=== PATIENT | male | born 1945 | race Hispanic/Latino ===

== ENCOUNTER 2017-03-06 20:29 | Inpatient (IN) | payer MEDICARE ==
[2017-03-06 20:30] VITALS: BMI 36.6
--- NOTE | 2017-03-06 20:49 | C.PDOC ---
History Of Present Illness 71 year old male presents to ED with complaints of SOB and sputum production for 2 days. Patient denies chest pain, palpitations, fever, chills and nausea/ diarrhea/vomiting. .Speaking in 4-5 word sentences Time Seen by Provider: 03/06/17 20:49 Chief Complaint (Nursing): Shortness Of Breath History Per: Patient History/Exam Limitations: no limitations Onset/Duration Of Symptoms: Days Current Symptoms Are (Timing): Still Present Initiating Event: Other Quality: Other Exacerbating Factor(s): Exertion, Coughing Current Respiratory Medications: See Home Med List Severity: Moderate Pain Scale Rating Of: 4 Associated Symptoms: Productive Cough. denies: Fever, Chills Reports Recently: Seen In ED, Treated By A Physician, Hospitalized Recent travel outside of the [place]: No Additional History Per: Family Past Medical History Reviewed: Historical Data, Nursing Documentation, Vital Signs Vital Signs: Last Vital Signs Temp Pulse 97 H 03/06/17 22:54 Resp 18 03/06/17 22:54 BP 126/65 03/06/17 22:54 Pulse Ox 97 03/06/17 22:54 - Medical History PMH: Atrial Fibrillation, Cardia Arrhythmia, CHF, COPD, HTN, Peripheral Edema, Pneumonia Surgical History: [facility] Procedures ASSISTANCE WITH RESPIRATORY VENTILATION, 24-96 HRS, CPAP (11/20/16) CORONAR ARTERIOGR-2 CATH (06/09/07) INSERTION OF INFUSION DEV INTO SUP VENA CAVA, PERC APPROACH (12/18/16) INTRODUCTION OF VASOPRESSOR INTO PERIPH VEIN, PERC APPROACH (12/18/16) LEFT HEART CARDIAC CATH (06/09/07) LT HEART ANGIOCARDIOGRAM (06/09/07) Family History: States: No Known Family Hx - Social History Hx Tobacco Use: Yes (former smoker) Hx Alcohol Use: Yes Hx Substance Use: No - Immunization History Hx Tetanus Toxoid Vaccination: No Hx Influenza Vaccination: No Hx Pneumococcal Vaccination: No Review Of Systems Constitutional: Negative for: Fever, Chills Cardiovascular: Positive for: Edema. Negative for: Chest Pain, Palpitations Respiratory: Positive for: Shortness of Breath, Sputum. Negative for: Cough Gastrointestinal: Negative for: Nausea, Vomiting, Diarrhea Musculoskeletal: Positive for: Back Pain Skin: Positive for: Rash, Lesions Neurological: Negative for: Weakness Psych: Negative for: Anxiety Physical Exam - Physical Exam Appears: Non-toxic, In Acute Distress (Moderate distress) Skin: Warm, Dry (scaly dry skin ) Eye(s): bilateral: Normal Inspection Oral Mucosa: Moist Neck: Supple Chest: Symmetrical Cardiovascular: Rhythm Regular Respiratory: Rales (bases), Rhonchi (lungs diffuse ronchi, left>right), No Wheezing Gastrointestinal/Abdominal: Bowel Sounds (Tympanic Precaussion), Soft, No Tenderness, Distention, No Guarding, No Rebound, Other (subumbilical erythema) Back: No CVA Tenderness Extremity: Normal ROM, No Tenderness, Swelling (legs bilateral edema with poor bilateral vascular stasis skin changes), Other (right pre-tibial area - 2 x 3 cm non-healing ulcer) Extremity: Bilateral: Other (poor vascular stasis skin changes,) Neurological/Psych: Oriented x3, Normal Speech, Normal Cognition Gait: Steady ED Course And Treatment - Laboratory Results Result Diagrams: 03/06/17 21:06 03/06/17 21:06 ECG: Interpreted By Me, Viewed By Me ECG Rhythm: Atrial Fibrillation (9 0), R BBB (lahb), Nonspecific Changes (lahb, unchanged from 12/18/16) O2 Sat by Pulse Oximetry: 97 Pulse Ox Interpretation: Normal - Radiology CXR: Interpreted by Me, Viewed By Me CXR Interpretation: Yes: Infiltrates (b/l ), Cardiomegaly, Other (mild vasc congestion) Progress Note: cardiac work up, Critical Care Time - Critical Care Note Total Time (in mins): 30 Documented critical care: time excludes all time spent performing seperately billable procedures. Disposition Discussed With : Gretel Bazan Comment: accepted the patient on his service and took over the care at 11:16 PM Doctor Will See Patient In The: Hospital Counseled Patient/Family Regarding: Studies Performed, Diagnosis - Disposition Disposition: HOSPITALIZED Disposition Time: 20:49 Condition: FAIR - POA Present On Arrival: Poor Glycemic Control, Pressure Ulcer - Clinical Impression Clinical Impression: Chronic congestive heart failure, Dyspnea, Leg swelling, CO2 retention, Atrial fibrillation with RVR - PA / REFERENCE INVESTIGATOR / Resident Statement MD/DO has reviewed & agrees with the documentation as recorded. - Scribe Statement The provider has reviewed the documentation as recorded by the Zackaryibgriselda Loera All medical record entries made by the Scribgriselda were at my direction and personally dictated by me. I have reviewed the chart and agree that the record accurately reflects my personal performance of the history, physical exam, medical decision making, and the department course for this patient. I have also personally directed, reviewed, and agree with the discharge instructions and disposition. Decision To Admit - Pt Status Changed To: Hospital Disposition Of: Inpatient - Admit Certification Admit to Inpatient:: After my assessment, the patient will require hospitalization for at least two midnights. This is because of the severity of symptoms shown, intensity of services needed, and/or the medical risk in this patient being treated as an outpatient. - InPatient: Physician Admission Certification: I certify that this patient requires 2 or more midnights of care for the following reason:: After my assessment, the patient will require hospitalization for at least two midnights. This is because of the severity of symptoms shown, intensity of services needed, and/or the medical risk in this patient being treated as an outpatient. - . Bed Request Type: Telemetry Admitting Physician: Gretel Bazan Patient Diagnosis: Chronic congestive heart failure, Dyspnea, Leg swelling, Atrial fibrillation with RVR
[2017-03-06 21:20] LABS: CHLORIDE 86 mmol/L (98-107); SODIUM 137 mmol/L (132-148)
[2017-03-06 21:21] LABS: POTASSIUM 3.6 mmol/L (3.6-5.2)
[2017-03-06 21:22] LABS: ABG ALLEN TEST POS; DRAW SITE RRA
[2017-03-06 21:23] LABS: ALB/GLOB RATIO 1.2 (1.0-2.1); ALKALINE PHOSPHATASE 81 U/L (38-126); AST/SGOT 47 U/L (17-59); BASO % 0.7 % (0.0-2.0); BILIRUBIN,TOTAL 1.7 mg/dL (0.2-1.3); BLOOD UREA NITROGEN 18 mg/dL (9-20); EOS % 0.6 % (0.0-4.0); GFR AFRICAN-AMERICAN > 60; GLUCOSE,RANDOM 113 mg/dL (75-110); HEMATOCRIT 40.5 % (35.0-51.0); LYMPH # 1.2 K/uL (1.0-4.3); LYMPH % 20.6 % (20.0-40.0); MEAN CELL VOLUME 98.4 fL (80.0-94.0); MEAN CORPUSCULAR HEMOGLOBIN 32.3 pg (27.0-31.0); MEAN CORPUSCULAR HGB CONC 32.8 g/dL (33.0-37.0); MEAN PLATELET VOLUME 7.8 fL (7.2-11.7); MONO # 0.8 K/uL (0.0-0.8); MONO % 13.3 % (0.0-10.0); RED CELL DISTRIBUTION WIDTH 14.6 % (11.5-14.5); TOTAL PROTEIN 6.7 g/dL (6.3-8.3); WHITE BLOOD COUNT 5.7 K/uL (4.8-10.8)
[2017-03-06 21:24] LABS: ALT/SGPT 42 U/L (21-72); CALCIUM 8.6 mg/dl (8.6-10.4); MAGNESIUM 1.7 mg/dL (1.6-2.3)
[2017-03-06 21:47] LABS: INR 1.6
[2017-03-06 21:52] LABS: CARBON DIOXIDE 41 mmol/L (22-30)
[2017-03-06 22:39] LABS: RBC URINE 4 /hpf (0-3); URINE BACTERIA MOD (<OCC); URINE BILIRUBIN NEGATIVE (NEGATIVE); URINE BLOOD NEGATIVE (NEGATIVE); URINE GLUCOSE (UA) NORMAL (Normal); URINE KETONE NEGATIVE (NEGATIVE); URINE LEUKOCYTE ESTERASE 3+ Leu/uL (Negative); URINE PROTEIN 2+ mg/dL (NEGATIVE); WBC URINE 116 /hpf (0-5)
[2017-03-06 23:00] LABS: URINE COLOR YELLOW (YELLOW)
[2017-03-07 06:22] LABS: BASO % 0.4 % (0.0-2.0); EOS % 0.9 % (0.0-4.0); HEMATOCRIT 40.6 % (35.0-51.0); LYMPH # 1.1 K/uL (1.0-4.3); LYMPH % 21.8 % (20.0-40.0); MEAN CELL VOLUME 99.9 fL (80.0-94.0); MEAN CORPUSCULAR HEMOGLOBIN 31.4 pg (27.0-31.0); MEAN CORPUSCULAR HGB CONC 31.4 g/dL (33.0-37.0); MEAN PLATELET VOLUME 7.7 fL (7.2-11.7); MONO # 0.8 K/uL (0.0-0.8); MONO % 14.6 % (0.0-10.0); RED CELL DISTRIBUTION WIDTH 15.1 % (11.5-14.5); WHITE BLOOD COUNT 5.1 K/uL (4.8-10.8)
[2017-03-07] MEDS ORDERED: guaiFENesin DM 200 mg-20 mg/10 ml UD PO ONE (06:25)
[2017-03-07 07:33] LABS: CHLORIDE 85 mmol/L (98-107); SODIUM 139 mmol/L (132-148)
[2017-03-07 07:34] LABS: POTASSIUM 3.2 mmol/L (3.6-5.2)
[2017-03-07 07:36] LABS: ALB/GLOB RATIO 1.1 (1.0-2.1); ALKALINE PHOSPHATASE 80 U/L (38-126); ALT/SGPT 41 U/L (21-72); AST/SGOT 49 U/L (17-59); BILIRUBIN,TOTAL 1.2 mg/dL (0.2-1.3); BLOOD UREA NITROGEN 17 mg/dL (9-20); CALCIUM 8.4 mg/dl (8.6-10.4); GFR AFRICAN-AMERICAN > 60; GLUCOSE,RANDOM 97 mg/dL (75-110); TOTAL PROTEIN 6.5 g/dL (6.3-8.3)
[2017-03-07 08:42] LABS: CARBON DIOXIDE 43 mmol/L (22-30)
--- NOTE | 2017-03-07 09:04 | RAD ---
PROCEDURE: CHEST RADIOGRAPH, 1 VIEW HISTORY: SOB COMPARISON: None available. FINDINGS: LUNGS: Moderate to severe venous congestion. More prominent airspace opacities in the mid to lower lung zones. Bilateral pleural effusions. PLEURA: As above. CARDIOVASCULAR: Cardiomegaly. Calcification at the aortic knob. OSSEOUS STRUCTURES: Degenerative changes in the spine and shoulders. Calcific tendinopathy of the left proximal humerus. VISUALIZED UPPER ABDOMEN: Normal. OTHER FINDINGS: None. IMPRESSION: Moderate to severe venous congestion. More prominent airspace opacities in the mid to lower lung zones. Bilateral pleural effusions.
[2017-03-07] MEDS ORDERED: Potassium Chloride 20 mEq ER Tab PO ONE ×2 (09:19→10:52)
--- NOTE | 2017-03-07 12:53 | CP.PCM.HP ---
History of Present Illness - History of Present Illness History of Present Illness: COMPREHENSIVE HISTORY & PHYSICAL EXAM HPI LAST FEW DAYS HAS BEEN C/O SOB AND SWELLING OF LEGS . PT. 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 C , A. FIB (DECLINED ANTICOAGULATION ) HAD PLRONGED RECENT STAY IN REHAB. WENT HOME AND DID NOT F/U. ALSO HAS STOPPED TAKING SOME OF HIS MEDICATION. PT. HAS HIS OWN OPINION ON WHAT MEDICATION HE NEEDS TO TAKE AND DECLINED OTHER MEDS RXED BY MD. PAST HIST. PERSONAL HIST: Smoking. N Alcohol. Y Allergy N Travel_- . FAMILY HIST : ROS : Constitutional: Negative for weight change Eyes: Negative for redness, swelling, itching, discharge, vision changes, blurry vision, double vision, glaucoma, cataracts, Ears: Negative for hearing loss, ringing, , tinnitus, vertigo Nose: Negative for rhinorrhea, stuffiness, sniffing, itching, postnasal drip, discoloration, nasal congestion and epistaxis. Throat: Negative for throat clearing, sore throat, hoarseness, difficulty swallowing and difficulty speaking. Respiratory: COUGH, NO EXP, WHEEZING Cardiovascular POS for chest pain, palpitations, orthopnea, PND, Edema of legs , leg crampsclaudication, , irregular heartbeat, Neurology: Negative for irritability, muscle weakness, numbness and tingling, seizures, tremors, migraines, slurred speech, syncope, memory loss, mood changes , recurrent headaches Gastrointestinal: Negative for difficulty swallowing, diarrhea, constipation, black stools, rectal bleeding, nausea, flatulence, reflux, poor appetite, changes in bowel habits, abdominal pain Genitourinary: Negative for frequent urination, hematuria, discharge, incontinence, urinary retention, frequent UTI, Psychiatric: Negative for depression, anxiety/panic, suicidal tendencies, Musculoskeletal: Negative for swollen joints, back pain, , neck pain, morning stiffness of joints, . Skin: Negative for rash, ulcers, itching, dry skin and pigmented lesions. P/E: Constitutional: Appears stated age and SOB Head: Normocephalic. Ears: External ear canals patent without inflammation. Tympanic membranes intact with normal light reflex and landmark. Eyes: Pupils are central, bilaterally equal, symmetrical and reacts to light with normal movements and no icterus or pallor. Nose: External nares are patent. Mucosa is pink Mouth-Throat: Good general appearance and condition. No post-pharyngeal/oropharyngeal erythema and tonsillar hypertrophy. Good dental hygiene. Neck-Lymphatic: Neck is supple with normal ROM, no thyromegaly, lymph nodes or masses. JVD is normal with no carotid bruit. Lungs CANDACE POOR AIR ENTRY WITH RONCHI . Cardiovascular: S1 and S2 are normal with no murmurs, gallops and rub. GI Exam: No hepatomegaly. Abdomen is soft and non-tender. No Organomegaly , masses or hernias are evident and bowel sounds are normal and active. Neurology: Higher function and all cranial nerves intact, with no gross motor or sensory deficit. Superficial and deep reflexes are normal with downwards planters. No cerebellar deficit with normal gait. Musculoskeletal: No tender spots with normal curvature of the spine with no swelling or restricted ROM of the small and large joints. Extremities: Homans sign absent. Intact pulses with pitting edema, AND ERYTHEMA Skin: No rash, eruptions or abnormal skin pigmentation LAB/RADIOLOGY: ASSESMENT : HEART FAILURE WITH NORMAL EF COPD WITH [id number]. INFECTION UROSEPSIS ALCOHOLIC CIRRHOSIS A. FIB PLAN: IV LASIX/ALDACTONE PT REFUSES ANTICOAGULATION . [id number] SCORE IS 3 ID EVAL Present on Admission - Present on Admission Any Indicators Present on Admission: No Past Patient History - Past Medical History & Family History Past Medical History?: Yes - Past Social History Smoking Status: Former Smoker - CARDIAC Hx Atrial Fibrillation: Yes Hx Cardia Arrhythmia: Yes Hx Congestive Heart Failure: Yes Hx Hypertension: Yes Hx Peripheral Edema: Yes - PULMONARY Hx Chronic Obstructive Pulmonary Disease (COPD): Yes Hx Pneumonia: Yes - NEUROLOGICAL Hx Neurological Disorder: No - HEENT Hx HEENT Problems: No - RENAL Hx Chronic Kidney Disease: No - ENDOCRINE/METABOLIC Hx Endocrine Disorders: No - HEMATOLOGICAL/ONCOLOGICAL Hx Blood Disorders: Yes Hx Hepatitis C: Yes - INTEGUMENTARY Hx Dermatological Problems: Yes Hx Psoriasis: Yes - MUSCULOSKELETAL/RHEUMATOLOGICAL Hx Musculoskeletal Disorders: Yes Hx Falls: No Other/Comment: BLE WEAKNESS PT. ON WHEELCHAIR - GASTROINTESTINAL Hx Gastrointestinal Disorders: Yes Other/Comment: CIRRHOSIS OF LIVER - GENITOURINARY/GYNECOLOGICAL Hx Genitourinary Disorders: No - PSYCHIATRIC Hx Substance Use: No - SURGICAL HISTORY Hx Appendectomy: Yes - ANESTHESIA Hx Anesthesia: Yes Hx Anesthesia Reactions: No Meds Allergies/Adverse Reactions: Allergies Allergy/AdvReac Type Severity Reaction Status Date / Time No Known Allergies Allergy Verified 03/06/17 20:47 Results - Vital Signs Recent Vital Signs: Last Vital Signs Temp 97.4 F L 03/07/17 08:08 Pulse 103 H 03/07/17 10:58 Resp 20 03/07/17 08:08 BP 128/76 03/07/17 10:58 Pulse Ox 98 03/07/17 08:08 - Labs Result Diagrams: 03/07/17 06:13 03/07/17 06:13 Labs: Laboratory Results - last 24 hr 03/07/17 06:13 WBC 5.1 RBC 4.06 L Hgb 12.7 Hct 40.6 MCV 99.9 H MCH 31.4 H MCHC 31.4 L RDW 15.1 H Plt Count 134 MPV 7.7 Neut % (Auto) 62.3 Lymph % (Auto) 21.8 [place] % (Auto) 14.6 H Eos % (Auto) 0.9 Baso % (Auto) 0.4 Neut # 3.2 Lymph # 1.1 [place] # 0.8 Eos # 0.0 Baso # 0.0 Sodium 139 Potassium 3.2 L Chloride 85 L Carbon Dioxide 43 H* Anion Gap 17 BUN 17 Creatinine 0.8 Est GFR ( Amer) > 60 Est GFR (Non-Af Amer) > 60 Random Glucose 97 Calcium 8.4 L Total Bilirubin 1.2 AST 49 ALT 41 Alkaline Phosphatase 80 Total Protein 6.5 Albumin 3.4 L Globulin 3.1 Albumin/Globulin Ratio 1.1
[2017-03-07] MEDS: Albuterol-Ipratrop 3 mg / 0.5 (3 ml) UD INH SCH ×2 (14:12→19:36)
--- NOTE | 2017-03-07 15:41 | CP.PCM.CON ---
History of Present Illness - History of Present Illness History of Present Illness: Infectious Disease Consult; Dictated; Dictation #[id number]. see report. Past Patient History - Past Medical History & Family History Past Medical History?: Yes - Past Social History Smoking Status: Former Smoker - CARDIAC Hx Atrial Fibrillation: Yes Hx Cardia Arrhythmia: Yes Hx Congestive Heart Failure: Yes Hx Hypertension: Yes Hx Peripheral Edema: Yes - PULMONARY Hx Chronic Obstructive Pulmonary Disease (COPD): Yes Hx Pneumonia: Yes - NEUROLOGICAL Hx Neurological Disorder: No - HEENT Hx HEENT Problems: No - RENAL Hx Chronic Kidney Disease: No - ENDOCRINE/METABOLIC Hx Endocrine Disorders: No - HEMATOLOGICAL/ONCOLOGICAL Hx Blood Disorders: Yes Hx Hepatitis C: Yes - INTEGUMENTARY Hx Dermatological Problems: Yes Hx Psoriasis: Yes - MUSCULOSKELETAL/RHEUMATOLOGICAL Hx Musculoskeletal Disorders: Yes Hx Falls: No Other/Comment: BLE WEAKNESS PT. ON WHEELCHAIR - GASTROINTESTINAL Hx Gastrointestinal Disorders: Yes Other/Comment: CIRRHOSIS OF LIVER - GENITOURINARY/GYNECOLOGICAL Hx Genitourinary Disorders: No - PSYCHIATRIC Hx Substance Use: No - SURGICAL HISTORY Hx Appendectomy: Yes - ANESTHESIA Hx Anesthesia: Yes Hx Anesthesia Reactions: No Meds Allergies/Adverse Reactions: Allergies Allergy/AdvReac Type Severity Reaction Status Date / Time No Known Allergies Allergy Verified 03/06/17 20:47 - Medications Medications: Current Medications Albuterol/Ipratropium (Duoneb 3 Mg/0.5 Mg (3 Ml) Ud) 3 ml INH RQ6 [facility] Last Admin: 03/07/17 14:12 Dose: 3 ml Digoxin (Lanoxin) 0.125 mg PO DAILY@1800 [facility] Furosemide (Lasix) 40 mg IVP Q12 [facility] Last Admin: 03/07/17 10:56 Dose: Not Given Heparin Sodium (Porcine) (Heparin) 5,000 units SC Q12 [facility] Cefepime HCl 1 gm/ Dextrose 50 mls @ 100 mls/hr IVPB Q8 [facility] Last Admin: 03/07/17 15:39 Dose: 100 mls/hr Spironolactone (Aldactone) 25 mg PO BID [facility] Last Admin: 03/07/17 11:00 Dose: 25 mg Results - Vital Signs Recent Vital Signs: Last Vital Signs Temp 97.4 F L 03/07/17 08:08 Pulse 96 H 03/07/17 14:14 Resp 20 03/07/17 08:08 BP 128/76 03/07/17 10:58 Pulse Ox 98 03/07/17 08:08 - Labs Result Diagrams: 03/07/17 06:13 03/07/17 06:13 Labs: Laboratory Results - last 24 hr 03/07/17 06:13 WBC 5.1 RBC 4.06 L Hgb 12.7 Hct 40.6 MCV 99.9 H MCH 31.4 H MCHC 31.4 L RDW 15.1 H Plt Count 134 MPV 7.7 Neut % (Auto) 62.3 Lymph % (Auto) 21.8 [place] % (Auto) 14.6 H Eos % (Auto) 0.9 Baso % (Auto) 0.4 Neut # 3.2 Lymph # 1.1 [place] # 0.8 Eos # 0.0 Baso # 0.0 Sodium 139 Potassium 3.2 L Chloride 85 L Carbon Dioxide 43 H* Anion Gap 17 BUN 17 Creatinine 0.8 Est GFR ( Amer) > 60 Est GFR (Non-Af Amer) > 60 Random Glucose 97 Calcium 8.4 L Total Bilirubin 1.2 AST 49 ALT 41 Alkaline Phosphatase 80 Total Protein 6.5 Albumin 3.4 L Globulin 3.1 Albumin/Globulin Ratio 1.1
--- NOTE | 2017-03-07 17:59 | CON ---
DATE: 03/07/2017 REQUESTING PHYSICIAN: Dr. Baazn. REASON FOR CONSULTATION: Urosepsis and cellulitis of lower extremities. HISTORY OF PRESENT ILLNESS: The patient is a 71-year-old male well known to me with multiple medical problems including CHF, COPD with cor pulmonale, early cirrhosis of the liver, hepatitis C, atrial f ibrillation with declining of anticoagulation, only taking aspirin who was admitted to [facility] on 03/06/2017 with shortness of breath, hardly completing 2 sentences at a time. The patient state s he has been lately feeling short of breath with swelling of his lower extremities. Also, he is umer nging out thick, yellowish sputum. The patient also states his legs have been swelling and there is some oozing from the left lower extremity ulceration of serous fluid. The patient was recently hospi talized with similar complaints in [facility] from 12/18/2016 to 12/27/2016. He was then transf erred to rehab where he had a prolonged stay. Post-discharge, the patient failed to follow with his private M.D. He now comes in with similar complaints with swelling of his legs and hardly completing sentences, 2 or 3 words. The patient denies any fever or chills. The patient denies any sinus prob lems or headaches. Recently, also has been having some dribbling of the urine with some dysuria. He states he has frequency also lately. The patient has history of cancer of the prostate with some se eds placed in a few years ago by his urologist, . Presently also requesting consultation wi his urologist. As reported above, infectious disease consultation requested by Dr. Bazan for uro sepsis, possible pneumonia and bilateral cellulitis of lower extremities. The patient also has leuko penia and thrombocytopenia, chronic in nature secondary to his liver problems and hep C. On admissio n, he was found to have pO2 of 64 with pCO2 retention of 70 and pH of 7.43. Serum lactate was 1.4. ProBNP was 2500. PAST MEDICAL HISTORY: As above, history of a normal ejection fraction, heart failure, COPD with coug h and malaise, hepatitis C with early cirrhosis of the liver and atrial fibrillation. PERSONAL HISTORY: The patient denies smoking or alcohol. Admits to drinking wine, but states that reese villalobos has not been drinking wine since December after he was discharged from the rehab in December. ALLERGIES: None known. TRAVEL: Denies any recent travel, but states he has had sick contacts with his was sick and he g ot worse after her. FAMILY HISTORY: Unremarkable. REVIEW OF SYSTEMS: CONSTITUTIONAL: Denies any weight change. RESPIRATORY: Does complain of cough with productive sputum and shortness of breath. CARDIOVASCULAR SYSTEM: Denies any chest pains or palpitations, but does complain of paroxysmal noctu rnal dyspnea as well as dyspnea at rest. CENTRAL NERVOUS SYSTEM: Denies headache, tremors or seizure disorder. GASTROINTESTINAL: Unremarkable. No diarrhea, no constipation and no loss of weight. GENITOURINARY: As reported above, has frequency and dysuria. Denies any penile discharge or urethri tis. MUSCULOSKELETAL: Denies any joint pain, back pain or any stiffness of the joints. The rest of the systems is unremarkable. PHYSICAL EXAMINATION: GENERAL: The patient is awake, alert, presently mildly dyspneic at rest and talks in short sentences . VITAL SIGNS: Blood pressure 128/76, respirations 20, pulse of 103, temperature 97.4 and pulse ox on admission was 98%. HEENT: Pupils equal, reactive to light and accommodation. Extraocular movements full. Fundus negat claus. Sclerae nonicteric. Conjunctivae normal. NECK: JVP not elevated. Neck appears to be supple. LUNGS: Diminished breath sounds at the bases and bibasilar poor air entry with few scattered rhonchi . CARDIOVASCULAR SYSTEM: S1, S2 irregular. No murmur or gallop. ABDOMEN: Obese. Bowel sounds are present. No organomegaly appreciated. Ascites. CENTRAL NERVOUS S YSTEM: No gross deficits. Moves all extremities. Reflexes are equal and symmetrical. LOWER EXTREMITIES: Bilateral cellulitis and pitting edema. Also, erythema extending from the ankle up to the knee. There is some left lower extremity ulceration with oozing serous drainage from the s ite and 2+ edema. LABORATORY DATA: WBCs 5.1, H and H of 12.7 and 40.6 and platelets 134. Creatinine 0.8 and BUN 17. Liver function tests: Bilirubin 1.2. AST, ALT and alkaline phosphatase are normal. ProBNP is 2500. Serum lactate was 1.4. Chest x-ray of 03/06/2017 showed moderate to severe venous congestion. Prominent air space opacities , especially mid to lower lung zones and bilateral pleural effusion. Urinalysis is 3+ leukocytes, WBCs 116, RBCs 4, urine bacteria moderate and hyaline casts 3 to 5. IMPRESSION: 1. Urosepsis with history of cancer of the prostate with radiation seeds in the past. Rule out occu lt prostatitis. 2. Exacerbation of congestive heart failure and chronic obstructive pulmonary lung disease, rule out pneumonia versus bronchopulmonary infection. 3. Bilateral cellulitis of lower extremities with skin ulcer, left lower extremity. 4. History of hepatitis C. 5. Alcoholic cirrhosis. 6. Atrial fibrillation history. PLAN: Marcelino cultures, get sputum cultures and MRSA screen and wound culture and sensitivity. Start IV cefepime 1 gram q. 8 hourly. Add IV vancomycin 1 gram q. 12 hourly for staph and strep coverage. A lso, follow up vanc trough on the fourth dose and keep between 15 and 20 and notify me. Close follow up on renal functions. The patient also getting diuresis with Lasix as per PMD. Pulmonary toilet. Lower legs wound care, lower extremities. Will follow along with you. Thank you very much for allowing me to participate in the care of your patient. Farzaneh Andres MD cc: [id number] TT: 03/07/2017 17:59:34 Confirmation # [id number] Dictation # [id number]
[2017-03-07] MEDS: Digoxin 125 mcg (0.125 mg) Tab PO SCH (18:41)
[2017-03-07] MEDS: Vancomycin 1 gm/NS 200 ml 200 ML IVPB SCH (18:48)
[2017-03-08] MEDS: Albuterol-Ipratrop 3 mg / 0.5 (3 ml) UD INH SCH ×3 (01:32→13:30)
[2017-03-08] MEDS: Vancomycin 1 gm/NS 200 ml 200 ML IVPB SCH ×2 (06:21→18:42)
[2017-03-08 07:09] LABS: CHLORIDE 84 mmol/L (98-107)
[2017-03-08 07:10] LABS: POTASSIUM 3.6 mmol/L (3.6-5.2); SODIUM 135 mmol/L (132-148)
[2017-03-08 07:12] LABS: GFR AFRICAN-AMERICAN > 60
[2017-03-08 07:13] LABS: BLOOD UREA NITROGEN 18 mg/dL (9-20); CALCIUM 7.9 mg/dl (8.6-10.4); GLUCOSE,RANDOM 98 mg/dL (75-110)
[2017-03-08 07:22] LABS: BASO % 0.2 % (0.0-2.0); EOS % 0.4 % (0.0-4.0); HEMATOCRIT 39.6 % (35.0-51.0); LYMPH # 0.3 K/uL (1.0-4.3); LYMPH % 2.3 % (20.0-40.0); MEAN CORPUSCULAR HEMOGLOBIN 31.8 pg (27.0-31.0); MEAN CORPUSCULAR HGB CONC 32.1 g/dL (33.0-37.0); MEAN PLATELET VOLUME 7.9 fL (7.2-11.7); MONO # 0.6 K/uL (0.0-0.8); MONO % 5.1 % (0.0-10.0); PLATELET COUNT 135 K/uL (130-400); RED CELL DISTRIBUTION WIDTH 14.8 % (11.5-14.5)
[2017-03-08 07:23] LABS: WHITE BLOOD COUNT 11.5 K/uL (4.8-10.8)
[2017-03-08 08:15] LABS: CARBON DIOXIDE 45 mmol/L (22-30)
[2017-03-08 09:29] LABS: NEUTROPHIL 82 % (50-75); TOTAL CELLS COUNTED 100
--- NOTE | 2017-03-08 13:07 | CP.PCM.PN ---
Subjective - Date & Time of Evaluation Date of Evaluation: 03/08/17 Time of Evaluation: 13:05 - Subjective Subjective: CHIEF COMPLAINTS TODAY : PAIN AND SWELLING OF LEGS COUGH WITH NO EXPECTORATION ROS. HEENT : N. Resp : POS cough, wheezing ,pleuritic CP , NO hemoptysis Cardio : No anginal CP, PND, orthopnea, palpitation GI : No abd.pain, n/v ,diarrhea or GI bleeding . GAS TREATER : No headache, vertigo, focal deficit. Musculoskel : No joint swelling , Derm : No rash Psych : Normal affect. Ext : SWELLING OF LEGS PE. Pt. is alert awake in no distress. V.S As noted in the chart Head ,ear nose,throat and eyes : Normal. Neck : Supple with normal carotids. Lungs: POOR AIR ENTRY Heart : S1 & S2 normal with S4. No murmur. Abd : Soft non tender with normal bowel sounds. Neuro : Moves all ext. with no localized deficit. Ext : CANDACE EDEMA WITH CELLULITIS Derm : No rashes or decubitus ulcer. LABS/RADIOLOGY: ASSESSMENT/PLAN : IV AB /LASIX K OK Objective - Vital Signs/Intake and Output Vital Signs (last 24 hours): Temp Pulse Resp BP Pulse Ox 97.7 F 106 H 20 89/53 L 97 03/08/17 08:10 03/08/17 08:10 03/08/17 08:10 03/08/17 10:36 03/08/17 08:10 Intake and Output: 03/08/17 03/08/17 11:59 23:59 Intake Total 490 Output Total 800 Balance -310 - Medications Medications: Current Medications Albuterol/Ipratropium (Duoneb 3 Mg/0.5 Mg (3 Ml) Ud) 3 ml INH RQ6 [facility] Last Admin: 03/08/17 07:45 Dose: 3 ml Digoxin (Lanoxin) 0.125 mg PO DAILY@1800 [facility] Last Admin: 03/07/17 18:41 Dose: 0.125 mg Furosemide (Lasix) 40 mg IVP Q12 [facility] Last Admin: 03/08/17 10:36 Dose: Not Given Heparin Sodium (Porcine) (Heparin) 5,000 units SC Q12 [facility] Last Admin: 03/08/17 10:34 Dose: 5,000 units Cefepime HCl 1 gm/ Dextrose 50 mls @ 100 mls/hr IVPB Q8 [facility] Last Admin: 03/08/17 05:38 Dose: 100 mls/hr Vancomycin/Sodium Chloride (Vancocin) 200 mls @ 133 mls/hr IVPB Q12H [facility] Stop: 03/12/17 18:01 Last Admin: 03/08/17 06:21 Dose: 133 mls/hr Lactulose (Enulose) 20 gm PO BID [facility] Last Admin: 03/08/17 12:07 Dose: 20 gm Spironolactone (Aldactone) 25 mg PO BID [facility] Last Admin: 03/08/17 10:36 Dose: Not Given - Labs Labs: 03/08/17 06:28 03/08/17 06:28 PT 17.7 SECONDS (9.7-12.2) H 03/06/17 21:06 INR 1.6 03/06/17 21:06 APTT 36 SECONDS (21-34) H 03/06/17 21:06
--- NOTE | 2017-03-08 13:57 | CP.PCM.PN ---
Subjective - Date & Time of Evaluation Date of Evaluation: 03/08/17 Time of Evaluation: 13:57 - Subjective Subjective: CHIEF COMPLAINTS TODAY : c/o SOB AND COUGH PAIN AND SWELLING OF LEGS +VE DYSURIA. BP 89/50 Seen by his urologist DR LUZ TODAY ROS. HEENT : N. Resp : POS cough, wheezing ,pleuritic CP , NO hemoptysis Cardio : No anginal CP, PND, orthopnea, palpitation GI : No abd.pain, n/v ,diarrhea or GI bleeding . 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 Musculoskel : No joint swelling , Derm : No rash Psych : Normal affect. Ext : SWELLING OF LEGS PE. Pt. is alert awake in no distress. V.S As noted in the chart Head ,ear nose,throat and eyes : Normal. Neck : Supple with normal carotids. Lungs: POOR AIR ENTRY Heart : S1 & S2 normal with S4. No murmur. Abd : Soft non tender with normal bowel sounds. Neuro : Moves all ext. with no localized deficit. Ext : CANDACE EDEMA WITH CELLULITIS Derm : No rashes or decubitus ulcer. LABS/RADIOLOGY: URINE CULTURE +VE GNR ASSESSMENT > UROSEPSIS- GNR > CA OF THE PROSTATE S/P SEEDS IMPLANTATION (5YRS AGO ) > HISTORY OF NEPHROLITHIASIS > EXACERBATION OF CHF/ COPD R/O PNEUMONIA VS BPI >B/L CELLULITUS WITH ULCER LLE. >HEPTITIS C > ALCOHOLIC CIRRHOSIS. >ATRIAL FIBRILLATION. /PLAN : CONTINUE iv CEFEPIME 1 G EVERY 8 HOURLY 03/07/17 CONTINUE iv VANCOMYCIN 1 G EVERY 12 HOURLY 03/07/17. fOLLOW-UP vANCO TROUGH LEVEL PRIOR TO THE FOURTH DOSE AND MAINTAIN BETWEEN 10 AND 20. fOLLOW-UP URINE CULTURES TO ADJUST ANTIBIOTICS. PER . PULMONARY TOILET. LASIX HELD PER PMD. FOLLOW-UP RENAL FUNCTIONS CLOSELY. Objective - Vital Signs/Intake and Output Vital Signs (last 24 hours): Temp Pulse Resp BP Pulse Ox 97.7 F 106 H 20 89/53 L 97 03/08/17 08:10 03/08/17 08:10 03/08/17 08:10 03/08/17 10:36 03/08/17 08:10 Intake and Output: 03/08/17 03/08/17 06:59 18:59 Intake Total 990 Output Total 2150 Balance -1160 - Medications Medications: Current Medications Albuterol/Ipratropium (Duoneb 3 Mg/0.5 Mg (3 Ml) Ud) 3 ml INH RQ6 [facility] Last Admin: 03/08/17 13:30 Dose: 3 ml Digoxin (Lanoxin) 0.125 mg PO DAILY@1800 [facility] Last Admin: 03/07/17 18:41 Dose: 0.125 mg Furosemide (Lasix) 40 mg IVP Q12 [facility] Last Admin: 03/08/17 10:36 Dose: Not Given Heparin Sodium (Porcine) (Heparin) 5,000 units SC Q12 [facility] Last Admin: 03/08/17 10:34 Dose: 5,000 units Cefepime HCl 1 gm/ Dextrose 50 mls @ 100 mls/hr IVPB Q8 [facility] Last Admin: 03/08/17 05:38 Dose: 100 mls/hr Vancomycin/Sodium Chloride (Vancocin) 200 mls @ 133 mls/hr IVPB Q12H [facility] Stop: 03/12/17 18:01 Last Admin: 03/08/17 06:21 Dose: 133 mls/hr Lactulose (Enulose) 20 gm PO BID [facility] Last Admin: 03/08/17 12:07 Dose: 20 gm Spironolactone (Aldactone) 25 mg PO BID [facility] Last Admin: 03/08/17 10:36 Dose: Not Given - Labs Labs: 03/08/17 06:28 03/08/17 06:28 PT 17.7 SECONDS (9.7-12.2) H 03/06/17 21:06 INR 1.6 03/06/17 21:06 APTT 36 SECONDS (21-34) H 03/06/17 21:06
--- NOTE | 2017-03-08 15:11 | CARD ---
APPROVED REPORT EKG Measurement Heart [id number] <Conclusion> a,fib Right bundle branch block Left anterior fascicular block Bifascicular block Abnormal ECG
[2017-03-08] MEDS: Digoxin 125 mcg (0.125 mg) Tab PO SCH (18:42)
--- NOTE | 2017-03-08 19:59 | CON ---
DATE: 03/08/2017 TIME OF CONSULTATION: Roughly 6:47 p.m. BRIEF HISTORY: The patient is a 71-year-old obese white male well known to me with a history of prostate cancer and kidney stones, status post I-125 prostate seed implantation and IMRT done at [facility] on 06/02/2006 for low risk prostate cancer disease with a PSA of 4.43 and also received neoadjuvant and adjuvant ADT. He passed a right upper ureteral stone on his own during a past [facility] admission. His last abdominal pelvic CT stone protocol done at [facility] on 06/01/2015 showed multiple bilateral nonobstructing renal calculi, brachytherapy seeds in the prostate and no definite skeletal pathology. A KUB also done at [facility] on 06/01/2015 showed a possible punctate calcification in the left upper pole kidney. His last outpatient GFR on 2014 was 81. His glucose is 118. His lipid panel showed a total cholesterol level of 205 and an LDL level of 123, both slightly elevated. His CBC was normal and his PSA was less than 0.02. His total testosterone level was 340.4 and his free testosterone level was 69.28. He also has a history of ED. The patient also has a significant past medical history of severe COPD and congestive heart failure. He currently was admitted with an acute cellulitis of the lower extremities. He also was found to have a urinary tract infection on this admission. He is currently on IV Maxipime and vancomycin. PAST MEDICAL HISTORY: Consistent with what is described above plus CHF, COPD, psoriasis, coronary artery disease, hypertension, emphysema, diabetes mellitus, BPH, CAP and kidney stones. CURRENT MEDICATIONS: Include Lasix, aspirin 81 mg, Lasix 40 mg daily, enalapril 10 mg twice a day, and Digitek 125 mcg once a day. The patient, however, has a poor compliance with his medications. PHYSICAL EXAMINATION: GENERAL: Today, the patient is a well-developed, well-nourished obese white male. ABDOMEN: Markedly distended abdomen today. He, however, has no CVA tenderness and no suprapubic tenderness. GENITALIA: He is noncircumcised with a normal glandular meatus and almost a buried penis. He has difficulty voiding urine because of his obesity. He currently has some mild dysuria and has been taking Pyridium or the equivalent as an outpatient for his dysuria. RECTAL: Normal rectal tone without fluctuance or masses. Prostate is flat and smooth, symmetrical, nontender without nodules or indurations with a palpable median sulcus. LABORATORY DATA: Today, 03/08/2017, his CBC shows a WBC count of 11.5, hemoglobin of 12.7, hematocrit 39.6 and a platelet count of 135,000. His coag profile shows a PT of 17.7, which is elevated, INR of 1.6, which is also elevated, and a PTT of 36. His blood gas is quite abnormal also which shows a pCO2 of 70 and a pO2 of 64 with a bicarbonate level of 39.0. His chemistry profile shows a sodium of 135, potassium 3.6, chloride of 84 and CO2 of 45. BUN and creatinine were 18 and 0.8 respectively with a GFR of 60, showing relatively normal kidney function at this time. His random glucose was 98 and calcium was 7.9. His total bilirubin was 1.2. AST was 49, ALT was 41 and alk phos was 80. His urinalysis on 03/06/2017, color was yellow, clarity was hazy, pH was 7.0, specific gravity 1.020, protein was 2+, glucose was normal. Ketones , blood, nitrate and bilirubin were all negative. Urobilinogen was 4.0, leukocyte esterase was 3+. There were 116 WBCs, 4 RBCs and moderate bacteria per power field, indicating a probable urinary tract infection. His urine culture and sensitivity was positive for gram-negative rods, lactose insurance operations rep greater than 100,000 colonies. DIAGNOSTIC IMPRESSION: Urologically for this patient: 1. Prostate cancer which has been relatively stable since 2006 with his last PSA of less than 0.02. 2. Bilateral kidney stones. PLAN: For this patient will be to obtain an abdominal pelvic CT stone protocol and KUB. We will also obtain a followup total PSA. Arsen Ann MD cc: [id number] TT: 03/08/2017 19:59:29 Confirmation # [id number] Dictation # [id number] CRUZ
[2017-03-08 20:25] LABS: PROSTATE SPECIFIC ANTIGEN < 0.064 ng/mL (0.00-4.0)
[2017-03-09] MEDS: Albuterol-Ipratrop 3 mg / 0.5 (3 ml) UD INH SCH ×4 (01:18→21:30)
[2017-03-09 05:38] LABS: CHLORIDE 87 mmol/L (98-107); POTASSIUM 4.6 mmol/L (3.6-5.2); SODIUM 134 mmol/L (132-148)
[2017-03-09 05:40] LABS: GFR AFRICAN-AMERICAN > 60
[2017-03-09 05:41] LABS: ALB/GLOB RATIO 1.1 (1.0-2.1); ALKALINE PHOSPHATASE 67 U/L (38-126); ALT/SGPT 29 U/L (21-72); AST/SGOT 60 U/L (17-59); BILIRUBIN,TOTAL 1.6 mg/dL (0.2-1.3); BLOOD UREA NITROGEN 20 mg/dL (9-20); CALCIUM 8.1 mg/dl (8.6-10.4); GLUCOSE,RANDOM 89 mg/dL (75-110); TOTAL PROTEIN 6.2 g/dL (6.3-8.3)
[2017-03-09 05:43] LABS: CARBON DIOXIDE 40 mmol/L (22-30)
[2017-03-09] MEDS: Vancomycin 1 gm/NS 200 ml 200 ML IVPB SCH ×2 (06:10→18:23)
[2017-03-09 07:30] LABS: BASO % 0.3 % (0.0-2.0); EOS # 0.1 K/uL (0.0-0.7); EOS % 1.1 % (0.0-4.0); HEMATOCRIT 37.5 % (35.0-51.0); LYMPH # 0.6 K/uL (1.0-4.3); LYMPH % 8.1 % (20.0-40.0); MEAN CELL VOLUME 99.3 fL (80.0-94.0); MEAN CORPUSCULAR HEMOGLOBIN 31.9 pg (27.0-31.0); MEAN CORPUSCULAR HGB CONC 32.1 g/dL (33.0-37.0); MEAN PLATELET VOLUME 8.1 fL (7.2-11.7); MONO # 0.8 K/uL (0.0-0.8); MONO % 10.5 % (0.0-10.0); NRBC % 0.1 % (0.0-2.0); RED CELL DISTRIBUTION WIDTH 14.5 % (11.5-14.5); WHITE BLOOD COUNT 7.6 K/uL (4.8-10.8)
[2017-03-09 07:31] LABS: PLATELET COUNT 110 K/uL (130-400)
[2017-03-09 09:05] LABS: NEUTROPHIL 78 % (50-75); TOTAL CELLS COUNTED 100
[2017-03-09 09:07] LABS: LARGE PLATELETS PRESENT
--- NOTE | 2017-03-09 11:21 | RAD ---
Indication: Kidney stones Abdomen one view Comparison: CT abdomen and pelvis with contrast performed 01/18/16 Findings: Examination is severely degraded by habitus. Overall paucity of bowel gas with visualized bowel loops within normal limits of caliber without evidence of obstruction. Prostate radiation seeds. Impression: Limited study. No acute findings.
--- NOTE | 2017-03-09 14:38 | CP.PCM.PN ---
Subjective - Date & Time of Evaluation Date of Evaluation: 03/09/17 Time of Evaluation: 14:36 - Subjective Subjective: CHIEF COMPLAINTS TODAY : PAIN AND SWELLING OF LEGS COUGH WITH NO EXPECTORATION ROS. HEENT : N. Resp : POS cough, wheezing ,pleuritic CP , NO hemoptysis Cardio : No anginal CP, PND, orthopnea, palpitation GI : No abd.pain, n/v ,diarrhea or GI bleeding . PIPE CHANGER : No headache, vertigo, focal deficit. Musculoskel : No joint swelling , Derm : No rash Psych : Normal affect. Ext : SWELLING OF LEGS PE. Pt. is alert awake in no distress. V.S As noted in the chart Head ,ear nose,throat and eyes : Normal. Neck : Supple with normal carotids. Lungs: POOR AIR ENTRY Heart : S1 & S2 normal with S4. No murmur. Abd : Soft non tender with normal bowel sounds. Neuro : Moves all ext. with no localized deficit. Ext : CANDACE EDEMA WITH CELLULITIS Derm : No rashes or decubitus ulcer. LABS/RADIOLOGY: ASSESSMENT/PLAN : CONSULT NOTED HCO3 IS 40 PLT DOWN 110 URINE PROT. GINNY. SEN TO IMIPRIMIN , D/W ID Objective - Vital Signs/Intake and Output Vital Signs (last 24 hours): Temp Pulse Resp BP Pulse Ox 98.5 F 80 22 107/71 95 03/08/17 15:31 03/09/17 07:38 03/08/17 15:31 03/09/17 11:02 03/08/17 15:31 Intake and Output: 03/09/17 03/09/17 11:59 23:59 Intake Total 250 Output Total 300 Balance -50 - Medications Medications: Current Medications Albuterol/Ipratropium (Duoneb 3 Mg/0.5 Mg (3 Ml) Ud) 3 ml INH RQ6 [facility] Last Admin: 03/09/17 13:08 Dose: Not Given Digoxin (Lanoxin) 0.125 mg PO DAILY@1800 [facility] Last Admin: 03/08/17 18:42 Dose: 0.125 mg Furosemide (Lasix) 40 mg IVP Q12 [facility] Last Admin: 03/09/17 11:02 Dose: 40 mg Heparin Sodium (Porcine) (Heparin) 5,000 units SC Q12 [facility] Last Admin: 03/09/17 10:56 Dose: 5,000 units Cefepime HCl 1 gm/ Dextrose 50 mls @ 100 mls/hr IVPB Q8 [facility] Last Admin: 03/09/17 05:47 Dose: 100 mls/hr Vancomycin/Sodium Chloride (Vancocin) 200 mls @ 133 mls/hr IVPB Q12H [facility] Stop: 03/12/17 18:01 Last Admin: 03/09/17 06:10 Dose: Not Given Lactulose (Enulose) 20 gm PO BID [facility] Last Admin: 03/09/17 10:56 Dose: 20 gm Spironolactone (Aldactone) 25 mg PO BID [facility] Last Admin: 03/09/17 11:00 Dose: Not Given - Labs Labs: 03/09/17 06:55 03/09/17 05:19 PT 17.7 SECONDS (9.7-12.2) H 03/06/17 21:06 INR 1.6 03/06/17 21:06 APTT 36 SECONDS (21-34) H 03/06/17 21:06
--- NOTE | 2017-03-09 15:59 | CP.PCM.PN ---
Subjective - Date & Time of Evaluation Date of Evaluation: 03/09/17 Time of Evaluation: 15:59 - Subjective Subjective: Subjective: CHIEF COMPLAINTS TODAY : c/o SOB AND COUGH PAIN AND SWELLING OF LEGS +VE DYSURIA. ROS. HEENT : N. Resp : POS cough, wheezing ,pleuritic CP , NO hemoptysis Cardio : No anginal CP, PND, orthopnea, palpitation GI : No abd.pain, n/v ,diarrhea or GI bleeding . 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 Musculoskel : No joint swelling , Derm : No rash Psych : Normal affect. Ext : SWELLING OF LEGS PE. Pt. is alert awake in no distress. V.S As noted in the chart Head ,ear nose,throat and eyes : Normal. Neck : Supple with normal carotids. Lungs: POOR AIR ENTRY Heart : S1 & S2 normal with S4. No murmur. Abd : Soft non tender with normal bowel sounds. Neuro : Moves all ext. with no localized deficit. Ext : CANDACE EDEMA WITH CELLULITIS Derm : No rashes or decubitus ulcer. LABS/RADIOLOGY: URINE CULTURE +VE PROTEUS MIRABILIS >1000,000 S- PRIMAXIN-DOREEN 2/AMIKACIN WOUND CULTURE -GPC VANC TROUGH 13.5 OK CREAT 0.7/BUN 20 LFTS AST 60 T.BILI 1.6 WBC 7.6 PLT 110 ASSESSMENT > UROSEPSIS- > CA OF THE PROSTATE S/P SEEDS IMPLANTATION (5YRS AGO ) > HISTORY OF NEPHROLITHIASIS > EXACERBATION OF CHF/ COPD R/O PNEUMONIA VS BPI >B/L CELLULITUS WITH ULCER LLE. >HEPTITIS C > ALCOHOLIC CIRRHOSIS. >ATRIAL FIBRILLATION. /PLAN : START IV MERREM 1GM IVPB Q8HRLY 03/09/17 DC iv CEFEPIME 1 G EVERY 8 HOURLY 03/07/17 CONTINUE iv VANCOMYCIN 1 G EVERY 12 HOURLY 03/07/17. fOLLOW-UP vANCO TROUGH LEVEL PRIOR TO THE FOURTH DOSE AND MAINTAIN BETWEEN 10 AND 20. PT WILL NEED PICC LINE PER . PULMONARY TOILET. Objective - Vital Signs/Intake and Output Vital Signs (last 24 hours): Temp Pulse Resp BP Pulse Ox 98.5 F 80 22 107/71 95 03/08/17 15:31 03/09/17 07:38 03/08/17 15:31 03/09/17 11:02 03/08/17 15:31 Intake and Output: 03/09/17 03/09/17 06:59 18:59 Intake Total 920 Output Total 900 Balance 20 - Medications Medications: Current Medications Albuterol/Ipratropium (Duoneb 3 Mg/0.5 Mg (3 Ml) Ud) 3 ml INH RQ6 [facility] Last Admin: 03/09/17 13:08 Dose: Not Given Digoxin (Lanoxin) 0.125 mg PO DAILY@1800 [facility] Last Admin: 03/08/17 18:42 Dose: 0.125 mg Furosemide (Lasix) 40 mg IVP Q12 [facility] Last Admin: 03/09/17 11:02 Dose: 40 mg Heparin Sodium (Porcine) (Heparin) 5,000 units SC Q12 [facility] Last Admin: 03/09/17 10:56 Dose: 5,000 units Vancomycin/Sodium Chloride (Vancocin) 200 mls @ 133 mls/hr IVPB Q12H [facility] Stop: 03/12/17 18:01 Last Admin: 03/09/17 06:10 Dose: Not Given Meropenem 1 gm/ Sodium (Chloride) 100 mls @ 100 mls/hr IVPB Q8 [facility] Lactulose (Enulose) 20 gm PO BID [facility] Last Admin: 03/09/17 10:56 Dose: 20 gm Spironolactone (Aldactone) 25 mg PO BID [facility] Last Admin: 03/09/17 11:00 Dose: Not Given - Labs Labs: 03/09/17 06:55 03/09/17 05:19 PT 17.7 SECONDS (9.7-12.2) H 03/06/17 21:06 INR 1.6 03/06/17 21:06 APTT 36 SECONDS (21-34) H 03/06/17 21:06
[2017-03-09] MEDS: Digoxin 125 mcg (0.125 mg) Tab PO SCH (18:14)
[2017-03-09] MEDS: Meropenem 1 GM in Sodium Chloride 0.9% 100 ML IVPB SCH (21:54)
[2017-03-10] MEDS: Albuterol-Ipratrop 3 mg / 0.5 (3 ml) UD INH SCH ×4 (01:04→19:54)
[2017-03-10] MEDS: Meropenem 1 GM in Sodium Chloride 0.9% 100 ML IVPB SCH ×3 (05:25→21:55)
[2017-03-10 06:24] LABS: BASO % 0.3 % (0.0-2.0); EOS # 0.1 K/uL (0.0-0.7); EOS % 1.7 % (0.0-4.0); HEMATOCRIT 38.6 % (35.0-51.0); LYMPH # 0.9 K/uL (1.0-4.3); MEAN CELL VOLUME 99.6 fL (80.0-94.0); MEAN CORPUSCULAR HEMOGLOBIN 31.2 pg (27.0-31.0); MEAN CORPUSCULAR HGB CONC 31.3 g/dL (33.0-37.0); MEAN PLATELET VOLUME 8.6 fL (7.2-11.7); MONO # 0.8 K/uL (0.0-0.8); MONO % 13.1 % (0.0-10.0); RED CELL DISTRIBUTION WIDTH 14.9 % (11.5-14.5); WHITE BLOOD COUNT 6.4 K/uL (4.8-10.8)
[2017-03-10] MEDS: Vancomycin 1 gm/NS 200 ml 200 ML IVPB SCH ×2 (06:24→18:01)
[2017-03-10 06:38] LABS: CHLORIDE 83 mmol/L (98-107); POTASSIUM 3.5 mmol/L (3.6-5.2); SODIUM 134 mmol/L (132-148)
[2017-03-10 06:40] LABS: GFR AFRICAN-AMERICAN > 60
[2017-03-10 06:41] LABS: ALB/GLOB RATIO 1.1 (1.0-2.1); ALKALINE PHOSPHATASE 90 U/L (38-126); ALT/SGPT 35 U/L (21-72); AST/SGOT 37 U/L (17-59); BILIRUBIN,TOTAL 1.1 mg/dL (0.2-1.3); BLOOD UREA NITROGEN 24 mg/dL (9-20); GLUCOSE,RANDOM 85 mg/dL (75-110); TOTAL PROTEIN 6.2 g/dL (6.3-8.3)
[2017-03-10 06:42] LABS: CALCIUM 7.9 mg/dl (8.6-10.4)
[2017-03-10 07:06] LABS: CARBON DIOXIDE 44 mmol/L (22-30)
--- NOTE | 2017-03-10 13:45 | CP.PCM.PN ---
Subjective - Date & Time of Evaluation Date of Evaluation: 03/10/17 Time of Evaluation: 13:44 - Subjective Subjective: CHIEF COMPLAINTS TODAY : PAIN AND SWELLING OF LEGS COUGH WITH NO EXPECTORATION WOUND POS FOR MRSA ROS. HEENT : N. Resp : POS cough, wheezing ,pleuritic CP , NO hemoptysis Cardio : No anginal CP, PND, orthopnea, palpitation GI : No abd.pain, n/v ,diarrhea or GI bleeding . 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 Musculoskel : No joint swelling , Derm : No rash Psych : Normal affect. Ext : SWELLING OF LEGS PE. Pt. is alert awake in no distress. V.S As noted in the chart Head ,ear nose,throat and eyes : Normal. Neck : Supple with normal carotids. Lungs: POOR AIR ENTRY Heart : S1 & S2 normal with S4. No murmur. Abd : Soft non tender with normal bowel sounds. Neuro : Moves all ext. with no localized deficit. Ext : CANDACE EDEMA WITH CELLULITIS Derm : No rashes or decubitus ulcer. LABS/RADIOLOGY: ASSESSMENT/PLAN : CONSULT NOTED HCO3 IS 40 PLT DOWN 110 URINE PROT. GINNY. SEN TO IMIPRIMIN , D/W ID ON IV VANCO+ IMPI . PICC LINE , REHAB Objective - Vital Signs/Intake and Output Vital Signs (last 24 hours): Temp Pulse Resp BP Pulse Ox 98.2 F 90 20 105/69 95 03/10/17 07:10 03/10/17 07:10 03/10/17 07:10 03/10/17 10:12 03/10/17 07:10 Intake and Output: 03/10/17 03/10/17 11:59 23:59 Intake Total 340 Output Total 1050 Balance -710 - Medications Medications: Current Medications Albuterol/Ipratropium (Duoneb 3 Mg/0.5 Mg (3 Ml) Ud) 3 ml INH RQ6 [facility] Last Admin: 03/10/17 08:20 Dose: 3 ml Digoxin (Lanoxin) 0.125 mg PO DAILY@1800 [facility] Last Admin: 03/09/17 18:14 Dose: 0.125 mg Furosemide (Lasix) 40 mg IVP Q12 [facility] Last Admin: 03/10/17 10:12 Dose: 40 mg Heparin Sodium (Porcine) (Heparin) 5,000 units SC Q12 [facility] Last Admin: 03/10/17 10:03 Dose: 5,000 units Vancomycin/Sodium Chloride (Vancocin) 200 mls @ 133 mls/hr IVPB Q12H [facility] Stop: 03/12/17 18:01 Last Admin: 03/10/17 06:24 Dose: 133 mls/hr Meropenem 1 gm/ Sodium (Chloride) 100 mls @ 100 mls/hr IVPB Q8 [facility] Last Admin: 03/10/17 05:25 Dose: 100 mls/hr Lactulose (Enulose) 20 gm PO BID [facility] Last Admin: 03/10/17 10:14 Dose: 20 gm Spironolactone (Aldactone) 25 mg PO BID [facility] Last Admin: 03/10/17 09:21 Dose: Not Given - Labs Labs: 03/10/17 06:11 03/10/17 06:11 PT 17.7 SECONDS (9.7-12.2) H 03/06/17 21:06 INR 1.6 03/06/17 21:06 APTT 36 SECONDS (21-34) H 03/06/17 21:06
[2017-03-10] MEDS ORDERED: Potassium Chloride 20 mEq ER Tab PO ONE (13:55)
--- NOTE | 2017-03-10 14:17 | CP.PCM.PN ---
Subjective - Date & Time of Evaluation Date of Evaluation: 03/10/17 Time of Evaluation: 14:17 - Subjective Subjective: CHIEF COMPLAINTS TODAY : afebrile,less short of breath Out of bed on chair PAIN AND SWELLING OF LEGS Oozing drainage left lower extremity ulcer. +VE DYSURIA. ROS. HEENT : N. Resp : POS cough, wheezing ,pleuritic CP , NO hemoptysis Cardio : No anginal CP, PND, orthopnea, palpitation GI : No abd.pain, n/v ,diarrhea or GI bleeding . 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 Musculoskel : No joint swelling , Derm : No rash Psych : Normal affect. Ext : SWELLING OF LEGS PE. Pt. is alert awake in no distress. V.S As noted in the chart Head ,ear nose,throat and eyes : Normal. Neck : Supple with normal carotids. Lungs: POOR AIR ENTRY Heart : S1 & S2 normal with S4. No murmur. Abd : Soft non tender with normal bowel sounds. Neuro : Moves all ext. with no localized deficit. Ext : CANDACE EDEMA WITH CELLULITIS +ve dressing in place. Derm : No rashes or decubitus ulcer. LABS/RADIOLOGY: 03/10/17 WBC 6.4 platelets 103-decreasing URINE CULTURE +VE PROTEUS MIRABILIS >1000,000 S- PRIMAXIN-DOREEN 2/AMIKACIN WOUND CULTURE LT. LEG QODPR-DEF-NAGS VANC TROUGH 13.5 OK 03/10/17 CREAT 0.7/BUN 24 LFTS AST 60 T.BILI 1.6 x-ray pain abdomen 03/10/17; prostatic seeds,no acute findings. ASSESSMENT > UROSEPSIS- multidrug-resistant complicated UTI. > CA OF THE PROSTATE S/P SEEDS IMPLANTATION (5YRS AGO ) > HISTORY OF NEPHROLITHIASIS > EXACERBATION OF CHF/ COPD R/O PNEUMONIA VS BPI >B/L CELLULITUS WITH ULCER LLE. >HEPTITIS C > ALCOHOLIC CIRRHOSIS. >ATRIAL FIBRILLATION. /PLAN : on IV MERREM 1GM IVPB Q8HRLY 03/09/17 CONTINUE iv VANCOMYCIN 1 G EVERY 12 HOURLY 03/07/17. monitor urine output/and input PT WILL NEED PICC LINE on board.. PULMONARY TOILET. local wound care. Clean both lower extremities with sterile normal saline. Then apply Bactroban locally LEFT LE ULCER with dressing and wrap both lower extremities with LINDA BANDAGE DAILY. Objective - Vital Signs/Intake and Output Vital Signs (last 24 hours): Temp Pulse Resp BP Pulse Ox 98.2 F 90 20 105/69 95 03/10/17 07:10 03/10/17 07:10 03/10/17 07:10 03/10/17 10:12 03/10/17 07:10 Intake and Output: 03/10/17 03/10/17 06:59 18:59 Intake Total 1010 Output Total 1550 Balance -540 - Medications Medications: Current Medications Albuterol/Ipratropium (Duoneb 3 Mg/0.5 Mg (3 Ml) Ud) 3 ml INH RQ6 [facility] Last Admin: 03/10/17 08:20 Dose: 3 ml Digoxin (Lanoxin) 0.125 mg PO DAILY@1800 [facility] Last Admin: 03/09/17 18:14 Dose: 0.125 mg Furosemide (Lasix) 40 mg IVP Q12 [facility] Last Admin: 03/10/17 10:12 Dose: 40 mg Heparin Sodium (Porcine) (Heparin) 5,000 units SC Q12 [facility] Last Admin: 03/10/17 10:03 Dose: 5,000 units Vancomycin/Sodium Chloride (Vancocin) 200 mls @ 133 mls/hr IVPB Q12H [facility] Stop: 03/12/17 18:01 Last Admin: 03/10/17 06:24 Dose: 133 mls/hr Meropenem 1 gm/ Sodium (Chloride) 100 mls @ 100 mls/hr IVPB Q8 [facility] Last Admin: 03/10/17 05:25 Dose: 100 mls/hr Lactulose (Enulose) 20 gm PO BID [facility] Last Admin: 03/10/17 10:14 Dose: 20 gm Spironolactone (Aldactone) 25 mg PO BID [facility] Last Admin: 03/10/17 09:21 Dose: Not Given - Labs Labs: 03/10/17 06:11 03/10/17 06:11 PT 17.7 SECONDS (9.7-12.2) H 03/06/17 21:06 INR 1.6 03/06/17 21:06 APTT 36 SECONDS (21-34) H 03/06/17 21:06
[2017-03-10] MEDS: Digoxin 125 mcg (0.125 mg) Tab PO SCH (17:58)
[2017-03-10] MEDS: Nystatin 100,000 Units/ml Oral Susp 5 ml UD PO SCH ×2 (18:00→22:00)
--- NOTE | 2017-03-10 19:48 | PN ---
DATE: 03/10/2017 The patient is currently sitting comfortably in his chair next to his bed. He is currently voiding a mber urine okay. He does have a urine culture and sensitivity that was positive for greater than 100 ,000 colonies of Proteus mirabilis resistant to most antibiotics but sensitive to imipenem and he is currently on imipenem IV plus vancomycin. A KUB did not show any stones in the kidneys. The patient is currently waiting for an abdominal pelvic CT stone survey. DIAGNOSTIC IMPRESSION: 1. Prostate cancer status post definitive I-125 prostate seed implantation plus IMRT done in 2005, l ow risk prostate cancer with neoadjuvant and adjuvant ADT. 2. Bilateral kidney stones. 3. Proteus mirabilis urinary tract infection. 4. Benign prostatic hypertrophy. His recent total PSA is less than 0.064 done on 03/08/2017, indicat ing excellent control of his prostate cancer. PLAN: 1. For this patient is just to treat his UTI and his cellulitis of the lower extremities. 2. Check his abdominal pelvic CT when able to be done for this patient. Arsen Ann MD cc: [id number] TT: 03/10/2017 19:47:36 Confirmation # [id number] Dictation # [id number]
[2017-03-11] MEDS: Albuterol-Ipratrop 3 mg / 0.5 (3 ml) UD INH SCH ×3 (01:07→21:05)
[2017-03-11] MEDS: Meropenem 1 GM in Sodium Chloride 0.9% 100 ML IVPB SCH ×3 (05:03→22:33)
[2017-03-11] MEDS: Vancomycin 1 gm/NS 200 ml 200 ML IVPB SCH ×2 (05:04→18:20)
[2017-03-11 07:17] LABS: BASO % 0.3 % (0.0-2.0); EOS # 0.1 K/uL (0.0-0.7); EOS % 1.5 % (0.0-4.0); HEMATOCRIT 38.8 % (35.0-51.0); LYMPH # 1.2 K/uL (1.0-4.3); LYMPH % 18.1 % (20.0-40.0); MEAN CELL VOLUME 98.8 fL (80.0-94.0); MEAN CORPUSCULAR HEMOGLOBIN 31.3 pg (27.0-31.0); MEAN CORPUSCULAR HGB CONC 31.6 g/dL (33.0-37.0); MEAN PLATELET VOLUME 8.6 fL (7.2-11.7); MONO % 15.2 % (0.0-10.0); RED CELL DISTRIBUTION WIDTH 14.5 % (11.5-14.5); WHITE BLOOD COUNT 6.8 K/uL (4.8-10.8)
[2017-03-11 07:34] LABS: CHLORIDE 84 mmol/L (98-107); POTASSIUM 3.7 mmol/L (3.6-5.2); SODIUM 136 mmol/L (132-148)
[2017-03-11 07:37] LABS: ALB/GLOB RATIO 1.1 (1.0-2.1); ALKALINE PHOSPHATASE 102 U/L (38-126); ALT/SGPT 29 U/L (21-72); AST/SGOT 36 U/L (17-59); BLOOD UREA NITROGEN 25 mg/dL (9-20); GFR AFRICAN-AMERICAN > 60; GLUCOSE,RANDOM 89 mg/dL (75-110); TOTAL PROTEIN 6.4 g/dL (6.3-8.3)
[2017-03-11 07:38] LABS: CALCIUM 8.3 mg/dl (8.6-10.4)
[2017-03-11 08:29] LABS: CARBON DIOXIDE 42 mmol/L (22-30)
[2017-03-11] MEDS: Nystatin 100,000 Units/ml Oral Susp 5 ml UD PO SCH ×4 (10:00→21:21)
--- NOTE | 2017-03-11 12:57 | PCM.SURG1 ---
Surgeon's Initial Post Op Note - Surgeon's Notes Surgeon: Umang Block MD Inside Meter Tester: NONE Type of Anesthesia: Local Pre-Operative Diagnosis: Cellulitis Operative Findings: Patent right basilic vein. Post-Operative Diagnosis: Cellulitis Operation Performed: Right arm single lumen picc placement, 35 CM. Tip in SVC. Specimen/Specimens Removed: none Estimated Blood Loss: EBL {In ML}: 2 Blood Products Given: N/A Drains Used: No Drains Post-Op Condition: Good Date of Surgery/Procedure: 03/11/17 Time of Surgery/Procedure: 12:50
--- NOTE | 2017-03-11 13:09 | CP.PCM.PN ---
Subjective - Date & Time of Evaluation Date of Evaluation: 03/11/17 Time of Evaluation: 13:09 - Subjective Subjective: CHIEF COMPLAINTS TODAY : PAIN AND SWELLING OF LEGS COUGH WITH NO EXPECTORATION WOUND POS FOR MRSA ROS. HEENT : N. Resp : POS cough, wheezing ,pleuritic CP , NO hemoptysis Cardio : No anginal CP, PND, orthopnea, palpitation GI : No abd.pain, n/v ,diarrhea or GI bleeding . 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 Musculoskel : No joint swelling , Derm : No rash Psych : Normal affect. Ext : SWELLING OF LEGS PE. Pt. is alert awake in no distress. V.S As noted in the chart Head ,ear nose,throat and eyes : Normal. Neck : Supple with normal carotids. Lungs: POOR AIR ENTRY Heart : S1 & S2 normal with S4. No murmur. Abd : Soft non tender with normal bowel sounds. Neuro : Moves all ext. with no localized deficit. Ext : CANDACE EDEMA WITH CELLULITIS Derm : No rashes or decubitus ulcer. LABS/RADIOLOGY: ASSESSMENT/PLAN : CONSULT NOTED HCO3 IS 40 PLT DOWN 110 URINE PROT. GINNY. SEN TO IMIPRIMIN , D/W ID ON IV VANCO+ IMPI . PICC LINE , REHAB Objective - Vital Signs/Intake and Output Vital Signs (last 24 hours): Temp Pulse Resp BP Pulse Ox 98.4 F 105 H 18 103/43 L 98 03/11/17 08:42 03/11/17 08:42 03/11/17 08:42 03/11/17 08:42 03/11/17 08:42 Intake and Output: 03/11/17 03/11/17 11:59 23:59 Intake Total 320 Output Total 600 Balance -280 - Medications Medications: Current Medications Albuterol/Ipratropium (Duoneb 3 Mg/0.5 Mg (3 Ml) Ud) 3 ml INH RQ6 [facility] Last Admin: 03/11/17 08:23 Dose: 3 ml Digoxin (Lanoxin) 0.125 mg PO DAILY@1800 [facility] Last Admin: 03/10/17 17:58 Dose: 0.125 mg Furosemide (Lasix) 40 mg IVP Q12 [facility] Last Admin: 03/11/17 10:00 Dose: Not Given Heparin Sodium (Porcine) (Heparin) 5,000 units SC Q12 [facility] Last Admin: 03/11/17 10:00 Dose: Not Given Vancomycin/Sodium Chloride (Vancocin) 200 mls @ 133 mls/hr IVPB Q12H [facility] Stop: 03/12/17 18:01 Last Admin: 03/11/17 05:04 Dose: 133 mls/hr Meropenem 1 gm/ Sodium (Chloride) 100 mls @ 100 mls/hr IVPB Q8 [facility] Last Admin: 03/11/17 05:03 Dose: 100 mls/hr Lactulose (Enulose) 20 gm PO BID [facility] Last Admin: 03/11/17 10:00 Dose: Not Given Mupirocin (Bactroban Ointment) 0 gm TOP DAILY [facility] Nystatin (Nystatin Oral Susp) 5 ml PO QID [facility] Last Admin: 03/11/17 10:00 Dose: Not Given Spironolactone (Aldactone) 25 mg PO BID [facility] Last Admin: 03/11/17 10:00 Dose: Not Given - Labs Labs: 03/11/17 07:05 03/11/17 07:05 PT 17.7 SECONDS (9.7-12.2) H 03/06/17 21:06 INR 1.6 03/06/17 21:06 APTT 36 SECONDS (21-34) H 03/06/17 21:06
--- NOTE | 2017-03-11 13:14 | CP.PCM.PN ---
Subjective - Date & Time of Evaluation Date of Evaluation: 03/11/17 Time of Evaluation: 13:14 - Subjective Subjective: CHIEF COMPLAINTS TODAY : afebrile,less short of breath S/P PICC LINE 03/11/17 BY IR PAIN AND SWELLING OF LEGS Oozing drainage left lower extremity ulcer. SEEN BY PODIATRY DR CAIN FREEMAN. HEENT : N. Resp : POS cough, wheezing ,pleuritic CP , NO hemoptysis Cardio : No anginal CP, PND, orthopnea, palpitation GI : No abd.pain, n/v ,diarrhea or GI bleeding . 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 Musculoskel : No joint swelling , Derm : No rash Psych : Normal affect. Ext : SWELLING OF LEGS +VE DRESSING IN PLACE PE. Pt. is alert awake in no distress. V.S As noted in the chart Head ,ear nose,throat and eyes : Normal. Neck : Supple with normal carotids. Lungs: POOR AIR ENTRY Heart : S1 & S2 normal with S4. No murmur. Abd : Soft non tender with normal bowel sounds. Neuro : Moves all ext. with no localized deficit. Ext : CANDACE EDEMA WITH CELLULITIS +ve dressing in place. Derm : No rashes or decubitus ulcer. LABS/RADIOLOGY: 03/11/17 WBC 6.4 platelets 103-decreasing URINE CULTURE +VE PROTEUS MIRABILIS >1000,000 S- PRIMAXIN-DOREEN 2/AMIKACIN WOUND CULTURE LT. LEG [id number] VANC TROUGH 13.5 OK 03/11/17 CREAT 0.8/BUN 25 LFTS 03/11/17 IMPROVING x-ray pain abdomen 03/10/17; prostatic seeds,no acute findings. CT OF THE ABDOMEN AND PELVIS WITHOUT CONTRAST 03/11/17. small bilateral pleural effusions. LT>RT BILATERAL CONSOLIDATIONS NONOBSTRUCTING BILATERAL RENAL CALCULI. No hydro-or obstruction. Small perihepatic perisplenic and pelvic ascites. Hepatic nodular cirrhosis. Soft tissue edema, bilateral gynecomastia ( see full report ) ASSESSMENT > Multifactorial Sepsis > UROSEPSIS- multidrug-resistant complicated UTI. 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 +VE MRSA >HEPTITIS C > ALCOHOLIC CIRRHOSIS. >ATRIAL FIBRILLATION. /PLAN : CONTINUE IV MERREM 1GM IVPB Q8HRLY 03/09/17 X 14 DAYS CONTINUE iv VANCOMYCIN 1 G EVERY 12 HOURLY 03/07/17. X 2WKS monitor urine output/and input PICC LINE IN PLACE FOLLOW-UP RENAL FUNCTIONS CLOSELY. on board.. PULMONARY TOILET. Objective - Vital Signs/Intake and Output Vital Signs (last 24 hours): Temp Pulse Resp BP Pulse Ox 98.4 F 105 H 18 103/43 L 98 03/11/17 08:42 03/11/17 08:42 03/11/17 08:42 03/11/17 08:42 03/11/17 08:42 Intake and Output: 03/11/17 03/11/17 06:59 18:59 Intake Total 320 Output Total 950 Balance -630 - Medications Medications: Current Medications Albuterol/Ipratropium (Duoneb 3 Mg/0.5 Mg (3 Ml) Ud) 3 ml INH RQ6 [facility] Last Admin: 03/11/17 08:23 Dose: 3 ml Digoxin (Lanoxin) 0.125 mg PO DAILY@1800 [facility] Last Admin: 03/10/17 17:58 Dose: 0.125 mg Furosemide (Lasix) 40 mg IVP Q12 [facility] Last Admin: 03/11/17 10:00 Dose: Not Given Heparin Sodium (Porcine) (Heparin) 5,000 units SC Q12 [facility] Last Admin: 03/11/17 10:00 Dose: Not Given Vancomycin/Sodium Chloride (Vancocin) 200 mls @ 133 mls/hr IVPB Q12H [facility] Stop: 03/12/17 18:01 Last Admin: 03/11/17 05:04 Dose: 133 mls/hr Meropenem 1 gm/ Sodium (Chloride) 100 mls @ 100 mls/hr IVPB Q8 [facility] Last Admin: 03/11/17 05:03 Dose: 100 mls/hr Lactulose (Enulose) 20 gm PO BID [facility] Last Admin: 03/11/17 10:00 Dose: Not Given Mupirocin (Bactroban Ointment) 0 gm TOP DAILY [facility] Nystatin (Nystatin Oral Susp) 5 ml PO QID [facility] Last Admin: 03/11/17 10:00 Dose: Not Given Spironolactone (Aldactone) 25 mg PO BID [facility] Last Admin: 03/11/17 10:00 Dose: Not Given - Labs Labs: 03/11/17 07:05 03/11/17 07:05 PT 17.7 SECONDS (9.7-12.2) H 03/06/17 21:06 INR 1.6 03/06/17 21:06 APTT 36 SECONDS (21-34) H 03/06/17 21:06
--- NOTE | 2017-03-11 14:01 | CT ---
CT abdomen and pelvis without IV contrast Indication: Nephrolithiasis Technique: Contiguous axial images of the abdomen and pelvis. No oral or IV contrast administered. Coronal and Sagittal reformats generated and reviewed. This CT exam was performed using 1 or more of the following dose reduction techniques: Automated exposure control, adjustment of the MAA and/or kV according to patient size, and/or use of iterative reconstruction technique. Radiation dose: Total exam DLP = 1011.61 mGy-cm. Comparison: CT chest without contrast performed 11/27/16, CT abdomen and pelvis performed 01/18/16 Findings: Small bilateral pleural effusions and ejom-[id number]-sozt-right consolidations. Right lower lobe calcified granuloma/small hilar lymph nodes. Partially imaged cardiomegaly. Coronary artery and valvular calcifications. Small pericardial effusion. Nodular hepatic contour. Heterogeneous hepatic parenchyma. Punctate hepatic calcification, likely granuloma. Punctate splenic calcifications, likely granulomas. Pancreatic atrophy with mild fullness of the pancreatic head/uncinate with subtle adjacent inflammatory changes possibly related to ascites. Correlate with amylase and lipase to exclude possibility of acute pancreatitis. The gallbladder looks appears grossly unremarkable. Left adrenal gland hypertrophy. The unenhanced right adrenal gland appears unremarkable. Nonobstructing bilateral renal calculi. No hydronephrosis or obstructing calculus identified. Small perihepatic and perisplenic ascites. Small pelvic ascites. Umbilical hernia containing fat and fluid. The stomach is nondistended. The bowel loops appear within normal limits of caliber without evidence of intestinal obstruction. There is no definite free air. Dense atherosclerotic calcifications of the included portions thoracic aorta, abdominal aorta, and branches. Prostate radiation seeds. Under distention of the urinary bladder appears otherwise grossly unremarkable. Soft tissue edema. Bilateral gynecomastia. Osseous demineralization. Degenerative changes. L1, L2, and L3 compression fracture deformities, age indeterminate. Impression: Small bilateral pleural effusions and left greater than right consolidations. Trace pericardial effusion. Cardiomegaly. Hepatic nodular contour. Her heterogeneous hepatic parenchyma. Correlate for cirrhosis. Pancreatic atrophy with mild fullness of the pancreatic head/uncinate with subtle adjacent inflammatory changes possibly related to ascites. Correlate with amylase and lipase to exclude possibility of acute pancreatitis. Nonobstructing bilateral renal calculi. No hydronephrosis or obstructing or ureteral calculus. Small abdominal (perihepatic and perisplenic) and pelvic ascites. Fat and fluid filled umbilical hernia. Prostate radiation seeds. Bilateral gynecomastia. Soft tissue edema. Evidence of prior granulomatous infection. Left adrenal gland hypertrophy. Age indeterminate L1, L2, and L3 vertebral body compression fracture deformities. Additional findings as above.
--- NOTE | 2017-03-11 14:26 | CP.PCM.CON ---
History of Present Illness - History of Present Illness History of Present Illness: 71 y/o male seen on consult for b/l le cellulit.s Patient states that hi slegs have now been infected for months. States that he was admitted to [facility] and knows Dr. Mena. States that when he was here they were applying a silver dressing to the legs and then was d/c to a facility of which he signed himself out of b/c he felt the care was suboptimal. States that he also has water building up" in his body". Denies any further pedal complaints at this time. Past Patient History - Past Medical History & Family History Past Medical History?: Yes - Past Social History Smoking Status: Former Smoker - CARDIAC Hx Atrial Fibrillation: Yes Hx Cardia Arrhythmia: Yes Hx Congestive Heart Failure: Yes Hx Hypertension: Yes Hx Peripheral Edema: Yes - PULMONARY Hx Chronic Obstructive Pulmonary Disease (COPD): Yes Hx Pneumonia: Yes - NEUROLOGICAL Hx Neurological Disorder: No - HEENT Hx HEENT Problems: No - RENAL Hx Chronic Kidney Disease: No - ENDOCRINE/METABOLIC Hx Endocrine Disorders: No - HEMATOLOGICAL/ONCOLOGICAL Hx Blood Disorders: Yes Hx Hepatitis C: Yes - INTEGUMENTARY Hx Dermatological Problems: Yes Hx Psoriasis: Yes - MUSCULOSKELETAL/RHEUMATOLOGICAL Hx Musculoskeletal Disorders: Yes Hx Falls: No Other/Comment: BLE WEAKNESS PT. ON WHEELCHAIR - GASTROINTESTINAL Hx Gastrointestinal Disorders: Yes Other/Comment: CIRRHOSIS OF LIVER - GENITOURINARY/GYNECOLOGICAL Hx Genitourinary Disorders: No - PSYCHIATRIC Hx Substance Use: No - SURGICAL HISTORY Hx Appendectomy: Yes - ANESTHESIA Hx Anesthesia: Yes Hx Anesthesia Reactions: No Meds Allergies/Adverse Reactions: Allergies Allergy/AdvReac Type Severity Reaction Status Date / Time No Known Allergies Allergy Verified 03/06/17 20:47 - Medications Medications: Current Medications Albuterol/Ipratropium (Duoneb 3 Mg/0.5 Mg (3 Ml) Ud) 3 ml INH RQ6 [facility] Last Admin: 03/11/17 08:23 Dose: 3 ml Digoxin (Lanoxin) 0.125 mg PO DAILY@1800 [facility] Last Admin: 03/10/17 17:58 Dose: 0.125 mg Furosemide (Lasix) 40 mg IVP Q12 [facility] Last Admin: 03/11/17 13:47 Dose: 40 mg Heparin Sodium (Porcine) (Heparin) 5,000 units SC Q12 [facility] Last Admin: 03/11/17 13:52 Dose: 5,000 units Vancomycin/Sodium Chloride (Vancocin) 200 mls @ 133 mls/hr IVPB Q12H [facility] Stop: 03/12/17 18:01 Last Admin: 03/11/17 05:04 Dose: 133 mls/hr Meropenem 1 gm/ Sodium (Chloride) 100 mls @ 100 mls/hr IVPB Q8 [facility] Last Admin: 03/11/17 13:42 Dose: 100 mls/hr Lactulose (Enulose) 20 gm PO BID [facility] Last Admin: 03/11/17 13:47 Dose: 20 gm Mupirocin (Bactroban Ointment) 0 gm TOP DAILY [facility] Last Admin: 03/11/17 10:00 Dose: 1 applic Nystatin (Nystatin Oral Susp) 5 ml PO QID [facility] Last Admin: 03/11/17 14:06 Dose: 5 ml Spironolactone (Aldactone) 25 mg PO BID [facility] Last Admin: 03/11/17 13:46 Dose: 25 mg Physical Exam - Constitutional Appears: Well, Non-toxic, No Acute Distress - Skin Skin Exam: Erythema - Additional Findings Additional findings: Vasc: DP/PT non palpable, Temp gradient diminishe,d Cap fill time delayed Derm: Grossly there is diffuse erythema across the anterior legs extending into the dorsum of the foot although it is blanching, there is an open ulceration on the left LE measuring roughly 4cm x 3.5 cm x superficial, there is minimal active drainage noted, no purulenc, no malodor, does not probe, no malodor noted , there is +1 pitting edema noted Neuro: Grossly diminished Ortho: Limited eval. Results - Vital Signs Recent Vital Signs: Last Vital Signs Temp 98.4 F 03/11/17 08:42 Pulse 105 H 03/11/17 08:42 Resp 18 03/11/17 08:42 BP 119/80 03/11/17 13:47 Pulse Ox 98 03/11/17 08:42 - Labs Result Diagrams: 03/11/17 07:05 03/11/17 07:05 Labs: Laboratory Results - last 24 hr 03/11/17 03/11/17 06:28 07:05 WBC 6.8 RBC 3.92 L Hgb 12.3 Hct 38.8 MCV 98.8 H MCH 31.3 H MCHC 31.6 L RDW 14.5 Plt Count 119 L MPV 8.6 Neut % (Auto) 64.9 Lymph % (Auto) 18.1 L [place] % (Auto) 15.2 H Eos % (Auto) 1.5 Baso % (Auto) 0.3 Neut # 4.4 Lymph # 1.2 [place] # 1.0 H Eos # 0.1 Baso # 0.0 Sodium 136 Potassium 3.7 Chloride 84 L Carbon Dioxide 42 H* Anion Gap 16 BUN 25 H Creatinine 0.8 Est GFR ( Amer) > 60 Est GFR (Non-Af Amer) > 60 POC Glucose (mg/dL) 94 Random Glucose 89 Calcium 8.3 L Total Bilirubin 1.0 AST 36 ALT 29 Alkaline Phosphatase 102 Total Protein 6.4 Albumin 3.3 L Globulin 3.0 Albumin/Globulin Ratio 1.1 Assessment & Plan - Assessment and Plan (Free Text) Assessment: 71 y/o male seen and evaluated w/ bl Le cellulitis with LLE ulceration. Plan: Patient evaluated and chart reviewed discussed iwth Dr. Mena. Redressed with Bactroban DSD Notes/labs reviewed; input appreciaated Agree with abx continuance, To continue DSD/bactroban dressing Order placed for vascular evaluation with ultrasound; partial redness likely from diminished blood flow to the LE's. Will continue to follow while admitted.
[2017-03-11] MEDS: Digoxin 125 mcg (0.125 mg) Tab PO SCH (18:16)
[2017-03-11] MEDS ORDERED: Amikacin Sulfate 1,000 MG in Sodium Chloride 0.9% 250 ML IVPB ONE (22:00)
[2017-03-12] MEDS: Albuterol-Ipratrop 3 mg / 0.5 (3 ml) UD INH SCH ×3 (02:02→13:22)
[2017-03-12] MEDS: Meropenem 1 GM in Sodium Chloride 0.9% 100 ML IVPB SCH ×2 (05:21→13:54)
[2017-03-12 06:18] LABS: CHLORIDE 85 mmol/L (98-107); POTASSIUM 4.3 mmol/L (3.6-5.2); SODIUM 136 mmol/L (132-148)
[2017-03-12 06:20] LABS: BILIRUBIN,TOTAL 0.8 mg/dL (0.2-1.3); GFR AFRICAN-AMERICAN > 60
[2017-03-12 06:21] LABS: ALB/GLOB RATIO 1.1 (1.0-2.1); ALKALINE PHOSPHATASE 101 U/L (38-126); ALT/SGPT 36 U/L (21-72); AST/SGOT 33 U/L (17-59); BLOOD UREA NITROGEN 26 mg/dL (9-20); GLUCOSE,RANDOM 78 mg/dL (75-110); TOTAL PROTEIN 6.2 g/dL (6.3-8.3)
[2017-03-12 06:22] LABS: CALCIUM 7.8 mg/dl (8.6-10.4)
[2017-03-12 06:25] LABS: BASO % 0.4 % (0.0-2.0); EOS # 0.1 K/uL (0.0-0.7); EOS % 1.6 % (0.0-4.0); HEMATOCRIT 38.2 % (35.0-51.0); LYMPH # 1.3 K/uL (1.0-4.3); LYMPH % 19.9 % (20.0-40.0); MEAN CELL VOLUME 99.1 fL (80.0-94.0); MEAN CORPUSCULAR HEMOGLOBIN 31.8 pg (27.0-31.0); MEAN PLATELET VOLUME 8.4 fL (7.2-11.7); MONO % 15.3 % (0.0-10.0); NRBC % 0.1 % (0.0-2.0); RED CELL DISTRIBUTION WIDTH 14.8 % (11.5-14.5); WHITE BLOOD COUNT 6.7 K/uL (4.8-10.8)
[2017-03-12] MEDS: Vancomycin 1 gm/NS 200 ml 200 ML IVPB SCH ×2 (06:38→18:00)
[2017-03-12 06:49] LABS: CARBON DIOXIDE 40 mmol/L (22-30)
[2017-03-12 09:06] VITALS: O2SAT 97
[2017-03-12] MEDS: Nystatin 100,000 Units/ml Oral Susp 5 ml UD PO SCH ×3 (09:35→17:13)
--- NOTE | 2017-03-12 09:50 | CP.PCM.PN ---
Subjective - Date & Time of Evaluation Date of Evaluation: 03/12/17 Time of Evaluation: 09:47 - Subjective Subjective: 71 y/o male with b/l LE celulitis with ulceration on anterior aspect of left leg. Patient is awake in bed upon exam. Patient is recieving meds and is mildly irritated. Patient states that he is still having some pain in his left leg at the ulceration site. Denies any other changes to his LE. States that he is worried about going for vascular exam b/c of him having to lay down. Denies any f/c/n/v/sob. Objective - Vital Signs/Intake and Output Vital Signs (last 24 hours): Temp Pulse Resp BP Pulse Ox 97.5 F L 105 H 18 112/75 97 03/12/17 09:05 03/12/17 09:05 03/12/17 09:05 03/12/17 09:33 03/12/17 09:05 Intake and Output: 03/12/17 03/12/17 06:59 18:59 Intake Total 350 Output Total 2300 Balance -1950 - Medications Medications: Current Medications Albuterol/Ipratropium (Duoneb 3 Mg/0.5 Mg (3 Ml) Ud) 3 ml INH RQ6 [facility] Last Admin: 03/12/17 07:36 Dose: 3 ml Digoxin (Lanoxin) 0.125 mg PO DAILY@1800 [facility] Last Admin: 03/11/17 18:16 Dose: 0.125 mg Furosemide (Lasix) 40 mg IVP Q12 [facility] Last Admin: 03/12/17 09:33 Dose: 40 mg Heparin Sodium (Porcine) (Heparin) 5,000 units SC Q12 [facility] Last Admin: 03/12/17 09:34 Dose: 5,000 units Vancomycin/Sodium Chloride (Vancocin) 200 mls @ 133 mls/hr IVPB Q12H [facility] Stop: 03/12/17 18:01 Last Admin: 03/12/17 06:38 Dose: 133 mls/hr Meropenem 1 gm/ Sodium (Chloride) 100 mls @ 100 mls/hr IVPB Q8 [facility] Last Admin: 03/12/17 05:21 Dose: 100 mls/hr Lactulose (Enulose) 20 gm PO BID [facility] Last Admin: 03/12/17 09:34 Dose: 20 gm Mupirocin (Bactroban Ointment) 0 gm TOP DAILY [facility] Last Admin: 03/12/17 09:35 Dose: 1 applic Nystatin (Nystatin Oral Susp) 5 ml PO QID [facility] Last Admin: 03/12/17 09:35 Dose: 5 ml Spironolactone (Aldactone) 25 mg PO BID [facility] Last Admin: 03/12/17 09:34 Dose: 25 mg - Labs Labs: 03/12/17 06:05 03/12/17 06:05 PT 17.7 SECONDS (9.7-12.2) H 03/06/17 21:06 INR 1.6 03/06/17 21:06 APTT 36 SECONDS (21-34) H 03/06/17 21:06 - Constitutional Appears: Well, Non-toxic - Skin Skin Exam: Erythema - Additional Findings Additional findings: Vasc: DP/PT non palpable, Temp gradient diminishe,d Cap fill time delayed Derm: Grossly there is diffuse erythema across the anterior legs extending into the dorsum of the foot although it is blanching, there is an open ulceration on the left LE measuring roughly 4cm x 3.5 cm x superficial, there is minimal active drainage noted, no purulenc, no malodor, does not probe, no malodor noted , there is +1 pitting edema noted Neuro: Grossly diminished Ortho: Limited eval. Assessment and Plan - Assessment and Plan (Free Text) Assessment: 71 y/o male seen and evaluated w/ bl Le cellulitis with LLE ulceration. Plan: Patient evaluated and chart reviewed Discussed with Dr. Mena. Labs/vitals reviewed awaiting vascular exam results; Continue abx; Redressed with bactroban to air on right and bactroban dsd to left; Order placed for betamethasone cream to be applied. Will continue to follow while admitted.
[2017-03-12] MEDS ORDERED: Betamethasone Valerate 0.1% Lotion (60 ml) TOP SCH (10:00)
--- NOTE | 2017-03-12 11:21 | PN ---
DATE: 03/12/2017 TIME OF FOLLOWUP: Roughly 11:08 a.m. SUBJECTIVE: The patient is still voiding jeremías urine with some intermittent dysuria. No complaint of any renal colic or abdominal pain. No gross hematuria. PHYSICAL EXAMINATION: Abdomen is soft, not distended or tender. No CVA tenderness and no suprapubic tenderness. Abdominopelvic CT stone survey shows nonobstructing bilateral small renal stones. No hydronephrosis. No renal masses. DIAGNOSTIC IMPRESSIONS: 1. Urinary tract infection. 2. Nonobstructing bilateral kidney stones. 3. Prostate Cancer PLAN: Just maintain increased fluid hydration and antibiotics IV during this hospitalization, and oral antibiotics upon discharge. The patient will be seen in office followup in 2 weeks after discharge. Arsen Ann MD cc: [phone] TT: 03/12/2017 11:21:09 Confirmation # [id number] Dictation # [id number] CRUZ
--- NOTE | 2017-03-12 12:18 | RAD ---
PROCEDURE: Date of procedure: 03/11/2017 Procedure: 1. Placement of a right arm PICC with ultrasound and fluoroscopic guidance, CPT 50270 2. PICC tip confirmation with spot radiograph and is in the superior vena cava Medications: 1 percent lidocaine Fluoro time: 17.4 seconds Radiation: 0.119 mGym2 EBL: 2 cc History cellulitis requiring long-term IV antibiotics TECHNIQUE: Following informed consent and procedure time-out, the patient was placed supine on the interventional table and the right arm prepped and draped in the usual sterile fashion. Ultrasound showed a patent and compressible right basilic vein. After the skin was anesthetized with lidocaine, the basilic vein was accessed with micro micropuncture technique using ultrasound guidance. A guidewire was then advanced under fluoroscopic guidance into the superior vena cava. An image documenting ultrasound guidance for vascular access was permanently saved. The length of the single-lumen 4 Bengali PICC was trimmed to 35 centimeters and advanced through a peel-away sheath. The PICC was position with tip of PICC confirm a spot radiograph the superior vena cava. The PICC was secured to the patient's skin. The PICC was flushed. A biopatch and sterile dressing was applied. IMPRESSION: Placement of a single-lumen 4 Bengali PICC trimmed to 35 centimeters via right basilic vein. The tip of the PICC is confirmed with spot radiograph and is in the superior vena cava.
--- NOTE | 2017-03-12 13:06 | CP.PCM.PN ---
Subjective - Date & Time of Evaluation Date of Evaluation: 03/12/17 Time of Evaluation: 13:06 - Subjective Subjective: CHIEF COMPLAINTS TODAY : PAIN AND SWELLING OF LEGS COUGH WITH NO EXPECTORATION WOUND POS FOR MRSA ROS. HEENT : N. Resp : POS cough, wheezing ,pleuritic CP , NO hemoptysis Cardio : No anginal CP, PND, orthopnea, palpitation GI : No abd.pain, n/v ,diarrhea or GI bleeding . SPECIALTY PERSON : No headache, vertigo, focal deficit. Musculoskel : No joint swelling , Derm : No rash Psych : Normal affect. Ext : SWELLING OF LEGS PE. Pt. is alert awake in no distress. V.S As noted in the chart Head ,ear nose,throat and eyes : Normal. Neck : Supple with normal carotids. Lungs: POOR AIR ENTRY Heart : S1 & S2 normal with S4. No murmur. Abd : Soft non tender with normal bowel sounds. Neuro : Moves all ext. with no localized deficit. Ext : CANDACE EDEMA WITH CELLULITIS Derm : No rashes or decubitus ulcer. LABS/RADIOLOGY: ASSESSMENT/PLAN : CONSULT NOTED HCO3 IS 40 PLT DOWN 110 URINE PROT. GINNY. SEN TO IMIPRIMIN , D/W ID ON IV VANCO+ IMPI . PICC LINE , REHAB Objective - Vital Signs/Intake and Output Vital Signs (last 24 hours): Temp Pulse Resp BP Pulse Ox 97.5 F L 105 H 18 112/75 97 03/12/17 09:05 03/12/17 09:05 03/12/17 09:05 03/12/17 09:33 03/12/17 09:05 Intake and Output: 03/12/17 03/12/17 11:59 23:59 Intake Total 350 Output Total 1300 Balance -950 - Medications Medications: Current Medications Albuterol/Ipratropium (Duoneb 3 Mg/0.5 Mg (3 Ml) Ud) 3 ml INH RQ6 [facility] Last Admin: 03/12/17 07:36 Dose: 3 ml Betamethasone Valerate (Betamethasone Valerate 0.1%) 0 ml TOP BID [facility] Last Admin: 03/12/17 11:00 Dose: Not Given Digoxin (Lanoxin) 0.125 mg PO DAILY@1800 [facility] Last Admin: 03/11/17 18:16 Dose: 0.125 mg Furosemide (Lasix) 40 mg IVP Q12 [facility] Last Admin: 03/12/17 09:33 Dose: 40 mg Heparin Sodium (Porcine) (Heparin) 5,000 units SC Q12 [facility] Last Admin: 03/12/17 09:34 Dose: 5,000 units Vancomycin/Sodium Chloride (Vancocin) 200 mls @ 133 mls/hr IVPB Q12H [facility] Stop: 03/12/17 18:01 Last Admin: 03/12/17 06:38 Dose: 133 mls/hr Meropenem 1 gm/ Sodium (Chloride) 100 mls @ 100 mls/hr IVPB Q8 [facility] Last Admin: 03/12/17 05:21 Dose: 100 mls/hr Lactulose (Enulose) 20 gm PO BID [facility] Last Admin: 03/12/17 09:34 Dose: 20 gm Mupirocin (Bactroban Ointment) 0 gm TOP DAILY [facility] Last Admin: 03/12/17 09:35 Dose: 1 applic Nystatin (Nystatin Oral Susp) 5 ml PO QID [facility] Last Admin: 03/12/17 09:35 Dose: 5 ml Spironolactone (Aldactone) 25 mg PO BID [facility] Last Admin: 03/12/17 09:34 Dose: 25 mg - Labs Labs: 03/12/17 06:05 03/12/17 06:05 PT 17.7 SECONDS (9.7-12.2) H 03/06/17 21:06 INR 1.6 03/06/17 21:06 APTT 36 SECONDS (21-34) H 03/06/17 21:06
--- NOTE | 2017-03-12 13:35 | CP.PCM.PN ---
Subjective - Date & Time of Evaluation Date of Evaluation: 03/12/17 Time of Evaluation: 13:35 - Subjective Subjective: CHIEF COMPLAINTS TODAY : afebrile,less short of breath S/P PICC LINE 03/11/17 BY IR PAIN AND SWELLING OF LEGS improving slowly Oozing drainage left lower extremity ROS. HEENT : N. Resp : POS cough, wheezing ,pleuritic CP , NO hemoptysis Cardio : No anginal CP, PND, orthopnea, palpitation GI : No abd.pain, n/v ,diarrhea or GI bleeding . 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 Musculoskel : No joint swelling , Derm : No rash Psych : Normal affect. Ext : SWELLING OF LEGS +VE DRESSING IN PLACE PE. Pt. is alert awake in no distress. V.S As noted in the chart Head ,ear nose,throat and eyes : Normal. Neck : Supple with normal carotids. Lungs: POOR AIR ENTRY Heart : S1 & S2 normal with S4. No murmur. Abd : Soft non tender with normal bowel sounds. Neuro : Moves all ext. with no localized deficit. Ext : CANDACE EDEMA WITH CELLULITIS +VE DRESSING IN PLACE Derm : No rashes or decubitus ulcer. LABS/RADIOLOGY: 03/11/17 WBC 6.4 platelets 103-decreasing URINE CULTURE +VE PROTEUS MIRABILIS >1000,000 S- PRIMAXIN-DOREEN 2/AMIKACIN WOUND CULTURE LT. LEG NOSNA-QPN-FBGV VANC TROUGH 13.5 OK 03/11/17 CREAT 0.8/BUN 25 LFTS 03/11/17 IMPROVING x-ray pain abdomen 03/10/17; prostatic seeds,no acute findings. CT OF THE ABDOMEN AND PELVIS WITHOUT CONTRAST 03/11/17. small bilateral pleural effusions. LT>RT BILATERAL CONSOLIDATIONS NONOBSTRUCTING BILATERAL RENAL CALCULI. No hydro-or obstruction. Small perihepatic perisplenic and pelvic ascites. Hepatic nodular cirrhosis. Soft tissue edema, bilateral gynecomastia ( see full report ) ASSESSMENT > Multifactorial Sepsis > UROSEPSIS- multidrug-resistant complicated UTI. 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 +VE MRSA >HEPTITIS C > ALCOHOLIC CIRRHOSIS. >ATRIAL FIBRILLATION. /PLAN : CONTINUE IV MERREM 1GM IVPB Q8HRLY 03/09/17 X 14 DAYS CONTINUE iv VANCOMYCIN 1 G EVERY 12 HOURLY 03/07/17. X 2WKS monitor urine output/and input PICC LINE IN PLACE FOLLOW-UP RENAL FUNCTIONS CLOSELY. on board.. PULMONARY TOILET. Case discussed with nurse practitioner- BE TO CONTINUE STRICT ISOLATION PRECAUTIONS AND HANDWASHING PATIENT HAS MULTIDRUG RESISTANT pROTEUS MIRABILIS IN THE URINE. ALSO MRSA ON THE LOWER EXTREMITY. Objective - Vital Signs/Intake and Output Vital Signs (last 24 hours): Temp Pulse Resp BP Pulse Ox 97.5 F L 105 H 18 112/75 97 03/12/17 09:05 03/12/17 09:05 03/12/17 09:05 03/12/17 09:33 03/12/17 09:05 Intake and Output: 03/12/17 03/12/17 06:59 18:59 Intake Total 350 Output Total 2300 Balance -1950 - Medications Medications: Current Medications Albuterol/Ipratropium (Duoneb 3 Mg/0.5 Mg (3 Ml) Ud) 3 ml INH RQ6 [facility] Last Admin: 03/12/17 13:22 Dose: Not Given Betamethasone Valerate (Betamethasone Valerate 0.1%) 0 ml TOP BID [facility] Last Admin: 03/12/17 11:00 Dose: Not Given Digoxin (Lanoxin) 0.125 mg PO DAILY@1800 [facility] Last Admin: 03/11/17 18:16 Dose: 0.125 mg Furosemide (Lasix) 40 mg IVP Q12 [facility] Last Admin: 03/12/17 09:33 Dose: 40 mg Heparin Sodium (Porcine) (Heparin) 5,000 units SC Q12 [facility] Last Admin: 03/12/17 09:34 Dose: 5,000 units Vancomycin/Sodium Chloride (Vancocin) 200 mls @ 133 mls/hr IVPB Q12H [facility] Stop: 03/12/17 18:01 Last Admin: 03/12/17 06:38 Dose: 133 mls/hr Meropenem 1 gm/ Sodium (Chloride) 100 mls @ 100 mls/hr IVPB Q8 [facility] Last Admin: 03/12/17 05:21 Dose: 100 mls/hr Lactulose (Enulose) 20 gm PO BID [facility] Last Admin: 03/12/17 09:34 Dose: 20 gm Mupirocin (Bactroban Ointment) 0 gm TOP DAILY [facility] Last Admin: 03/12/17 09:35 Dose: 1 applic Nystatin (Nystatin Oral Susp) 5 ml PO QID [facility] Last Admin: 03/12/17 09:35 Dose: 5 ml Spironolactone (Aldactone) 25 mg PO BID [facility] Last Admin: 03/12/17 09:34 Dose: 25 mg - Labs Labs: 03/12/17 06:05 03/12/17 06:05 PT 17.7 SECONDS (9.7-12.2) H 03/06/17 21:06 INR 1.6 03/06/17 21:06 APTT 36 SECONDS (21-34) H 03/06/17 21:06
[2017-03-12 16:41] VITALS: BP 129/86; PULSE 93; RESP 20; TEMP 98.1
[2017-03-12] MEDS: Digoxin 125 mcg (0.125 mg) Tab PO SCH (17:12)
[2017-03-12 17:13] VITALS: PULSE 108
--- NOTE | 2017-03-12 17:22 | PCM.HF ---
Heart Failure Core Measure - Heart Failure Ejection Fraction: Less Than 40 % (lvef 22%) LINDA Inhibitor Prescribed: No Contraindication/Reason for not providing: ON DIG Beta-Rossana Prescribed: None Contraindication/Reason for not providing: COPD Angiotensin II Receptor Rossana Prescribed: No Contraindication/Reason for not providing: ON DIG AnticoagulationTherapy for Atrial Fibrillation/Atrialflutter: No Contraindication/Reason for not providing: NO AFIB Aldosterone Antagonist Prescribed: No Contraindication/Reason for not providing: ON DIG Hydralazine Nitrate Prescribed: No Contraindication/Reason for not providing: ON DIG Implantable Cardioverter Defibrillator Therapy: No Contraindication/Reason for not providing: ON DIG Cardiac Resynchronization Therapy Prescribed: No Contraindication/Reason for not providing: ON DIG - Follow up Will be discharged to: Shelter Facility Follow Up Date (must be within 7 days from discharge): 03/14/17 Follow Up Time: 09:00
--- NOTE | 2017-03-12 18:30 | CP.PCM.PN ---
Subjective - Date & Time of Evaluation Date of Evaluation: 03/12/17 Time of Evaluation: 18:26 - Subjective Subjective: 71 y/o male admitted for lower leg swelling, cellulitis, + MRSA, urosepsis, [facility]an [facility], Pt cleared for d/c as per Dr. Andres as well, IV ABX vancomycin and meropenem for 2 more weeks [address] per Dr. Andres , repeat weekly lab- vanco trough, cbc, bmp, lfts, contact precuations and strict hand washing as per Dr. Andres. Objective - Vital Signs/Intake and Output Vital Signs (last 24 hours): Temp Pulse Resp BP Pulse Ox 98.1 F 93 H 20 129/86 97 03/12/17 16:00 03/12/17 16:00 03/12/17 16:00 03/12/17 16:00 03/12/17 16:00 Intake and Output: 03/12/17 03/12/17 06:59 18:59 Intake Total 350 Output Total 2300 Balance -1950 - Medications Medications: Current Medications Betamethasone Valerate (Betamethasone Valerate 0.1%) 0 ml TOP BID [facility] Last Admin: 03/12/17 11:00 Dose: Not Given Digoxin (Lanoxin) 0.125 mg PO DAILY@1800 [facility] Last Admin: 03/12/17 17:12 Dose: 0.125 mg Furosemide (Lasix) 40 mg IVP Q12 [facility] Last Admin: 03/12/17 09:33 Dose: 40 mg Heparin Sodium (Porcine) (Heparin) 5,000 units SC Q12 [facility] Last Admin: 03/12/17 09:34 Dose: 5,000 units Meropenem 1 gm/ Sodium (Chloride) 100 mls @ 100 mls/hr IVPB Q8 [facility] Last Admin: 03/12/17 13:54 Dose: 100 mls/hr Lactulose (Enulose) 20 gm PO BID [facility] Last Admin: 03/12/17 17:13 Dose: 20 gm Mupirocin (Bactroban Ointment) 0 gm TOP DAILY [facility] Last Admin: 03/12/17 09:35 Dose: 1 applic Nystatin (Nystatin Oral Susp) 5 ml PO QID [facility] Last Admin: 03/12/17 17:13 Dose: 5 ml Spironolactone (Aldactone) 25 mg PO BID [facility] Last Admin: 03/12/17 17:13 Dose: 25 mg - Labs Labs: 03/12/17 06:05 03/12/17 06:05 PT 17.7 SECONDS (9.7-12.2) H 03/06/17 21:06 INR 1.6 03/06/17 21:06 APTT 36 SECONDS (21-34) H 03/06/17 21:06
--- NOTE | 2017-03-13 12:56 | CP.PCM.DIS ---
Provider - Provider Date of Admission: 03/06/17 23:06 Attending physician: Gretel Bazan MD Time Spent in preparation of Discharge (in minutes): 35 Hospital Course - Lab Results Lab Results: Micro Results 03/07/17 16:05 Sputum Gram Stain - Final 03/07/17 16:05 Sputum Sputum Culture - Final NORMAL SAPROPHYTIC ROSEMARY 03/07/17 Unknown Leg - Left Gram Stain - Final 03/07/17 Unknown Leg - Left Wound Culture - Final Methicillin Resistant S Aureus 03/07/17 21:56 Naris MRSA Culture (Admit) - Final MRSA DETECTED Most Recent Lab Values WBC 6.7 K/uL (4.8-10.8) 03/12/17 06:05 RBC 3.86 Mil/uL (4.40-5.90) L 03/12/17 06:05 Hgb 12.2 g/dL (12.0-18.0) 03/12/17 06:05 Hct 38.2 % (35.0-51.0) 03/12/17 06:05 MCV 99.1 fL (80.0-94.0) H 03/12/17 06:05 MCH 31.8 pg (27.0-31.0) H 03/12/17 06:05 MCHC 32.0 g/dL (33.0-37.0) L 03/12/17 06:05 RDW 14.8 % (11.5-14.5) H 03/12/17 06:05 Plt Count 128 K/uL (130-400) L 03/12/17 06:05 MPV 8.4 fL (7.2-11.7) 03/12/17 06:05 Neut % (Auto) 62.8 % (50.0-75.0) 03/12/17 06:05 Lymph % (Auto) 19.9 % (20.0-40.0) L 03/12/17 06:05 [place] % (Auto) 15.3 % (0.0-10.0) H 03/12/17 06:05 Eos % (Auto) 1.6 % (0.0-4.0) 03/12/17 06:05 Baso % (Auto) 0.4 % (0.0-2.0) 03/12/17 06:05 Neut # 4.2 K/uL (1.8-7.0) 03/12/17 06:05 Lymph # 1.3 K/uL (1.0-4.3) 03/12/17 06:05 [place] # 1.0 K/uL (0.0-0.8) H 03/12/17 06:05 Eos # 0.1 K/uL (0.0-0.7) 03/12/17 06:05 Baso # 0.0 K/uL (0.0-0.2) 03/12/17 06:05 Neutrophils % (Manual) 78 % (50-75) H 03/09/17 06:55 Band Neutrophils % 2 % (0-2) 03/09/17 06:55 Lymphocytes % (Manual) 8 % (20-40) L 03/09/17 06:55 Reactive Lymphs % Cancelled 03/09/17 05:19 Monocytes % (Manual) 12 % (0-10) H 03/09/17 06:55 Eosinophils % (Manual) Cancelled 03/09/17 05:19 Basophils % (Manual) Cancelled 03/09/17 05:19 Metamyelocytes % Cancelled 03/09/17 05:19 Myelocytes % Cancelled 03/09/17 05:19 Promyelocytes % Cancelled 03/09/17 05:19 Blast Cells % Cancelled 03/09/17 05:19 Plasma Cell % (Manual) Cancelled 03/09/17 05:19 Nucleated RBC % Cancelled 03/09/17 05:19 Hypersegmented Polys Cancelled 03/09/17 05:19 Smudge Cells Cancelled 03/09/17 05:19 Toxic Granulation Present 03/09/17 06:55 Dohle Bodies Cancelled 03/09/17 05:19 Erik Rods Cancelled 03/09/17 05:19 Platelet Estimate Slightly decreased (NORMAL) L 03/09/17 06:55 Plt Clumps, EDTA Cancelled 03/09/17 05:19 Large Platelets Present 03/09/17 06:55 Giant Platelets Cancelled 03/09/17 05:19 RBC Morphology Cancelled 03/09/17 05:19 Polychromasia Slight 03/09/17 06:55 Hypochromasia (manual) Slight 03/09/17 06:55 Poikilocytosis (manual Slight 03/09/17 06:55 Basophilic Stippling Slight 03/09/17 06:55 Anisocytosis (manual) Slight 03/09/17 06:55 Microcytosis (manual) Cancelled 03/09/17 05:19 Macrocytosis (manual) Slight 03/09/17 06:55 Spherocytes Cancelled 03/09/17 05:19 Sickle Cells Cancelled 03/09/17 05:19 Target Cells Cancelled 03/09/17 05:19 Tear Drop Cells Cancelled 03/09/17 05:19 Ovalocytes Slight 03/09/17 06:55 Stomatocytes Cancelled 03/09/17 05:19 Helmet Cells Cancelled 03/09/17 05:19 [place] Bodies Cancelled 03/09/17 05:19 Moran Cells Cancelled 03/09/17 05:19 Acanthocytes (Spur) Cancelled 03/09/17 05:19 Rouleaux Cancelled 03/09/17 05:19 Schistocytes Cancelled 03/09/17 05:19 PT 17.7 SECONDS (9.7-12.2) H 03/06/17 21:06 INR 1.6 03/06/17 21:06 APTT 36 SECONDS (21-34) H 03/06/17 21:06 Puncture Site Rra 03/06/17 21:17 pCO2 70 mm/Hg (35-45) H 03/06/17 21:17 pO2 64 mm/Hg (80-100) L 03/06/17 21:17 HCO3 39.0 mmol/L (21-28) H 03/06/17 21:17 ABG pH 7.43 (7.35-7.45) 03/06/17 21:17 ABG Total CO2 48.6 mmol/L (22-28) H 03/06/17 21:17 ABG O2 Saturation 93.6 % (95-98) L 03/06/17 21:17 ABG Base Excess 18.2 mmol/L (-2.0-3.0) H 03/06/17 21:17 Eris Test Pos 03/06/17 21:17 ABG Potassium 3.2 mmol/L (3.6-5.2) L 03/06/17 21:17 A-a O2 Difference 41.0 mm/Hg 03/06/17 21:17 Respiratory Index 0.6 03/06/17 21:17 Sodium 138.0 mmol/l (132-148) 03/06/17 21:17 Chloride 97.0 mmol/L (98-107) L 03/06/17 21:17 Glucose 110 mg/dl (75-110) 03/06/17 21:17 Lactate 1.4 mmol/L (0.7-2.1) 03/06/17 21:17 Liter Flow 2.0 03/06/17 21:17 FiO2 27.0 % 03/06/17 21:17 Sodium 136 mmol/L (132-148) 03/12/17 06:05 Potassium 4.3 mmol/L (3.6-5.2) 03/12/17 06:05 Chloride 85 mmol/L (98-107) L 03/12/17 06:05 Carbon Dioxide 40 mmol/L (22-30) H* 03/12/17 06:05 Anion Gap 15 (10-20) 03/12/17 06:05 BUN 26 mg/dL (9-20) H 03/12/17 06:05 Creatinine 0.6 MG/DL (0.8-1.5) L 03/12/17 06:05 Est GFR ( Amer) > 60 03/12/17 06:05 Est GFR (Non-Af Amer) > 60 03/12/17 06:05 POC Glucose (mg/dL) 94 mg/dL (65-110) 03/11/17 06:28 Random Glucose 78 mg/dL (75-110) 03/12/17 06:05 Calcium 7.8 mg/dl (8.6-10.4) L 03/12/17 06:05 Magnesium 1.7 mg/dL (1.6-2.3) 03/06/17 21:06 Total Bilirubin 0.8 mg/dL (0.2-1.3) 03/12/17 06:05 AST 33 U/L (17-59) 03/12/17 06:05 ALT 36 U/L (21-72) 03/12/17 06:05 Alkaline Phosphatase 101 U/L (38-126) 03/12/17 06:05 Troponin I 0.0810 ng/mL (0.00-0.120) 03/06/17 21:06 NT-Pro-B Natriuret Pep 2500 pg/mL (0-900) H 03/06/17 21:06 Total Protein 6.2 g/dL (6.3-8.3) L 03/12/17 06:05 Albumin 3.3 g/dL (3.5-5.0) L 03/12/17 06:05 Globulin 2.9 gm/dL (2.2-3.9) 03/12/17 06:05 Albumin/Globulin Ratio 1.1 (1.0-2.1) 03/12/17 06:05 Prostate Specific Ag < 0.064 ng/mL (0.00-4.0) 03/08/17 06:28 Arterial Blood Potassium 3.2 mmol/L (3.6-5.2) L 03/06/17 21:17 Urine Color Yellow (YELLOW) 03/06/17 22:26 Urine Clarity Hazy (Clear) 03/06/17 22:26 Urine pH 7.0 (5.0-8.0) 03/06/17 22:26 Ur Specific [place] 1.020 (1.003-1.030) 03/06/17 22:26 Urine Protein 2+ mg/dL (NEGATIVE) H 03/06/17 22:26 Urine Glucose (UA) Normal mg/dL (Normal) 03/06/17 22:26 Urine Ketones Negative mg/dL (NEGATIVE) 03/06/17 22:26 Urine Blood Negative (NEGATIVE) 03/06/17 22:26 Urine Nitrate Negative (NEGATIVE) 03/06/17 22:26 Urine Bilirubin Negative (NEGATIVE) 03/06/17 22:26 Urine Urobilinogen 4.0 mg/dL (0.2-1.0) 03/06/17 22:26 Ur Leukocyte Esterase 3+ [place]/uL (Negative) H 03/06/17 22:26 Urine WBC (Auto) 116 /hpf (0-5) H 03/06/17 22:26 Urine RBC (Auto) 4 /hpf (0-3) H 03/06/17 22:26 Ur Squamous Epith Cells < 1 /hpf (0-5) 03/06/17 22:26 Urine Bacteria Mod (<OCC) H 03/06/17 22:26 Hyaline Casts 3-5 /lpf (0-2) H 03/06/17 22:26 Vancomycin Trough 13.5 ug/mL (5.0-10.0) H 03/09/17 05:19 Digoxin 0.4 ng/mL (0.8-2.0) L 03/06/17 21:06 - Hospital Course Hospital Course: LAST FEW DAYS HAS BEEN C/O SOB AND SWELLING OF LEGS . PT. 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 C , A. FIB (DECLINED ANTICOAGULATION ) HAD PLRONGED RECENT STAY IN REHAB. WENT HOME AND DID NOT F/U. ALSO HAS STOPPED TAKING SOME OF HIS MEDICATION. PT. HAS HIS OWN OPINION ON WHAT MEDICATION HE NEEDS TO TAKE AND DECLINED OTHER MEDS RXED BY . PT IMPROVED ON IV LASIX AND ALDACTONE LEG WOUND GREW MRSA , URINE MULTI RESISTENT PROTEUS SEN COLISTIN PT TRANSERRED TO [facility] FOR IV AB , IMIPRIPIN/VANCO Discharge Plan - Discharge Medications Prescriptions: Furosemide [Lasix] 40 mg PO Q12 7 Days - Follow Up Plan Condition: FAIR Disposition: REHAB FACILITY/REHAB UNIT Instructions: Heart Failure (DC), Atrial Fibrillation (DC), MRSA (Methicillin Resistant Staphylococcus Aureus) (DC), Cellulitis (DC), Heart Healthy Diet (DC) , Edema (DC) Additional Instructions: PLEASE PLACE UNDER THE SERVICE OF DR. BAZAN WHILE AT [facility] -- CALL UPON ARRIVAL WITH BED ASSIGNMENT AND FOR ADMITTING ORDERS CONTINUE MEDS PER MED REC FALL PRECAUTIONS PER FACILITY PROTOCOL VANCOMYCIN AND MEROPENEM FOR 2 MORE WEEKS REPEAT VANCO TROUGH, CBC, BMP, LFTS ON EVERY FRIDAY STRICT CONTACT PRECAUTIONS PLEASE, ISOLATION ROOM, HAND WASHING FOR FURTHER ORDERS, CALL DR. BAZAN'S OFFICE Referrals: Arsen Ann MD [Staff Provider] - Farzaneh Andres MD [Staff Provider] - Gretel Bazan MD [Staff Provider] -
--- NOTE | 2017-03-18 09:00 | SPECPROC ---
PROCEDURE: Date of procedure: 03/11/2017 Procedure: 1. Placement of a right arm PICC with ultrasound and fluoroscopic guidance 2. PICC tip confirmation with spot radiograph and is in the superior vena cava Medications: 4 cc 1 percent lidocaine History cellulitis requiring long-term IV antibiotics TECHNIQUE: ULTRASOUND GUIDANCE FOR VASCULAR ACCESS Following informed consent and procedure time-out, the patient was placed supine on the interventional table and the right arm prepped and draped in the usual sterile fashion. Ultrasound showed a patent and compressible right basilic vein. After the skin was anesthetized with lidocaine, the basilic vein was accessed with micro micropuncture technique using ultrasound guidance. A guidewire was then advanced under fluoroscopic guidance into the superior vena cava. An image documenting ultrasound guidance for vascular access was permanently saved. The length of the single-lumen 4 Spanish PICC was trimmed to 35 centimeters and advanced through a peel-away sheath. The PICC was position with tip of PICC confirm a spot radiograph the superior vena cava. The PICC was secured to the patient's skin. The PICC was flushed. A biopatch and sterile dressing was applied. IMPRESSION: Placement of a single-lumen 4 Spanish PICC trimmed to 35 centimeters via right basilic vein. The tip of the PICC is confirmed with spot radiograph and is in the superior vena cava.
--- NOTE | 2017-03-28 15:11 | VASCULAR ---
PROCEDURE: Date of procedure: 03/11/2017 Procedure: 1. Placement of a right arm PICC with ultrasound and fluoroscopic guidance 2. PICC tip confirmation with spot radiograph and is in the superior vena cava Medications: 4 cc 1 percent lidocaine History cellulitis requiring long-term IV antibiotics TECHNIQUE: ULTRASOUND GUIDANCE FOR VASCULAR ACCESS Following informed consent and procedure time-out, the patient was placed supine on the interventional table and the right arm prepped and draped in the usual sterile fashion. Ultrasound showed a patent and compressible right basilic vein. After the skin was anesthetized with lidocaine, the basilic vein was accessed with micro micropuncture technique using ultrasound guidance. A guidewire was then advanced under fluoroscopic guidance into the superior vena cava. An image documenting ultrasound guidance for vascular access was permanently saved. The length of the single-lumen 4 [place] PICC was trimmed to 35 centimeters and advanced through a peel-away sheath. The PICC was position with tip of PICC confirm a spot radiograph the superior vena cava. The PICC was secured to the patient's skin. The PICC was flushed. A biopatch and sterile dressing was applied. IMPRESSION: Placement of a single-lumen 4 [place] PICC trimmed to 35 centimeters via right basilic vein. The tip of the PICC is confirmed with spot radiograph and is in the superior vena cava. NANCY
== END 2017-03-12 20:00 | DRG 291 ==
LOC: C.ER 20:29 → C.9E 23:06 → C.6T 23:51
PROVIDERS: ADMIT Internal Medicine Cardiovascular Disease; ATTEND Internal Medicine Cardiovascular Disease
PROC: 02HV33Z Insertion of Infusion Device into Superior Vena Cava, Percutaneous Approach (ICD-10-PCS; principal; 2017-03-11)
DX: I11.0 Hypertensive heart disease with heart failure (principal); J18.9 Pneumonia, unspecified organism; R65.20 Severe sepsis without septic shock; E87.2 Acidosis; D69.59 Other secondary thrombocytopenia; E11.622 Type 2 diabetes mellitus with other skin ulcer; D69.6 Thrombocytopenia, unspecified; I27.81 Cor pulmonale (chronic); A41.9 Sepsis, unspecified organism; L03.115 Cellulitis of right lower limb; J44.1 Chronic obstructive pulmonary disease with (acute) exacerbation; N39.0 Urinary tract infection, site not specified; L03.116 Cellulitis of left lower limb; L97.929 Non-pressure chronic ulcer of unspecified part of left lower leg with unspecified severity; K70.30 Alcoholic cirrhosis of liver without ascites; I48.91 Unspecified atrial fibrillation; I50.9 Heart failure, unspecified; J44.9 Chronic obstructive pulmonary disease, unspecified; Z87.891 Personal history of nicotine dependence; B19.20 Unspecified viral hepatitis C without hepatic coma; Z85.46 Personal history of malignant neoplasm of prostate; B96.4 Proteus (mirabilis) (morganii) as the cause of diseases classified elsewhere; D72.819 Decreased white blood cell count, unspecified

== ENCOUNTER 2017-05-11 00:08 | Inpatient (IN) | payer MEDICARE ==
[2017-05-11 00:08] VITALS: PULSE 108
--- NOTE | 2017-05-11 01:09 | C.PDOC ---
History Of Present Illness Patient is a 72 year old male brought in to ER via ALS for a witnessed cardiac arrest. It was reported that patient has been in severe respiratory distress for the past week. EMS saw patient 18 hours ago; however, patient refused to go to hospital. Patient's most recent hospital admission was for COPD and pneumonia ; patient signed DNR DNI. EMS states on arrival patient became asystolic and CPR was started; 1 round of epi was used and there was return of spontaneous circulation. Patient is currently intubated with 7.0 at 24cm. Time Seen by Provider: 05/11/17 00:16 Chief Complaint (Nursing): Cardiac Arrest History Per: Patient Reason For Code Blue: Full Arrest Circumstances: Brought To ED By EMS Arrest Witnessed By: Family Treatment Initiated Prior To MD Arrival: Yes: CPR, Intubation Medications Given Prior To MD Arrival: Yes: Epinephrine - Initial Findings Rhythm: Asystole Past Medical History Reviewed: Historical Data, Nursing Documentation, Vital Signs Vital Signs: Last Vital Signs Temp Pulse 65 05/11/17 00:18 Resp 10 L 05/11/17 00:18 BP 104/61 05/11/17 00:18 Pulse Ox 100 05/11/17 01:23 - Medical History PMH: Atrial Fibrillation, Cardia Arrhythmia, CHF, COPD, HTN, Peripheral Edema, Pneumonia Surgical History: Appendectomy - [facility] Procedures ASSISTANCE WITH RESPIRATORY VENTILATION, 24-96 HRS, CPAP (11/20/16) CORONAR ARTERIOGR-2 CATH (06/09/07) INSERTION OF INFUSION DEV INTO SUP VENA CAVA, PERC APPROACH (03/06/17) INTRODUCTION OF VASOPRESSOR INTO PERIPH VEIN, PERC APPROACH (12/18/16) LEFT HEART CARDIAC CATH (06/09/07) LT HEART ANGIOCARDIOGRAM (06/09/07) Family History: States: Unknown Family Hx - Social History Hx Tobacco Use: Yes (former smoker) Hx Alcohol Use: No Hx Substance Use: No - Immunization History Hx Tetanus Toxoid Vaccination: No Hx Influenza Vaccination: No Hx Pneumococcal Vaccination: No Review Of Systems Review Of Systems: ROS cannot be obtained secondary to pt's inabilty to answer questions. Physical Exam - Physical Exam Appears: Non-toxic Skin: Warm, Dry Head: Atraumatic, Normacephalic Eye(s): bilateral: Normal Inspection, PERRL, EOMI Oral Mucosa: Moist Neck: Normal, Supple Chest: Symmetrical, No Tenderness Cardiovascular: Rhythm Irregular, Other (Weak carotid pulses) Respiratory: Rhonchi, Wheezing (Throughout) Gastrointestinal/Abdominal: Soft, Other (Obese, globus) Extremity: No Pedal Edema (Lower extremity), Other (Lower extremity scaling) ED Course And Treatment - Laboratory Results Result Diagrams: 05/11/17 01:04 05/11/17 01:04 ECG: Interpreted By Me ECG Rhythm: Atrial Fibrillation ECG Interpretation: Normal Rate From EC O2 Sat by Pulse Oximetry: 100 (Room air) Pulse Ox Interpretation: Normal - Radiology CXR: Interpreted by Me CXR Interpretation: Yes: Infiltrates (? b/l infiltrates, ET tube good position) Progress Note: EKG, blood work, urinalysis and CXR ordered. Reevaluation Time: 02:02 Reassessment Condition: Improved - Physician Consult Information Outcome Of Conversation: 0020: d/w Dr. berry- ICU- ok to ICU. 0130: d/w Dr. Marty falcon to Admit to his service. Medical Decision Making Medical Decision Making: resp arrest leading to card arrest with ROSC in the field by ALS pt prior DNR/DNI and RMA from BLS/ALS yesterday, so code status in question at this time. broad spectrum abx empirically. Disposition Doctor Will See Patient In The: Hospital Counseled Patient/Family Regarding: Studies Performed, Diagnosis - Disposition Disposition: HOSPITALIZED Disposition Time: 02:04 Condition: CRITICAL - Clinical Impression Clinical Impression: Cardiac arrest, Respiratory arrest, Sepsis, Troponin I above reference range Critical Care Time - Critical Care Note Total Time (in mins): 90 Documented critical care: time excludes all time spent performing seperately billable procedures. - Scribe Statement The provider has reviewed the documentation as recorded by the Scribe Tony Jackson All medical record entries made by the Scribe were at my direction and personally dictated by me. I have reviewed the chart and agree that the record accurately reflects my personal performance of the history, physical exam, medical decision making, and the department course for this patient. I have also personally directed, reviewed, and agree with the discharge instructions and disposition.
[2017-05-11 01:10] LABS: ABG ALLEN TEST POS; ABG MECHANICAL RATE 20; ATERIAL BLOOD GAS PEEP 5; DRAW SITE RRADIAL
[2017-05-11 01:13] LABS: BASO % 0.2 % (0.0-2.0); EOS % 0.2 % (0.0-4.0); HEMATOCRIT 38.8 % (35.0-51.0); LYMPH # 0.6 K/uL (1.0-4.3); MEAN CELL VOLUME 100.3 fL (80.0-94.0); MEAN CORPUSCULAR HEMOGLOBIN 29.9 pg (27.0-31.0); MEAN CORPUSCULAR HGB CONC 29.8 g/dL (33.0-37.0); MEAN PLATELET VOLUME 8.4 fL (7.2-11.7); MONO # 0.7 K/uL (0.0-0.8); MONO % 4.4 % (0.0-10.0); NRBC % 0.8 % (0.0-2.0); PLATELET COUNT 135 K/uL (130-400); RED CELL DISTRIBUTION WIDTH 17.7 % (11.5-14.5); WHITE BLOOD COUNT 15.8 K/uL (4.8-10.8)
[2017-05-11 01:14] LABS: INR 1.7
[2017-05-11 01:17] LABS: POTASSIUM 4.1 mmol/L (3.6-5.2)
[2017-05-11 01:19] LABS: ALB/GLOB RATIO 0.8 (1.0-2.1); BILIRUBIN,TOTAL 1.8 mg/dL (0.2-1.3); CALCIUM 7.7 mg/dl (8.6-10.4); TOTAL PROTEIN 6.4 g/dL (6.3-8.3)
[2017-05-11 01:20] LABS: MAGNESIUM 2.3 mg/dL (1.6-2.3)
[2017-05-11] MEDS ORDERED: Piperacillin/Tazobact 3.375 gm 100 ML IV STA (01:21)
[2017-05-11] MEDS ORDERED: Vancomycin 1 gm/NS 200 ml 1 GM/200 ML BAG IVPB STA (01:21)
[2017-05-11] MEDS ORDERED: Sodium Chloride 0.9% 1,000 ML IV ONE (01:22)
--- NOTE | 2017-05-11 01:23 | C.PDOC ---
Time Seen by Provider: 05/11/17 00:16 Chief Complaint (Nursing): Cardiac Arrest Past Medical History Vital Signs: Last Vital Signs Temp Pulse 65 05/11/17 00:18 Resp 10 L 05/11/17 00:18 BP 104/61 05/11/17 00:18 Pulse Ox 100 05/11/17 00:18 - Medical History PMH: Atrial Fibrillation, Cardia Arrhythmia, CHF, COPD, HTN, Peripheral Edema, Pneumonia Denies: Chronic Kidney Disease Surgical History: Appendectomy - [facility] Procedures ASSISTANCE WITH RESPIRATORY VENTILATION, 24-96 HRS, CPAP (11/20/16) CORONAR ARTERIOGR-2 CATH (06/09/07) INSERTION OF INFUSION DEV INTO SUP VENA CAVA, PERC APPROACH (03/06/17) INTRODUCTION OF VASOPRESSOR INTO PERIPH VEIN, PERC APPROACH (12/18/16) LEFT HEART CARDIAC CATH (06/09/07) LT HEART ANGIOCARDIOGRAM (06/09/07) Family History: States: Unknown Family Hx - Social History Hx Tobacco Use: Yes (former smoker) Hx Alcohol Use: No Hx Substance Use: No - Immunization History Hx Tetanus Toxoid Vaccination: No Hx Influenza Vaccination: No Hx Pneumococcal Vaccination: No ED Course And Treatment O2 Sat by Pulse Oximetry: 100
[2017-05-11 01:46] LABS: TROPONIN I 0.856 ng/mL (0.00-0.120)
[2017-05-11] MEDS ORDERED: Vancomycin 1 GM 1 GM/250 ML BAG IVPB ONE (01:48)
[2017-05-11] MEDS ORDERED: Piperacillin/Tazobact 3.375 gm 100 ML IVPB ONE (01:48)
[2017-05-11 01:52] LABS: RBC URINE 18 /hpf (0-3); URINE BILIRUBIN NEGATIVE (NEGATIVE); URINE BLOOD NEGATIVE (NEGATIVE); URINE COLOR Amber (YELLOW); URINE GLUCOSE (UA) NORMAL (Normal); URINE KETONE NEGATIVE (NEGATIVE); URINE LEUKOCYTE ESTERASE NEG Leu/uL (Negative); URINE PROTEIN 1+ mg/dL (NEGATIVE); URINE UROBILINOGEN NORMAL mg/dL (0.2-1.0); WBC URINE 3 /hpf (0-5)
[2017-05-11 01:56] LABS: NEUTROPHIL 86 % (50-75); NUCLEATED RED BLOOD CELL 1 % (0-0); REACTIVE LYMPHOCYTES 1 % (0-0); TOTAL CELLS COUNTED 100
[2017-05-11] MEDS ORDERED: DOBUTamine 500mg/250ml D5W 500 MG/250 ML BAG IV SCH ×2 (02:15→21:35)
--- NOTE | 2017-05-11 02:41 | CP.PCM.CON ---
History of Present Illness - History of Present Illness History of Present Illness: 72 M with h/o COPD, CHF ef 25-30%, h/o afib refused anticoagulation, h/o hepc, alcohols abuse, cirrhosis, pul htn, chronic leg ulcers with infection ? pvd brought to ER with cardiac arrest in field. As per the information from the ER, patients sob for some time worsening, ems went to him 18 hr aga patient refused to come, h/o being DNR during prior hospitalization. EMS again vent today for c/o resp distress, patient had witness arrest and responded with 1st round of cpr with return of circulation. Patient intubated in the field tube size 7 at 24 at lip. Patient only had some response to painful stimuli, not awake now, had to be started on levophed in ER. Right femoral cath was inserted by er physician. Daughter spoken to by Dr Nielson in ER and requested to do full care for now. PMH as above Allergies NKDA Family history not contributory Meds reviewed from prior hospitalization but current med could not be confirmed Social former smoker, h/o recent drinking wine Review of Systems - Review of Systems Systems not reviewed;Unavailable: Intubated Past Patient History - Past Medical History & Family History Past Medical History?: Yes - Past Social History Smoking Status: Former Smoker Alcohol: Other (details not available) Drugs: Denies Home Situation {Lives}: With Family Domestic Violence: Negative - CARDIAC Hx Atrial Fibrillation: Yes Hx Cardia Arrhythmia: Yes Hx Congestive Heart Failure: Yes Hx Hypertension: Yes Hx Peripheral Edema: Yes - PULMONARY Hx Chronic Obstructive Pulmonary Disease (COPD): Yes Hx Pneumonia: Yes - NEUROLOGICAL Hx Neurological Disorder: No - HEENT Hx HEENT Problems: No - RENAL Hx Chronic Kidney Disease: No - ENDOCRINE/METABOLIC Hx Endocrine Disorders: No - HEMATOLOGICAL/ONCOLOGICAL Hx Blood Disorders: Yes Hx Hepatitis C: Yes - INTEGUMENTARY Hx Dermatological Problems: Yes Hx Psoriasis: Yes - MUSCULOSKELETAL/RHEUMATOLOGICAL Hx Musculoskeletal Disorders: Yes Hx Falls: No Other/Comment: BLE WEAKNESS PT. ON WHEELCHAIR - GASTROINTESTINAL Hx Gastrointestinal Disorders: Yes Other/Comment: CIRRHOSIS OF LIVER - GENITOURINARY/GYNECOLOGICAL Hx Genitourinary Disorders: No - PSYCHIATRIC Hx Substance Use: No - SURGICAL HISTORY Hx Appendectomy: Yes - ANESTHESIA Hx Anesthesia: Yes Hx Anesthesia Reactions: No Meds Allergies/Adverse Reactions: Allergies Allergy/AdvReac Type Severity Reaction Status Date / Time No Known Allergies Allergy Verified 04/13/17 20:47 - Medications Medications: Current Medications Albuterol/Ipratropium (Duoneb 3 Mg/0.5 Mg (3 Ml) Ud) 3 ml INH RQ6 ANGIE Heparin Sodium (Porcine) (Heparin) 5,000 units SC Q8 ANGIE Norepinephrine Bitartrate 8 mg (/ Dextrose) 258 mls @ 7.74 mls/hr IV .Q24H PRN ; Protocol; 4 MCG/MIN PRN Reason: TITRATE PER MD ORDER Vancomycin/Sodium Chloride (Vancocin) 1 gm in 200 mls @ 166.667 mls/hr IVPB STAT STA Stop: 05/11/17 02:32 Dobutamine HCl/Dextrose (Dobutamine/Dextrose 5% 500mg/250ml) 500 mg in 250 mls @ 6.804 mls/hr IV .Q24H ANGIE; 2.5 MCG/KG/MIN PRN Reason: Protocol Piperacillin Sod/Tazobactam Sod (Zosyn 3.375 Gm Iv Premix) 3.375 gm in 50 mls @ 100 mls/hr IVPB Q6H ANGIE Vancomycin HCl 1,000 mg/ (Sodium Chloride) 250 mls @ 166.6 mls/hr IVPB Q12H ANGIE Methylprednisolone (Solu-Medrol) 40 mg IVP Q8 ANGIE Methylprednisolone (Solu-Medrol) 125 mg IVP ONCE ONE Stop: 05/11/17 02:31 Pantoprazole Sodium (Protonix Inj) 40 mg IVP DAILY [facility] Physical Exam - Additional Findings Additional findings: * Unkempt, unresponsive * HEENT right pupil dilated(blind as per ) left reacting 4mm * Neck short * CVS irregular hr in 60's * Chest b/l wheezes, prolonged expiration sounds * PA large, distended, tenderness could not be elicited * Ext b/l dressing left leg small wound with yellowish green base on proximal medial lower leg, medial mid and lower leg ulcers superficial greenish discharge * right leg lateral lower leg superficial ulcer. Right groin TLC inserted in ER noticed. * RN POOL unresponsive with some spontaneous non purpose full movements. * skin dry lesion as above * Results - Vital Signs Recent Vital Signs: Last Vital Signs Temp Pulse 65 05/11/17 00:18 Resp 10 L 05/11/17 00:18 BP 104/61 05/11/17 00:18 Pulse Ox 100 05/11/17 02:05 - Labs Result Diagrams: 05/11/17 01:04 05/11/17 01:04 Labs: Laboratory Results - last 24 hr 05/11/17 05/11/17 05/11/17 00:17 01:04 01:04 WBC 15.8 H D RBC 3.87 L Hgb 11.6 L Hct 38.8 MCV 100.3 H MCH 29.9 MCHC 29.8 L RDW 17.7 H Plt Count 135 MPV 8.4 Neut % (Auto) 91.2 H Lymph % (Auto) 4.0 L Titus % (Auto) 4.4 Eos % (Auto) 0.2 Baso % (Auto) 0.2 Neut # 14.4 H Lymph # 0.6 L Titus # 0.7 Eos # 0.0 Baso # 0.0 Neutrophils % (Manual) 86 H Band Neutrophils % 7 H Lymphocytes % (Manual) 2 L Reactive Lymphs % 1 H Monocytes % (Manual) 4 Nucleated RBC % 1 H Platelet Estimate Slightly decreased L PT 19.8 H INR 1.7 APTT 33 Puncture Site pCO2 pO2 HCO3 ABG pH ABG Total CO2 ABG O2 Saturation ABG Base Excess Eris Test ABG Potassium A-a O2 Difference Respiratory Index Glucose Lactate Mechanical Rate FiO2 Tidal Volume PEEP Crit Value Called To Crit Value Called By Crit Value Read Back Blood Gas Notified Time Sodium Potassium Chloride Carbon Dioxide Anion Gap BUN Creatinine Est GFR ( Amer) Est GFR (Non-Af Amer) POC Glucose (mg/dL) 122 H Random Glucose Calcium Magnesium Total Bilirubin AST ALT Alkaline Phosphatase Troponin I NT-Pro-B Natriuret Pep Total Protein Albumin Globulin Albumin/Globulin Ratio Arterial Blood Potassium Urine Color Urine Clarity Urine pH Ur Specific [place] Urine Protein Urine Glucose (UA) Urine Ketones Urine Blood Urine Nitrate Urine Bilirubin Urine Urobilinogen Ur Leukocyte Esterase Urine WBC (Auto) Urine RBC (Auto) Ur Squamous Epith Cells Urine Opiates Screen Urine Methadone Screen Ur Barbiturates Screen Ur Phencyclidine Scrn Ur Amphetamines Screen U Benzodiazepines Scrn U Oth Cocaine Metabols U Cannabinoids Screen 05/11/17 05/11/17 05/11/17 01:04 01:05 01:46 WBC RBC Hgb Hct MCV MCH MCHC RDW Plt Count MPV Neut % (Auto) Lymph % (Auto) Titus % (Auto) Eos % (Auto) Baso % (Auto) Neut # Lymph # [place]itus # Eos # Baso # Neutrophils % (Manual) Band Neutrophils % Lymphocytes % (Manual) Reactive Lymphs % Monocytes % (Manual) Nucleated RBC % Platelet Estimate PT INR APTT Puncture Site Rradial pCO2 77 H* pO2 50 L HCO3 33.3 H ABG pH 7.33 L ABG Total CO2 43.0 H ABG O2 Saturation 89.7 L ABG Base Excess 11.3 H Eris Test Pos ABG Potassium 4.1 A-a O2 Difference 567.0 Respiratory Index 11.3 Glucose 128 H Lactate 3.9 H Mechanical Rate 20 FiO2 100.0 Tidal Volume 500 PEEP 5 Crit Value Called To Dr. newman Crit Value Called By Mary gomez rcp Crit Value Read Back Y Blood Gas Notified Time 110 Sodium 133 133.0 Potassium 4.1 Chloride 83 L 94.0 L Carbon Dioxide 38 H Anion Gap 16 BUN 61 H Creatinine 1.5 Est GFR ( Amer) 55 Est GFR (Non-Af Amer) 46 POC Glucose (mg/dL) Random Glucose 125 H Calcium 7.7 L Magnesium 2.3 Total Bilirubin 1.8 H AST 83 H D ALT 125 H D Alkaline Phosphatase 140 H D Troponin I 0.8560 H* NT-Pro-B Natriuret Pep 45935 H Total Protein 6.4 Albumin 2.9 L Globulin 3.5 Albumin/Globulin Ratio 0.8 L Arterial Blood Potassium 4.1 Urine Color Janae Urine Clarity Hazy Urine pH 5.0 Ur Specific [place] 1.012 Urine Protein 1+ H Urine Glucose (UA) Normal Urine Ketones Negative Urine Blood Negative Urine Nitrate Negative Urine Bilirubin Negative Urine Urobilinogen Normal Ur Leukocyte Esterase Neg Urine WBC (Auto) 3 Urine RBC (Auto) 18 H Ur Squamous Epith Cells 1 Urine Opiates Screen Urine Methadone Screen Ur Barbiturates Screen Ur Phencyclidine Scrn Ur Amphetamines Screen U Benzodiazepines Scrn U Oth Cocaine Metabols U Cannabinoids Screen 05/11/17 01:51 WBC RBC Hgb Hct MCV MCH MCHC RDW Plt Count MPV Neut % (Auto) Lymph % (Auto) Titus % (Auto) Eos % (Auto) Baso % (Auto) Neut # Lymph # [place] # Eos # Baso # Neutrophils % (Manual) Band Neutrophils % Lymphocytes % (Manual) Reactive Lymphs % Monocytes % (Manual) Nucleated RBC % Platelet Estimate PT INR APTT Puncture Site pCO2 pO2 HCO3 ABG pH ABG Total CO2 ABG O2 Saturation ABG Base Excess Eris Test ABG Potassium A-a O2 Difference Respiratory Index Glucose Lactate Mechanical Rate FiO2 Tidal Volume PEEP Crit Value Called To Crit Value Called By Crit Value Read Back Blood Gas Notified Time Sodium Potassium Chloride Carbon Dioxide Anion Gap BUN Creatinine Est GFR ( Amer) Est GFR (Non-Af Amer) POC Glucose (mg/dL) Random Glucose Calcium Magnesium Total Bilirubin AST ALT Alkaline Phosphatase Troponin I NT-Pro-B Natriuret Pep Total Protein Albumin Globulin Albumin/Globulin Ratio Arterial Blood Potassium Urine Color Urine Clarity Urine pH Ur Specific [place] Urine Protein Urine Glucose (UA) Urine Ketones Urine Blood Urine Nitrate Urine Bilirubin Urine Urobilinogen Ur Leukocyte Esterase Urine WBC (Auto) Urine RBC (Auto) Ur Squamous Epith Cells Urine Opiates Screen Negative Urine Methadone Screen Negative Ur Barbiturates Screen Negative Ur Phencyclidine Scrn Negative Ur Amphetamines Screen Negative U Benzodiazepines Scrn Negative U Oth Cocaine Metabols Negative U Cannabinoids Screen Negative Assessment & Plan - Assessment and Plan (Free Text) Assessment: * Resp failure with secondary arrest * H/o COPD * H/o CHF low ef, pulm htn, afib * Chronic leg swelling, h/o ulcers and cellulitis * Non compliance, prior dnr * Renal insufficiency with current events Plan: * Emperic abx, steroid, nebs * vent * GI/DVT prophylaxis * Dig level * continue levophe, add dobutamine due to h/o low ef * See orders for detail * Observe for some time for purposeful movements if not then may need therapeutic hypothermia.
[2017-05-11 04:13] VITALS: BMI 31.3
[2017-05-11 06:09] LABS: ABG ALLEN TEST POS; ABG MECHANICAL RATE 24; ATERIAL BLOOD GAS PEEP 5; DRAW SITE RRADIAL
[2017-05-11 06:33] LABS: ALB/GLOB RATIO 0.9 (1.0-2.1); BILIRUBIN,TOTAL 2.6 mg/dL (0.2-1.3); PHOSPHOROUS 3.2 mg/dL (2.5-4.5); TOTAL PROTEIN 5.4 g/dL (6.3-8.3)
[2017-05-11 06:34] LABS: CALCIUM 7.6 mg/dl (8.6-10.4)
[2017-05-11 06:46] LABS: TROPONIN I 3.54 ng/mL (0.00-0.120)
[2017-05-11 07:51] LABS: HEMATOCRIT 37.3 % (35.0-51.0); MEAN CORPUSCULAR HGB CONC 30.8 g/dL (33.0-37.0); RED CELL DISTRIBUTION WIDTH 17.5 % (11.5-14.5)
[2017-05-11 07:58] LABS: MEAN CELL VOLUME 97.4 fL (80.0-94.0)
[2017-05-11] MEDS: Albuterol-Ipratrop 3 mg / 0.5 (3 ml) UD INH SCH ×3 (08:18→19:39)
[2017-05-11] MEDS: Piperacill/Tazo 3.375gm in Dex 3.375 GM/50 ML BAG IVPB SCH ×2 (08:35→13:56)
--- NOTE | 2017-05-11 09:33 | RAD ---
HISTORY: pt on vent COMPARISON: 05/11/2017 FINDINGS: Endotracheal tube terminates 5.8 cm proximal to the wilber. LUNGS: There is interval near complete opacification of the left hemithorax. There is multifocal airspace disease in the right lung. PLEURA: No significant pleural effusion identified, no pneumothorax apparent. CARDIOVASCULAR: Normal. OSSEOUS STRUCTURES: No significant abnormalities. VISUALIZED UPPER ABDOMEN: Normal. OTHER FINDINGS: None. IMPRESSION: Interval near complete opacification of the left hemithorax which could be related to consolidation or pleural effusion. Persistent multifocal airspace disease in the right lung.
--- NOTE | 2017-05-11 09:40 | RAD ---
PROCEDURE: CHEST RADIOGRAPH, 1 VIEW HISTORY: Shortness of breath COMPARISON: 03/06/2017. FINDINGS: The endotracheal tube terminates in the mid trachea. LUNGS: There is interval worsening of pulmonary venous congestion. PLEURA: No pneumothorax or pleural fluid seen. CARDIOVASCULAR: There is persistent severe cardiomegaly. OSSEOUS STRUCTURES: No significant abnormalities. VISUALIZED UPPER ABDOMEN: Normal. OTHER FINDINGS: None. IMPRESSION: Persistent severe cardiomegaly and interval worsening of pulmonary venous congestion.
[2017-05-11] MEDS: MethylPREDNISolone 40 mg Vial IVP SCH ×2 (10:42→18:32)
--- NOTE | 2017-05-11 14:57 | CP.PCM.HP ---
History of Present Illness - History of Present Illness History of Present Illness: COMPREHENSIVE HISTORY & PHYSICAL EXAM HPI 72 M with h/o COPD, CHF ef 25-30%, h/o afib refused anticoagulation, h/o hepc, alcohols abuse, cirrhosis, pul htn, chronic leg ulcers with infection pvd brought to ER with cardiac arrest in field. As per the information from the ER, patients sob for some time worsening, ems went to him 18 hr ago patient refused to come, h/o being DNR during prior hospitalization. EMS again vent today for c/o resp distress, patient had witness arrest and responded with 1st round of cpr with return of circulation. Patient intubated in the field Patient only had some response to painful stimuli, not awake now, had to be started on levophed in ER. PAST HIST. 2 ERISODES OF CARDIAC ARREST IN PAST /A. 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 LEG EDEMA WITH CELLULITIS . LAST WAS TREATED IN [facility] WITH IV AB WITH NEG CULTURES . PER LIVING , KEPT LEGS UNHYGENIC WITH URINE DRIBBLING AND DRINKING WINE DAILY . PRVOIS H/O OF MRSA AND PSEUDOMONAS INFECTION OF LEGS PERSONAL HIST: Smoking. N Alcohol. Y Allergy N Travel_- . FAMILY HIST : ROS : N/A DUE TO INTUBATION AND SEDATED P/E: ConstitutionalON RESPIRATOR Head: Normocephalic. Ears: External ear canals patent without inflammation. Tympanic membranes intact with normal light reflex and landmark. Eyes: Pupils are central, bilaterally equal, symmetrical and reacts to light. Neck-Lymphatic: Neck is supple with normal ROM, no thyromegaly, lymph nodes or masses. JVD is normal with no carotid bruit. Lungs:CANDACE RONCHI Cardiovascular: S1 and S2 are normal with no murmurs, gallops and rub. GI Exam DISTENDED SEC TO ASCITIES Neurology: MOVES EXT ON PAINFUL STIMULI Extremities CANDACE SWELLING WITH CELLULITIS MAL ODOUR Skin: No rash, eruptions or abnormal skin pigmentation LAB/RADIOLOGY: ASSESMENT : OUT OF HOSPITAL CARDIAC ARREST WITH RESUSCITATION SEPTIC SHOCK SEC. TO LEG INFECTION ACUTE RENAL FAILURE PLAN: MANAGEMENT ICU PROTOCOL Present on Admission - Present on Admission History of DVT/PE: No History of Uncontrolled Diabetes: No Urinary Catheter: No Decubitus Ulcer Present: No Past Patient History - Past Medical History & Family History Past Medical History?: Yes - Past Social History Smoking Status: Former Smoker - CARDIAC Hx Cardiac Disorders: Yes Hx Atrial Fibrillation: Yes Hx Cardia Arrhythmia: Yes Hx Congestive Heart Failure: Yes Hx Hypertension: Yes Hx Peripheral Edema: Yes - PULMONARY Hx Respiratory Disorders: Yes Hx Chronic Obstructive Pulmonary Disease (COPD): Yes Hx Pneumonia: Yes - NEUROLOGICAL Hx Neurological Disorder: No - HEENT Hx HEENT Problems: No - RENAL Hx Chronic Kidney Disease: No - ENDOCRINE/METABOLIC Hx Endocrine Disorders: No - HEMATOLOGICAL/ONCOLOGICAL Hx Blood Disorders: Yes Hx Hepatitis C: Yes - INTEGUMENTARY Hx Dermatological Problems: Yes Hx Psoriasis: Yes Other/Comment: Chronic Leg Ulcers - MUSCULOSKELETAL/RHEUMATOLOGICAL Hx Musculoskeletal Disorders: No Hx Falls: Yes - GASTROINTESTINAL Hx Gastrointestinal Disorders: Yes Other/Comment: CIRRHOSIS OF LIVER - GENITOURINARY/GYNECOLOGICAL Hx Genitourinary Disorders: No - PSYCHIATRIC Hx Substance Use: No - SURGICAL HISTORY Hx Surgeries: Yes Hx Appendectomy: Yes - ANESTHESIA Hx Anesthesia: Yes Hx Anesthesia Reactions: No Hx Malignant Hyperthermia: No Has any member of the family had a problem w/ anesthesia?: No Meds Allergies/Adverse Reactions: Allergies Allergy/AdvReac Type Severity Reaction Status Date / Time No Known Allergies Allergy Verified 03/06/17 20:47 Results - Vital Signs Recent Vital Signs: Last Vital Signs Temp 99 F 05/11/17 12:00 Pulse 92 H 05/11/17 14:10 Resp 24 05/11/17 14:10 BP 117/62 05/11/17 13:50 Pulse Ox 100 05/11/17 14:10 - Labs Result Diagrams: 05/14/17 06:23 05/14/17 06:23 Labs: Laboratory Results - last 24 hr 05/11/17 05/11/17 05/11/17 01:46 01:51 05:55 WBC RBC Hgb Hct MCV MCH MCHC RDW Plt Count MPV Differential Comment APTT Puncture Site Rradial pCO2 47 H pO2 58 L HCO3 34.7 H ABG pH 7.51 H ABG Total CO2 38.9 H ABG O2 Saturation 94.0 L ABG Base Excess 12.7 H Eris Test Pos ABG Potassium 3.9 A-a O2 Difference 596.0 Respiratory Index 10.3 Sodium 135.0 Chloride 97.0 L Glucose 106 Lactate 2.5 H Mechanical Rate 24 FiO2 100.0 Tidal Volume 500 PEEP 5 Potassium Carbon Dioxide Anion Gap BUN Creatinine Est GFR ( Amer) Est GFR (Non-Af Amer) POC Glucose (mg/dL) Random Glucose Calcium Phosphorus Magnesium Total Bilirubin AST ALT Alkaline Phosphatase Troponin I Total Protein Albumin Globulin Albumin/Globulin Ratio Arterial Blood Potassium 3.9 Urine Color Janae Urine Clarity Hazy Urine pH 5.0 Ur Specific [place] 1.012 Urine Protein 1+ H Urine Glucose (UA) Normal Urine Ketones Negative Urine Blood Negative Urine Nitrate Negative Urine Bilirubin Negative Urine Urobilinogen Normal Ur Leukocyte Esterase Neg Urine WBC (Auto) 3 Urine RBC (Auto) 18 H Ur Squamous Epith Cells 1 Urine Opiates Screen Negative Urine Methadone Screen Negative Ur Barbiturates Screen Negative Ur Phencyclidine Scrn Negative Ur Amphetamines Screen Negative U Benzodiazepines Scrn Negative U Oth Cocaine Metabols Negative U Cannabinoids Screen Negative 05/11/17 05/11/17 05/11/17 06:07 06:16 06:16 WBC RBC Hgb Hct MCV MCH MCHC RDW Plt Count MPV Differential Comment APTT 34 Puncture Site pCO2 pO2 HCO3 ABG pH ABG Total CO2 ABG O2 Saturation ABG Base Excess Eris Test ABG Potassium A-a O2 Difference Respiratory Index Sodium 132 Chloride 86 L Glucose Lactate Mechanical Rate FiO2 Tidal Volume PEEP Potassium 4.0 Carbon Dioxide 38 H Anion Gap 12 BUN 65 H Creatinine 1.5 Est GFR ( Amer) 55 Est GFR (Non-Af Amer) 46 POC Glucose (mg/dL) 136 H Random Glucose 105 Calcium 7.6 L Phosphorus 3.2 Magnesium 2.0 Total Bilirubin 2.6 H AST 87 H ALT 105 H Alkaline Phosphatase 115 Troponin I 3.5400 H* Total Protein 5.4 L Albumin 2.6 L Globulin 2.8 Albumin/Globulin Ratio 0.9 L Arterial Blood Potassium Urine Color Urine Clarity Urine pH Ur Specific [place] Urine Protein Urine Glucose (UA) Urine Ketones Urine Blood Urine Nitrate Urine Bilirubin Urine Urobilinogen Ur Leukocyte Esterase Urine WBC (Auto) Urine RBC (Auto) Ur Squamous Epith Cells Urine Opiates Screen Urine Methadone Screen Ur Barbiturates Screen Ur Phencyclidine Scrn Ur Amphetamines Screen U Benzodiazepines Scrn U Oth Cocaine Metabols U Cannabinoids Screen 05/11/17 05/11/17 07:48 13:30 WBC 18.0 H RBC 3.83 L Hgb 11.5 L Hct 37.3 MCV 97.4 H D MCH 30.0 MCHC 30.8 L RDW 17.5 H Plt Count 112 L D MPV 8.0 Differential Comment APTT Puncture Site pCO2 pO2 HCO3 ABG pH ABG Total CO2 ABG O2 Saturation ABG Base Excess Eris Test ABG Potassium A-a O2 Difference Respiratory Index Sodium Chloride Glucose Lactate Mechanical Rate FiO2 Tidal Volume PEEP Potassium Carbon Dioxide Anion Gap BUN Creatinine Est GFR ( Amer) Est GFR (Non-Af Amer) POC Glucose (mg/dL) 107 Random Glucose Calcium Phosphorus Magnesium Total Bilirubin AST ALT Alkaline Phosphatase Troponin I Total Protein Albumin Globulin Albumin/Globulin Ratio Arterial Blood Potassium Urine Color Urine Clarity Urine pH Ur Specific [place] Urine Protein Urine Glucose (UA) Urine Ketones Urine Blood Urine Nitrate Urine Bilirubin Urine Urobilinogen Ur Leukocyte Esterase Urine WBC (Auto) Urine RBC (Auto) Ur Squamous Epith Cells Urine Opiates Screen Urine Methadone Screen Ur Barbiturates Screen Ur Phencyclidine Scrn Ur Amphetamines Screen U Benzodiazepines Scrn U Oth Cocaine Metabols U Cannabinoids Screen
[2017-05-11 18:32] LABS: ABG ALLEN TEST POS; ABG MECHANICAL RATE 24; ATERIAL BLOOD GAS PEEP 5; CARBOXYHEMOGLOBIN 1.7 % (0.5-1.5); DRAW SITE RRA; HHB 2.4 % (0.0-5.0); METHEMOGLOBIN 0.9 % (0.0-3.0)
[2017-05-11] MEDS: Phenylephrine 30 MG in Dextrose 5% In Water 250 ML IV PRN (19:47)
[2017-05-11] MEDS: DOBUTamine 500mg/250ml D5W 500 MG/250 ML BAG IV SCH (21:52)
[2017-05-12] MEDS ORDERED: Vancomycin 750mg/D5W 150 ml 150 ML IVPB SCH
[2017-05-12] MEDS: MethylPREDNISolone 40 mg Vial IVP SCH ×3 (02:34→17:31)
[2017-05-12] MEDS ORDERED: Acetaminophen 650mg/20.3ml solution UD NG ONE (05:19)
[2017-05-12 06:38] LABS: HEMATOCRIT 37.5 % (35.0-51.0); LYMPH # 0.6 K/uL (1.0-4.3); LYMPH % 3.4 % (20.0-40.0); MEAN CELL VOLUME 95.5 fL (80.0-94.0); MEAN CORPUSCULAR HEMOGLOBIN 29.7 pg (27.0-31.0); MEAN CORPUSCULAR HGB CONC 31.1 g/dL (33.0-37.0); MEAN PLATELET VOLUME 10.5 fL (7.2-11.7); MONO # 0.6 K/uL (0.0-0.8); MONO % 3.5 % (0.0-10.0); NRBC % 1.6 % (0.0-2.0); PLATELET COUNT 80 K/uL (130-400); RED CELL DISTRIBUTION WIDTH 17.6 % (11.5-14.5); WHITE BLOOD COUNT 16.5 K/uL (4.8-10.8)
[2017-05-12 06:39] LABS: ABG ALLEN TEST POS; ABG MECHANICAL RATE 24; ARTERIAL BLOOD HGB O2 SAT 96.1 % (95.0-98.0); ATERIAL BLOOD GAS PEEP 5; CARBOXYHEMOGLOBIN 1.6 % (0.5-1.5); DRAW SITE RRADIAL; HHB 1.5 % (0.0-5.0); METHEMOGLOBIN 0.8 % (0.0-3.0)
[2017-05-12 07:31] LABS: ALB/GLOB RATIO 0.8 (1.0-2.1); BILIRUBIN,TOTAL 4.1 mg/dL (0.2-1.3); TOTAL PROTEIN 5.6 g/dL (6.3-8.3)
[2017-05-12 07:32] LABS: CALCIUM 7.6 mg/dl (8.6-10.4); MAGNESIUM 2.1 mg/dL (1.6-2.3); PHOSPHOROUS 2.5 mg/dL (2.5-4.5)
[2017-05-12 07:37] LABS: POTASSIUM 4.9 mmol/L (3.6-5.2)
[2017-05-12] MEDS: Albuterol-Ipratrop 3 mg / 0.5 (3 ml) UD INH SCH ×3 (07:50→19:39)
--- NOTE | 2017-05-12 08:55 | RAD ---
Chest x-ray single frontal view History: Intubated. Comparison: None available. Findings: Lines and tubes in stable position. Dense consolidative changes in the right hilar and infrahilar region extending into the right lung base. Additional dense consolidative changes in the left mid to lower lung zone. Prominent diffuse increased interstitial lung markings suggestive for prominent infiltrate and or edema. Scattered nodularity throughout both lungs. Suggestion of bilateral pleural effusions. Bilateral hilar prominence. Cardiomegaly. Calcification at the aortic knob. Degenerative changes in the spine and shoulders. Biapical pleural thickening with upper lobe granulomatous changes. Degenerative changes in the spine and shoulders. Calcific tendinopathy of the left proximal humerus. Impression: Lines and tubes in stable position. Dense consolidative changes in the right hilar and infrahilar region extending into the right lung base. Additional dense consolidative changes in the left mid to lower lung zone. Prominent diffuse increased interstitial lung markings suggestive for prominent infiltrate and or edema. Scattered nodularity throughout both lungs. Suggestion of bilateral pleural effusions. Bilateral hilar prominence. Cardiomegaly.
[2017-05-12 08:59] LABS: NEUTROPHIL 93 % (50-75); NUCLEATED RED BLOOD CELL 4 % (0-0); TOTAL CELLS COUNTED 100
--- NOTE | 2017-05-12 09:09 | CP.CCUPN ---
CCU Subjective - Physician Review Events Since Last Encounter (Free Text): 05/12/17 09:08 72 male with a COPD heart failure atrial fibrillation liver disease chronic, pulmonary hypertension chronic bilateral leg venous ulcers, venous stasis multiple hospitalization with the sepsis and infection admitted to the hospital following cardiac arrest a sustained at home. Currently on ventilator. FiO2 and needed highly. 100% FiO2. Patient is sedated. But responds is poor at this time. Blood pressure is on the low side. Patient is on Tigre-Synephrine, and Dobutrex. Urine output is very low. Overall minimal improvement noted. Patient had a fever, tachycardia yesterday CCU Objective - Vital Signs / Intake & Output Vital Signs (Last 4 hours): Vital Signs Temp Pulse Resp BP Pulse Ox 05/12/17 07:06 102 H 24 116/64 95 05/12/17 07:00 106 H 25 H 96 05/12/17 06:55 115 H 25 H 98/68 L 95 05/12/17 06:50 102 H 22 96 05/12/17 06:40 106 H 24 05/12/17 06:30 96 H 24 95 05/12/17 06:26 99 H 25 H 110/63 96 05/12/17 06:20 96 H 24 96 05/12/17 06:10 99 H 24 96 05/12/17 06:06 24 106/59 L 05/12/17 06:00 96 H 24 96 05/12/17 05:55 100 H 24 106/59 L 97 05/12/17 05:51 101.2 F H 05/12/17 05:50 104 H 24 97 05/12/17 05:40 101 H 24 96 05/12/17 05:30 97 H 24 96 05/12/17 05:25 98 H 24 88/52 L 96 05/12/17 05:20 102 H 24 96 05/12/17 05:10 106 H 20 94 L Intake and Output (Last 8hrs): Intake & Output 05/11/17 05/12/17 05/12/17 22:59 06:59 14:59 Intake Total 348.7 824.2 189.4 Output Total 33 5 Balance 315.7 819.2 189.4 Weight 212 lb 15.465 oz Intake: IV 0 258 162 Intake, IV Amount 348.7 566.2 27.4 Distal Port 100 Medial Port 59.2 59.2 7.4 Proximal Port 159.5 77 10 proximal port /distal 30 80 10 port right hand 350 Output: Urine 33 5 Urethral (Corral) 33 5 - Physical Exam Narrative Physical Exam (Free Text): 05/12/17 09:08 Vital signs reviewed No neck vein distention noted Diffuse rales bilaterally CVS regular heart sound, no murmur noted Abdomen soft, nontender. 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 - Medications Active Medications: Active Medications Generic Name Dose Route Start Last Admin Trade Name Freq PRN Reason Stop Dose Admin Acetaminophen 650 mg 05/11/17 17:17 05/11/17 17:39 Tylenol 650 Mg Supp [place] 650 mg Q6 PRN Administration for temp.=..>100.5 Albuterol/Ipratropium 3 ml 05/11/17 08:00 05/12/17 07:50 Duoneb 3 Mg/0.5 Mg (3 Ml) Ud INH 3 ml RQ6 ANGIE Administration Heparin Sodium (Porcine) 5,000 units 05/11/17 06:00 05/12/17 05:51 Heparin SC 5,000 units Q8 ANGIE Administration Norepinephrine Bitartrate 8 mg 258 mls @ 7.74 mls/hr 05/11/17 01:19 05/12/17 08:30 / Dextrose IV 0 mcg/min .Q24H PRN 0 mls/hr TITRATE PER MD ORDER Titration Protocol 4 MCG/MIN Imipenem/Cilastatin Sodium 500 100 mls @ 100 mls/hr 05/11/17 16:30 05/12/17 08:19 mg/ Sodium Chloride IVPB 100 mls/hr Q8H ANGIE Administration Vancomycin HCl 750 mg/ Sodium 250 mls @ 166.6 mls/hr 05/12/17 00:00 05/11/17 23:24 Chloride IVPB 166.6 mls/hr Q12H ANGIE Administration Phenylephrine HCl 30 mg/ 253 mls @ 10.12 mls/hr 05/11/17 18:27 05/12/17 08:30 Dextrose IV 50 mcg/min .Q24H PRN 25.3 mls/hr TITRATE PER MD ORDER Titration Protocol 20 MCG/MIN Dobutamine HCl/Dextrose 500 mg in 250 mls @ 7.425 mls/hr 05/11/17 21:45 05/11 21:52 Dobutamine/Dextrose 5% 500mg/250ml IV Not Given .Q24H ANGIE Protocol 2.5 MCG/KG/MIN Methylprednisolone 40 mg 05/11/17 10:30 05/12/17 02:34 Solu-Medrol IVP 40 mg Q8H ANGIE Administration Nystatin 1 applic 05/12/17 10:00 Nystop Topical Powder TOP BID ANGIE Pantoprazole Sodium 40 mg 05/11/17 10:00 05/11/17 10:42 Protonix Inj IVP 40 mg DAILY ANGIE Administration - Patient Studies Lab Studies: Lab Studies 05/12/17 05/12/17 05/12/17 Range/Units 06:24 06:24 05:47 WBC 16.5 H (4.8-10.8) K/uL RBC 3.92 L (4.40-5.90) Mil/uL Hgb 11.7 L (12.0-18.0) g/dL Hct 37.5 (35.0-51.0) % MCV 95.5 H (80.0-94.0) fL MCH 29.7 (27.0-31.0) pg MCHC 31.1 L (33.0-37.0) g/dL RDW 17.6 H (11.5-14.5) % Plt Count 80 L D (130-400) K/uL MPV 10.5 (7.2-11.7) fL Neut % (Auto) 93.1 H (50.0-75.0) % Lymph % (Auto) 3.4 L (20.0-40.0) % [place] % (Auto) 3.5 (0.0-10.0) % Eos % (Auto) 0.0 (0.0-4.0) % Baso % (Auto) 0.0 (0.0-2.0) % Neut # 15.3 H (1.8-7.0) K/uL Lymph # 0.6 L (1.0-4.3) K/uL [place] # 0.6 (0.0-0.8) K/uL Eos # 0.0 (0.0-0.7) K/uL Baso # 0.0 (0.0-0.2) K/uL Neutrophils % (Manual) 93 H (50-75) % Lymphocytes % (Manual) 5 L (20-40) % Monocytes % (Manual) 2 (0-10) % Nucleated RBC % 4 H (0-0) % Differential Comment Platelet Estimate Decreased L (NORMAL) Polychromasia Slight Hypochromasia (manual) Slight Poikilocytosis (manual Slight Anisocytosis (manual) Slight Macrocytosis (manual) Slight Puncture Site pCO2 (35-45) mm/Hg pO2 (80-100) mm/Hg HCO3 (21-28) mmol/L ABG pH (7.35-7.45) ABG Total CO2 (22-28) mmol/L ABG O2 Saturation (95-98) % ABG Base Excess (-2.0-3.0) mmol/L ABG Hemoglobin (11.7-17.4) g/dL ABG Carboxyhemoglobin (0.5-1.5) % POC ABG HHb (Measured) (0.0-5.0) % ABG Methemoglobin (0.0-3.0) % Eris Test A-a O2 Difference mm/Hg Respiratory Index Hgb O2 Saturation (95.0-98.0) % Mechanical Rate FiO2 % Tidal Volume PEEP Sodium 129 L (132-148) mmol/L Potassium 4.9 (3.6-5.2) mmol/L Chloride 86 L (98-107) mmol/L Carbon Dioxide 32 H (22-30) mmol/L Anion Gap 16 (10-20) BUN 87 H (9-20) mg/dL Creatinine 2.5 H (0.8-1.5) MG/DL Est GFR ( Amer) 31 Est GFR (Non-Af Amer) 25 POC Glucose (mg/dL) 131 H (65-110) mg/dL Random Glucose 108 (75-110) mg/dL Calcium 7.6 L (8.6-10.4) mg/dl Phosphorus 2.5 (2.5-4.5) mg/dL Magnesium 2.1 (1.6-2.3) mg/dL Total Bilirubin 4.1 H (0.2-1.3) mg/dL AST 217 H D (17-59) U/L ALT 112 H (21-72) U/L Alkaline Phosphatase 93 (38-126) U/L Total Protein 5.6 L (6.3-8.3) g/dL Albumin 2.4 L (3.5-5.0) g/dL Globulin 3.2 (2.2-3.9) gm/dL Albumin/Globulin Ratio 0.8 L (1.0-2.1) 05/12/17 05/12/17 05/11/17 Range/Units 05:30 00:13 18:25 WBC (4.8-10.8) K/uL RBC (4.40-5.90) Mil/uL Hgb (12.0-18.0) g/dL Hct (35.0-51.0) % MCV (80.0-94.0) fL MCH (27.0-31.0) pg MCHC (33.0-37.0) g/dL RDW (11.5-14.5) % Plt Count (130-400) K/uL MPV (7.2-11.7) fL Neut % (Auto) (50.0-75.0) % Lymph % (Auto) (20.0-40.0) % [place] % (Auto) (0.0-10.0) % Eos % (Auto) (0.0-4.0) % Baso % (Auto) (0.0-2.0) % Neut # (1.8-7.0) K/uL Lymph # (1.0-4.3) K/uL [place] # (0.0-0.8) K/uL Eos # (0.0-0.7) K/uL Baso # (0.0-0.2) K/uL Neutrophils % (Manual) (50-75) % Lymphocytes % (Manual) (20-40) % Monocytes % (Manual) (0-10) % Nucleated RBC % (0-0) % Differential Comment Platelet Estimate (NORMAL) Polychromasia Hypochromasia (manual) Poikilocytosis (manual Anisocytosis (manual) Macrocytosis (manual) Puncture Site Rradial Rra pCO2 39 43 (35-45) mm/Hg pO2 90 83 (80-100) mm/Hg HCO3 34.7 H 34.2 H (21-28) mmol/L ABG pH 7.57 H 7.53 H (7.35-7.45) ABG Total CO2 36.9 H 37.2 H (22-28) mmol/L ABG O2 Saturation 98.5 H 97.5 (95-98) % ABG Base Excess 12.6 H 11.9 H (-2.0-3.0) mmol/L ABG Hemoglobin 11.8 12.7 (11.7-17.4) g/dL ABG Carboxyhemoglobin 1.6 H 1.7 H (0.5-1.5) % POC ABG HHb (Measured) 1.5 2.4 (0.0-5.0) % ABG Methemoglobin 0.8 0.9 (0.0-3.0) % Eris Test Pos Pos A-a O2 Difference 574.0 576.0 mm/Hg Respiratory Index 6.4 6.9 Hgb O2 Saturation 96.1 95.0 (95.0-98.0) % Mechanical Rate 24 24 FiO2 100.0 100.0 % Tidal Volume 500 PEEP 5 5 Sodium (132-148) mmol/L Potassium (3.6-5.2) mmol/L Chloride (98-107) mmol/L Carbon Dioxide (22-30) mmol/L Anion Gap (10-20) BUN (9-20) mg/dL Creatinine (0.8-1.5) MG/DL Est GFR ( Amer) Est GFR (Non-Af Amer) POC Glucose (mg/dL) 144 H (65-110) mg/dL Random Glucose (75-110) mg/dL Calcium (8.6-10.4) mg/dl Phosphorus (2.5-4.5) mg/dL Magnesium (1.6-2.3) mg/dL Total Bilirubin (0.2-1.3) mg/dL AST (17-59) U/L ALT (21-72) U/L Alkaline Phosphatase (38-126) U/L Total Protein (6.3-8.3) g/dL Albumin (3.5-5.0) g/dL Globulin (2.2-3.9) gm/dL Albumin/Globulin Ratio (1.0-2.1) 05/11/17 05/11/17 05/11/17 Range/Units 17:21 13:30 07:48 WBC (4.8-10.8) K/uL RBC (4.40-5.90) Mil/uL Hgb (12.0-18.0) g/dL Hct (35.0-51.0) % MCV (80.0-94.0) fL MCH (27.0-31.0) pg MCHC (33.0-37.0) g/dL RDW (11.5-14.5) % Plt Count (130-400) K/uL MPV (7.2-11.7) fL Neut % (Auto) (50.0-75.0) % Lymph % (Auto) (20.0-40.0) % [place] % (Auto) (0.0-10.0) % Eos % (Auto) (0.0-4.0) % Baso % (Auto) (0.0-2.0) % Neut # (1.8-7.0) K/uL Lymph # (1.0-4.3) K/uL [place] # (0.0-0.8) K/uL Eos # (0.0-0.7) K/uL Baso # (0.0-0.2) K/uL Neutrophils % (Manual) (50-75) % Lymphocytes % (Manual) (20-40) % Monocytes % (Manual) (0-10) % Nucleated RBC % (0-0) % Differential Comment Platelet Estimate (NORMAL) Polychromasia Hypochromasia (manual) Poikilocytosis (manual Anisocytosis (manual) Macrocytosis (manual) Puncture Site pCO2 (35-45) mm/Hg pO2 (80-100) mm/Hg HCO3 (21-28) mmol/L ABG pH (7.35-7.45) ABG Total CO2 (22-28) mmol/L ABG O2 Saturation (95-98) % ABG Base Excess (-2.0-3.0) mmol/L ABG Hemoglobin (11.7-17.4) g/dL ABG Carboxyhemoglobin (0.5-1.5) % POC ABG HHb (Measured) (0.0-5.0) % ABG Methemoglobin (0.0-3.0) % Eris Test A-a O2 Difference mm/Hg Respiratory Index Hgb O2 Saturation (95.0-98.0) % Mechanical Rate FiO2 % Tidal Volume PEEP Sodium (132-148) mmol/L Potassium (3.6-5.2) mmol/L Chloride (98-107) mmol/L Carbon Dioxide (22-30) mmol/L Anion Gap (10-20) BUN (9-20) mg/dL Creatinine (0.8-1.5) MG/DL Est GFR ( Amer) Est GFR (Non-Af Amer) POC Glucose (mg/dL) 121 H 107 (65-110) mg/dL Random Glucose (75-110) mg/dL Calcium (8.6-10.4) mg/dl Phosphorus (2.5-4.5) mg/dL Magnesium (1.6-2.3) mg/dL Total Bilirubin (0.2-1.3) mg/dL AST (17-59) U/L ALT (21-72) U/L Alkaline Phosphatase (38-126) U/L Total Protein (6.3-8.3) g/dL Albumin (3.5-5.0) g/dL Globulin (2.2-3.9) gm/dL Albumin/Globulin Ratio (1.0-2.1) Laboratory Results - last 24 hr 05/11/17 05/11/17 05/11/17 07:48 13:30 17:21 WBC RBC Hgb Hct MCV MCH MCHC RDW Plt Count MPV Neut % (Auto) Lymph % (Auto) [place] % (Auto) Eos % (Auto) Baso % (Auto) Neut # Lymph # [place] # Eos # Baso # Neutrophils % (Manual) Lymphocytes % (Manual) Monocytes % (Manual) Nucleated RBC % Differential Comment Platelet Estimate Polychromasia Hypochromasia (manual) Poikilocytosis (manual Anisocytosis (manual) Macrocytosis (manual) Puncture Site pCO2 pO2 HCO3 ABG pH ABG Total CO2 ABG O2 Saturation ABG Base Excess ABG Hemoglobin ABG Carboxyhemoglobin POC ABG HHb (Measured) ABG Methemoglobin Eris Test A-a O2 Difference Respiratory Index Hgb O2 Saturation Mechanical Rate FiO2 Tidal Volume PEEP Sodium Potassium Chloride Carbon Dioxide Anion Gap BUN Creatinine Est GFR ( Amer) Est GFR (Non-Af Amer) POC Glucose (mg/dL) 107 121 H Random Glucose Calcium Phosphorus Magnesium Total Bilirubin AST ALT Alkaline Phosphatase Total Protein Albumin Globulin Albumin/Globulin Ratio 06/18/17 06/19/17 06/19/17 18:25 00:13 05:30 WBC RBC Hgb Hct MCV MCH MCHC RDW Plt Count MPV Neut % (Auto) Lymph % (Auto) [place] % (Auto) Eos % (Auto) Baso % (Auto) Neut # Lymph # [place] # Eos # Baso # Neutrophils % (Manual) Lymphocytes % (Manual) Monocytes % (Manual) Nucleated RBC % Differential Comment Platelet Estimate Polychromasia Hypochromasia (manual) Poikilocytosis (manual Anisocytosis (manual) Macrocytosis (manual) Puncture Site Rra Rradial pCO2 43 39 pO2 83 90 HCO3 34.2 H 34.7 H ABG pH 7.53 H 7.57 H ABG Total CO2 37.2 H 36.9 H ABG O2 Saturation 97.5 98.5 H ABG Base Excess 11.9 H 12.6 H ABG Hemoglobin 12.7 11.8 ABG Carboxyhemoglobin 1.7 H 1.6 H POC ABG HHb (Measured) 2.4 1.5 ABG Methemoglobin 0.9 0.8 Eris Test Pos Pos A-a O2 Difference 576.0 574.0 Respiratory Index 6.9 6.4 Hgb O2 Saturation 95.0 96.1 Mechanical Rate 24 24 FiO2 100.0 100.0 Tidal Volume 500 PEEP 5 5 Sodium Potassium Chloride Carbon Dioxide Anion Gap BUN Creatinine Est GFR ( Amer) Est GFR (Non-Af Amer) POC Glucose (mg/dL) 144 H Random Glucose Calcium Phosphorus Magnesium Total Bilirubin AST ALT Alkaline Phosphatase Total Protein Albumin Globulin Albumin/Globulin Ratio 05/12/17 05/12/17 05/12/17 05:47 06:24 06:24 WBC 16.5 H RBC 3.92 L Hgb 11.7 L Hct 37.5 MCV 95.5 H MCH 29.7 MCHC 31.1 L RDW 17.6 H Plt Count 80 L D MPV 10.5 Neut % (Auto) 93.1 H Lymph % (Auto) 3.4 L [place] % (Auto) 3.5 Eos % (Auto) 0.0 Baso % (Auto) 0.0 Neut # 15.3 H Lymph # 0.6 L [place] # 0.6 Eos # 0.0 Baso # 0.0 Neutrophils % (Manual) 93 H Lymphocytes % (Manual) 5 L Monocytes % (Manual) 2 Nucleated RBC % 4 H Differential Comment Platelet Estimate Decreased L Polychromasia Slight Hypochromasia (manual) Slight Poikilocytosis (manual Slight Anisocytosis (manual) Slight Macrocytosis (manual) Slight Puncture Site pCO2 pO2 HCO3 ABG pH ABG Total CO2 ABG O2 Saturation ABG Base Excess ABG Hemoglobin ABG Carboxyhemoglobin POC ABG HHb (Measured) ABG Methemoglobin Eris Test A-a O2 Difference Respiratory Index Hgb O2 Saturation Mechanical Rate FiO2 Tidal Volume PEEP Sodium 129 L Potassium 4.9 Chloride 86 L Carbon Dioxide 32 H Anion Gap 16 BUN 87 H Creatinine 2.5 H Est GFR ( Amer) 31 Est GFR (Non-Af Amer) 25 POC Glucose (mg/dL) 131 H Random Glucose 108 Calcium 7.6 L Phosphorus 2.5 Magnesium 2.1 Total Bilirubin 4.1 H AST 217 H D ALT 112 H Alkaline Phosphatase 93 Total Protein 5.6 L Albumin 2.4 L Globulin 3.2 Albumin/Globulin Ratio 0.8 L Fingerstick Blood Sugar Results: 131 Assessment/Plan - Assessment and Plan (Free Text) Assessment: Patient with a cardiac arrest. Multi organ failure. Hypertension. Renal insufficiency. Sepsis. Overall prognosis is poor. Continue the supportive care. Spoke to the family yesterday.
--- NOTE | 2017-05-12 12:59 | CP.PCM.PN ---
Subjective - Date & Time of Evaluation Date of Evaluation: 05/12/17 Time of Evaluation: 12:57 - Subjective Subjective: S/P CODE ON RESPIRATOR MULTI ORGAN FAILURE SCANT URINE OUT PUT ON 3 VASSOPRESSORS TO MAINTAIN BP WBC UP ON IV AB LEGS SWOLLEN WITH CELLULITIS WILL D/W Objective - Vital Signs/Intake and Output Vital Signs (last 24 hours): Temp Pulse Resp BP Pulse Ox 100.2 F H 97 H 24 114/65 99 05/12/17 07:00 05/12/17 12:03 05/12/17 12:03 05/12/17 12:03 05/12/17 12:03 Intake and Output: 05/12/17 05/12/17 11:59 23:59 Intake Total 984.2 Balance 984.2 - Medications Medications: Current Medications Acetaminophen (Tylenol 650 Mg Supp) 650 mg [place] Q6 PRN PRN Reason: for temp.=..>100.5 Last Admin: 05/11/17 17:39 Dose: 650 mg Albuterol/Ipratropium (Duoneb 3 Mg/0.5 Mg (3 Ml) Ud) 3 ml INH RQ6 ANGIE Last Admin: 05/12/17 07:50 Dose: 3 ml Heparin Sodium (Porcine) (Heparin) 5,000 units SC Q8 ANGIE Last Admin: 05/12/17 05:51 Dose: 5,000 units Norepinephrine Bitartrate 8 mg (/ Dextrose) 258 mls @ 7.74 mls/hr IV .Q24H PRN ; Protocol; 4 MCG/MIN PRN Reason: TITRATE PER MD ORDER Last Titration: 05/12/17 08:30 Dose: 0 mcg/min, 0 mls/hr Imipenem/Cilastatin Sodium 500 (mg/ Sodium Chloride) 100 mls @ 100 mls/hr IVPB Q8H ANGIE Last Admin: 05/12/17 08:19 Dose: 100 mls/hr Phenylephrine HCl 30 mg/ (Dextrose) 253 mls @ 10.12 mls/hr IV .Q24H PRN; Protocol; 20 MCG/MIN PRN Reason: TITRATE PER MD ORDER Last Titration: 05/12/17 08:30 Dose: 50 mcg/min, 25.3 mls/hr Dobutamine HCl/Dextrose (Dobutamine/Dextrose 5% 500mg/250ml) 500 mg in 250 mls @ 7.425 mls/hr IV .Q24H ANGIE; 2.5 MCG/KG/MIN PRN Reason: Protocol Last Admin: 05/11/17 21:52 Dose: Not Given Methylprednisolone (Solu-Medrol) 40 mg IVP Q8H ANGIE Last Admin: 05/12/17 10:53 Dose: 40 mg Nystatin (Nystop Topical Powder) 1 applic TOP BID ANGIE Last Admin: 05/12/17 12:32 Dose: 1 applic Pantoprazole Sodium (Protonix Inj) 40 mg IVP DAILY ANGIE Last Admin: 05/12/17 10:52 Dose: 40 mg - Labs Labs: 05/12/17 06:24 05/12/17 06:24 PT 19.8 SECONDS (9.7-12.2) H 05/11/17 01:04 INR 1.7 05/11/17 01:04 APTT 34 SECONDS (21-34) 05/11/17 06:16
--- NOTE | 2017-05-12 13:05 | CP.PCM.CON ---
History of Present Illness - History of Present Illness History of Present Illness: INFECTIOUS DISEASE CONSULTATION: Reason for consultation:RESPIRATORY FAILURE, hypotension [id number] fever. HPI;72-year-old male with history of COPD, CHF, ejection fraction 25-30%, atrial fibrillation, denied anticoagulation on aspirin only, history of hepatitis C, alcoholic cirrhosis, pulmonary hypertension, chronic leg ulcers with cellulitis, was brought in to the ER on 05/11/17 status post cardiac arrest at home. Patient was revived. Patient was in severe respiratory distress for the past one week but as per refused to go to the hospital.. Patient presently admitted in ICU, intubated, on pressors but responding to vocal commands by opening eyes. Patient today spiked a fever of 101.2 and remains hypotensive. Infectious disease consultation therefore requested by PMD for further evaluation. History obtained mainly from the at the bedside. Patient though is well known to me from previous admissions. Patient does have history of MRSA and was recently hospitalized for COPD and pneumonia and urosepsis. Patient also has history of the CA of prostate with history of radiation seeds. PATIENT WAS STARTED ON IV ROCEPHIN AND IV VANCOMYCIN BY ER PHYSICIAN. Chest x-ray 05/12/17 shows dense consolidative changesright hilar/infrahilar region extending into the right lung base. Additionall consolidative changes seen left middle lobe and left lower lung zones. Bilateral pleural effusions. Bilateral hilar prominence and cardiomegaly. Review of Systems - Review of Systems Systems not reviewed;Unavailable: Intubated Past Patient History - Past Medical History & Family History Past Medical History?: Yes - Past Social History Smoking Status: Former Smoker - CARDIAC Hx Cardiac Disorders: Yes Hx Atrial Fibrillation: Yes Hx Cardia Arrhythmia: Yes Hx Congestive Heart Failure: Yes Hx Hypertension: Yes Hx Peripheral Edema: Yes - PULMONARY Hx Respiratory Disorders: Yes Hx Chronic Obstructive Pulmonary Disease (COPD): Yes Hx Pneumonia: Yes - NEUROLOGICAL Hx Neurological Disorder: No - HEENT Hx HEENT Problems: No - RENAL Hx Chronic Kidney Disease: No - ENDOCRINE/METABOLIC Hx Endocrine Disorders: No - HEMATOLOGICAL/ONCOLOGICAL Hx Blood Disorders: Yes Hx Hepatitis C: Yes - INTEGUMENTARY Hx Dermatological Problems: Yes Hx Psoriasis: Yes Other/Comment: Chronic Leg Ulcers - MUSCULOSKELETAL/RHEUMATOLOGICAL Hx Musculoskeletal Disorders: No Hx Falls: Yes - GASTROINTESTINAL Hx Gastrointestinal Disorders: Yes Other/Comment: CIRRHOSIS OF LIVER - GENITOURINARY/GYNECOLOGICAL Hx Genitourinary Disorders: No - PSYCHIATRIC Hx Substance Use: No - SURGICAL HISTORY Hx Surgeries: Yes Hx Appendectomy: Yes - ANESTHESIA Hx Anesthesia: Yes Hx Anesthesia Reactions: No Hx Malignant Hyperthermia: No Has any member of the family had a problem w/ anesthesia?: No Meds Allergies/Adverse Reactions: Allergies Allergy/AdvReac Type Severity Reaction Status Date / Time No Known Allergies Allergy Verified 03/06/17 20:47 - Medications Medications: Current Medications Acetaminophen (Tylenol 650 Mg Supp) 650 mg NE Q6 PRN PRN Reason: for temp.=..>100.5 Last Admin: 05/11/17 17:39 Dose: 650 mg Albuterol/Ipratropium (Duoneb 3 Mg/0.5 Mg (3 Ml) Ud) 3 ml INH RQ6 ANGIE Last Admin: 05/12/17 07:50 Dose: 3 ml Heparin Sodium (Porcine) (Heparin) 5,000 units SC Q8 ANGIE Last Admin: 05/12/17 05:51 Dose: 5,000 units Norepinephrine Bitartrate 8 mg (/ Dextrose) 258 mls @ 7.74 mls/hr IV .Q24H PRN ; Protocol; 4 MCG/MIN PRN Reason: TITRATE PER MD ORDER Last Titration: 05/12/17 08:30 Dose: 0 mcg/min, 0 mls/hr Imipenem/Cilastatin Sodium 500 (mg/ Sodium Chloride) 100 mls @ 100 mls/hr IVPB Q8H ANGIE Last Admin: 05/12/17 08:19 Dose: 100 mls/hr Phenylephrine HCl 30 mg/ (Dextrose) 253 mls @ 10.12 mls/hr IV .Q24H PRN; Protocol; 20 MCG/MIN PRN Reason: TITRATE PER MD ORDER Last Titration: 05/12/17 08:30 Dose: 50 mcg/min, 25.3 mls/hr Dobutamine HCl/Dextrose (Dobutamine/Dextrose 5% 500mg/250ml) 500 mg in 250 mls @ 7.425 mls/hr IV .Q24H ANGIE; 2.5 MCG/KG/MIN PRN Reason: Protocol Last Admin: 05/11/17 21:52 Dose: Not Given Methylprednisolone (Solu-Medrol) 40 mg IVP Q8H ANGIE Last Admin: 05/12/17 10:53 Dose: 40 mg Nystatin (Nystop Topical Powder) 1 applic TOP BID [facility] Last Admin: 05/12/17 12:32 Dose: 1 applic Pantoprazole Sodium (Protonix Inj) 40 mg IVP DAILY [facility] Last Admin: 05/12/17 10:52 Dose: 40 mg Physical Exam - Constitutional Appears: No Acute Distress - Head Exam Head Exam: NORMAL INSPECTION - Eye Exam Eye Exam: EOMI, PERRL - ENT Exam ENT Exam: Normal Exam - Neck Exam Neck exam: Positive for: Normal Inspection - Respiratory Exam Respiratory Exam: Rales (BILATERALLY), Rhonchi - Cardiovascular Exam Cardiovascular Exam: Irregular Rhythm, +S1, +S2 - GI/Abdominal Exam GI & Abdominal Exam: Normal Bowel Sounds, Soft. absent: Tenderness - Extremities Exam Extremities exam: Positive for: pedal edema (BILATERAL LOWER EXTREMITY CELLULITIS WITH CHRONIC STASIS DERMATITIS AND WEEPING ULCERS.) - Neurological Exam Neurological exam: Altered (INTUBATED), Reflexes Normal - Skin Skin Exam: Normal Color, Warm Results - Vital Signs Recent Vital Signs: Last Vital Signs Temp 100.2 F H 05/12/17 07:00 Pulse 97 H 05/12/17 12:03 Resp 24 05/12/17 12:03 BP 114/65 05/12/17 12:03 Pulse Ox 99 05/12/17 12:03 - Labs Result Diagrams: 05/12/17 06:24 05/12/17 06:24 Labs: Laboratory Results - last 24 hr 05/11/17 05/11/17 05/11/17 13:30 17:21 18:25 WBC RBC Hgb Hct MCV MCH MCHC RDW Plt Count MPV Neut % (Auto) Lymph % (Auto) [place] % (Auto) Eos % (Auto) Baso % (Auto) Neut # Lymph # [place] # Eos # Baso # Neutrophils % (Manual) Lymphocytes % (Manual) Monocytes % (Manual) Nucleated RBC % Platelet Estimate Polychromasia Hypochromasia (manual) Poikilocytosis (manual Anisocytosis (manual) Macrocytosis (manual) Puncture Site Rra pCO2 43 pO2 83 HCO3 34.2 H ABG pH 7.53 H ABG Total CO2 37.2 H ABG O2 Saturation 97.5 ABG Base Excess 11.9 H ABG Hemoglobin 12.7 ABG Carboxyhemoglobin 1.7 H POC ABG HHb (Measured) 2.4 ABG Methemoglobin 0.9 Eris Test Pos A-a O2 Difference 576.0 Respiratory Index 6.9 Hgb O2 Saturation 95.0 Mechanical Rate 24 FiO2 100.0 Tidal Volume 500 PEEP 5 Sodium Potassium Chloride Carbon Dioxide Anion Gap BUN Creatinine Est GFR ( Amer) Est GFR (Non-Af Amer) POC Glucose (mg/dL) 107 121 H Random Glucose Calcium Phosphorus Magnesium Total Bilirubin AST ALT Alkaline Phosphatase Total Protein Albumin Globulin Albumin/Globulin Ratio Vancomycin Trough 05/12/17 05/12/17 05/12/17 00:13 05:30 05:47 WBC RBC Hgb Hct MCV MCH MCHC RDW Plt Count MPV Neut % (Auto) Lymph % (Auto) [place] % (Auto) Eos % (Auto) Baso % (Auto) Neut # Lymph # [place] # Eos # Baso # Neutrophils % (Manual) Lymphocytes % (Manual) Monocytes % (Manual) Nucleated RBC % Platelet Estimate Polychromasia Hypochromasia (manual) Poikilocytosis (manual Anisocytosis (manual) Macrocytosis (manual) Puncture Site Rradial pCO2 39 pO2 90 HCO3 34.7 H ABG pH 7.57 H ABG Total CO2 36.9 H ABG O2 Saturation 98.5 H ABG Base Excess 12.6 H ABG Hemoglobin 11.8 ABG Carboxyhemoglobin 1.6 H POC ABG HHb (Measured) 1.5 ABG Methemoglobin 0.8 Eirs Test Pos A-a O2 Difference 574.0 Respiratory Index 6.4 Hgb O2 Saturation 96.1 Mechanical Rate 24 FiO2 100.0 Tidal Volume PEEP 5 Sodium Potassium Chloride Carbon Dioxide Anion Gap BUN Creatinine Est GFR ( Amer) Est GFR (Non-Af Amer) POC Glucose (mg/dL) 144 H 131 H Random Glucose Calcium Phosphorus Magnesium Total Bilirubin AST ALT Alkaline Phosphatase Total Protein Albumin Globulin Albumin/Globulin Ratio Vancomycin Trough 05/12/17 05/12/17 05/12/17 06:24 06:24 11:13 WBC 16.5 H RBC 3.92 L Hgb 11.7 L Hct 37.5 MCV 95.5 H MCH 29.7 MCHC 31.1 L RDW 17.6 H Plt Count 80 L D MPV 10.5 Neut % (Auto) 93.1 H Lymph % (Auto) 3.4 L [place] % (Auto) 3.5 Eos % (Auto) 0.0 Baso % (Auto) 0.0 Neut # 15.3 H Lymph # 0.6 L [place] # 0.6 Eos # 0.0 Baso # 0.0 Neutrophils % (Manual) 93 H Lymphocytes % (Manual) 5 L Monocytes % (Manual) 2 Nucleated RBC % 4 H Platelet Estimate Decreased L Polychromasia Slight Hypochromasia (manual) Slight Poikilocytosis (manual Slight Anisocytosis (manual) Slight Macrocytosis (manual) Slight Puncture Site pCO2 pO2 HCO3 ABG pH ABG Total CO2 ABG O2 Saturation ABG Base Excess ABG Hemoglobin ABG Carboxyhemoglobin POC ABG HHb (Measured) ABG Methemoglobin Eris Test A-a O2 Difference Respiratory Index Hgb O2 Saturation Mechanical Rate FiO2 Tidal Volume PEEP Sodium 129 L Potassium 4.9 Chloride 86 L Carbon Dioxide 32 H Anion Gap 16 BUN 87 H Creatinine 2.5 H Est GFR ( Amer) 31 Est GFR (Non-Af Amer) 25 POC Glucose (mg/dL) Random Glucose 108 Calcium 7.6 L Phosphorus 2.5 Magnesium 2.1 Total Bilirubin 4.1 H AST 217 H D ALT 112 H Alkaline Phosphatase 93 Total Protein 5.6 L Albumin 2.4 L Globulin 3.2 Albumin/Globulin Ratio 0.8 L Vancomycin Trough 32.3 H 05/12/17 11:22 WBC RBC Hgb Hct MCV MCH MCHC RDW Plt Count MPV Neut % (Auto) Lymph % (Auto) [place] % (Auto) Eos % (Auto) Baso % (Auto) Neut # Lymph # [place] # Eos # Baso # Neutrophils % (Manual) Lymphocytes % (Manual) Monocytes % (Manual) Nucleated RBC % Platelet Estimate Polychromasia Hypochromasia (manual) Poikilocytosis (manual Anisocytosis (manual) Macrocytosis (manual) Puncture Site pCO2 pO2 HCO3 ABG pH ABG Total CO2 ABG O2 Saturation ABG Base Excess ABG Hemoglobin ABG Carboxyhemoglobin POC ABG HHb (Measured) ABG Methemoglobin Eris Test A-a O2 Difference Respiratory Index Hgb O2 Saturation Mechanical Rate FiO2 Tidal Volume PEEP Sodium Potassium Chloride Carbon Dioxide Anion Gap BUN Creatinine Est GFR ( Amer) Est GFR (Non-Af Amer) POC Glucose (mg/dL) 135 H Random Glucose Calcium Phosphorus Magnesium Total Bilirubin AST ALT Alkaline Phosphatase Total Protein Albumin Globulin Albumin/Globulin Ratio Vancomycin Trough - Imaging and Cardiology Chest x-ray Status: Report reviewed by me (see report.) Assessment & Plan (1) Septic shock Status: Acute (2) Respiratory arrest Status: Acute (3) Acute renal insufficiency Assessment and Plan: RENAL INSUFFICIENCY MULTIPLE ETIOLOGIES, HYPOTENSION, HHD, SEPSIS DRUGS. CREATININE 2.5/ bun 87 MONITOR RENAL FUNCTIONS. NEPHROLOGY CONSULT IN PROGRESS.. Status: Acute (4) Cardiac arrest Status: Acute (5) Atrial fibrillation with RVR Status: Acute (6) Bilateral lower leg cellulitis Status: Acute (7) CHF exacerbation Status: Acute (8) COPD exacerbation Status: Acute (9) Cirrhosis of liver Status: Acute (10) Hepatitis-C Status: Acute - Assessment and Plan (Free Text) Assessment: PLAN; PANCULTURES ESR,CRP. MRSA sCREENING DC iv VANCOMYCIN ( VANCO TROUGH 32.5 ) HIGH. F/U VANCO RANDOM LEVEL IN A.M. DC IV ZOSYN START IV PRIMAXIN 500 MG EVERY 8 HOURLY 05/12/17 PATIENT HAS HISTORY OF MDR organisms. F/U LFTS. F/U RENAL FUNCTIONS CLOSELY.. SPUTUM GRAM STAIN AND CULTURE CASE DISCUSSED WITH THE FAMILY MEMBERS WHO WERE AT THE BEDSIDE.
[2017-05-12] MEDS: DOBUTamine 500mg/250ml D5W 500 MG/250 ML BAG IV SCH ×2 (13:07→21:52)
[2017-05-12] MEDS: Phenylephrine 30 MG in Dextrose 5% In Water 250 ML IV PRN (13:21)
--- NOTE | 2017-05-12 14:03 | CP.PCM.CON ---
History of Present Illness - History of Present Illness History of Present Illness: reason for consultation: cardiac arrest on ventilatory support 72 M with h/o COPD, CHF ef 25-30%, h/o afib refused anticoagulation, h/o hepc, alcohols abuse, cirrhosis, pul htn, chronic leg ulcers with infection brought in to ER via ALS for a witnessed cardiac arrest. patient has been in severe respiratory distress for the past week and refused to go to hospital. Patient's most recent hospital admission was for COPD and pneumonia; patient signed DNR DNI. EMS states on arrival patient became asystolic and CPR was started; 1 round of epi was used and there was return of spontaneous circulation. Patient is currently intubated with 7.0 at 24cm, on pressos, patient responds to vocal commands by opening eyes Review of Systems - Review of Systems Systems not reviewed;Unavailable: Intubated Past Patient History - Past Medical History & Family History Past Medical History?: Yes - Past Social History Smoking Status: Former Smoker - CARDIAC Hx Cardiac Disorders: Yes Hx Atrial Fibrillation: Yes Hx Cardia Arrhythmia: Yes Hx Congestive Heart Failure: Yes Hx Hypertension: Yes Hx Peripheral Edema: Yes - PULMONARY Hx Respiratory Disorders: Yes Hx Chronic Obstructive Pulmonary Disease (COPD): Yes Hx Pneumonia: Yes - NEUROLOGICAL Hx Neurological Disorder: No - HEENT Hx HEENT Problems: No - RENAL Hx Chronic Kidney Disease: No - ENDOCRINE/METABOLIC Hx Endocrine Disorders: No - HEMATOLOGICAL/ONCOLOGICAL Hx Blood Disorders: Yes Hx Hepatitis C: Yes - INTEGUMENTARY Hx Dermatological Problems: Yes Hx Psoriasis: Yes Other/Comment: Chronic Leg Ulcers - MUSCULOSKELETAL/RHEUMATOLOGICAL Hx Musculoskeletal Disorders: No Hx Falls: Yes - GASTROINTESTINAL Hx Gastrointestinal Disorders: Yes Other/Comment: CIRRHOSIS OF LIVER - GENITOURINARY/GYNECOLOGICAL Hx Genitourinary Disorders: No - PSYCHIATRIC Hx Substance Use: No - SURGICAL HISTORY Hx Surgeries: Yes Hx Appendectomy: Yes - ANESTHESIA Hx Anesthesia: Yes Hx Anesthesia Reactions: No Hx Malignant Hyperthermia: No Has any member of the family had a problem w/ anesthesia?: No Meds Allergies/Adverse Reactions: Allergies Allergy/AdvReac Type Severity Reaction Status Date / Time No Known Allergies Allergy Verified 03/06/17 20:47 - Medications Medications: Current Medications Acetaminophen (Tylenol 650 Mg Supp) 650 mg ND Q6 PRN PRN Reason: for temp.=..>100.5 Last Admin: 05/11/17 17:39 Dose: 650 mg Albuterol/Ipratropium (Duoneb 3 Mg/0.5 Mg (3 Ml) Ud) 3 ml INH RQ6 [facility] Last Admin: 05/12/17 13:05 Dose: 3 ml Heparin Sodium (Porcine) (Heparin) 5,000 units SC Q8 [facility] Last Admin: 05/12/17 13:13 Dose: 5,000 units Norepinephrine Bitartrate 8 mg (/ Dextrose) 258 mls @ 7.74 mls/hr IV .Q24H PRN ; Protocol; 4 MCG/MIN PRN Reason: TITRATE PER MD ORDER Last Titration: 05/12/17 08:30 Dose: 0 mcg/min, 0 mls/hr Imipenem/Cilastatin Sodium 500 (mg/ Sodium Chloride) 100 mls @ 100 mls/hr IVPB Q8H [facility] Last Admin: 05/12/17 08:19 Dose: 100 mls/hr Phenylephrine HCl 30 mg/ (Dextrose) 253 mls @ 10.12 mls/hr IV .Q24H PRN; Protocol; 20 MCG/MIN PRN Reason: TITRATE PER MD ORDER Last Admin: 05/12/17 13:21 Dose: 40 mcg/min, 20.23 mls/hr Dobutamine HCl/Dextrose (Dobutamine/Dextrose 5% 500mg/250ml) 500 mg in 250 mls @ 7.425 mls/hr IV .Q24H ANGIE; 2.5 MCG/KG/MIN PRN Reason: Protocol Last Admin: 05/12/17 13:07 Dose: 2.49 mcg/kg/min, 7.4 mls/hr Methylprednisolone (Solu-Medrol) 40 mg IVP Q8H [facility] Last Admin: 05/12/17 10:53 Dose: 40 mg Nystatin (Nystop Topical Powder) 1 applic TOP BID [facility] Last Admin: 05/12/17 12:32 Dose: 1 applic Pantoprazole Sodium (Protonix Inj) 40 mg IVP DAILY [facility] Last Admin: 05/12/17 10:52 Dose: 40 mg Physical Exam - Head Exam Head Exam: ATRAUMATIC, NORMOCEPHALIC - ENT Exam ENT Exam: Mucous Membranes Moist - Neck Exam Neck exam: Positive for: Normal Inspection - Respiratory Exam Respiratory Exam: Decreased Breath Sounds - Cardiovascular Exam Cardiovascular Exam: REGULAR RHYTHM - GI/Abdominal Exam GI & Abdominal Exam: Normal Bowel Sounds, Soft - Extremities Exam Extremities exam: Positive for: pedal edema Results - Vital Signs Recent Vital Signs: Last Vital Signs Temp 100.2 F H 05/12/17 07:00 Pulse 97 H 05/12/17 12:03 Resp 24 05/12/17 13:21 BP 107/64 05/12/17 13:21 Pulse Ox 99 05/12/17 12:03 - Labs Result Diagrams: 05/12/17 06:24 05/12/17 06:24 Labs: Laboratory Results - last 24 hr 05/11/17 05/11/17 05/12/17 17:21 18:25 00:13 WBC RBC Hgb Hct MCV MCH MCHC RDW Plt Count MPV Neut % (Auto) Lymph % (Auto) [place] % (Auto) Eos % (Auto) Baso % (Auto) Neut # Lymph # [place] # Eos # Baso # Neutrophils % (Manual) Lymphocytes % (Manual) Monocytes % (Manual) Nucleated RBC % Platelet Estimate Polychromasia Hypochromasia (manual) Poikilocytosis (manual Anisocytosis (manual) Macrocytosis (manual) Puncture Site Rra pCO2 43 pO2 83 HCO3 34.2 H ABG pH 7.53 H ABG Total CO2 37.2 H ABG O2 Saturation 97.5 ABG Base Excess 11.9 H ABG Hemoglobin 12.7 ABG Carboxyhemoglobin 1.7 H POC ABG HHb (Measured) 2.4 ABG Methemoglobin 0.9 Eris Test Pos A-a O2 Difference 576.0 Respiratory Index 6.9 Hgb O2 Saturation 95.0 Mechanical Rate 24 FiO2 100.0 Tidal Volume 500 PEEP 5 Sodium Potassium Chloride Carbon Dioxide Anion Gap BUN Creatinine Est GFR ( Amer) Est GFR (Non-Af Amer) POC Glucose (mg/dL) 121 H 144 H Random Glucose Calcium Phosphorus Magnesium Total Bilirubin AST ALT Alkaline Phosphatase Total Protein Albumin Globulin Albumin/Globulin Ratio Vancomycin Trough 05/12/17 05/12/17 05/12/17 05:30 05:47 06:24 WBC 16.5 H RBC 3.92 L Hgb 11.7 L Hct 37.5 MCV 95.5 H MCH 29.7 MCHC 31.1 L RDW 17.6 H Plt Count 80 L D MPV 10.5 Neut % (Auto) 93.1 H Lymph % (Auto) 3.4 L [place] % (Auto) 3.5 Eos % (Auto) 0.0 Baso % (Auto) 0.0 Neut # 15.3 H Lymph # 0.6 L [place] # 0.6 Eos # 0.0 Baso # 0.0 Neutrophils % (Manual) 93 H Lymphocytes % (Manual) 5 L Monocytes % (Manual) 2 Nucleated RBC % 4 H Platelet Estimate Decreased L Polychromasia Slight Hypochromasia (manual) Slight Poikilocytosis (manual Slight Anisocytosis (manual) Slight Macrocytosis (manual) Slight Puncture Site Rradial pCO2 39 pO2 90 HCO3 34.7 H ABG pH 7.57 H ABG Total CO2 36.9 H ABG O2 Saturation 98.5 H ABG Base Excess 12.6 H ABG Hemoglobin 11.8 ABG Carboxyhemoglobin 1.6 H POC ABG HHb (Measured) 1.5 ABG Methemoglobin 0.8 Eris Test Pos A-a O2 Difference 574.0 Respiratory Index 6.4 Hgb O2 Saturation 96.1 Mechanical Rate 24 FiO2 100.0 Tidal Volume PEEP 5 Sodium Potassium Chloride Carbon Dioxide Anion Gap BUN Creatinine Est GFR ( Amer) Est GFR (Non-Af Amer) POC Glucose (mg/dL) 131 H Random Glucose Calcium Phosphorus Magnesium Total Bilirubin AST ALT Alkaline Phosphatase Total Protein Albumin Globulin Albumin/Globulin Ratio Vancomycin Trough 05/12/17 05/12/17 05/12/17 06:24 11:13 11:22 WBC RBC Hgb Hct MCV MCH MCHC RDW Plt Count MPV Neut % (Auto) Lymph % (Auto) [place] % (Auto) Eos % (Auto) Baso % (Auto) Neut # Lymph # [place] # Eos # Baso # Neutrophils % (Manual) Lymphocytes % (Manual) Monocytes % (Manual) Nucleated RBC % Platelet Estimate Polychromasia Hypochromasia (manual) Poikilocytosis (manual Anisocytosis (manual) Macrocytosis (manual) Puncture Site pCO2 pO2 HCO3 ABG pH ABG Total CO2 ABG O2 Saturation ABG Base Excess ABG Hemoglobin ABG Carboxyhemoglobin POC ABG HHb (Measured) ABG Methemoglobin Eris Test A-a O2 Difference Respiratory Index Hgb O2 Saturation Mechanical Rate FiO2 Tidal Volume PEEP Sodium 129 L Potassium 4.9 Chloride 86 L Carbon Dioxide 32 H Anion Gap 16 BUN 87 H Creatinine 2.5 H Est GFR ( Amer) 31 Est GFR (Non-Af Amer) 25 POC Glucose (mg/dL) 135 H Random Glucose 108 Calcium 7.6 L Phosphorus 2.5 Magnesium 2.1 Total Bilirubin 4.1 H AST 217 H D ALT 112 H Alkaline Phosphatase 93 Total Protein 5.6 L Albumin 2.4 L Globulin 3.2 Albumin/Globulin Ratio 0.8 L Vancomycin Trough 32.3 H Assessment & Plan (1) Cardiac arrest Status: Acute (2) Septic shock Status: Acute (3) Cellulitis Status: Acute (4) Chronic obstructive lung disease Status: Acute
[2017-05-12] MEDS: Dexmedetomidine Hydrochloride 200 MCG in Sodium Chloride 0.9% 48 ML IV PRN (17:16)
--- NOTE | 2017-05-12 20:27 | CP.PCM.CON ---
History of Present Illness - History of Present Illness History of Present Illness: pt seen and examined, full consult is dictated #[id number] 1. Oliguric JOHNIE / ARF 2. s/p cardiac arrest 3. non q [place] 4. resp. failure on vent 5. b/l pneumonia 6. cardiomyopathy 7. abnormal lft't r/o shock liver sec to hypoperfusion c/w iv abx c/w iv pressors consider gentle iv hydration ns at 50 ml/hr prognosis is poor may need hd if renal function does not improve Past Patient History - Past Medical History & Family History Past Medical History?: Yes - Past Social History Smoking Status: Former Smoker - CARDIAC Hx Cardiac Disorders: Yes Hx Atrial Fibrillation: Yes Hx Cardia Arrhythmia: Yes Hx Congestive Heart Failure: Yes Hx Hypertension: Yes Hx Peripheral Edema: Yes - PULMONARY Hx Respiratory Disorders: Yes Hx Chronic Obstructive Pulmonary Disease (COPD): Yes Hx Pneumonia: Yes - NEUROLOGICAL Hx Neurological Disorder: No - HEENT Hx HEENT Problems: No - RENAL Hx Chronic Kidney Disease: No - ENDOCRINE/METABOLIC Hx Endocrine Disorders: No - HEMATOLOGICAL/ONCOLOGICAL Hx Blood Disorders: Yes Hx Hepatitis C: Yes - INTEGUMENTARY Hx Dermatological Problems: Yes Hx Psoriasis: Yes Other/Comment: Chronic Leg Ulcers - MUSCULOSKELETAL/RHEUMATOLOGICAL Hx Musculoskeletal Disorders: No Hx Falls: Yes - GASTROINTESTINAL Hx Gastrointestinal Disorders: Yes Other/Comment: CIRRHOSIS OF LIVER - GENITOURINARY/GYNECOLOGICAL Hx Genitourinary Disorders: No - PSYCHIATRIC Hx Substance Use: No - SURGICAL HISTORY Hx Surgeries: Yes Hx Appendectomy: Yes - ANESTHESIA Hx Anesthesia: Yes Hx Anesthesia Reactions: No Hx Malignant Hyperthermia: No Has any member of the family had a problem w/ anesthesia?: No Meds Allergies/Adverse Reactions: Allergies Allergy/AdvReac Type Severity Reaction Status Date / Time No Known Allergies Allergy Verified 03/06/17 20:47 - Medications Medications: Current Medications Acetaminophen (Tylenol 650 Mg Supp) 650 mg GA Q6 PRN PRN Reason: for temp.=..>100.5 Last Admin: 05/11/17 17:39 Dose: 650 mg Albuterol/Ipratropium (Duoneb 3 Mg/0.5 Mg (3 Ml) Ud) 3 ml INH RQ6 ANGIE Last Admin: 05/12/17 19:39 Dose: 3 ml Heparin Sodium (Porcine) (Heparin) 5,000 units SC Q8 ANGIE Last Admin: 05/12/17 13:13 Dose: 5,000 units Norepinephrine Bitartrate 8 mg (/ Dextrose) 258 mls @ 7.74 mls/hr IV .Q24H PRN ; Protocol; 4 MCG/MIN PRN Reason: TITRATE PER MD ORDER Last Titration: 05/12/17 08:30 Dose: 0 mcg/min, 0 mls/hr Imipenem/Cilastatin Sodium 500 (mg/ Sodium Chloride) 100 mls @ 100 mls/hr IVPB Q8H ANGIE Last Admin: 05/12/17 17:06 Dose: 100 mls/hr Phenylephrine HCl 30 mg/ (Dextrose) 253 mls @ 10.12 mls/hr IV .Q24H PRN; Protocol; 20 MCG/MIN PRN Reason: TITRATE PER MD ORDER Last Admin: 05/12/17 13:21 Dose: 40 mcg/min, 20.23 mls/hr Dobutamine HCl/Dextrose (Dobutamine/Dextrose 5% 500mg/250ml) 500 mg in 250 mls @ 7.425 mls/hr IV .Q24H ANGIE; 2.5 MCG/KG/MIN PRN Reason: Protocol Last Admin: 05/12/17 13:07 Dose: 2.49 mcg/kg/min, 7.4 mls/hr Dexmedetomidine HCl 200 mcg/ (Sodium Chloride) 50 mls @ 4.83 mls/hr IV TITR PRN ; Protocol; 0.2 MCG/KG/HR PRN Reason: Agitation Last Admin: 05/12/17 17:16 Dose: 0.2 mcg/kg/hr, 4.83 mls/hr Methylprednisolone (Solu-Medrol) 40 mg IVP Q8H ANGIE Last Admin: 05/12/17 17:31 Dose: 40 mg Nystatin (Nystop Topical Powder) 1 applic TOP BID [facility] Last Admin: 05/12/17 17:33 Dose: 1 applic Pantoprazole Sodium (Protonix Inj) 40 mg IVP DAILY [facility] Last Admin: 05/12/17 10:52 Dose: 40 mg Results - Vital Signs Recent Vital Signs: Last Vital Signs Temp 98.1 F 05/12/17 16:00 Pulse 99 H 05/12/17 18:03 Resp 24 05/12/17 18:03 BP 121/64 05/12/17 18:03 Pulse Ox 96 05/12/17 18:03 - Labs Result Diagrams: 05/12/17 06:24 05/12/17 06:24 Labs: Laboratory Results - last 24 hr 05/12/17 05/12/17 05/12/17 00:13 05:30 05:47 WBC RBC Hgb Hct MCV MCH MCHC RDW Plt Count MPV Neut % (Auto) Lymph % (Auto) [place] % (Auto) Eos % (Auto) Baso % (Auto) Neut # Lymph # [place] # Eos # Baso # Neutrophils % (Manual) Lymphocytes % (Manual) Monocytes % (Manual) Nucleated RBC % Platelet Estimate Polychromasia Hypochromasia (manual) Poikilocytosis (manual Anisocytosis (manual) Macrocytosis (manual) Puncture Site Rradial pCO2 39 pO2 90 HCO3 34.7 H ABG pH 7.57 H ABG Total CO2 36.9 H ABG O2 Saturation 98.5 H ABG Base Excess 12.6 H ABG Hemoglobin 11.8 ABG Carboxyhemoglobin 1.6 H POC ABG HHb (Measured) 1.5 ABG Methemoglobin 0.8 Eris Test Pos A-a O2 Difference 574.0 Respiratory Index 6.4 Hgb O2 Saturation 96.1 Mechanical Rate 24 FiO2 100.0 PEEP 5 Sodium Potassium Chloride Carbon Dioxide Anion Gap BUN Creatinine Est GFR ( Amer) Est GFR (Non-Af Amer) POC Glucose (mg/dL) 144 H 131 H Random Glucose Calcium Phosphorus Magnesium Total Bilirubin AST ALT Alkaline Phosphatase Total Protein Albumin Globulin Albumin/Globulin Ratio Vancomycin Trough 05/12/17 05/12/17 05/12/17 06:24 06:24 11:13 WBC 16.5 H RBC 3.92 L Hgb 11.7 L Hct 37.5 MCV 95.5 H MCH 29.7 MCHC 31.1 L RDW 17.6 H Plt Count 80 L D MPV 10.5 Neut % (Auto) 93.1 H Lymph % (Auto) 3.4 L [place] % (Auto) 3.5 Eos % (Auto) 0.0 Baso % (Auto) 0.0 Neut # 15.3 H Lymph # 0.6 L [place] # 0.6 Eos # 0.0 Baso # 0.0 Neutrophils % (Manual) 93 H Lymphocytes % (Manual) 5 L Monocytes % (Manual) 2 Nucleated RBC % 4 H Platelet Estimate Decreased L Polychromasia Slight Hypochromasia (manual) Slight Poikilocytosis (manual Slight Anisocytosis (manual) Slight Macrocytosis (manual) Slight Puncture Site pCO2 pO2 HCO3 ABG pH ABG Total CO2 ABG O2 Saturation ABG Base Excess ABG Hemoglobin ABG Carboxyhemoglobin POC ABG HHb (Measured) ABG Methemoglobin Eris Test A-a O2 Difference Respiratory Index Hgb O2 Saturation Mechanical Rate FiO2 PEEP Sodium 129 L Potassium 4.9 Chloride 86 L Carbon Dioxide 32 H Anion Gap 16 BUN 87 H Creatinine 2.5 H Est GFR ( Amer) 31 Est GFR (Non-Af Amer) 25 POC Glucose (mg/dL) Random Glucose 108 Calcium 7.6 L Phosphorus 2.5 Magnesium 2.1 Total Bilirubin 4.1 H AST 217 H D ALT 112 H Alkaline Phosphatase 93 Total Protein 5.6 L Albumin 2.4 L Globulin 3.2 Albumin/Globulin Ratio 0.8 L Vancomycin Trough 32.3 H 05/12/17 05/12/17 11:22 17:49 WBC RBC Hgb Hct MCV MCH MCHC RDW Plt Count MPV Neut % (Auto) Lymph % (Auto) [place] % (Auto) Eos % (Auto) Baso % (Auto) Neut # Lymph # [place] # Eos # Baso # Neutrophils % (Manual) Lymphocytes % (Manual) Monocytes % (Manual) Nucleated RBC % Platelet Estimate Polychromasia Hypochromasia (manual) Poikilocytosis (manual Anisocytosis (manual) Macrocytosis (manual) Puncture Site pCO2 pO2 HCO3 ABG pH ABG Total CO2 ABG O2 Saturation ABG Base Excess ABG Hemoglobin ABG Carboxyhemoglobin POC ABG HHb (Measured) ABG Methemoglobin Eris Test A-a O2 Difference Respiratory Index Hgb O2 Saturation Mechanical Rate FiO2 PEEP Sodium Potassium Chloride Carbon Dioxide Anion Gap BUN Creatinine Est GFR ( Amer) Est GFR (Non-Af Amer) POC Glucose (mg/dL) 135 H 124 H Random Glucose Calcium Phosphorus Magnesium Total Bilirubin AST ALT Alkaline Phosphatase Total Protein Albumin Globulin Albumin/Globulin Ratio Vancomycin Trough
[2017-05-13] MEDS: Dexmedetomidine Hydrochloride 200 MCG in Sodium Chloride 0.9% 48 ML IV PRN ×4 (00:01→21:13)
[2017-05-13] MEDS: Albuterol-Ipratrop 3 mg / 0.5 (3 ml) UD INH SCH ×4 (01:21→19:09)
[2017-05-13] MEDS: MethylPREDNISolone 40 mg Vial IVP SCH ×3 (02:03→19:18)
[2017-05-13] MEDS: Phenylephrine 30 MG in Dextrose 5% In Water 250 ML IV PRN ×2 (02:04→19:01)
[2017-05-13 04:14] LABS: CREATININE, RANDOM URINE 47.7 mg/dL
[2017-05-13 05:50] LABS: ABG ALLEN TEST POS; ABG MECHANICAL RATE 24; ARTERIAL BLOOD HGB O2 SAT 92.7 % (95.0-98.0); ATERIAL BLOOD GAS PEEP 5; CARBOXYHEMOGLOBIN 1.8 % (0.5-1.5); DRAW SITE LR; METHEMOGLOBIN 0.6 % (0.0-3.0)
[2017-05-13 06:20] LABS: BASO % 0.2 % (0.0-2.0); HEMATOCRIT 34.2 % (35.0-51.0); LYMPH # 0.4 K/uL (1.0-4.3); LYMPH % 2.3 % (20.0-40.0); MEAN CELL VOLUME 93.7 fL (80.0-94.0); MEAN CORPUSCULAR HEMOGLOBIN 29.7 pg (27.0-31.0); MEAN CORPUSCULAR HGB CONC 31.7 g/dL (33.0-37.0); MEAN PLATELET VOLUME 9.8 fL (7.2-11.7); MONO # 0.8 K/uL (0.0-0.8); MONO % 4.5 % (0.0-10.0); NRBC % 0.4 % (0.0-2.0); PLATELET COUNT 61 K/uL (130-400); RED CELL DISTRIBUTION WIDTH 18.2 % (11.5-14.5); WHITE BLOOD COUNT 17.5 K/uL (4.8-10.8)
[2017-05-13 06:45] LABS: POTASSIUM 4.6 mmol/L (3.6-5.2)
[2017-05-13 06:47] LABS: ALB/GLOB RATIO 0.7 (1.0-2.1); BILIRUBIN,TOTAL 2.8 mg/dL (0.2-1.3); CALCIUM 7.7 mg/dl (8.6-10.4); MAGNESIUM 2.2 mg/dL (1.6-2.3); PHOSPHOROUS 3.1 mg/dL (2.5-4.5); TOTAL PROTEIN 5.3 g/dL (6.3-8.3)
--- NOTE | 2017-05-13 07:20 | CON ---
DATE: 05/12/2017 LOCATION: The patient is located in ICU, bed 16. REQUESTING PHYSICIAN: Dr. Gretel Bazan. REASON FOR RENAL CONSULTATION: Acute renal failure and respiratory failure, status post cardiac arre st for further evaluation. HISTORY OF PRESENT ILLNESS: The patient is a 72-year-old elderly male with a history of CO PD, CHF with ejection fraction about 25-30%, atrial fibrillation, refused anticoagulation, and hepati tis C and ETOH abuse, cirrhosis, pulmonary hypertension, chronic leg ulcers with infection, periphera l vascular disease, was brought to the Emergency Room with cardiac arrest in the field. As per the i nformation from the Emergency Room and the patient's , shortness of breath for some time, worseni ng. EMS went to the patient's home 18 hours ago. The patient refused to come to the ER. Also histo ry of DNR during his previous hospitalization. EMS, again, went on the day of admission for complain ts of respiratory distress. The patient had a witnessed cardiac arrest and responded with first antonion sharifa of CPR and . The patient was intubated in the field and brought to the Emergency Room, but th e patient is in ICU on pressors. Renal consult requested for increasing BUN and creatinine and decre ased urine output. The patient is under sedation and tried to move all extremities. PAST MEDICAL HISTORY: COPD, CHF with a poor LV function about 25-30%, atrial fibrillation, refused a nticoagulation, hepatitis C, ETOH abuse, cirrhosis of the liver, pulmonary hypertension, chronic leg ulcers. PAST SURGICAL HISTORY: Not known. On ventilator. FAMILY HISTORY: Noncontributory. ALLERGIES: No known drug allergies. SOCIAL HISTORY: Former smoker and history of ETOH abuse. CURRENT MEDICATIONS: Include as follows, , , and dobutamine, DuoNeb inhaler, subcuta neous heparin 5000 q. 8 hours, imipenem with cilastatin 500 mg IV q. 8 hours and levo mg, nystatin topical powder and also phenylephrine IV piggyback, Protonix 40 mg IV daily, Solu-Medrol 40 mg IV q. 8 hours and Tylenol. REVIEW OF SYSTEMS: Significant for shortness of breath and respiratory failure, cardiac arrest, on v entilator and bilateral leg ulcers and poor left ventricular function. All other review of systems a re reviewed and are negative. PHYSICAL EXAMINATION: VITAL SIGNS: As follows: Blood pressure 105/59, pulse 104, respirations about 24, and temperature 9 9.4, T-max is 101.2, saturation 98%. Height 5 feet 10 inches and weight is 212 pounds. GENERAL: The patient is a 72-year-old elderly male on ventilator, moving all extremities for touch w ith questionable psoriatic skin lesions, on vent. HEENT: Pupils normal, reactive to light and accommodation. Conjunctivae pink. Sclerae anicteric. On ventilator. NECK: No thyroid enlargement. LUNGS: Symmetric on both sides. Bilateral breath sounds present. No crackles. CARDIOVASCULAR: [place] in the fifth intercostal space midclavicular line. S1 and S2 audible. No murm ur or gallop. ABDOMEN: Normal in appearance, slightly protuberant, soft, tympanic. No guarding, no rigidity. No hepatosplenomegaly. CENTRAL NERVOUS SYSTEM: The patient is on ventilator and moving all extremities. EXTREMITIES: No cyanosis, no clubbing. The patient has ulcers on both lower extremities and also tran s a dressing for both lower extremities. LABORATORY DATA: Include as follows: As of 05/11/2017, WBC 15.8, hemoglobin 11.6, hematocrit is 38. 8, MCV 100.3, platelets 135 and neutrophils 86, bands 7, lymphs 2, monocytes 1. Lymph 2 and reactive lymph is 1 and monocytes 4. Nucleated RBC 1. PT 19.8 and PTT 33 and he pH 7.33, pCO2 of 77, pO2 50 and bicarbonate is 33, saturation 99.7 and sodium 133, potassium 4.1, chlori de 83, CO2 28, BUN 61, creatinine 1.5 and glucose 125, calcium 7.7, magnesium 2.3, total bilirubin 1. 8, AST 83, ALT 125, alkaline phosphatase is 140. Troponin 0.856 and second set 3.54. Troponin and p roBNP 15,300. Total protein 6.4, albumin is 2.9. Urinalysis, jeremías colored, hazy, pH 5, specific gr avity 1.012, and protein 1+, glucose negative, ketones negative, blood negative, bilirubin negative, urobilinogen normal, and leukocyte esterase negative, WBC 3, RBC 18, and digoxin 1.8 and urine toxic screen is negative. Troponin as of 05/11/2017, second set is 3.54. As of 05/12/2017, WBC 16.5, hemo globin 11.7, hematocrit is 37.4, platelets 80, pH 7.57, pCO2 39, pO2 90, bicarbonate is 34.7 saturati on 98.5, sodium 129, potassium 4.9, chloride 86, CO2 32, BUN 87, creatinine 2.5, glucose 108, calcium 7.6, phosphorus 2.5, magnesium 2.1, total bilirubin 4.1, AST 217, ALT 112, alkaline phosphatase is 9 3, total protein 5.6, albumin is 2.4. Vancomycin trough level is 32.4 and MRSA screening is negative . Chest x-ray as of 05/12/2017. Impression, lines and tubes in stable position, dense consolidative ch anges in the right hilar and infrahilar region extending into the right lung base. Additional dense consolidative changes in the left mid and lower lung zones, prominent diffuse increased interstitial markings suggestive of further prominent infiltrate and/or edema. Scattered nodularity throughout isidoro th lungs suggestive of bilateral pleural effusions, bilateral hilar prominence and cardiomegaly. SUMMARY: The patient is a 72-year-old elderly male with a history of severe chronic obstru ctive pulmonary disease, congestive heart failure, atrial fibrillation, chronic hepatitis C, ETOH abu se, chronic hepatitis C, cirrhosis of the liver, pulmonary hypertension, chronic leg ulcers, who was admitted with upper respiratory failure, cardiac arrest and bilateral infiltrates and increased BUN a nd creatinine and low blood pressure, on pressors and decreased urine output and his 24 hours I's and O's, intake is 1977 and output is 148 mL. 1. Oliguric acute renal failure, most likely secondary to acute tubular necrosis, secondary to multi factorial, secondary to sepsis, secondary to poor LV function and acute myocardial infarction. 2. Status post cardiac arrest with respiratory failure. 3. Chronic obstructive pulmonary disease. 4. Non-Q myocardial infarction. 5. Abnormal LFTs, rule out shock liver secondary to hypotension and hypoperfusion. PLAN: Continue IV antibiotics as per ID recommendations and also continue pressors as needed to keep blood pressure more than 100. Overall, prognosis is very poor. If patient's condition continued to deteriorate and if patient's family insist, will consider hemodialysis and consider gentle IV hydrat ion, normal saline at 50 mL per hour. Overall, prognosis is very poor. Thank you for allowing me to participate in your patient's care. Karen Norman MD cc: [id number] TT: 05/13/2017 01:24:00 Confirmation # [id number] Dictation # [id number] mn
--- NOTE | 2017-05-13 07:58 | CARD ---
APPROVED REPORT EKG Measurement Heart [id number] <Conclusion> Undetermined rhythm Indeterminate axis Right bundle branch block Inferior infarct, age undetermined T wave abnormality, consider lateral ischemia Abnormal ECG
--- NOTE | 2017-05-13 08:25 | RAD ---
Chest x-ray single frontal view History: Vented. Comparison: 05/12/2017 Findings: Lines and tubes in stable position. Diffuse confluent patchy airspace consolidative changes throughout both lungs. Cardiomegaly. Calcification at the aortic knob. Small to moderate left pleural effusion. Degenerative changes in the spine. Impression: No significant interval change.
[2017-05-13 08:27] LABS: NEUTROPHIL 94 % (50-75); TOTAL CELLS COUNTED 100
--- NOTE | 2017-05-13 08:49 | CP.CCUPN ---
<Libia Benitez - Last Filed: 05/13/17 17:13> CCU Subjective - Physician Review Subjective (Free Text): 05/13/17 17:13 Patient seen and examined at bedside Patient sedated and intubated on vent (24, 100, 500, 5) No acute events overnight as per nursing Afebrile overnight Dobutamine gtt Phenylephrine gtt Levophed gtt Poor UO ROS unobtainable CCU Objective - Vital Signs / Intake & Output Vital Signs (Last 4 hours): Vital Signs Temp Pulse Resp BP Pulse Ox 05/13/17 08:03 93 H 24 94/52 L 97 05/13/17 08:00 99.6 F 05/13/17 07:33 93 H 24 93/51 L 95 05/13/17 07:03 104 H 25 H 100/57 L 92 L 05/13/17 07:00 107 H 24 93 L 05/13/17 06:33 103 H 25 H 111/58 L 94 L 05/13/17 06:03 104 H 25 H 108/64 94 L 05/13/17 06:00 103 H 15 94 L 05/13/17 05:33 97 H 24 111/57 L 94 L 05/13/17 05:03 82 24 95/53 L 95 05/13/17 05:00 92 H 24 95 Intake and Output (Last 8hrs): Intake & Output 05/12/17 05/13/17 05/13/17 22:59 06:59 14:59 Intake Total 249.2 737.2 84.8 Output Total 20 80 20 Balance 229.2 657.2 64.8 Weight 218 lb 12.8 oz Intake: IV 388 Intake, IV Amount 249.2 349.2 54.8 Distal Port 100 Medial Port 59.2 59.2 14.8 Proximal Port 30 40 9.8 proximal port /distal 160 150 30.2 port Oral 30 Tube Feeding 0 Output: Urine 20 80 20 Urethral (Corral) 20 80 20 Other: # Bowel Movements 0 0 - Physical Exam Head: Positive for: Atraumatic, Normocephalic Pupils: Positive for: PERRL Conjunctiva: Positive for: Normal. Negative for: Injected, Icteric Respiratory/Chest: Positive for: Rales (diffuse b/l), Other (vent sounds heard throughout) Cardiovascular: Positive for: Regular Rate and Rhythm, Normal S1, S2. Negative for: Murmurs Abdomen: Positive for: Normal Bowel Sounds. Negative for: Tenderness Lower Extremity: Positive for: Edema Neurological: Negative for: CN II-XII Intact, Speech Normal Skin: Positive for: Dry Psychiatric: Positive for: Alert. Negative for: Oriented x 3 - Medications Active Medications: Active Medications Generic Name Dose Route Start Last Admin Trade Name Freq PRN Reason Stop Dose Admin Acetaminophen 650 mg 05/11/17 17:17 05/11/17 17:39 Tylenol 650 Mg Supp ID 650 mg Q6 PRN Administration for temp.=..>100.5 Albuterol/Ipratropium 3 ml 05/11/17 08:00 05/13/17 07:41 Duoneb 3 Mg/0.5 Mg (3 Ml) Ud INH 3 ml RQ6 ANGIE Administration Heparin Sodium (Porcine) 5,000 units 05/11/17 06:00 05/13/17 05:54 Heparin SC 5,000 units Q8 ANGIE Administration Norepinephrine Bitartrate 8 mg 258 mls @ 7.74 mls/hr 05/11/17 01:19 05/12/17 08:30 / Dextrose IV 0 mcg/min .Q24H PRN 0 mls/hr TITRATE PER MD ORDER Titration Protocol 4 MCG/MIN Imipenem/Cilastatin Sodium 500 100 mls @ 100 mls/hr 05/11/17 16:30 05/13/17 07:49 mg/ Sodium Chloride IVPB 100 mls/hr Q8H ANGIE Administration Phenylephrine HCl 30 mg/ 253 mls @ 10.12 mls/hr 05/11/17 18:27 05/13/17 06:12 Dextrose IV 30 mcg/min .Q24H PRN 15.18 mls/hr TITRATE PER MD ORDER Titration Protocol 20 MCG/MIN Dobutamine HCl/Dextrose 500 mg in 250 mls @ 7.425 mls/hr 05/11/17 21:45 05/12 21:52 Dobutamine/Dextrose 5% 500mg/250ml IV Not Given .Q24H ANGIE Protocol 2.5 MCG/KG/MIN Dexmedetomidine HCl 200 mcg/ 50 mls @ 4.83 mls/hr 05/12/17 15:55 05/13/17 00: 01 Sodium Chloride IV 0.2 mcg/kg/hr TITR PRN 4.83 mls/hr Agitation Administration Protocol 0.2 MCG/KG/HR Methylprednisolone 40 mg 05/11/17 10:30 05/13/17 02:03 Solu-Medrol IVP 40 mg Q8H ANGIE Administration Nystatin 1 applic 05/12/17 10:00 05/12/17 17:33 Nystop Topical Powder TOP 1 applic BID ANGIE Administration Pantoprazole Sodium 40 mg 05/11/17 10:00 05/12/17 10:52 Protonix Inj IVP 40 mg DAILY ANGIE Administration - Patient Studies Lab Studies: Microbiology Studies 05/11/17 02:30 MRSA Culture (Admit) - Final Nose MRSA NOT DETECTED Lab Studies 05/13/17 05/13/17 05/13/17 Range/Units 06:53 06:09 06:08 WBC 17.5 H (4.8-10.8) K/uL RBC 3.65 L (4.40-5.90) Mil/uL Hgb 10.8 L (12.0-18.0) g/dL Hct 34.2 L (35.0-51.0) % MCV 93.7 (80.0-94.0) fL MCH 29.7 (27.0-31.0) pg MCHC 31.7 L (33.0-37.0) g/dL RDW 18.2 H (11.5-14.5) % Plt Count 61 L (130-400) K/uL MPV 9.8 (7.2-11.7) fL Neut % (Auto) 93.0 H (50.0-75.0) % Lymph % (Auto) 2.3 L (20.0-40.0) % [place] % (Auto) 4.5 (0.0-10.0) % Eos % (Auto) 0.0 (0.0-4.0) % Baso % (Auto) 0.2 (0.0-2.0) % Neut # 16.3 H (1.8-7.0) K/uL Lymph # 0.4 L (1.0-4.3) K/uL [place]nam # 0.8 (0.0-0.8) K/uL Eos # 0.0 (0.0-0.7) K/uL Baso # 0.0 (0.0-0.2) K/uL Neutrophils % (Manual) 94 H (50-75) % Lymphocytes % (Manual) 3 L (20-40) % Monocytes % (Manual) 3 (0-10) % Nucleated RBC % (0-0) % Platelet Estimate Decreased L (NORMAL) Polychromasia Hypochromasia (manual) Slight Poikilocytosis (manual Slight Anisocytosis (manual) Slight Macrocytosis (manual) Puncture Site pCO2 (35-45) mm/Hg pO2 (80-100) mm/Hg HCO3 (21-28) mmol/L ABG pH (7.35-7.45) ABG Total CO2 (22-28) mmol/L ABG O2 Saturation (95-98) % ABG Base Excess (-2.0-3.0) mmol/L ABG Hemoglobin (11.7-17.4) g/dL ABG Carboxyhemoglobin (0.5-1.5) % POC ABG HHb (Measured) (0.0-5.0) % ABG Methemoglobin (0.0-3.0) % Eris Test A-a O2 Difference mm/Hg Respiratory Index Hgb O2 Saturation (95.0-98.0) % Mechanical Rate FiO2 % Tidal Volume PEEP Sodium 129 L (132-148) mmol/L Potassium 4.6 (3.6-5.2) mmol/L Chloride 86 L (98-107) mmol/L Carbon Dioxide 33 H (22-30) mmol/L Anion Gap 15 (10-20) BUN 114 H* D (9-20) mg/dL Creatinine 3.8 H (0.8-1.5) MG/DL Est GFR ( Amer) 19 Est GFR (Non-Af Amer) 16 POC Glucose (mg/dL) (65-110) mg/dL Random Glucose 92 (75-110) mg/dL Serum Osmolality (272-300) mosm/kg Calcium 7.7 L (8.6-10.4) mg/dl Phosphorus 3.1 (2.5-4.5) mg/dL Magnesium 2.2 (1.6-2.3) mg/dL Total Bilirubin 2.8 H (0.2-1.3) mg/dL AST 137 H D (17-59) U/L ALT 100 H (21-72) U/L Alkaline Phosphatase 84 (38-126) U/L Total Protein 5.3 L (6.3-8.3) g/dL Albumin 2.3 L (3.5-5.0) g/dL Globulin 3.1 (2.2-3.9) gm/dL Albumin/Globulin Ratio 0.7 L (1.0-2.1) Urine Osmolality (300-1000) mosm/kg Ur Random Creatinine mg/dL Ur Random Sodium mmol/L Ur Random Potassium mmol/L Vancomycin Trough (5.0-10.0) ug/mL Random Vancomycin 28.24 ug/mL 05/13/17 05/13/17 05/13/17 Range/Units 05:44 05:07 03:54 WBC (4.8-10.8) K/uL RBC (4.40-5.90) Mil/uL Hgb (12.0-18.0) g/dL Hct (35.0-51.0) % MCV (80.0-94.0) fL MCH (27.0-31.0) pg MCHC (33.0-37.0) g/dL RDW (11.5-14.5) % Plt Count (130-400) K/uL MPV (7.2-11.7) fL Neut % (Auto) (50.0-75.0) % Lymph % (Auto) (20.0-40.0) % [place] % (Auto) (0.0-10.0) % Eos % (Auto) (0.0-4.0) % Baso % (Auto) (0.0-2.0) % Neut # (1.8-7.0) K/uL Lymph # (1.0-4.3) K/uL Putnam # (0.0-0.8) K/uL Eos # (0.0-0.7) K/uL Baso # (0.0-0.2) K/uL Neutrophils % (Manual) (50-75) % Lymphocytes % (Manual) (20-40) % Monocytes % (Manual) (0-10) % Nucleated RBC % (0-0) % Platelet Estimate (NORMAL) Polychromasia Hypochromasia (manual) Poikilocytosis (manual Anisocytosis (manual) Macrocytosis (manual) Puncture Site Lr pCO2 42 (35-45) mm/Hg pO2 64 L (80-100) mm/Hg HCO3 34.4 H (21-28) mmol/L ABG pH 7.54 H (7.35-7.45) ABG Total CO2 37.2 H (22-28) mmol/L ABG O2 Saturation 94.9 L (95-98) % ABG Base Excess 12.2 H (-2.0-3.0) mmol/L ABG Hemoglobin 10.9 L (11.7-17.4) g/dL ABG Carboxyhemoglobin 1.8 H (0.5-1.5) % POC ABG HHb (Measured) 5.0 (0.0-5.0) % ABG Methemoglobin 0.6 (0.0-3.0) % Eris Test Pos A-a O2 Difference 597.0 mm/Hg Respiratory Index 9.3 Hgb O2 Saturation 92.7 L (95.0-98.0) % Mechanical Rate 24 FiO2 100.0 % Tidal Volume 500 PEEP 5 Sodium (132-148) mmol/L Potassium (3.6-5.2) mmol/L Chloride (98-107) mmol/L Carbon Dioxide (22-30) mmol/L Anion Gap (10-20) BUN (9-20) mg/dL Creatinine (0.8-1.5) MG/DL Est GFR ( Amer) Est GFR (Non-Af Amer) POC Glucose (mg/dL) 107 (65-110) mg/dL Random Glucose (75-110) mg/dL Serum Osmolality (272-300) mosm/kg Calcium (8.6-10.4) mg/dl Phosphorus (2.5-4.5) mg/dL Magnesium (1.6-2.3) mg/dL Total Bilirubin (0.2-1.3) mg/dL AST (17-59) U/L ALT (21-72) U/L Alkaline Phosphatase (38-126) U/L Total Protein (6.3-8.3) g/dL Albumin (3.5-5.0) g/dL Globulin (2.2-3.9) gm/dL Albumin/Globulin Ratio (1.0-2.1) Urine Osmolality 328 (300-1000) mosm/kg Ur Random Creatinine 47.7 mg/dL Ur Random Sodium 9 mmol/L Ur Random Potassium 54.0 mmol/L Vancomycin Trough (5.0-10.0) ug/mL Random Vancomycin ug/mL 05/12/17 05/12/17 05/12/17 Range/Units 20:58 20:57 17:49 WBC (4.8-10.8) K/uL RBC (4.40-5.90) Mil/uL Hgb (12.0-18.0) g/dL Hct (35.0-51.0) % MCV (80.0-94.0) fL MCH (27.0-31.0) pg MCHC (33.0-37.0) g/dL RDW (11.5-14.5) % Plt Count (130-400) K/uL MPV (7.2-11.7) fL Neut % (Auto) (50.0-75.0) % Lymph % (Auto) (20.0-40.0) % [place] % (Auto) (0.0-10.0) % Eos % (Auto) (0.0-4.0) % Baso % (Auto) (0.0-2.0) % Neut # (1.8-7.0) K/uL Lymph # (1.0-4.3) K/uL [place] # (0.0-0.8) K/uL Eos # (0.0-0.7) K/uL Baso # (0.0-0.2) K/uL Neutrophils % (Manual) (50-75) % Lymphocytes % (Manual) (20-40) % Monocytes % (Manual) (0-10) % Nucleated RBC % (0-0) % Platelet Estimate (NORMAL) Polychromasia Hypochromasia (manual) Poikilocytosis (manual Anisocytosis (manual) Macrocytosis (manual) Puncture Site pCO2 (35-45) mm/Hg pO2 (80-100) mm/Hg HCO3 (21-28) mmol/L ABG pH (7.35-7.45) ABG Total CO2 (22-28) mmol/L ABG O2 Saturation (95-98) % ABG Base Excess (-2.0-3.0) mmol/L ABG Hemoglobin (11.7-17.4) g/dL ABG Carboxyhemoglobin (0.5-1.5) % POC ABG HHb (Measured) (0.0-5.0) % ABG Methemoglobin (0.0-3.0) % Eris Test A-a O2 Difference mm/Hg Respiratory Index Hgb O2 Saturation (95.0-98.0) % Mechanical Rate FiO2 % Tidal Volume PEEP Sodium (132-148) mmol/L Potassium (3.6-5.2) mmol/L Chloride (98-107) mmol/L Carbon Dioxide (22-30) mmol/L Anion Gap (10-20) BUN (9-20) mg/dL Creatinine (0.8-1.5) MG/DL Est GFR ( Amer) Est GFR (Non-Af Amer) POC Glucose (mg/dL) 124 H (65-110) mg/dL Random Glucose (75-110) mg/dL Serum Osmolality 317 H (272-300) mosm/kg Calcium (8.6-10.4) mg/dl Phosphorus (2.5-4.5) mg/dL Magnesium (1.6-2.3) mg/dL Total Bilirubin (0.2-1.3) mg/dL AST (17-59) U/L ALT (21-72) U/L Alkaline Phosphatase (38-126) U/L Total Protein (6.3-8.3) g/dL Albumin (3.5-5.0) g/dL Globulin (2.2-3.9) gm/dL Albumin/Globulin Ratio (1.0-2.1) Urine Osmolality (300-1000) mosm/kg Ur Random Creatinine mg/dL Ur Random Sodium mmol/L Ur Random Potassium mmol/L Vancomycin Trough (5.0-10.0) ug/mL Random Vancomycin 32.07 ug/mL 05/12/17 05/12/17 05/12/17 Range/Units 11:22 11:13 06:24 WBC (4.8-10.8) K/uL RBC (4.40-5.90) Mil/uL Hgb (12.0-18.0) g/dL Hct (35.0-51.0) % MCV (80.0-94.0) fL MCH (27.0-31.0) pg MCHC (33.0-37.0) g/dL RDW (11.5-14.5) % Plt Count (130-400) K/uL MPV (7.2-11.7) fL Neut % (Auto) (50.0-75.0) % Lymph % (Auto) (20.0-40.0) % [place] % (Auto) (0.0-10.0) % Eos % (Auto) (0.0-4.0) % Baso % (Auto) (0.0-2.0) % Neut # (1.8-7.0) K/uL Lymph # (1.0-4.3) K/uL [place] # (0.0-0.8) K/uL Eos # (0.0-0.7) K/uL Baso # (0.0-0.2) K/uL Neutrophils % (Manual) 93 H (50-75) % Lymphocytes % (Manual) 5 L (20-40) % Monocytes % (Manual) 2 (0-10) % Nucleated RBC % 4 H (0-0) % Platelet Estimate Decreased L (NORMAL) Polychromasia Slight Hypochromasia (manual) Slight Poikilocytosis (manual Slight Anisocytosis (manual) Slight Macrocytosis (manual) Slight Puncture Site pCO2 (35-45) mm/Hg pO2 (80-100) mm/Hg HCO3 (21-28) mmol/L ABG pH (7.35-7.45) ABG Total CO2 (22-28) mmol/L ABG O2 Saturation (95-98) % ABG Base Excess (-2.0-3.0) mmol/L ABG Hemoglobin (11.7-17.4) g/dL ABG Carboxyhemoglobin (0.5-1.5) % POC ABG HHb (Measured) (0.0-5.0) % ABG Methemoglobin (0.0-3.0) % Eris Test A-a O2 Difference mm/Hg Respiratory Index Hgb O2 Saturation (95.0-98.0) % Mechanical Rate FiO2 % Tidal Volume PEEP Sodium (132-148) mmol/L Potassium (3.6-5.2) mmol/L Chloride (98-107) mmol/L Carbon Dioxide (22-30) mmol/L Anion Gap (10-20) BUN (9-20) mg/dL Creatinine (0.8-1.5) MG/DL Est GFR ( Amer) Est GFR (Non-Af Amer) POC Glucose (mg/dL) 135 H (65-110) mg/dL Random Glucose (75-110) mg/dL Serum Osmolality (272-300) mosm/kg Calcium (8.6-10.4) mg/dl Phosphorus (2.5-4.5) mg/dL Magnesium (1.6-2.3) mg/dL Total Bilirubin (0.2-1.3) mg/dL AST (17-59) U/L ALT (21-72) U/L Alkaline Phosphatase (38-126) U/L Total Protein (6.3-8.3) g/dL Albumin (3.5-5.0) g/dL Globulin (2.2-3.9) gm/dL Albumin/Globulin Ratio (1.0-2.1) Urine Osmolality (300-1000) mosm/kg Ur Random Creatinine mg/dL Ur Random Sodium mmol/L Ur Random Potassium mmol/L Vancomycin Trough 32.3 H (5.0-10.0) ug/mL Random Vancomycin ug/mL Laboratory Results - last 24 hr 05/12/17 05/12/17 05/12/17 06:24 11:13 11:22 WBC RBC Hgb Hct MCV MCH MCHC RDW Plt Count MPV Neut % (Auto) Lymph % (Auto) [place] % (Auto) Eos % (Auto) Baso % (Auto) Neut # Lymph # [place] # Eos # Baso # Neutrophils % (Manual) 93 H Lymphocytes % (Manual) 5 L Monocytes % (Manual) 2 Nucleated RBC % 4 H Platelet Estimate Decreased L Polychromasia Slight Hypochromasia (manual) Slight Poikilocytosis (manual Slight Anisocytosis (manual) Slight Macrocytosis (manual) Slight Puncture Site pCO2 pO2 HCO3 ABG pH ABG Total CO2 ABG O2 Saturation ABG Base Excess ABG Hemoglobin ABG Carboxyhemoglobin POC ABG HHb (Measured) ABG Methemoglobin Eris Test A-a O2 Difference Respiratory Index Hgb O2 Saturation Mechanical Rate FiO2 Tidal Volume PEEP Sodium Potassium Chloride Carbon Dioxide Anion Gap BUN Creatinine Est GFR ( Amer) Est GFR (Non-Af Amer) POC Glucose (mg/dL) 135 H Random Glucose Serum Osmolality Calcium Phosphorus Magnesium Total Bilirubin AST ALT Alkaline Phosphatase Total Protein Albumin Globulin Albumin/Globulin Ratio Urine Osmolality Ur Random Creatinine Ur Random Sodium Ur Random Potassium Vancomycin Trough 32.3 H Random Vancomycin 05/12/17 05/12/17 05/12/17 17:49 20:57 20:58 WBC RBC Hgb Hct MCV MCH MCHC RDW Plt Count MPV Neut % (Auto) Lymph % (Auto) [place] % (Auto) Eos % (Auto) Baso % (Auto) Neut # Lymph # [place] # Eos # Baso # Neutrophils % (Manual) Lymphocytes % (Manual) Monocytes % (Manual) Nucleated RBC % Platelet Estimate Polychromasia Hypochromasia (manual) Poikilocytosis (manual Anisocytosis (manual) Macrocytosis (manual) Puncture Site pCO2 pO2 HCO3 ABG pH ABG Total CO2 ABG O2 Saturation ABG Base Excess ABG Hemoglobin ABG Carboxyhemoglobin POC ABG HHb (Measured) ABG Methemoglobin Eris Test A-a O2 Difference Respiratory Index Hgb O2 Saturation Mechanical Rate FiO2 Tidal Volume PEEP Sodium Potassium Chloride Carbon Dioxide Anion Gap BUN Creatinine Est GFR ( Amer) Est GFR (Non-Af Amer) POC Glucose (mg/dL) 124 H Random Glucose Serum Osmolality 317 H Calcium Phosphorus Magnesium Total Bilirubin AST ALT Alkaline Phosphatase Total Protein Albumin Globulin Albumin/Globulin Ratio Urine Osmolality Ur Random Creatinine Ur Random Sodium Ur Random Potassium Vancomycin Trough Random Vancomycin 32.07 05/13/17 05/13/17 05/13/17 03:54 05:07 05:44 WBC RBC Hgb Hct MCV MCH MCHC RDW Plt Count MPV Neut % (Auto) Lymph % (Auto) [place] % (Auto) Eos % (Auto) Baso % (Auto) Neut # Lymph # [place] # Eos # Baso # Neutrophils % (Manual) Lymphocytes % (Manual) Monocytes % (Manual) Nucleated RBC % Platelet Estimate Polychromasia Hypochromasia (manual) Poikilocytosis (manual Anisocytosis (manual) Macrocytosis (manual) Puncture Site Lr pCO2 42 pO2 64 L HCO3 34.4 H ABG pH 7.54 H ABG Total CO2 37.2 H ABG O2 Saturation 94.9 L ABG Base Excess 12.2 H ABG Hemoglobin 10.9 L ABG Carboxyhemoglobin 1.8 H POC ABG HHb (Measured) 5.0 ABG Methemoglobin 0.6 Eris Test Pos A-a O2 Difference 597.0 Respiratory Index 9.3 Hgb O2 Saturation 92.7 L Mechanical Rate 24 FiO2 100.0 Tidal Volume 500 PEEP 5 Sodium Potassium Chloride Carbon Dioxide Anion Gap BUN Creatinine Est GFR ( Amer) Est GFR (Non-Af Amer) POC Glucose (mg/dL) 107 Random Glucose Serum Osmolality Calcium Phosphorus Magnesium Total Bilirubin AST ALT Alkaline Phosphatase Total Protein Albumin Globulin Albumin/Globulin Ratio Urine Osmolality 328 Ur Random Creatinine 47.7 Ur Random Sodium 9 Ur Random Potassium 54.0 Vancomycin Trough Random Vancomycin 05/13/17 05/13/17 05/13/17 06:08 06:09 06:53 WBC 17.5 H RBC 3.65 L Hgb 10.8 L Hct 34.2 L MCV 93.7 MCH 29.7 MCHC 31.7 L RDW 18.2 H Plt Count 61 L MPV 9.8 Neut % (Auto) 93.0 H Lymph % (Auto) 2.3 L [place] % (Auto) 4.5 Eos % (Auto) 0.0 Baso % (Auto) 0.2 Neut # 16.3 H Lymph # 0.4 L [place] # 0.8 Eos # 0.0 Baso # 0.0 Neutrophils % (Manual) 94 H Lymphocytes % (Manual) 3 L Monocytes % (Manual) 3 Nucleated RBC % Platelet Estimate Decreased L Polychromasia Hypochromasia (manual) Slight Poikilocytosis (manual Slight Anisocytosis (manual) Slight Macrocytosis (manual) Puncture Site pCO2 pO2 HCO3 ABG pH ABG Total CO2 ABG O2 Saturation ABG Base Excess ABG Hemoglobin ABG Carboxyhemoglobin POC ABG HHb (Measured) ABG Methemoglobin Eris Test A-a O2 Difference Respiratory Index Hgb O2 Saturation Mechanical Rate FiO2 Tidal Volume PEEP Sodium 129 L Potassium 4.6 Chloride 86 L Carbon Dioxide 33 H Anion Gap 15 BUN 114 H* D Creatinine 3.8 H Est GFR ( Amer) 19 Est GFR (Non-Af Amer) 16 POC Glucose (mg/dL) Random Glucose 92 Serum Osmolality Calcium 7.7 L Phosphorus 3.1 Magnesium 2.2 Total Bilirubin 2.8 H AST 137 H D ALT 100 H Alkaline Phosphatase 84 Total Protein 5.3 L Albumin 2.3 L Globulin 3.1 Albumin/Globulin Ratio 0.7 L Urine Osmolality Ur Random Creatinine Ur Random Sodium Ur Random Potassium Vancomycin Trough Random Vancomycin 28.24 Fingerstick Blood Sugar Results: 107 Review of Systems - Review of Systems Systems not reviewed;Unavailable: Acuity of Condition Assessment/Plan - Assessment and Plan (Free Text) Assessment: 72M PMHx COPD, Heart failure, Afib, Liver disease, Pulm HTN, Chronic b/l venous ulcers, venous stasis multiple hospitalizations with sepsis and infection admitted s/p cardiac arrest at home Plan: Neuro: s/p cardiac arrest- multiorgan failure Sedated on dexmedetomidine gtt Pulm: s/p cardiac arrest with Respiratory failure intubated on vent (24, 100, 500, 5) b/l pneumonia hx of COPD 05/13 CXR no interval change 05/11 CXR persistent severe cardiomegaly and interval worsening of pulm venous congestion Duoneb 3ml inh q6 Solumedrol 40mg ivp q8 f/u sputum culture Cardiovascular: sp cardiac arrest Dobutamine gtt Norepinephrine gtt Phenylephrine gtt NS @ 50cc/hr Heme: anemia of chronic disease Hgb/Hct 10.8/34.2 Monitor Renal: Oliguric JOHNIE/ARF likely secondary to ATN likely secondary to sepsis, acute GA, poor LV function BUN/Cr 114/3.8 Dialysis cath consent in chart Endo: no acute issues GI: NGT feedings @ 35cc/hr tolerating with no residuals Abnl LFTS- likely shock liver secondary to hypotension and hypoperfusion AST 137 ALT 100 ID: Procalcitonin 2.63 WBC 17.5 this AM Tylenol 650mg pr q6 prn temp > 100.5F Primaxin ivpb q12 Nystatin 1 dwayne top bid Tigecycline 25mg ivpb q12 f/u wound culture f/u blood cluture f/u sputum culture f/u urine culture DVT proph: Heparin 5000u sc q8 GI proph: Protonix 40mg ivp daily Code status: full code Pall care on board Case discussed with Dr. Jaiden Benitez PGY1 <Brannon Hwang - Last Filed: 05/13/17 18:08> CCU Objective - Vital Signs / Intake & Output Vital Signs (Last 4 hours): Vital Signs Temp Pulse Resp BP Pulse Ox 05/13/17 16:03 82 24 100/48 L 92 L 05/13/17 16:01 87 25 H 97/55 L 91 L 05/13/17 16:00 98.9 F 75 25 H 91 L 05/13/17 15:33 75 24 84/54 L 94 L 05/13/17 15:00 91 H 24 95 05/13/17 14:33 95 H 24 89/45 L 95 Intake and Output (Last 8hrs): Intake & Output 05/13/17 05/13/17 05/13/17 06:59 14:59 22:59 Intake Total 737.2 779.2 157.4 Output Total 80 65 20 Balance 657.2 714.2 137.4 Weight 218 lb 12.8 oz Intake: IV 388 50 50 Intake, IV Amount 349.2 519.2 77.4 Distal Port 100 Medial Port 59.2 59.2 7.4 Proximal Port 40 38.6 4.8 proximal port /distal 150 121.4 15.2 port right hand 300 50 Oral 90 Tube Feeding 120 30 Output: Urine 80 65 20 Urethral (Corral) 80 65 20 Other: # Bowel Movements 0 1 0 - Medications Active Medications: Active Medications Generic Name Dose Route Start Last Admin Trade Name Freq PRN Reason Stop Dose Admin Acetaminophen 650 mg 05/11/17 17:17 05/11/17 17:39 Tylenol 650 Mg Supp ID 650 mg Q6 PRN Administration for temp.=..>100.5 Albuterol/Ipratropium 3 ml 05/11/17 08:00 05/13/17 13:05 Duoneb 3 Mg/0.5 Mg (3 Ml) Ud INH 3 ml RQ6 ANGIE Administration Heparin Sodium (Porcine) 5,000 units 05/11/17 06:00 05/13/17 14:56 Heparin SC 5,000 units Q8 ANGIE Administration Norepinephrine Bitartrate 8 mg 258 mls @ 7.74 mls/hr 05/11/17 01:19 05/12/17 08:30 / Dextrose IV 0 mcg/min .Q24H PRN 0 mls/hr TITRATE PER MD ORDER Titration Protocol 4 MCG/MIN Phenylephrine HCl 30 mg/ 253 mls @ 10.12 mls/hr 05/11/17 18:27 05/13/17 06:12 Dextrose IV 30 mcg/min .Q24H PRN 15.18 mls/hr TITRATE PER MD ORDER Titration Protocol 20 MCG/MIN Dobutamine HCl/Dextrose 500 mg in 250 mls @ 7.425 mls/hr 05/11/17 21:45 05/12 21:52 Dobutamine/Dextrose 5% 500mg/250ml IV Not Given .Q24H ANGIE Protocol 2.5 MCG/KG/MIN Dexmedetomidine HCl 200 mcg/ 50 mls @ 4.83 mls/hr 05/12/17 15:55 05/13/17 17: 07 Sodium Chloride IV 0.4 mcg/kg/hr TITR PRN 9.66 mls/hr Agitation Administration Protocol 0.2 MCG/KG/HR Sodium Chloride 1,000 mls @ 50 mls/hr 05/13/17 09:15 05/13/17 10:00 Sodium Chloride 0.9% IV 50 mls/hr .Q20H ANGIE Administration Tigecycline 25 mg/ Dextrose 100 mls @ 100 mls/hr 05/14/17 00:00 IVPB 0000,1200 ANGIE Imipenem/Cilastatin Sodium 500 100 mls @ 100 mls/hr 05/13/17 20:00 mg/ Sodium Chloride IVPB 0800,2000 ANGIE Methylprednisolone 40 mg 05/11/17 10:30 05/13/17 10:29 Solu-Medrol IVP 40 mg Q8H ANGIE Administration Nystatin 1 applic 05/12/17 10:00 05/13/17 17:04 Nystop Topical Powder TOP 1 applic BID ANGIE Administration Pantoprazole Sodium 40 mg 05/11/17 10:00 05/13/17 10:30 Protonix Inj IVP 40 mg DAILY ANGIE Administration - Patient Studies Lab Studies: Microbiology Studies 05/13/17 09:42 Gram Stain - Final Other: Please Indicate Lab Studies 05/13/17 05/13/17 05/13/17 Range/Units Unknown 17:39 15:48 WBC (4.8-10.8) K/uL RBC (4.40-5.90) Mil/uL Hgb (12.0-18.0) g/dL Hct (35.0-51.0) % MCV (80.0-94.0) fL MCH (27.0-31.0) pg MCHC (33.0-37.0) g/dL RDW (11.5-14.5) % Plt Count (130-400) K/uL MPV (7.2-11.7) fL Neut % (Auto) (50.0-75.0) % Lymph % (Auto) (20.0-40.0) % [place] % (Auto) (0.0-10.0) % Eos % (Auto) (0.0-4.0) % Baso % (Auto) (0.0-2.0) % Neut # (1.8-7.0) K/uL Lymph # (1.0-4.3) K/uL [place] # (0.0-0.8) K/uL Eos # (0.0-0.7) K/uL Baso # (0.0-0.2) K/uL Neutrophils % (Manual) (50-75) % Lymphocytes % (Manual) (20-40) % Monocytes % (Manual) (0-10) % Platelet Estimate (NORMAL) Hypochromasia (manual) Poikilocytosis (manual Anisocytosis (manual) ESR (0-15) mm/hr Puncture Site pCO2 (35-45) mm/Hg pO2 (80-100) mm/Hg HCO3 (21-28) mmol/L ABG pH (7.35-7.45) ABG Total CO2 (22-28) mmol/L ABG O2 Saturation (95-98) % ABG Base Excess (-2.0-3.0) mmol/L ABG Hemoglobin (11.7-17.4) g/dL ABG Carboxyhemoglobin (0.5-1.5) % POC ABG HHb (Measured) (0.0-5.0) % ABG Methemoglobin (0.0-3.0) % Eris Test A-a O2 Difference mm/Hg Respiratory Index Hgb O2 Saturation (95.0-98.0) % Mechanical Rate FiO2 % Tidal Volume PEEP Sodium (132-148) mmol/L Potassium (3.6-5.2) mmol/L Chloride (98-107) mmol/L Carbon Dioxide (22-30) mmol/L Anion Gap (10-20) BUN (9-20) mg/dL Creatinine (0.8-1.5) MG/DL Est GFR ( Amer) Est GFR (Non-Af Amer) POC Glucose (mg/dL) 105 (65-110) mg/dL Random Glucose (75-110) mg/dL Serum Osmolality (272-300) mosm/kg Calcium (8.6-10.4) mg/dl Phosphorus (2.5-4.5) mg/dL Magnesium (1.6-2.3) mg/dL Total Bilirubin (0.2-1.3) mg/dL AST (17-59) U/L ALT (21-72) U/L Alkaline Phosphatase (38-126) U/L Total Protein (6.3-8.3) g/dL Albumin (3.5-5.0) g/dL Globulin (2.2-3.9) gm/dL Albumin/Globulin Ratio (1.0-2.1) Procalcitonin 2.63 H (0.19-0.49) NG/ML Urine Eosinophils Negative (NEGATIVE) Urine Osmolality (300-1000) mosm/kg Ur Random Creatinine mg/dL Ur Random Sodium mmol/L Ur Random Potassium mmol/L Random Vancomycin ug/mL 05/13/17 05/13/17 05/13/17 Range/Units 11:54 06:53 06:09 WBC 17.5 H (4.8-10.8) K/uL RBC 3.65 L (4.40-5.90) Mil/uL Hgb 10.8 L (12.0-18.0) g/dL Hct 34.2 L (35.0-51.0) % MCV 93.7 (80.0-94.0) fL MCH 29.7 (27.0-31.0) pg MCHC 31.7 L (33.0-37.0) g/dL RDW 18.2 H (11.5-14.5) % Plt Count 61 L (130-400) K/uL MPV 9.8 (7.2-11.7) fL Neut % (Auto) 93.0 H (50.0-75.0) % Lymph % (Auto) 2.3 L (20.0-40.0) % [place] % (Auto) 4.5 (0.0-10.0) % Eos % (Auto) 0.0 (0.0-4.0) % Baso % (Auto) 0.2 (0.0-2.0) % Neut # 16.3 H (1.8-7.0) K/uL Lymph # 0.4 L (1.0-4.3) K/uL [place] # 0.8 (0.0-0.8) K/uL Eos # 0.0 (0.0-0.7) K/uL Baso # 0.0 (0.0-0.2) K/uL Neutrophils % (Manual) 94 H (50-75) % Lymphocytes % (Manual) 3 L (20-40) % Monocytes % (Manual) 3 (0-10) % Platelet Estimate Decreased L (NORMAL) Hypochromasia (manual) Slight Poikilocytosis (manual Slight Anisocytosis (manual) Slight ESR 12 (0-15) mm/hr Puncture Site pCO2 (35-45) mm/Hg pO2 (80-100) mm/Hg HCO3 (21-28) mmol/L ABG pH (7.35-7.45) ABG Total CO2 (22-28) mmol/L ABG O2 Saturation (95-98) % ABG Base Excess (-2.0-3.0) mmol/L ABG Hemoglobin (11.7-17.4) g/dL ABG Carboxyhemoglobin (0.5-1.5) % POC ABG HHb (Measured) (0.0-5.0) % ABG Methemoglobin (0.0-3.0) % Eris Test A-a O2 Difference mm/Hg Respiratory Index Hgb O2 Saturation (95.0-98.0) % Mechanical Rate FiO2 % Tidal Volume PEEP Sodium (132-148) mmol/L Potassium (3.6-5.2) mmol/L Chloride (98-107) mmol/L Carbon Dioxide (22-30) mmol/L Anion Gap (10-20) BUN (9-20) mg/dL Creatinine (0.8-1.5) MG/DL Est GFR ( Amer) Est GFR (Non-Af Amer) POC Glucose (mg/dL) 99 (65-110) mg/dL Random Glucose (75-110) mg/dL Serum Osmolality (272-300) mosm/kg Calcium (8.6-10.4) mg/dl Phosphorus (2.5-4.5) mg/dL Magnesium (1.6-2.3) mg/dL Total Bilirubin (0.2-1.3) mg/dL AST (17-59) U/L ALT (21-72) U/L Alkaline Phosphatase (38-126) U/L Total Protein (6.3-8.3) g/dL Albumin (3.5-5.0) g/dL Globulin (2.2-3.9) gm/dL Albumin/Globulin Ratio (1.0-2.1) Procalcitonin (0.19-0.49) NG/ML Urine Eosinophils (NEGATIVE) Urine Osmolality (300-1000) mosm/kg Ur Random Creatinine mg/dL Ur Random Sodium mmol/L Ur Random Potassium mmol/L Random Vancomycin 28.24 ug/mL 05/13/17 05/13/17 05/13/17 Range/Units 06:08 05:44 05:07 WBC (4.8-10.8) K/uL RBC (4.40-5.90) Mil/uL Hgb (12.0-18.0) g/dL Hct (35.0-51.0) % MCV (80.0-94.0) fL MCH (27.0-31.0) pg MCHC (33.0-37.0) g/dL RDW (11.5-14.5) % Plt Count (130-400) K/uL MPV (7.2-11.7) fL Neut % (Auto) (50.0-75.0) % Lymph % (Auto) (20.0-40.0) % [place] % (Auto) (0.0-10.0) % Eos % (Auto) (0.0-4.0) % Baso % (Auto) (0.0-2.0) % Neut # (1.8-7.0) K/uL Lymph # (1.0-4.3) K/uL [place] # (0.0-0.8) K/uL Eos # (0.0-0.7) K/uL Baso # (0.0-0.2) K/uL Neutrophils % (Manual) (50-75) % Lymphocytes % (Manual) (20-40) % Monocytes % (Manual) (0-10) % Platelet Estimate (NORMAL) Hypochromasia (manual) Poikilocytosis (manual Anisocytosis (manual) ESR (0-15) mm/hr Puncture Site Lr pCO2 42 (35-45) mm/Hg pO2 64 L (80-100) mm/Hg HCO3 34.4 H (21-28) mmol/L ABG pH 7.54 H (7.35-7.45) ABG Total CO2 37.2 H (22-28) mmol/L ABG O2 Saturation 94.9 L (95-98) % ABG Base Excess 12.2 H (-2.0-3.0) mmol/L ABG Hemoglobin 10.9 L (11.7-17.4) g/dL ABG Carboxyhemoglobin 1.8 H (0.5-1.5) % POC ABG HHb (Measured) 5.0 (0.0-5.0) % ABG Methemoglobin 0.6 (0.0-3.0) % Eris Test Pos A-a O2 Difference 597.0 mm/Hg Respiratory Index 9.3 Hgb O2 Saturation 92.7 L (95.0-98.0) % Mechanical Rate 24 FiO2 100.0 % Tidal Volume 500 PEEP 5 Sodium 129 L (132-148) mmol/L Potassium 4.6 (3.6-5.2) mmol/L Chloride 86 L (98-107) mmol/L Carbon Dioxide 33 H (22-30) mmol/L Anion Gap 15 (10-20) BUN 114 H* D (9-20) mg/dL Creatinine 3.8 H (0.8-1.5) MG/DL Est GFR ( Amer) 19 Est GFR (Non-Af Amer) 16 POC Glucose (mg/dL) 107 (65-110) mg/dL Random Glucose 92 (75-110) mg/dL Serum Osmolality (272-300) mosm/kg Calcium 7.7 L (8.6-10.4) mg/dl Phosphorus 3.1 (2.5-4.5) mg/dL Magnesium 2.2 (1.6-2.3) mg/dL Total Bilirubin 2.8 H (0.2-1.3) mg/dL AST 137 H D (17-59) U/L ALT 100 H (21-72) U/L Alkaline Phosphatase 84 (38-126) U/L Total Protein 5.3 L (6.3-8.3) g/dL Albumin 2.3 L (3.5-5.0) g/dL Globulin 3.1 (2.2-3.9) gm/dL Albumin/Globulin Ratio 0.7 L (1.0-2.1) Procalcitonin (0.19-0.49) NG/ML Urine Eosinophils (NEGATIVE) Urine Osmolality (300-1000) mosm/kg Ur Random Creatinine mg/dL Ur Random Sodium mmol/L Ur Random Potassium mmol/L Random Vancomycin ug/mL 05/13/17 05/12/17 05/12/17 Range/Units 03:54 20:58 20:57 WBC (4.8-10.8) K/uL RBC (4.40-5.90) Mil/uL Hgb (12.0-18.0) g/dL Hct (35.0-51.0) % MCV (80.0-94.0) fL MCH (27.0-31.0) pg MCHC (33.0-37.0) g/dL RDW (11.5-14.5) % Plt Count (130-400) K/uL MPV (7.2-11.7) fL Neut % (Auto) (50.0-75.0) % Lymph % (Auto) (20.0-40.0) % [place] % (Auto) (0.0-10.0) % Eos % (Auto) (0.0-4.0) % Baso % (Auto) (0.0-2.0) % Neut # (1.8-7.0) K/uL Lymph # (1.0-4.3) K/uL [place] # (0.0-0.8) K/uL Eos # (0.0-0.7) K/uL Baso # (0.0-0.2) K/uL Neutrophils % (Manual) (50-75) % Lymphocytes % (Manual) (20-40) % Monocytes % (Manual) (0-10) % Platelet Estimate (NORMAL) Hypochromasia (manual) Poikilocytosis (manual Anisocytosis (manual) ESR (0-15) mm/hr Puncture Site pCO2 (35-45) mm/Hg pO2 (80-100) mm/Hg HCO3 (21-28) mmol/L ABG pH (7.35-7.45) ABG Total CO2 (22-28) mmol/L ABG O2 Saturation (95-98) % ABG Base Excess (-2.0-3.0) mmol/L ABG Hemoglobin (11.7-17.4) g/dL ABG Carboxyhemoglobin (0.5-1.5) % POC ABG HHb (Measured) (0.0-5.0) % ABG Methemoglobin (0.0-3.0) % Eris Test A-a O2 Difference mm/Hg Respiratory Index Hgb O2 Saturation (95.0-98.0) % Mechanical Rate FiO2 % Tidal Volume PEEP Sodium (132-148) mmol/L Potassium (3.6-5.2) mmol/L Chloride (98-107) mmol/L Carbon Dioxide (22-30) mmol/L Anion Gap (10-20) BUN (9-20) mg/dL Creatinine (0.8-1.5) MG/DL Est GFR ( Amer) Est GFR (Non-Af Amer) POC Glucose (mg/dL) (65-110) mg/dL Random Glucose (75-110) mg/dL Serum Osmolality 317 H (272-300) mosm/kg Calcium (8.6-10.4) mg/dl Phosphorus (2.5-4.5) mg/dL Magnesium (1.6-2.3) mg/dL Total Bilirubin (0.2-1.3) mg/dL AST (17-59) U/L ALT (21-72) U/L Alkaline Phosphatase (38-126) U/L Total Protein (6.3-8.3) g/dL Albumin (3.5-5.0) g/dL Globulin (2.2-3.9) gm/dL Albumin/Globulin Ratio (1.0-2.1) Procalcitonin (0.19-0.49) NG/ML Urine Eosinophils (NEGATIVE) Urine Osmolality 328 (300-1000) mosm/kg Ur Random Creatinine 47.7 mg/dL Ur Random Sodium 9 mmol/L Ur Random Potassium 54.0 mmol/L Random Vancomycin 32.07 ug/mL Laboratory Results - last 24 hr 05/12/17 05/12/17 05/13/17 20:57 20:58 03:54 WBC RBC Hgb Hct MCV MCH MCHC RDW Plt Count MPV Neut % (Auto) Lymph % (Auto) [place] % (Auto) Eos % (Auto) Baso % (Auto) Neut # Lymph # [place] # Eos # Baso # Neutrophils % (Manual) Lymphocytes % (Manual) Monocytes % (Manual) Platelet Estimate Hypochromasia (manual) Poikilocytosis (manual Anisocytosis (manual) ESR Puncture Site pCO2 pO2 HCO3 ABG pH ABG Total CO2 ABG O2 Saturation ABG Base Excess ABG Hemoglobin ABG Carboxyhemoglobin POC ABG HHb (Measured) ABG Methemoglobin Eris Test A-a O2 Difference Respiratory Index Hgb O2 Saturation Mechanical Rate FiO2 Tidal Volume PEEP Sodium Potassium Chloride Carbon Dioxide Anion Gap BUN Creatinine Est GFR ( Amer) Est GFR (Non-Af Amer) POC Glucose (mg/dL) Random Glucose Serum Osmolality 317 H Calcium Phosphorus Magnesium Total Bilirubin AST ALT Alkaline Phosphatase Total Protein Albumin Globulin Albumin/Globulin Ratio Procalcitonin Urine Eosinophils Urine Osmolality 328 Ur Random Creatinine 47.7 Ur Random Sodium 9 Ur Random Potassium 54.0 Random Vancomycin 32.07 05/13/17 05/13/17 05/13/17 05:07 05:44 06:08 WBC RBC Hgb Hct MCV MCH MCHC RDW Plt Count MPV Neut % (Auto) Lymph % (Auto) [place] % (Auto) Eos % (Auto) Baso % (Auto) Neut # Lymph # [place] # Eos # Baso # Neutrophils % (Manual) Lymphocytes % (Manual) Monocytes % (Manual) Platelet Estimate Hypochromasia (manual) Poikilocytosis (manual Anisocytosis (manual) ESR Puncture Site Lr pCO2 42 pO2 64 L HCO3 34.4 H ABG pH 7.54 H ABG Total CO2 37.2 H ABG O2 Saturation 94.9 L ABG Base Excess 12.2 H ABG Hemoglobin 10.9 L ABG Carboxyhemoglobin 1.8 H POC ABG HHb (Measured) 5.0 ABG Methemoglobin 0.6 Eris Test Pos A-a O2 Difference 597.0 Respiratory Index 9.3 Hgb O2 Saturation 92.7 L Mechanical Rate 24 FiO2 100.0 Tidal Volume 500 PEEP 5 Sodium 129 L Potassium 4.6 Chloride 86 L Carbon Dioxide 33 H Anion Gap 15 BUN 114 H* D Creatinine 3.8 H Est GFR ( Amer) 19 Est GFR (Non-Af Amer) 16 POC Glucose (mg/dL) 107 Random Glucose 92 Serum Osmolality Calcium 7.7 L Phosphorus 3.1 Magnesium 2.2 Total Bilirubin 2.8 H AST 137 H D ALT 100 H Alkaline Phosphatase 84 Total Protein 5.3 L Albumin 2.3 L Globulin 3.1 Albumin/Globulin Ratio 0.7 L Procalcitonin Urine Eosinophils Urine Osmolality Ur Random Creatinine Ur Random Sodium Ur Random Potassium Random Vancomycin 05/13/17 05/13/17 05/13/17 06:09 06:53 11:54 WBC 17.5 H RBC 3.65 L Hgb 10.8 L Hct 34.2 L MCV 93.7 MCH 29.7 MCHC 31.7 L RDW 18.2 H Plt Count 61 L MPV 9.8 Neut % (Auto) 93.0 H Lymph % (Auto) 2.3 L [place] % (Auto) 4.5 Eos % (Auto) 0.0 Baso % (Auto) 0.2 Neut # 16.3 H Lymph # 0.4 L [place] # 0.8 Eos # 0.0 Baso # 0.0 Neutrophils % (Manual) 94 H Lymphocytes % (Manual) 3 L Monocytes % (Manual) 3 Platelet Estimate Decreased L Hypochromasia (manual) Slight Poikilocytosis (manual Slight Anisocytosis (manual) Slight ESR 12 Puncture Site pCO2 pO2 HCO3 ABG pH ABG Total CO2 ABG O2 Saturation ABG Base Excess ABG Hemoglobin ABG Carboxyhemoglobin POC ABG HHb (Measured) ABG Methemoglobin Eris Test A-a O2 Difference Respiratory Index Hgb O2 Saturation Mechanical Rate FiO2 Tidal Volume PEEP Sodium Potassium Chloride Carbon Dioxide Anion Gap BUN Creatinine Est GFR ( Amer) Est GFR (Non-Af Amer) POC Glucose (mg/dL) 99 Random Glucose Serum Osmolality Calcium Phosphorus Magnesium Total Bilirubin AST ALT Alkaline Phosphatase Total Protein Albumin Globulin Albumin/Globulin Ratio Procalcitonin Urine Eosinophils Urine Osmolality Ur Random Creatinine Ur Random Sodium Ur Random Potassium Random Vancomycin 28.24 05/13/17 05/13/17 05/13/17 15:48 17:39 Unknown WBC RBC Hgb Hct MCV MCH MCHC RDW Plt Count MPV Neut % (Auto) Lymph % (Auto) [place] % (Auto) Eos % (Auto) Baso % (Auto) Neut # Lymph # [place] # Eos # Baso # Neutrophils % (Manual) Lymphocytes % (Manual) Monocytes % (Manual) Platelet Estimate Hypochromasia (manual) Poikilocytosis (manual Anisocytosis (manual) ESR Puncture Site pCO2 pO2 HCO3 ABG pH ABG Total CO2 ABG O2 Saturation ABG Base Excess ABG Hemoglobin ABG Carboxyhemoglobin POC ABG HHb (Measured) ABG Methemoglobin Eris Test A-a O2 Difference Respiratory Index Hgb O2 Saturation Mechanical Rate FiO2 Tidal Volume PEEP Sodium Potassium Chloride Carbon Dioxide Anion Gap BUN Creatinine Est GFR ( Amer) Est GFR (Non-Af Amer) POC Glucose (mg/dL) 105 Random Glucose Serum Osmolality Calcium Phosphorus Magnesium Total Bilirubin AST ALT Alkaline Phosphatase Total Protein Albumin Globulin Albumin/Globulin Ratio Procalcitonin 2.63 H Urine Eosinophils Negative Urine Osmolality Ur Random Creatinine Ur Random Sodium Ur Random Potassium Random Vancomycin Assessment/Plan (1) Cardiac arrest Current Visit: Yes Status: Acute (2) Septic shock Current Visit: Yes Status: Acute (3) Cellulitis Current Visit: No Status: Acute (4) Chronic obstructive lung disease Current Visit: No Status: Acute Attending/Attestation - Attestation I have personally seen and examined this patient.: Yes I have fully participated in the care of the patient.: Yes I have reviewed all pertinent clinical information: Yes Notes (Text): 05/13/17 18:07 Patient seen and examined in the intensive care unit. Case discussed with house staff in the morning rounds. Remains intubated on ventilatory support Continue antibiotics for sepsis/cellulitis Worsening renal function noted Possible hemodialysis Continue nebulizer treatment and steroids Continue feeding Case discussed with family at length
--- NOTE | 2017-05-13 09:12 | CP.PCM.PN ---
Subjective - Date & Time of Evaluation Date of Evaluation: 05/13/17 Time of Evaluation: 09:11 - Subjective Subjective: pt seen and examined, follow up consult is dictated #[id number] consider ivf ns at 50-70 ml/hr f/u bmp daily urine for eosinophils Objective - Vital Signs/Intake and Output Vital Signs (last 24 hours): Temp Pulse Resp BP Pulse Ox 99.6 F 83 24 92/54 L 97 05/13/17 08:00 05/13/17 08:33 05/13/17 08:33 05/13/17 08:33 05/13/17 08:33 Intake and Output: 05/13/17 05/13/17 06:59 18:59 Intake Total 866.8 112.2 Output Total 100 25 Balance 766.8 87.2 - Medications Medications: Current Medications Acetaminophen (Tylenol 650 Mg Supp) 650 mg OH Q6 PRN PRN Reason: for temp.=..>100.5 Last Admin: 05/11/17 17:39 Dose: 650 mg Albuterol/Ipratropium (Duoneb 3 Mg/0.5 Mg (3 Ml) Ud) 3 ml INH RQ6 ANGIE Last Admin: 05/13/17 07:41 Dose: 3 ml Heparin Sodium (Porcine) (Heparin) 5,000 units SC Q8 ANGIE Last Admin: 05/13/17 05:54 Dose: 5,000 units Norepinephrine Bitartrate 8 mg (/ Dextrose) 258 mls @ 7.74 mls/hr IV .Q24H PRN ; Protocol; 4 MCG/MIN PRN Reason: TITRATE PER MD ORDER Last Titration: 05/12/17 08:30 Dose: 0 mcg/min, 0 mls/hr Imipenem/Cilastatin Sodium 500 (mg/ Sodium Chloride) 100 mls @ 100 mls/hr IVPB Q8H ANGIE Last Admin: 05/13/17 07:49 Dose: 100 mls/hr Phenylephrine HCl 30 mg/ (Dextrose) 253 mls @ 10.12 mls/hr IV .Q24H PRN; Protocol; 20 MCG/MIN PRN Reason: TITRATE PER MD ORDER Last Titration: 05/13/17 06:12 Dose: 30 mcg/min, 15.18 mls/hr Dobutamine HCl/Dextrose (Dobutamine/Dextrose 5% 500mg/250ml) 500 mg in 250 mls @ 7.425 mls/hr IV .Q24H ANGIE; 2.5 MCG/KG/MIN PRN Reason: Protocol Last Admin: 05/12/17 21:52 Dose: Not Given Dexmedetomidine HCl 200 mcg/ (Sodium Chloride) 50 mls @ 4.83 mls/hr IV TITR PRN ; Protocol; 0.2 MCG/KG/HR PRN Reason: Agitation Last Admin: 05/13/17 00:01 Dose: 0.2 mcg/kg/hr, 4.83 mls/hr Methylprednisolone (Solu-Medrol) 40 mg IVP Q8H ANGIE Last Admin: 05/13/17 02:03 Dose: 40 mg Nystatin (Nystop Topical Powder) 1 applic TOP BID ANGIE Last Admin: 05/12/17 17:33 Dose: 1 applic Pantoprazole Sodium (Protonix Inj) 40 mg IVP DAILY ANGIE Last Admin: 05/12/17 10:52 Dose: 40 mg - Labs Labs: 05/13/17 06:09 05/13/17 06:08 PT 19.8 SECONDS (9.7-12.2) H 05/11/17 01:04 INR 1.7 05/11/17 01:04 APTT 34 SECONDS (21-34) 05/11/17 06:16
[2017-05-13] MEDS ORDERED: Sodium Chloride 0.45% 1,000 ML IV SCH (09:15)
[2017-05-13 09:25] LABS: ERYTHROCYTE SEDIMENTATION RATE 12 mm/hr (0-15)
[2017-05-13] MEDS: Sodium Chloride 0.9% 1,000 ML IV SCH (10:00)
--- NOTE | 2017-05-13 13:05 | CP.PCM.PN ---
Subjective - Date & Time of Evaluation Date of Evaluation: 05/13/17 Time of Evaluation: 13:04 Objective - Vital Signs/Intake and Output Vital Signs (last 24 hours): Temp Pulse Resp BP Pulse Ox 98.4 F 82 24 98/52 L 96 05/13/17 12:00 05/13/17 12:33 05/13/17 12:33 05/13/17 12:33 05/13/17 12:33 Intake and Output: 05/13/17 05/13/17 06:59 18:59 Intake Total 866.8 427.0 Output Total 100 40 Balance 766.8 387.0 - Medications Medications: Current Medications Acetaminophen (Tylenol 650 Mg Supp) 650 mg MD Q6 PRN PRN Reason: for temp.=..>100.5 Last Admin: 05/11/17 17:39 Dose: 650 mg Albuterol/Ipratropium (Duoneb 3 Mg/0.5 Mg (3 Ml) Ud) 3 ml INH RQ6 ANGIE Last Admin: 05/13/17 07:41 Dose: 3 ml Heparin Sodium (Porcine) (Heparin) 5,000 units SC Q8 ANGIE Last Admin: 05/13/17 05:54 Dose: 5,000 units Norepinephrine Bitartrate 8 mg (/ Dextrose) 258 mls @ 7.74 mls/hr IV .Q24H PRN ; Protocol; 4 MCG/MIN PRN Reason: TITRATE PER MD ORDER Last Titration: 05/12/17 08:30 Dose: 0 mcg/min, 0 mls/hr Imipenem/Cilastatin Sodium 500 (mg/ Sodium Chloride) 100 mls @ 100 mls/hr IVPB Q8H ANGIE Last Admin: 05/13/17 07:49 Dose: 100 mls/hr Phenylephrine HCl 30 mg/ (Dextrose) 253 mls @ 10.12 mls/hr IV .Q24H PRN; Protocol; 20 MCG/MIN PRN Reason: TITRATE PER MD ORDER Last Titration: 05/13/17 06:12 Dose: 30 mcg/min, 15.18 mls/hr Dobutamine HCl/Dextrose (Dobutamine/Dextrose 5% 500mg/250ml) 500 mg in 250 mls @ 7.425 mls/hr IV .Q24H ANGIE; 2.5 MCG/KG/MIN PRN Reason: Protocol Last Admin: 05/12/17 21:52 Dose: Not Given Dexmedetomidine HCl 200 mcg/ (Sodium Chloride) 50 mls @ 4.83 mls/hr IV TITR PRN ; Protocol; 0.2 MCG/KG/HR PRN Reason: Agitation Last Admin: 05/13/17 11:44 Dose: 0.2 mcg/kg/hr, 4.83 mls/hr Sodium Chloride (Sodium Chloride 0.9%) 1,000 mls @ 50 mls/hr IV .Q20H ANGIE Last Admin: 05/13/17 10:00 Dose: 50 mls/hr Methylprednisolone (Solu-Medrol) 40 mg IVP Q8H ANGIE Last Admin: 05/13/17 10:29 Dose: 40 mg Nystatin (Nystop Topical Powder) 1 applic TOP BID [facility] Last Admin: 05/13/17 10:34 Dose: 1 applic Pantoprazole Sodium (Protonix Inj) 40 mg IVP DAILY [facility] Last Admin: 05/13/17 10:30 Dose: 40 mg - Labs Labs: 05/13/17 06:09 05/13/17 06:08 PT 19.8 SECONDS (9.7-12.2) H 05/11/17 01:04 INR 1.7 05/11/17 01:04 APTT 34 SECONDS (21-34) 05/11/17 06:16 Assessment and Plan (1) Septic shock Status: Acute (2) Respiratory arrest Status: Acute (3) Acute renal insufficiency Status: Acute (4) Cardiac arrest Status: Acute (5) Atrial fibrillation with RVR Status: Acute (6) Bilateral lower leg cellulitis Status: Acute (7) CHF exacerbation Status: Acute (8) COPD exacerbation Status: Acute (9) Cirrhosis of liver Status: Acute (10) Hepatitis-C Status: Acute
--- NOTE | 2017-05-13 13:25 | CP.PCM.PN ---
Subjective - Date & Time of Evaluation Date of Evaluation: 05/13/17 Time of Evaluation: 13:24 - Subjective Subjective: ON RESPIRATOR WITH NO MEANINGFUL MOVEMENT VS STABLE MULTIORGAN FAILURE SCANT URINE OUT PUT BUN 114 CR 3.4 D/W DAUGHTER THE CURRENT SITUATION Objective - Vital Signs/Intake and Output Vital Signs (last 24 hours): Temp Pulse Resp BP Pulse Ox 98.4 F 82 24 98/52 L 96 05/13/17 12:00 05/13/17 12:33 05/13/17 12:33 05/13/17 12:33 05/13/17 12:33 Intake and Output: 05/13/17 05/13/17 11:59 23:59 Intake Total 1131.8 Output Total 110 Balance 1021.8 - Medications Medications: Current Medications Acetaminophen (Tylenol 650 Mg Supp) 650 mg IN Q6 PRN PRN Reason: for temp.=..>100.5 Last Admin: 05/11/17 17:39 Dose: 650 mg Albuterol/Ipratropium (Duoneb 3 Mg/0.5 Mg (3 Ml) Ud) 3 ml INH RQ6 ANGIE Last Admin: 05/13/17 13:05 Dose: 3 ml Heparin Sodium (Porcine) (Heparin) 5,000 units SC Q8 ANGIE Last Admin: 05/13/17 05:54 Dose: 5,000 units Norepinephrine Bitartrate 8 mg (/ Dextrose) 258 mls @ 7.74 mls/hr IV .Q24H PRN ; Protocol; 4 MCG/MIN PRN Reason: TITRATE PER MD ORDER Last Titration: 05/12/17 08:30 Dose: 0 mcg/min, 0 mls/hr Phenylephrine HCl 30 mg/ (Dextrose) 253 mls @ 10.12 mls/hr IV .Q24H PRN; Protocol; 20 MCG/MIN PRN Reason: TITRATE PER MD ORDER Last Titration: 05/13/17 06:12 Dose: 30 mcg/min, 15.18 mls/hr Dobutamine HCl/Dextrose (Dobutamine/Dextrose 5% 500mg/250ml) 500 mg in 250 mls @ 7.425 mls/hr IV .Q24H ANGIE; 2.5 MCG/KG/MIN PRN Reason: Protocol Last Admin: 05/12/17 21:52 Dose: Not Given Dexmedetomidine HCl 200 mcg/ (Sodium Chloride) 50 mls @ 4.83 mls/hr IV TITR PRN ; Protocol; 0.2 MCG/KG/HR PRN Reason: Agitation Last Admin: 05/13/17 11:44 Dose: 0.2 mcg/kg/hr, 4.83 mls/hr Sodium Chloride (Sodium Chloride 0.9%) 1,000 mls @ 50 mls/hr IV .Q20H [facility] Last Admin: 05/13/17 10:00 Dose: 50 mls/hr Tigecycline 100 mg/ Sodium (Chloride) 100 mls @ 100 mls/hr IVPB ONCE ONE Stop: 05/13/17 14:59 Tigecycline 25 mg/ Dextrose 100 mls @ 100 mls/hr IVPB 0000,1200 [facility] Imipenem/Cilastatin Sodium 500 (mg/ Sodium Chloride) 100 mls @ 100 mls/hr IVPB 0800,2000 [facility] Methylprednisolone (Solu-Medrol) 40 mg IVP Q8H [facility] Last Admin: 05/13/17 10:29 Dose: 40 mg Nystatin (Nystop Topical Powder) 1 applic TOP BID [facility] Last Admin: 05/13/17 10:34 Dose: 1 applic Pantoprazole Sodium (Protonix Inj) 40 mg IVP DAILY [facility] Last Admin: 05/13/17 10:30 Dose: 40 mg - Labs Labs: 05/13/17 06:09 05/13/17 06:08 PT 19.8 SECONDS (9.7-12.2) H 05/11/17 01:04 INR 1.7 05/11/17 01:04 APTT 34 SECONDS (21-34) 05/11/17 06:16
--- NOTE | 2017-05-13 16:53 | CP.PCM.CON ---
History of Present Illness - History of Present Illness History of Present Illness: Palliative consult Requested by Jaiden ROTHMAN Reason: Goals of care discussion Patient is a 72 yo male admitted from home after witnessed cardiac arrest. The EMS found patient asystolic, CPR was provided and epinephrin given. Patient intubated on the field , remaining unresponsive. At the hospital patient placed on levophed for BP support, Solumedrol, Phenylepinephrine, Precedex and NS at 50 cc /hr. Renal consult was called for BUN 114 and Draw Machine Operator 3.8. patient remains intubated on 100 % o2 with O2Sat of 96%. 18 hr prior to this incident, patient was complaining of being short of breath. When EMS arrived, patient refused to go to the hospital PMH: A Fib, CHF, COPD, HTN, PE Soc. Hx: divorcrd, lives with female friend, has two daughter Tiara and Eliane. Eliane lives in [place] Fam : Hx: mother at age of 90 from CVA, father at age of 50 from [place] Review of Systems - Review of Systems Systems not reviewed;Unavailable: Intubated Review of Systems: ROS obtained from nursing. Patient in respiratory distress requiring MV support. Pupils unequal and fixed, BP low at 98/52, LEs wounds. Poor urine output All other systems reviewed and are negative. Past Patient History - Past Medical History & Family History Past Medical History?: Yes - Past Social History Smoking Status: Former Smoker - CARDIAC Hx Cardiac Disorders: Yes Hx Atrial Fibrillation: Yes Hx Cardia Arrhythmia: Yes Hx Congestive Heart Failure: Yes Hx Hypertension: Yes Hx Peripheral Edema: Yes - PULMONARY Hx Respiratory Disorders: Yes Hx Chronic Obstructive Pulmonary Disease (COPD): Yes Hx Pneumonia: Yes - NEUROLOGICAL Hx Neurological Disorder: No - HEENT Hx HEENT Problems: No - RENAL Hx Chronic Kidney Disease: No - ENDOCRINE/METABOLIC Hx Endocrine Disorders: No - HEMATOLOGICAL/ONCOLOGICAL Hx Blood Disorders: Yes Hx Hepatitis C: Yes - INTEGUMENTARY Hx Dermatological Problems: Yes Hx Psoriasis: Yes Other/Comment: Chronic Leg Ulcers - MUSCULOSKELETAL/RHEUMATOLOGICAL Hx Musculoskeletal Disorders: No Hx Falls: Yes - GASTROINTESTINAL Hx Gastrointestinal Disorders: Yes Other/Comment: CIRRHOSIS OF LIVER - GENITOURINARY/GYNECOLOGICAL Hx Genitourinary Disorders: No - PSYCHIATRIC Hx Substance Use: No - SURGICAL HISTORY Hx Surgeries: Yes Hx Appendectomy: Yes - ANESTHESIA Hx Anesthesia: Yes Hx Anesthesia Reactions: No Hx Malignant Hyperthermia: No Has any member of the family had a problem w/ anesthesia?: No Meds Allergies/Adverse Reactions: Allergies Allergy/AdvReac Type Severity Reaction Status Date / Time No Known Allergies Allergy Verified 03/06/17 20:47 - Medications Medications: Current Medications Acetaminophen (Tylenol 650 Mg Supp) 650 mg MS Q6 PRN PRN Reason: for temp.=..>100.5 Last Admin: 05/11/17 17:39 Dose: 650 mg Albuterol/Ipratropium (Duoneb 3 Mg/0.5 Mg (3 Ml) Ud) 3 ml INH RQ6 ANGIE Last Admin: 05/13/17 13:05 Dose: 3 ml Heparin Sodium (Porcine) (Heparin) 5,000 units SC Q8 ANGIE Last Admin: 05/13/17 14:56 Dose: 5,000 units Norepinephrine Bitartrate 8 mg (/ Dextrose) 258 mls @ 7.74 mls/hr IV .Q24H PRN ; Protocol; 4 MCG/MIN PRN Reason: TITRATE PER MD ORDER Last Titration: 05/12/17 08:30 Dose: 0 mcg/min, 0 mls/hr Phenylephrine HCl 30 mg/ (Dextrose) 253 mls @ 10.12 mls/hr IV .Q24H PRN; Protocol; 20 MCG/MIN PRN Reason: TITRATE PER MD ORDER Last Titration: 05/13/17 06:12 Dose: 30 mcg/min, 15.18 mls/hr Dobutamine HCl/Dextrose (Dobutamine/Dextrose 5% 500mg/250ml) 500 mg in 250 mls @ 7.425 mls/hr IV .Q24H ANGIE; 2.5 MCG/KG/MIN PRN Reason: Protocol Last Admin: 05/12/17 21:52 Dose: Not Given Dexmedetomidine HCl 200 mcg/ (Sodium Chloride) 50 mls @ 4.83 mls/hr IV TITR PRN ; Protocol; 0.2 MCG/KG/HR PRN Reason: Agitation Last Titration: 05/13/17 15:23 Dose: 0.4 mcg/kg/hr, 9.66 mls/hr Sodium Chloride (Sodium Chloride 0.9%) 1,000 mls @ 50 mls/hr IV .Q20H ANGIE Last Admin: 05/13/17 10:00 Dose: 50 mls/hr Tigecycline 25 mg/ Dextrose 100 mls @ 100 mls/hr IVPB 0000,1200 [facility] Imipenem/Cilastatin Sodium 500 (mg/ Sodium Chloride) 100 mls @ 100 mls/hr IVPB 0800,2000 [facility] Methylprednisolone (Solu-Medrol) 40 mg IVP Q8H [facility] Last Admin: 05/13/17 10:29 Dose: 40 mg Nystatin (Nystop Topical Powder) 1 applic TOP BID [facility] Last Admin: 05/13/17 10:34 Dose: 1 applic Pantoprazole Sodium (Protonix Inj) 40 mg IVP DAILY [facility] Last Admin: 05/13/17 10:30 Dose: 40 mg Physical Exam - Constitutional Appears: In Acute Distress, Chronically Ill - Head Exam Head Exam: ATRAUMATIC, NORMAL INSPECTION, NORMOCEPHALIC - Eye Exam Additional comments: Righy pupil enlarged and fixed, left pupil only fixed - ENT Exam Additional comments: ETT and EGT - Neck Exam Neck exam: Positive for: Normal Inspection - Respiratory Exam Respiratory Exam: Decreased Breath Sounds Additional comments: on MV support - Cardiovascular Exam Cardiovascular Exam: Tachycardia - GI/Abdominal Exam GI & Abdominal Exam: Diminished Bowel Sounds, Distended - Rectal Exam Rectal Exam: Deferred - Exam Additional comments: [place], low urine output - Extremities Exam Additional comments: LEs edema and wounds - Back Exam Back exam: NORMAL INSPECTION - Neurological Exam Neurological exam: Motor Sensory Deficit - Psychiatric Exam Psychiatric exam: Flat Affect - Skin Skin Exam: Pallor Additional comments: Wounds of LEs Results - Vital Signs Recent Vital Signs: Last Vital Signs Temp 98.9 F 05/13/17 16:00 Pulse 82 05/13/17 16:03 Resp 24 05/13/17 16:03 BP 100/48 L 05/13/17 16:03 Pulse Ox 92 L 05/13/17 16:03 - Labs Result Diagrams: 05/13/17 06:09 05/13/17 06:08 Labs: Laboratory Results - last 24 hr 05/12/17 05/12/17 05/12/17 17:49 20:57 20:58 WBC RBC Hgb Hct MCV MCH MCHC RDW Plt Count MPV Neut % (Auto) Lymph % (Auto) [place] % (Auto) Eos % (Auto) Baso % (Auto) Neut # Lymph # [place] # Eos # Baso # Neutrophils % (Manual) Lymphocytes % (Manual) Monocytes % (Manual) Platelet Estimate Hypochromasia (manual) Poikilocytosis (manual Anisocytosis (manual) ESR Puncture Site pCO2 pO2 HCO3 ABG pH ABG Total CO2 ABG O2 Saturation ABG Base Excess ABG Hemoglobin ABG Carboxyhemoglobin POC ABG HHb (Measured) ABG Methemoglobin Eris Test A-a O2 Difference Respiratory Index Hgb O2 Saturation Mechanical Rate FiO2 Tidal Volume PEEP Sodium Potassium Chloride Carbon Dioxide Anion Gap BUN Creatinine Est GFR ( Amer) Est GFR (Non-Af Amer) POC Glucose (mg/dL) 124 H Random Glucose Serum Osmolality 317 H Calcium Phosphorus Magnesium Total Bilirubin AST ALT Alkaline Phosphatase Total Protein Albumin Globulin Albumin/Globulin Ratio Procalcitonin Urine Eosinophils Urine Osmolality Ur Random Creatinine Ur Random Sodium Ur Random Potassium Random Vancomycin 32.07 05/13/17 05/13/17 05/13/17 03:54 05:07 05:44 WBC RBC Hgb Hct MCV MCH MCHC RDW Plt Count MPV Neut % (Auto) Lymph % (Auto) [place] % (Auto) Eos % (Auto) Baso % (Auto) Neut # Lymph # [place] # Eos # Baso # Neutrophils % (Manual) Lymphocytes % (Manual) Monocytes % (Manual) Platelet Estimate Hypochromasia (manual) Poikilocytosis (manual Anisocytosis (manual) ESR Puncture Site Lr pCO2 42 pO2 64 L HCO3 34.4 H ABG pH 7.54 H ABG Total CO2 37.2 H ABG O2 Saturation 94.9 L ABG Base Excess 12.2 H ABG Hemoglobin 10.9 L ABG Carboxyhemoglobin 1.8 H POC ABG HHb (Measured) 5.0 ABG Methemoglobin 0.6 Eris Test Pos A-a O2 Difference 597.0 Respiratory Index 9.3 Hgb O2 Saturation 92.7 L Mechanical Rate 24 FiO2 100.0 Tidal Volume 500 PEEP 5 Sodium Potassium Chloride Carbon Dioxide Anion Gap BUN Creatinine Est GFR ( Amer) Est GFR (Non-Af Amer) POC Glucose (mg/dL) 107 Random Glucose Serum Osmolality Calcium Phosphorus Magnesium Total Bilirubin AST ALT Alkaline Phosphatase Total Protein Albumin Globulin Albumin/Globulin Ratio Procalcitonin Urine Eosinophils Urine Osmolality 328 Ur Random Creatinine 47.7 Ur Random Sodium 9 Ur Random Potassium 54.0 Random Vancomycin 05/13/17 05/13/17 05/13/17 06:08 06:09 06:53 WBC 17.5 H RBC 3.65 L Hgb 10.8 L Hct 34.2 L MCV 93.7 MCH 29.7 MCHC 31.7 L RDW 18.2 H Plt Count 61 L MPV 9.8 Neut % (Auto) 93.0 H Lymph % (Auto) 2.3 L [place] % (Auto) 4.5 Eos % (Auto) 0.0 Baso % (Auto) 0.2 Neut # 16.3 H Lymph # 0.4 L [place] # 0.8 Eos # 0.0 Baso # 0.0 Neutrophils % (Manual) 94 H Lymphocytes % (Manual) 3 L Monocytes % (Manual) 3 Platelet Estimate Decreased L Hypochromasia (manual) Slight Poikilocytosis (manual Slight Anisocytosis (manual) Slight ESR 12 Puncture Site pCO2 pO2 HCO3 ABG pH ABG Total CO2 ABG O2 Saturation ABG Base Excess ABG Hemoglobin ABG Carboxyhemoglobin POC ABG HHb (Measured) ABG Methemoglobin Eris Test A-a O2 Difference Respiratory Index Hgb O2 Saturation Mechanical Rate FiO2 Tidal Volume PEEP Sodium 129 L Potassium 4.6 Chloride 86 L Carbon Dioxide 33 H Anion Gap 15 BUN 114 H* D Creatinine 3.8 H Est GFR ( Amer) 19 Est GFR (Non-Af Amer) 16 POC Glucose (mg/dL) Random Glucose 92 Serum Osmolality Calcium 7.7 L Phosphorus 3.1 Magnesium 2.2 Total Bilirubin 2.8 H AST 137 H D ALT 100 H Alkaline Phosphatase 84 Total Protein 5.3 L Albumin 2.3 L Globulin 3.1 Albumin/Globulin Ratio 0.7 L Procalcitonin Urine Eosinophils Urine Osmolality Ur Random Creatinine Ur Random Sodium Ur Random Potassium Random Vancomycin 28.24 05/13/17 05/13/17 05/13/17 11:54 15:48 Unknown WBC RBC Hgb Hct MCV MCH MCHC RDW Plt Count MPV Neut % (Auto) Lymph % (Auto) [place] % (Auto) Eos % (Auto) Baso % (Auto) Neut # Lymph # [place] # Eos # Baso # Neutrophils % (Manual) Lymphocytes % (Manual) Monocytes % (Manual) Platelet Estimate Hypochromasia (manual) Poikilocytosis (manual Anisocytosis (manual) ESR Puncture Site pCO2 pO2 HCO3 ABG pH ABG Total CO2 ABG O2 Saturation ABG Base Excess ABG Hemoglobin ABG Carboxyhemoglobin POC ABG HHb (Measured) ABG Methemoglobin Eris Test A-a O2 Difference Respiratory Index Hgb O2 Saturation Mechanical Rate FiO2 Tidal Volume PEEP Sodium Potassium Chloride Carbon Dioxide Anion Gap BUN Creatinine Est GFR ( Amer) Est GFR (Non-Af Amer) POC Glucose (mg/dL) 99 Random Glucose Serum Osmolality Calcium Phosphorus Magnesium Total Bilirubin AST ALT Alkaline Phosphatase Total Protein Albumin Globulin Albumin/Globulin Ratio Procalcitonin 2.63 H Urine Eosinophils Negative Urine Osmolality Ur Random Creatinine Ur Random Sodium Ur Random Potassium Random Vancomycin Assessment & Plan - Assessment and Plan (Free Text) Assessment: Palliative consult Code status Full Code, no advance directive on chart, PPS 0%, ROS unobtainable due to condition. I reviewed medical records, all diagnostic studies, examined patient in the bed and discussed goals of care with patient's daughter Tiara. Patient is unresponsive to stimuli, intubated, on Precidex. Right pupil is enlarged and fixed, left pupil is only fixed. BP 98/52, HR 118, Levophed IV on board. BUN 114, Draw Machine Operator 3.8, poor urine output. Renal consult called. Consent for HD signed , but HD will depend on patient's medical status, especially BP. LEs wounds . Primaxin IV on board. Plan is to send blood C&S and wound C&S. With Tiara, patient's daughter, I reviewed patient's clinical presentation and elicited her understanding and expectations. She was well aware of patient' s long eli with his chronic disease. With her sister Eliane on the speaker, Tiara stated hope that her father would recover and return to the previous level of functioning. I supported her and reassured that all prudent medical interventions were applied to support his life. Further we discussed Code status. I reviewed the meaning of Code and interventions applied if that occurs. I also suggested that each patient needs to be given chance to discuss his/her own goals for end of life care. Since her father is unable to do so, Tiara was given the opportunity to be his advocate. Tiara stated that she would want all measures to be applied to support patient 's life regardless of expected outcome. I reassured her that all measures are being applied and will continue to be so. We agreed to continue to fallow progress that patient makes and adjust our goals of care accordingly. Tiara is concerned about her father's quality of life, but her hope is very strong and she does not want to consider possibility of loosing her father. Impression * This is acutely ill man with very complex chronic medical Hx * Patient;s condition has declined over time, as seen by his daughter * Patient is hemodinamically unstable and is supported by Levophed * HD is questionable due to low BP * Patient's daughter Tiara understand severity of her father;s condition but has a high hope in his recovery Suggestion * Continue full life support * Symptoms management * Goals f care to be adjusted based on patient's progress Thank you very much for consulting [facility]
--- NOTE | 2017-05-13 20:11 | CP.PCM.PN ---
Subjective - Date & Time of Evaluation Date of Evaluation: 05/13/17 Time of Evaluation: 20:11 - Subjective Subjective: Patient is unresponsive to stimuli, intubated, on Precidex. Right pupil is enlarged and fixed, left pupil is only fixed. BP 98/52, HR 118, Levophed IV on board. BUN 114, [place] S[employer] 3.8, poor urine output. Renal consult called. Consent for HD signed , but HD will depend on patient's medical status, especially BP. LEs wounds ON IV Primaxin. VANCO RANDOM STILL HIGH THOUGH DISCONTINUED 05/13/17. blood C&S and wound C&S-P. Objective - Vital Signs/Intake and Output Vital Signs (last 24 hours): Temp Pulse Resp BP Pulse Ox 98.9 F 88 25 H 94/54 L 94 L 05/13/17 16:00 05/13/17 20:03 05/13/17 20:03 05/13/17 20:03 05/13/17 20:03 Intake and Output: 05/13/17 05/14/17 18:59 06:59 Intake Total 1466.8 162.3 Output Total 130 20 Balance 1336.8 142.3 - Medications Medications: Current Medications Acetaminophen (Tylenol 650 Mg Supp) 650 mg HI Q6 PRN PRN Reason: for temp.=..>100.5 Last Admin: 05/11/17 17:39 Dose: 650 mg Albuterol/Ipratropium (Duoneb 3 Mg/0.5 Mg (3 Ml) Ud) 3 ml INH RQ6 [facility] Last Admin: 05/13/17 19:09 Dose: 3 ml Heparin Sodium (Porcine) (Heparin) 5,000 units SC Q8 ANGIE Last Admin: 05/13/17 14:56 Dose: 5,000 units Norepinephrine Bitartrate 8 mg (/ Dextrose) 258 mls @ 7.74 mls/hr IV .Q24H PRN ; Protocol; 4 MCG/MIN PRN Reason: TITRATE PER MD ORDER Last Titration: 05/12/17 08:30 Dose: 0 mcg/min, 0 mls/hr Phenylephrine HCl 30 mg/ (Dextrose) 253 mls @ 10.12 mls/hr IV .Q24H PRN; Protocol; 20 MCG/MIN PRN Reason: TITRATE PER MD ORDER Last Admin: 05/13/17 19:01 Dose: 30 mcg/min, 15.18 mls/hr Dobutamine HCl/Dextrose (Dobutamine/Dextrose 5% 500mg/250ml) 500 mg in 250 mls @ 7.425 mls/hr IV .Q24H ANGIE; 2.5 MCG/KG/MIN PRN Reason: Protocol Last Admin: 05/12/17 21:52 Dose: Not Given Dexmedetomidine HCl 200 mcg/ (Sodium Chloride) 50 mls @ 4.83 mls/hr IV TITR PRN ; Protocol; 0.2 MCG/KG/HR PRN Reason: Agitation Last Admin: 05/13/17 17:07 Dose: 0.4 mcg/kg/hr, 9.66 mls/hr Sodium Chloride (Sodium Chloride 0.9%) 1,000 mls @ 50 mls/hr IV .Q20H [facility] Last Admin: 05/13/17 10:00 Dose: 50 mls/hr Tigecycline 25 mg/ Dextrose 100 mls @ 100 mls/hr IVPB 0000,1200 [facility] Imipenem/Cilastatin Sodium 500 (mg/ Sodium Chloride) 100 mls @ 100 mls/hr IVPB 0800,2000 [facility] Last Admin: 05/13/17 19:19 Dose: 100 mls/hr Methylprednisolone (Solu-Medrol) 40 mg IVP Q8H [facility] Last Admin: 05/13/17 19:18 Dose: 40 mg Nystatin (Nystop Topical Powder) 1 applic TOP BID [facility] Last Admin: 05/13/17 17:04 Dose: 1 applic Pantoprazole Sodium (Protonix Inj) 40 mg IVP DAILY [facility] Last Admin: 05/13/17 10:30 Dose: 40 mg - Labs Labs: 05/13/17 06:09 05/13/17 06:08 PT 19.8 SECONDS (9.7-12.2) H 05/11/17 01:04 INR 1.7 05/11/17 01:04 APTT 34 SECONDS (21-34) 05/11/17 06:16 - Constitutional Appears: No Acute Distress - Head Exam Head Exam: NORMAL INSPECTION - Eye Exam Eye Exam: absent: EOMI Pupil Exam: Unequal (RT.PUPIL DILATED.LT PUPIL REACTIVE) - ENT Exam ENT Exam: Mucous Membranes Moist - Neck Exam Neck Exam: Normal Inspection - Respiratory Exam Respiratory Exam: Rales, Rhonchi (B/L) - Cardiovascular Exam Cardiovascular Exam: REGULAR RHYTHM, +S1, +S2 - GI/Abdominal Exam GI & Abdominal Exam: Soft, Normal Bowel Sounds - Extremities Exam Extremities Exam: Pedal Edema (B/L LE EDEMA AND CELLULITUS WITH WEEPIN ULCERS LE.). absent: Calf Tenderness - Neurological Exam Neurological Exam: Altered (INTUBATED,SEDATED.) - Skin Skin Exam: Normal Color Assessment and Plan (1) Septic shock Assessment & Plan: F/U CULTURES. CONTINUE IV PRIMAXIN. DEC DOSE [id number] IV Q 12HRLY. ADDIV TYGACIL FOR MRSA/AND MDR ORGS. Status: Acute (2) Respiratory arrest Status: Acute (3) Acute renal insufficiency Assessment & Plan: RENAL INSUFFICIENCY MULTIPLE ETIOLOGIES, HYPOTENSION, HHD, SEPSIS DRUGS. CREATININE 3.8 / bun 114 MONITOR RENAL FUNCTIONS. HD ENTERTAINED. Status: Acute (4) Cardiac arrest Status: Acute (5) Atrial fibrillation with RVR Status: Acute (6) Bilateral lower leg cellulitis Status: Acute (7) CHF exacerbation Status: Acute (8) COPD exacerbation Status: Acute (9) Cirrhosis of liver Status: Acute (10) Hepatitis-C Status: Acute
[2017-05-13] MEDS: DOBUTamine 500mg/250ml D5W 500 MG/250 ML BAG IV SCH (22:20)
[2017-05-14] MEDS: Tigecycline 25 MG in Dextrose 5% In Water 100 ML IVPB SCH ×2 (00:15→12:44)
[2017-05-14] MEDS: Albuterol-Ipratrop 3 mg / 0.5 (3 ml) UD INH SCH ×4 (01:12→19:26)
[2017-05-14] MEDS: Dexmedetomidine Hydrochloride 200 MCG in Sodium Chloride 0.9% 48 ML IV PRN ×5 (02:08→22:33)
[2017-05-14] MEDS: MethylPREDNISolone 40 mg Vial IVP SCH ×3 (02:31→17:41)
[2017-05-14 05:28] LABS: ABG ALLEN TEST POS; ATERIAL BLOOD GAS PEEP 5
--- NOTE | 2017-05-14 06:42 | PN ---
DATE: 05/13/2017 The patient is located in ICU, bed 16. REQUESTED BY: Dr. Gretel Bazan. REASON FOR RENAL CONSULTATION: Acute renal failure, respiratory failure, status post cardiac arrest. HISTORY OF PRESENT ILLNESS: The patient is a 72-year-old elderly male with a history of CO PD, CHF with an ejection fraction of 25-30%, history of AFib, refused anticoagulation, chronic hep C, ETOH abuse, cirrhosis, pulmonary hypertension, chronic bilateral leg ulcers and a questionable perip heral vascular disease who was admitted after cardiac arrest and intubated in the field, on ventilato r at this and hypotensive, on dopamine and phenylephrine at this time. The patient is not responding to verbal stimuli, but moving all extremities on painful stimuli and touch. The patient is also on Precedex at this time. Not in acute distress. PHYSICAL EXAMINATION: VITAL SIGNS: Blood pressure 102/57, pulse 80, respirations 24, and saturation 93-97% and temperature 99.6. Height 5 feet 10 inches and weight is 280 pounds. Vent settings: AC 24, 500, FiO2 70%, PEEP of 5. GENERAL: The patient is a 72-year-old elderly male on ventilator. HEENT: Pupils normal, reactive to light and accommodation. Conjunctivae are pink. Sclerae anicteri c. NECK: Intubated. No thyroid enlargement. LUNGS: Symmetric on both sides. Bilateral breath sounds present. Occasional basal crackles present . CARDIOVASCULAR: Marlin in the fifth intercostal space midclavicular line. S1 and S2 audible. No murm ur or gallop. ABDOMEN: Slightly protuberant, soft, tympanic. No guarding, no rigidity. No hepatosplenomegaly. CENTRAL NERVOUS SYSTEM: The patient is on ventilator, on Precedex. Moving all extremities for touch . EXTREMITIES: No cyanosis, no clubbing. The patient has a dressing to both lower extremities and sup erficial ulcers are present. INTAKE AND OUTPUT: As follows: In the last 24 hours, intake is 1911 mL and output is 115 mL urine. CURRENT MEDICATIONS: Include Precedex, dobutamine, DuoNeb inhaler, subQ heparin 5000 q. 8 hours, imi penem with cilastatin 500 mg q. 8 hours, norepinephrine and nystatin powder topical, phenylephrine an d Protonix 40 mg IV daily, IV fluids, just started normal saline at 50 mL per hour, Solu-Medrol 40 mg IV q. 8 hours, and Tylenol. LABORATORY DATA: Include as follows, as of 05/13/2017: WBC 17.5, hemoglobin 10.8, hematocrit is 34. 2, platelets 61. Neutrophils 94, lymph is 3 and monos are 3. ESR is 12. ABG: pH 7.54, pCO2 of 42, pO2 of 64, bicarb is 34.4, saturation 94.9 with vent settings AC 24, tidal volume 500, FiO2 100%, PE EP of 5. Other laboratory data: Sodium 129, potassium 4.6, chloride 86, CO2 33, BUN 114, creatinine is 3.8, glucose is 107, calcium 7.7, phosphorus 3.1, magnesium 2.2. Total bili 2.8, AST 137, ALT 10 0, and alkaline phos is 84, total protein 5.3, albumin is 2.3. AST on admission was 83, and yesterda y (05/12) AST was 217, and today AST is 137. Urine osmolality 328, urine creatinine is 47.7, urine s odium is 9, and urine potassium is 54. Vancomycin random level is 32.07, and today vancomycin level is now 28.24. Other laboratory data: Microbiology: MRSA screening is negative. Chest x-ray as of 05/13/2017: ____: Lines and tubes in stable position, diffuse confluent patchy ai r space consolidative changes throughout both lungs. Cardiomegaly. Small to moderate left pleural e ffusion. ____: No significant interval change. SUMMARY: The patient is a 72-year-old elderly male with a history of chronic obstructive p ulmonary disease, congestive heart failure, atrial fibrillation, pulmonary hypertension, ethanol abus e, peripheral vascular disease with bilateral chronic leg ulcers, who was admitted after cardiac arre st and respiratory failure and shortness of breath with increase in BUN and creatinine. 1. Oliguric acute renal failure. Picture still consistent with prerenal azotemia with low urine sod ium and low FENa, most likely secondary to intravascular volume depletion and poor left ventricular f unction. 2. Respiratory failure. 3. Bilateral pneumonia with left pleural effusion. 4. Cardiomyopathy. 5. Bilateral leg ulcers. 6. Shock liver most likely secondary to hypoperfusion with cardiac arrest and hypotension. LFTs are slowly improving. PLAN: 1. Continue IV antibiotics as per ID recommendation. 2. Follow up urine and blood cultures. 3. Will start IV fluids, normal saline at 50 mL per hour for gentle hydration and monitor BMP. 4. Will follow with you. Thank you for allowing me to participate in your patient's care. If renal function does not improve with hydration and if patient is hemodynamically stable, if patient's family agrees, will consider he modialysis at that time. No need for dialysis at this time. Thank you for allowing me to participate in your patient's care. Karen Norman MD cc: [id number] TT: 05/13/2017 12:13:20 Confirmation # [id number] Dictation # [id number] mn
[2017-05-14 06:49] LABS: LYMPH # 0.8 K/uL (1.0-4.3); MEAN CELL VOLUME 95.8 fL (80.0-94.0); MEAN CORPUSCULAR HEMOGLOBIN 29.6 pg (27.0-31.0); MEAN CORPUSCULAR HGB CONC 30.9 g/dL (33.0-37.0); MEAN PLATELET VOLUME 10.7 fL (7.2-11.7); MONO # 0.8 K/uL (0.0-0.8); NRBC % 0.4 % (0.0-2.0); PLATELET COUNT 50 K/uL (130-400); RED CELL DISTRIBUTION WIDTH 19.3 % (11.5-14.5); WHITE BLOOD COUNT 20.6 K/uL (4.8-10.8)
[2017-05-14 06:56] LABS: POTASSIUM 5.3 mmol/L (3.6-5.2)
[2017-05-14 06:58] LABS: ALB/GLOB RATIO 0.9 (1.0-2.1); BILIRUBIN,TOTAL 2.9 mg/dL (0.2-1.3); TOTAL PROTEIN 5.7 g/dL (6.3-8.3)
[2017-05-14] MEDS: Sodium Chloride 0.9% 1,000 ML IV SCH (06:58)
[2017-05-14 06:59] LABS: MAGNESIUM 2.3 mg/dL (1.6-2.3); PHOSPHOROUS 5.8 mg/dL (2.5-4.5)
[2017-05-14 08:16] LABS: CHLORIDE URINE 21 mmol/L (32-290)
--- NOTE | 2017-05-14 08:23 | CP.CCUPN ---
<Ludwig Albright - Last Filed: 05/14/17 12:58> CCU Subjective - Physician Review Subjective (Free Text): 05/14/17 08:22 PGY-1 note for professor of legal studies, Dr. Hwang Pt seen and examined at bedside. Nursing reports no acute events overnight. Pt remains sedated and intubated (24,100,500, 5), Pt afebrile overnight. ROS unobtainable. Pt for dialysis catheter placement s/p transfusion of platelets. Critical Care Time Spent (in minutes): 45 CCU Objective - Vital Signs / Intake & Output Vital Signs (Last 4 hours): Vital Signs Pulse Resp BP Pulse Ox 05/14/17 07:03 87 24 94/59 L 95 05/14/17 07:00 83 24 95 05/14/17 06:33 96 H 26 H 107/67 93 L 05/14/17 06:05 150 H 28 H 90/44 L 69 L 05/14/17 06:00 159 H 29 H 67 L 05/14/17 05:48 137 H 21 120/88 83 L 05/14/17 05:03 86 28 H 96/54 L 89 L 05/14/17 05:00 88 22 88 L 05/14/17 04:33 80 26 H 99/56 L 95 Intake and Output (Last 8hrs): Intake & Output 05/13/17 05/14/17 05/14/17 22:59 06:59 14:59 Intake Total 1502.4 1165.0 222.5 Output Total 115 70 10 Balance 1387.4 1095.0 212.5 Weight 97.976 kg Intake: IV 518 100 Intake, IV Amount 689.4 760.0 182.5 Medial Port 59.2 59.2 7.4 Proximal Port 58.6 79.2 9.9 proximal port /distal 121.6 121.6 15.2 port right hand 450 500 150 Oral 40 Tube Feeding 255 305 40 Output: Urine 115 70 10 Urethral (Corral) 115 70 10 Other: # Bowel Movements 0 0 0 - Physical Exam Head: Positive for: Atraumatic, Normocephalic Pupils: Positive for: PERRL Conjunctiva: Positive for: Normal. Negative for: Injected, Icteric Respiratory/Chest: Positive for: Rales (diffuse b/l), Other (vent sounds heard throughout) Cardiovascular: Positive for: Regular Rate and Rhythm, Normal S1, S2. Negative for: Murmurs Abdomen: Positive for: Normal Bowel Sounds. Negative for: Tenderness Lower Extremity: Positive for: Edema Neurological: Negative for: CN II-XII Intact, Speech Normal Skin: Positive for: Dry Psychiatric: Positive for: Alert. Negative for: Oriented x 3 - Medications Active Medications: Active Medications Generic Name Dose Route Start Last Admin Trade Name Freq PRN Reason Stop Dose Admin Acetaminophen 650 mg 05/11/17 17:17 05/11/17 17:39 Tylenol 650 Mg Supp [place] 650 mg Q6 PRN Administration for temp.=..>100.5 Albuterol/Ipratropium 3 ml 05/11/17 08:00 05/14/17 07:44 Duoneb 3 Mg/0.5 Mg (3 Ml) Ud INH 3 ml RQ6 ANGIE Administration Heparin Sodium (Porcine) 5,000 units 05/11/17 06:00 05/14/17 06:24 Heparin SC 5,000 units Q8 ANGIE Administration Norepinephrine Bitartrate 8 mg 258 mls @ 7.74 mls/hr 05/11/17 01:19 05/12/17 08:30 / Dextrose IV 0 mcg/min .Q24H PRN 0 mls/hr TITRATE PER MD ORDER Titration Protocol 4 MCG/MIN Phenylephrine HCl 30 mg/ 253 mls @ 10.12 mls/hr 05/11/17 18:27 05/13/17 19:01 Dextrose IV 30 mcg/min .Q24H PRN 15.18 mls/hr TITRATE PER MD ORDER Administration Protocol 20 MCG/MIN Dobutamine HCl/Dextrose 500 mg in 250 mls @ 7.425 mls/hr 05/11/17 21:45 05/13 22:20 Dobutamine/Dextrose 5% 500mg/250ml IV 2.49 mcg/kg/min .Q24H ANGIE 7.395 mls/hr Protocol Administration 2.5 MCG/KG/MIN Dexmedetomidine HCl 200 mcg/ 50 mls @ 4.83 mls/hr 05/12/17 15:55 05/14/17 06: 59 Sodium Chloride IV 0.4 mcg/kg/hr TITR PRN 9.66 mls/hr Agitation Administration Protocol 0.2 MCG/KG/HR Sodium Chloride 1,000 mls @ 50 mls/hr 05/13/17 09:15 05/14/17 06:58 Sodium Chloride 0.9% IV 50 mls/hr .Q20H ANGIE Administration Tigecycline 25 mg/ Dextrose 100 mls @ 100 mls/hr 05/14/17 00:00 05/14/17 00: 15 IVPB 100 mls/hr 0000,1200 ANGIE Administration Imipenem/Cilastatin Sodium 500 100 mls @ 100 mls/hr 05/13/17 20:00 05/14/17 07:00 mg/ Sodium Chloride IVPB 100 mls/hr 0800,2000 ANGIE Administration Methylprednisolone 40 mg 05/11/17 10:30 05/14/17 02:31 Solu-Medrol IVP 40 mg Q8H ANGIE Administration Nystatin 1 applic 05/12/17 10:00 05/13/17 17:04 Nystop Topical Powder TOP 1 applic BID ANGIE Administration Pantoprazole Sodium 40 mg 05/11/17 10:00 05/13/17 10:30 Protonix Inj IVP 40 mg DAILY ANGIE Administration - Patient Studies Lab Studies: Microbiology Studies 05/13/17 12:19 Gram Stain - Final Trachasp 05/13/17 09:42 Gram Stain - Final Other: Please Indicate Lab Studies 05/14/17 05/14/17 05/14/17 Range/Units 06:46 06:23 06:23 WBC 20.6 H (4.8-10.8) K/uL RBC 3.97 L (4.40-5.90) Mil/uL Hgb 11.7 L (12.0-18.0) g/dL Hct 38.0 (35.0-51.0) % MCV 95.8 H D (80.0-94.0) fL MCH 29.6 (27.0-31.0) pg MCHC 30.9 L (33.0-37.0) g/dL RDW 19.3 H (11.5-14.5) % Plt Count 50 L (130-400) K/uL MPV 10.7 (7.2-11.7) fL Neut % (Auto) 92.0 H (50.0-75.0) % Lymph % (Auto) 4.0 L (20.0-40.0) % Bertie % (Auto) 4.0 (0.0-10.0) % Eos % (Auto) 0.0 (0.0-4.0) % Baso % (Auto) 0.0 (0.0-2.0) % Neut # 18.9 H (1.8-7.0) K/uL Lymph # 0.8 L (1.0-4.3) K/uL Bertie # 0.8 (0.0-0.8) K/uL Eos # 0.0 (0.0-0.7) K/uL Baso # 0.0 (0.0-0.2) K/uL Neutrophils % (Manual) (50-75) % Lymphocytes % (Manual) (20-40) % Monocytes % (Manual) (0-10) % Platelet Estimate (NORMAL) Hypochromasia (manual) Poikilocytosis (manual Anisocytosis (manual) ESR (0-15) mm/hr Puncture Site pCO2 (35-45) mm/Hg pO2 (80-100) mm/Hg HCO3 (21-28) mmol/L ABG pH (7.35-7.45) ABG Total CO2 (22-28) mmol/L ABG O2 Saturation (95-98) % ABG Base Excess (-2.0-3.0) mmol/L ABG Hemoglobin (11.7-17.4) g/dL ABG Carboxyhemoglobin (0.5-1.5) % POC ABG HHb (Measured) (0.0-5.0) % ABG Methemoglobin (0.0-3.0) % Eris Test A-a O2 Difference mm/Hg Respiratory Index Hgb O2 Saturation (95.0-98.0) % Mechanical Rate FiO2 % Tidal Volume PEEP Sodium 131 L (132-148) mmol/L Potassium 5.3 H (3.6-5.2) mmol/L Chloride 84 L (98-107) mmol/L Carbon Dioxide 30 (22-30) mmol/L Anion Gap 22 H (10-20) BUN 130 H* (9-20) mg/dL Creatinine 4.9 H (0.8-1.5) MG/DL Est GFR ( Amer) 14 Est GFR (Non-Af Amer) 12 POC Glucose (mg/dL) 126 H (65-110) mg/dL Random Glucose 101 (75-110) mg/dL Calcium 7.0 L (8.6-10.4) mg/dl Phosphorus 5.8 H (2.5-4.5) mg/dL Magnesium 2.3 (1.6-2.3) mg/dL Total Bilirubin 2.9 H (0.2-1.3) mg/dL AST 87 H D (17-59) U/L ALT 90 H (21-72) U/L Alkaline Phosphatase 81 (38-126) U/L Total Protein 5.7 L (6.3-8.3) g/dL Albumin 2.7 L (3.5-5.0) g/dL Globulin 3.0 (2.2-3.9) gm/dL Albumin/Globulin Ratio 0.9 L (1.0-2.1) Procalcitonin (0.19-0.49) NG/ML Urine Eosinophils (NEGATIVE) Urine Chloride (32-290) mmol/L 05/14/17 05/13/17 05/13/17 Range/Units 05:08 Unknown 17:39 WBC (4.8-10.8) K/uL RBC (4.40-5.90) Mil/uL Hgb (12.0-18.0) g/dL Hct (35.0-51.0) % MCV (80.0-94.0) fL MCH (27.0-31.0) pg MCHC (33.0-37.0) g/dL RDW (11.5-14.5) % Plt Count (130-400) K/uL MPV (7.2-11.7) fL Neut % (Auto) (50.0-75.0) % Lymph % (Auto) (20.0-40.0) % Bertie % (Auto) (0.0-10.0) % Eos % (Auto) (0.0-4.0) % Baso % (Auto) (0.0-2.0) % Neut # (1.8-7.0) K/uL Lymph # (1.0-4.3) K/uL Bertie # (0.0-0.8) K/uL Eos # (0.0-0.7) K/uL Baso # (0.0-0.2) K/uL Neutrophils % (Manual) (50-75) % Lymphocytes % (Manual) (20-40) % Monocytes % (Manual) (0-10) % Platelet Estimate (NORMAL) Hypochromasia (manual) Poikilocytosis (manual Anisocytosis (manual) ESR (0-15) mm/hr Puncture Site Rr pCO2 49 H (35-45) mm/Hg pO2 139 H (80-100) mm/Hg HCO3 29.4 H (21-28) mmol/L ABG pH 7.41 (7.35-7.45) ABG Total CO2 32.6 H (22-28) mmol/L ABG O2 Saturation 99.3 H (95-98) % ABG Base Excess 5.7 H (-2.0-3.0) mmol/L ABG Hemoglobin 8.3 L (11.7-17.4) g/dL ABG Carboxyhemoglobin 1.4 (0.5-1.5) % POC ABG HHb (Measured) 0.7 (0.0-5.0) % ABG Methemoglobin 0.8 (0.0-3.0) % Eris Test Pos A-a O2 Difference 156.0 mm/Hg Respiratory Index 1.1 Hgb O2 Saturation 97.2 (95.0-98.0) % Mechanical Rate 12 FiO2 50.0 % Tidal Volume 500 PEEP 5 Sodium (132-148) mmol/L Potassium (3.6-5.2) mmol/L Chloride (98-107) mmol/L Carbon Dioxide (22-30) mmol/L Anion Gap (10-20) BUN (9-20) mg/dL Creatinine (0.8-1.5) MG/DL Est GFR ( Amer) Est GFR (Non-Af Amer) POC Glucose (mg/dL) 105 (65-110) mg/dL Random Glucose (75-110) mg/dL Calcium (8.6-10.4) mg/dl Phosphorus (2.5-4.5) mg/dL Magnesium (1.6-2.3) mg/dL Total Bilirubin (0.2-1.3) mg/dL AST (17-59) U/L ALT (21-72) U/L Alkaline Phosphatase (38-126) U/L Total Protein (6.3-8.3) g/dL Albumin (3.5-5.0) g/dL Globulin (2.2-3.9) gm/dL Albumin/Globulin Ratio (1.0-2.1) Procalcitonin 2.63 H (0.19-0.49) NG/ML Urine Eosinophils (NEGATIVE) Urine Chloride (32-290) mmol/L 05/13/17 05/13/17 05/13/17 Range/Units 15:48 11:54 06:09 WBC (4.8-10.8) K/uL RBC (4.40-5.90) Mil/uL Hgb (12.0-18.0) g/dL Hct (35.0-51.0) % MCV (80.0-94.0) fL MCH (27.0-31.0) pg MCHC (33.0-37.0) g/dL RDW (11.5-14.5) % Plt Count (130-400) K/uL MPV (7.2-11.7) fL Neut % (Auto) (50.0-75.0) % Lymph % (Auto) (20.0-40.0) % Bertie % (Auto) (0.0-10.0) % Eos % (Auto) (0.0-4.0) % Baso % (Auto) (0.0-2.0) % Neut # (1.8-7.0) K/uL Lymph # (1.0-4.3) K/uL Bertie # (0.0-0.8) K/uL Eos # (0.0-0.7) K/uL Baso # (0.0-0.2) K/uL Neutrophils % (Manual) 94 H (50-75) % Lymphocytes % (Manual) 3 L (20-40) % Monocytes % (Manual) 3 (0-10) % Platelet Estimate Decreased L (NORMAL) Hypochromasia (manual) Slight Poikilocytosis (manual Slight Anisocytosis (manual) Slight ESR 12 (0-15) mm/hr Puncture Site pCO2 (35-45) mm/Hg pO2 (80-100) mm/Hg HCO3 (21-28) mmol/L ABG pH (7.35-7.45) ABG Total CO2 (22-28) mmol/L ABG O2 Saturation (95-98) % ABG Base Excess (-2.0-3.0) mmol/L ABG Hemoglobin (11.7-17.4) g/dL ABG Carboxyhemoglobin (0.5-1.5) % POC ABG HHb (Measured) (0.0-5.0) % ABG Methemoglobin (0.0-3.0) % Eris Test A-a O2 Difference mm/Hg Respiratory Index Hgb O2 Saturation (95.0-98.0) % Mechanical Rate FiO2 % Tidal Volume PEEP Sodium (132-148) mmol/L Potassium (3.6-5.2) mmol/L Chloride (98-107) mmol/L Carbon Dioxide (22-30) mmol/L Anion Gap (10-20) BUN (9-20) mg/dL Creatinine (0.8-1.5) MG/DL Est GFR ( Amer) Est GFR (Non-Af Amer) POC Glucose (mg/dL) 99 (65-110) mg/dL Random Glucose (75-110) mg/dL Calcium (8.6-10.4) mg/dl Phosphorus (2.5-4.5) mg/dL Magnesium (1.6-2.3) mg/dL Total Bilirubin (0.2-1.3) mg/dL AST (17-59) U/L ALT (21-72) U/L Alkaline Phosphatase (38-126) U/L Total Protein (6.3-8.3) g/dL Albumin (3.5-5.0) g/dL Globulin (2.2-3.9) gm/dL Albumin/Globulin Ratio (1.0-2.1) Procalcitonin (0.19-0.49) NG/ML Urine Eosinophils Negative (NEGATIVE) Urine Chloride (32-290) mmol/L 05/13/17 Range/Units 03:54 WBC (4.8-10.8) K/uL RBC (4.40-5.90) Mil/uL Hgb (12.0-18.0) g/dL Hct (35.0-51.0) % MCV (80.0-94.0) fL MCH (27.0-31.0) pg MCHC (33.0-37.0) g/dL RDW (11.5-14.5) % Plt Count (130-400) K/uL MPV (7.2-11.7) fL Neut % (Auto) (50.0-75.0) % Lymph % (Auto) (20.0-40.0) % Bertie % (Auto) (0.0-10.0) % Eos % (Auto) (0.0-4.0) % Baso % (Auto) (0.0-2.0) % Neut # (1.8-7.0) K/uL Lymph # (1.0-4.3) K/uL Bertie # (0.0-0.8) K/uL Eos # (0.0-0.7) K/uL Baso # (0.0-0.2) K/uL Neutrophils % (Manual) (50-75) % Lymphocytes % (Manual) (20-40) % Monocytes % (Manual) (0-10) % Platelet Estimate (NORMAL) Hypochromasia (manual) Poikilocytosis (manual Anisocytosis (manual) ESR (0-15) mm/hr Puncture Site pCO2 (35-45) mm/Hg pO2 (80-100) mm/Hg HCO3 (21-28) mmol/L ABG pH (7.35-7.45) ABG Total CO2 (22-28) mmol/L ABG O2 Saturation (95-98) % ABG Base Excess (-2.0-3.0) mmol/L ABG Hemoglobin (11.7-17.4) g/dL ABG Carboxyhemoglobin (0.5-1.5) % POC ABG HHb (Measured) (0.0-5.0) % ABG Methemoglobin (0.0-3.0) % Eris Test A-a O2 Difference mm/Hg Respiratory Index Hgb O2 Saturation (95.0-98.0) % Mechanical Rate FiO2 % Tidal Volume PEEP Sodium (132-148) mmol/L Potassium (3.6-5.2) mmol/L Chloride (98-107) mmol/L Carbon Dioxide (22-30) mmol/L Anion Gap (10-20) BUN (9-20) mg/dL Creatinine (0.8-1.5) MG/DL Est GFR ( Amer) Est GFR (Non-Af Amer) POC Glucose (mg/dL) (65-110) mg/dL Random Glucose (75-110) mg/dL Calcium (8.6-10.4) mg/dl Phosphorus (2.5-4.5) mg/dL Magnesium (1.6-2.3) mg/dL Total Bilirubin (0.2-1.3) mg/dL AST (17-59) U/L ALT (21-72) U/L Alkaline Phosphatase (38-126) U/L Total Protein (6.3-8.3) g/dL Albumin (3.5-5.0) g/dL Globulin (2.2-3.9) gm/dL Albumin/Globulin Ratio (1.0-2.1) Procalcitonin (0.19-0.49) NG/ML Urine Eosinophils (NEGATIVE) Urine Chloride 21 L (32-290) mmol/L Laboratory Results - last 24 hr 05/13/17 05/13/17 05/13/17 03:54 06:09 11:54 WBC RBC Hgb Hct MCV MCH MCHC RDW Plt Count MPV Neut % (Auto) Lymph % (Auto) Bertie % (Auto) Eos % (Auto) Baso % (Auto) Neut # Lymph # Bertie # Eos # Baso # Neutrophils % (Manual) 94 H Lymphocytes % (Manual) 3 L Monocytes % (Manual) 3 Platelet Estimate Decreased L Hypochromasia (manual) Slight Poikilocytosis (manual Slight Anisocytosis (manual) Slight ESR 12 Puncture Site pCO2 pO2 HCO3 ABG pH ABG Total CO2 ABG O2 Saturation ABG Base Excess ABG Hemoglobin ABG Carboxyhemoglobin POC ABG HHb (Measured) ABG Methemoglobin Eris Test A-a O2 Difference Respiratory Index Hgb O2 Saturation Mechanical Rate FiO2 Tidal Volume PEEP Sodium Potassium Chloride Carbon Dioxide Anion Gap BUN Creatinine Est GFR ( Amer) Est GFR (Non-Af Amer) POC Glucose (mg/dL) 99 Random Glucose Calcium Phosphorus Magnesium Total Bilirubin AST ALT Alkaline Phosphatase Total Protein Albumin Globulin Albumin/Globulin Ratio Procalcitonin Urine Eosinophils Urine Chloride 21 L 05/13/17 05/13/17 05/13/17 15:48 17:39 Unknown WBC RBC Hgb Hct MCV MCH MCHC RDW Plt Count MPV Neut % (Auto) Lymph % (Auto) Bertie % (Auto) Eos % (Auto) Baso % (Auto) Neut # Lymph # Bertie # Eos # Baso # Neutrophils % (Manual) Lymphocytes % (Manual) Monocytes % (Manual) Platelet Estimate Hypochromasia (manual) Poikilocytosis (manual Anisocytosis (manual) ESR Puncture Site pCO2 pO2 HCO3 ABG pH ABG Total CO2 ABG O2 Saturation ABG Base Excess ABG Hemoglobin ABG Carboxyhemoglobin POC ABG HHb (Measured) ABG Methemoglobin Eris Test A-a O2 Difference Respiratory Index Hgb O2 Saturation Mechanical Rate FiO2 Tidal Volume PEEP Sodium Potassium Chloride Carbon Dioxide Anion Gap BUN Creatinine Est GFR ( Amer) Est GFR (Non-Af Amer) POC Glucose (mg/dL) 105 Random Glucose Calcium Phosphorus Magnesium Total Bilirubin AST ALT Alkaline Phosphatase Total Protein Albumin Globulin Albumin/Globulin Ratio Procalcitonin 2.63 H Urine Eosinophils Negative Urine Chloride 05/14/17 05/14/17 05/14/17 05:08 06:23 06:23 WBC 20.6 H RBC 3.97 L Hgb 11.7 L Hct 38.0 MCV 95.8 H D MCH 29.6 MCHC 30.9 L RDW 19.3 H Plt Count 50 L MPV 10.7 Neut % (Auto) 92.0 H Lymph % (Auto) 4.0 L Bertie % (Auto) 4.0 Eos % (Auto) 0.0 Baso % (Auto) 0.0 Neut # 18.9 H Lymph # 0.8 L Bertie # 0.8 Eos # 0.0 Baso # 0.0 Neutrophils % (Manual) Lymphocytes % (Manual) Monocytes % (Manual) Platelet Estimate Hypochromasia (manual) Poikilocytosis (manual Anisocytosis (manual) ESR Puncture Site Rr pCO2 49 H pO2 139 H HCO3 29.4 H ABG pH 7.41 ABG Total CO2 32.6 H ABG O2 Saturation 99.3 H ABG Base Excess 5.7 H ABG Hemoglobin 8.3 L ABG Carboxyhemoglobin 1.4 POC ABG HHb (Measured) 0.7 ABG Methemoglobin 0.8 Eris Test Pos A-a O2 Difference 156.0 Respiratory Index 1.1 Hgb O2 Saturation 97.2 Mechanical Rate 12 FiO2 50.0 Tidal Volume 500 PEEP 5 Sodium 131 L Potassium 5.3 H Chloride 84 L Carbon Dioxide 30 Anion Gap 22 H BUN 130 H* Creatinine 4.9 H Est GFR ( Amer) 14 Est GFR (Non-Af Amer) 12 POC Glucose (mg/dL) Random Glucose 101 Calcium 7.0 L Phosphorus 5.8 H Magnesium 2.3 Total Bilirubin 2.9 H AST 87 H D ALT 90 H Alkaline Phosphatase 81 Total Protein 5.7 L Albumin 2.7 L Globulin 3.0 Albumin/Globulin Ratio 0.9 L Procalcitonin Urine Eosinophils Urine Chloride 05/14/17 06:46 WBC RBC Hgb Hct MCV MCH MCHC RDW Plt Count MPV Neut % (Auto) Lymph % (Auto) Bertie % (Auto) Eos % (Auto) Baso % (Auto) Neut # Lymph # Bertie # Eos # Baso # Neutrophils % (Manual) Lymphocytes % (Manual) Monocytes % (Manual) Platelet Estimate Hypochromasia (manual) Poikilocytosis (manual Anisocytosis (manual) ESR Puncture Site pCO2 pO2 HCO3 ABG pH ABG Total CO2 ABG O2 Saturation ABG Base Excess ABG Hemoglobin ABG Carboxyhemoglobin POC ABG HHb (Measured) ABG Methemoglobin Eris Test A-a O2 Difference Respiratory Index Hgb O2 Saturation Mechanical Rate FiO2 Tidal Volume PEEP Sodium Potassium Chloride Carbon Dioxide Anion Gap BUN Creatinine Est GFR ( Amer) Est GFR (Non-Af Amer) POC Glucose (mg/dL) 126 H Random Glucose Calcium Phosphorus Magnesium Total Bilirubin AST ALT Alkaline Phosphatase Total Protein Albumin Globulin Albumin/Globulin Ratio Procalcitonin Urine Eosinophils Urine Chloride Fingerstick Blood Sugar Results: 126 Review of Systems - Review of Systems Systems not reviewed;Unavailable: Intubated Assessment/Plan - Assessment and Plan (Free Text) Assessment: 72M PMHx COPD, Heart failure, Afib, Liver disease, Pulm HTN, Chronic b/l venous ulcers, venous stasis multiple hospitalizations with sepsis and infection admitted s/p cardiac arrest at home Plan: Neuro: s/p cardiac arrest- multiorgan failure Sedated on dexmedetomidine gtt Pulm: s/p cardiac arrest with Respiratory failure intubated on vent (24, 100, 500, 5) b/l pneumonia hx of COPD 05/13 CXR no interval change 05/11 CXR persistent severe cardiomegaly and interval worsening of pulm venous congestion Duoneb 3ml inh q6 Solumedrol 40mg ivp q8 Cardiovascular: sp cardiac arrest Dobutamine gtt Norepinephrine gtt Phenylephrine gtt NS @ 50cc/hr Heme: anemia of chronic disease Hgb/Hct 11.7/38 Plts 50k - consent for plasmapheresis obtained - Dialysis catheter placement following transfusion Monitor Renal: Oliguric JOHNIE/ARF likely secondary to ATN likely secondary to sepsis, acute DC, poor LV function BUN/Cr 130/4.9 Dialysis cath consent in chart Endo: no acute issues GI: NGT feedings @ 35cc/hr tolerating with no residuals Abnl LFTS- likely shock liver secondary to hypotension and hypoperfusion AST 137 ALT 100 ID: Procalcitonin 2.63 WBC 17.5 this AM Tylenol 650mg pr q6 prn temp > 100.5F Primaxin ivpb q12 Nystatin 1 dwayne top bid Tigecycline 25mg ivpb q12 wound culture (05/13/17): no growth x 24 hrs blood cluture (05/13/17): no growth x 24 hrs x 2 sputum culture (05/13/17): pending, f/u urine culture (05/13/17): no growth x 24 hrs DVT proph: Heparin 5000u sc q8 GI proph: Protonix 40mg ivp daily Code status: full code Pall care on board Case discussed with Dr. Jaiden Albright, PGY-1 <Brannon Hwang S - Last Filed: 05/14/17 16:34> CCU Objective - Vital Signs / Intake & Output Vital Signs (Last 4 hours): Vital Signs Temp Pulse Resp BP Pulse Ox 05/14/17 15:58 98.0 F 90 26 H 108/61 05/14/17 15:04 84 24 113/66 87 L 05/14/17 15:00 86 24 86 L 05/14/17 14:33 74 25 H 81/46 L 05/14/17 14:03 75 23 97/54 L 05/14/17 14:00 83 24 05/14/17 13:33 84 26 H 90/55 L 05/14/17 13:03 82 25 H 92/56 L 91 L 05/14/17 13:00 88 21 92 L 05/14/17 12:33 88 25 H 94/59 L 83 L Intake and Output (Last 8hrs): Intake & Output 05/14/17 05/14/1705/14/17 06:59 14:59 22:59 Intake Total 1165.0 1491.6 142.3 Output Total 70 40 10 Balance 1095.0 1451.6 132.3 Weight 216 lb Intake: IV 100 303 Intake, IV Amount 760.0 808.6 82.3 Medial Port 59.2 59.2 7.4 Proximal Port 79.2 77.8 9.7 proximal port /distal 121.6 121.6 15.2 port right hand 500 550 50 Oral 60 Tube Feeding 305 320 40 Blood Product 0 Apheresis Plts Acda Lr 0 Irr Unit [id number] Other 20 Apheresis Plts Acda Lr 20 Irr Unit [id number] Output: Urine 70 40 10 Urethral (Corral) 70 40 10 Other: # Bowel Movements 0 0 0 - Medications Active Medications: Active Medications Generic Name Dose Route Start Last Admin Trade Name Freq PRN Reason Stop Dose Admin Acetaminophen 650 mg 05/11/17 17:17 05/11/17 17:39 Tylenol 650 Mg Supp [place] 650 mg Q6 PRN Administration for temp.=..>100.5 Albuterol/Ipratropium 3 ml 05/11/17 08:00 05/14/17 13:21 Duoneb 3 Mg/0.5 Mg (3 Ml) Ud INH 3 ml RQ6 ANGIE Administration Home Med 1 drop 05/14/17 18:00 Patient's Own Drops OS BID ANGIE Norepinephrine Bitartrate 8 mg 258 mls @ 7.74 mls/hr 05/11/17 01:19 05/12/17 08:30 / Dextrose IV 0 mcg/min .Q24H PRN 0 mls/hr TITRATE PER MD ORDER Titration Protocol 4 MCG/MIN Phenylephrine HCl 30 mg/ 253 mls @ 10.12 mls/hr 05/11/17 18:27 05/14/17 11:51 Dextrose IV 30 mcg/min .Q24H PRN 15.18 mls/hr TITRATE PER MD ORDER Administration Protocol 20 MCG/MIN Dobutamine HCl/Dextrose 500 mg in 250 mls @ 7.425 mls/hr 05/11/17 21:45 05/13 22:20 Dobutamine/Dextrose 5% 500mg/250ml IV 2.49 mcg/kg/min .Q24H ANGIE 7.395 mls/hr Protocol Administration 2.5 MCG/KG/MIN Dexmedetomidine HCl 200 mcg/ 50 mls @ 4.83 mls/hr 05/12/17 15:55 05/14/17 12: 45 Sodium Chloride IV 0.4 mcg/kg/hr TITR PRN 9.66 mls/hr Agitation Administration Protocol 0.2 MCG/KG/HR Sodium Chloride 1,000 mls @ 50 mls/hr 05/13/17 09:15 05/14/17 06:58 Sodium Chloride 0.9% IV 50 mls/hr .Q20H ANGIE Administration Tigecycline 25 mg/ Dextrose 100 mls @ 100 mls/hr 05/14/17 00:00 05/14/17 12: 44 IVPB 100 mls/hr 0000,1200 ANGIE Administration Meropenem 500 mg/ Sodium 100 mls @ 200 mls/hr 05/14/17 20:00 Chloride IVPB 0800,2000 ANGIE Lorazepam 1 mg 05/14/17 10:00 Ativan IVP Q4H PRN Agitation Methylprednisolone 40 mg 05/11/17 10:30 05/14/17 10:37 Solu-Medrol IVP 40 mg Q8H ANGIE Administration Nystatin 1 applic 05/12/17 10:00 05/14/17 10:38 Nystop Topical Powder TOP 1 applic BID ANGIE Administration Pantoprazole Sodium 40 mg 05/11/17 10:00 05/14/17 10:38 Protonix Inj IVP 40 mg DAILY ANGIE Administration - Patient Studies Lab Studies: Microbiology Studies 05/13/17 09:41 Blood Culture - Preliminary Blood-Venous NO GROWTH AFTER 24 HOURS 05/13/17 09:41 Blood Culture - Preliminary Blood-Venous NO GROWTH AFTER 24 HOURS 05/13/17 09:42 Gram Stain - Final Other: Please Indicate Wound Culture - Preliminary NO GROWTH AFTER 24 HOURS 05/13/17 09:45 Urine Culture - Final Urine,Corral No Growth (<1,000 CFU/ML) 05/13/17 12:19 Gram Stain - Final Trachasp Lab Studies 05/14/17 05/14/17 05/14/17 Range/Units 12:33 11:17 10:54 WBC (4.8-10.8) K/uL RBC (4.40-5.90) Mil/uL Hgb (12.0-18.0) g/dL Hct (35.0-51.0) % MCV (80.0-94.0) fL MCH (27.0-31.0) pg MCHC (33.0-37.0) g/dL RDW (11.5-14.5) % Plt Count (130-400) K/uL MPV (7.2-11.7) fL Neut % (Auto) (50.0-75.0) % Lymph % (Auto) (20.0-40.0) % Bertie % (Auto) (0.0-10.0) % Eos % (Auto) (0.0-4.0) % Baso % (Auto) (0.0-2.0) % Neut # (1.8-7.0) K/uL Lymph # (1.0-4.3) K/uL Bertie # (0.0-0.8) K/uL Eos # (0.0-0.7) K/uL Baso # (0.0-0.2) K/uL Neutrophils % (Manual) (50-75) % Band Neutrophils % (0-2) % Lymphocytes % (Manual) (20-40) % Monocytes % (Manual) (0-10) % Nucleated RBC % (0-0) % Platelet Estimate (NORMAL) Hypochromasia (manual) Poikilocytosis (manual Anisocytosis (manual) Macrocytosis (manual) Puncture Site pCO2 (35-45) mm/Hg pO2 (80-100) mm/Hg HCO3 (21-28) mmol/L ABG pH (7.35-7.45) ABG Total CO2 (22-28) mmol/L ABG O2 Saturation (95-98) % ABG Base Excess (-2.0-3.0) mmol/L ABG Hemoglobin (11.7-17.4) g/dL ABG Carboxyhemoglobin (0.5-1.5) % POC ABG HHb (Measured) (0.0-5.0) % ABG Methemoglobin (0.0-3.0) % Eris Test A-a O2 Difference mm/Hg Respiratory Index Hgb O2 Saturation (95.0-98.0) % Vent Mode Mechanical Rate FiO2 % Tidal Volume PEEP Crit Value Called To Crit Value Called By Crit Value Read Back Blood Gas Notified Time Sodium (132-148) mmol/L Potassium (3.6-5.2) mmol/L Chloride (98-107) mmol/L Carbon Dioxide (22-30) mmol/L Anion Gap (10-20) BUN (9-20) mg/dL Creatinine (0.8-1.5) MG/DL Est GFR ( Amer) Est GFR (Non-Af Amer) POC Glucose (mg/dL) 152 H (65-110) mg/dL Random Glucose (75-110) mg/dL Calcium (8.6-10.4) mg/dl Phosphorus (2.5-4.5) mg/dL Magnesium (1.6-2.3) mg/dL Total Bilirubin (0.2-1.3) mg/dL AST (17-59) U/L ALT (21-72) U/L Alkaline Phosphatase (38-126) U/L Total Protein (6.3-8.3) g/dL Albumin (3.5-5.0) g/dL Globulin (2.2-3.9) gm/dL Albumin/Globulin Ratio (1.0-2.1) Urine Eosinophils (NEGATIVE) Urine Chloride (32-290) mmol/L Hep Bs Antigen (NEGATIVE) Hep Bs Antibody Negative (NEGATIVE) Hep B Core IgM Ab (NEGATIVE) Hepatitis C Antibody (NEGATIVE) Blood Type O POSITIVE Antibody Screen Negative 05/14/17 05/14/17 05/14/17 Range/Units 10:54 06:46 06:23 WBC (4.8-10.8) K/uL RBC (4.40-5.90) Mil/uL Hgb (12.0-18.0) g/dL Hct (35.0-51.0) % MCV (80.0-94.0) fL MCH (27.0-31.0) pg MCHC (33.0-37.0) g/dL RDW (11.5-14.5) % Plt Count (130-400) K/uL MPV (7.2-11.7) fL Neut % (Auto) (50.0-75.0) % Lymph % (Auto) (20.0-40.0) % Bertie % (Auto) (0.0-10.0) % Eos % (Auto) (0.0-4.0) % Baso % (Auto) (0.0-2.0) % Neut # (1.8-7.0) K/uL Lymph # (1.0-4.3) K/uL Bertie # (0.0-0.8) K/uL Eos # (0.0-0.7) K/uL Baso # (0.0-0.2) K/uL Neutrophils % (Manual) (50-75) % Band Neutrophils % (0-2) % Lymphocytes % (Manual) (20-40) % Monocytes % (Manual) (0-10) % Nucleated RBC % (0-0) % Platelet Estimate (NORMAL) Hypochromasia (manual) Poikilocytosis (manual Anisocytosis (manual) Macrocytosis (manual) Puncture Site pCO2 (35-45) mm/Hg pO2 (80-100) mm/Hg HCO3 (21-28) mmol/L ABG pH (7.35-7.45) ABG Total CO2 (22-28) mmol/L ABG O2 Saturation (95-98) % ABG Base Excess (-2.0-3.0) mmol/L ABG Hemoglobin (11.7-17.4) g/dL ABG Carboxyhemoglobin (0.5-1.5) % POC ABG HHb (Measured) (0.0-5.0) % ABG Methemoglobin (0.0-3.0) % Eris Test A-a O2 Difference mm/Hg Respiratory Index Hgb O2 Saturation (95.0-98.0) % Vent Mode Mechanical Rate FiO2 % Tidal Volume PEEP Crit Value Called To Crit Value Called By Crit Value Read Back Blood Gas Notified Time Sodium 131 L (132-148) mmol/L Potassium 5.3 H (3.6-5.2) mmol/L Chloride 84 L (98-107) mmol/L Carbon Dioxide 30 (22-30) mmol/L Anion Gap 22 H (10-20) BUN 130 H* (9-20) mg/dL Creatinine 4.9 H (0.8-1.5) MG/DL Est GFR ( Amer) 14 Est GFR (Non-Af Amer) 12 POC Glucose (mg/dL) 126 H (65-110) mg/dL Random Glucose 101 (75-110) mg/dL Calcium 7.0 L (8.6-10.4) mg/dl Phosphorus 5.8 H (2.5-4.5) mg/dL Magnesium 2.3 (1.6-2.3) mg/dL Total Bilirubin 2.9 H (0.2-1.3) mg/dL AST 87 H D (17-59) U/L ALT 90 H (21-72) U/L Alkaline Phosphatase 81 (38-126) U/L Total Protein 5.7 L (6.3-8.3) g/dL Albumin 2.7 L (3.5-5.0) g/dL Globulin 3.0 (2.2-3.9) gm/dL Albumin/Globulin Ratio 0.9 L (1.0-2.1) Urine Eosinophils (NEGATIVE) Urine Chloride (32-290) mmol/L Hep Bs Antigen Negative (NEGATIVE) Hep Bs Antibody (NEGATIVE) Hep B Core IgM Ab Negative (NEGATIVE) Hepatitis C Antibody Reactive H (NEGATIVE) Blood Type Antibody Screen 05/14/17 05/14/17 05/13/17 Range/Units 06:23 05:08 17:39 WBC 20.6 H (4.8-10.8) K/uL RBC 3.97 L (4.40-5.90) Mil/uL Hgb 11.7 L (12.0-18.0) g/dL Hct 38.0 (35.0-51.0) % MCV 95.8 H D (80.0-94.0) fL MCH 29.6 (27.0-31.0) pg MCHC 30.9 L (33.0-37.0) g/dL RDW 19.3 H (11.5-14.5) % Plt Count 50 L (130-400) K/uL MPV 10.7 (7.2-11.7) fL Neut % (Auto) 92.0 H (50.0-75.0) % Lymph % (Auto) 4.0 L (20.0-40.0) % Bertie % (Auto) 4.0 (0.0-10.0) % Eos % (Auto) 0.0 (0.0-4.0) % Baso % (Auto) 0.0 (0.0-2.0) % Neut # 18.9 H (1.8-7.0) K/uL Lymph # 0.8 L (1.0-4.3) K/uL Bertie # 0.8 (0.0-0.8) K/uL Eos # 0.0 (0.0-0.7) K/uL Baso # 0.0 (0.0-0.2) K/uL Neutrophils % (Manual) 93 H (50-75) % Band Neutrophils % 1 (0-2) % Lymphocytes % (Manual) 2 L (20-40) % Monocytes % (Manual) 4 (0-10) % Nucleated RBC % 1 H (0-0) % Platelet Estimate Decreased L (NORMAL) Hypochromasia (manual) Slight Poikilocytosis (manual Slight Anisocytosis (manual) Slight Macrocytosis (manual) Slight Puncture Site Lr pCO2 64 H (35-45) mm/Hg pO2 43 L* (80-100) mm/Hg HCO3 26.5 (21-28) mmol/L ABG pH 7.29 L (7.35-7.45) ABG Total CO2 32.8 H (22-28) mmol/L ABG O2 Saturation 73.1 L (95-98) % ABG Base Excess 2.8 (-2.0-3.0) mmol/L ABG Hemoglobin 11.6 L (11.7-17.4) g/dL ABG Carboxyhemoglobin 1.6 H (0.5-1.5) % POC ABG HHb (Measured) 26.1 H (0.0-5.0) % ABG Methemoglobin 1.3 (0.0-3.0) % Eris Test Pos A-a O2 Difference 590.0 mm/Hg Respiratory Index 13.7 Hgb O2 Saturation 71.0 L (95.0-98.0) % Vent Mode Ac Mechanical Rate 24 FiO2 100 % Tidal Volume 500 PEEP 5 Crit Value Called To Mauricio rn Crit Value Called By Isaac vaca rt Crit Value Read Back Yes Blood Gas Notified Time 627 Sodium (132-148) mmol/L Potassium (3.6-5.2) mmol/L Chloride (98-107) mmol/L Carbon Dioxide (22-30) mmol/L Anion Gap (10-20) BUN (9-20) mg/dL Creatinine (0.8-1.5) MG/DL Est GFR ( Amer) Est GFR (Non-Af Amer) POC Glucose (mg/dL) 105 (65-110) mg/dL Random Glucose (75-110) mg/dL Calcium (8.6-10.4) mg/dl Phosphorus (2.5-4.5) mg/dL Magnesium (1.6-2.3) mg/dL Total Bilirubin (0.2-1.3) mg/dL AST (17-59) U/L ALT (21-72) U/L Alkaline Phosphatase (38-126) U/L Total Protein (6.3-8.3) g/dL Albumin (3.5-5.0) g/dL Globulin (2.2-3.9) gm/dL Albumin/Globulin Ratio (1.0-2.1) Urine Eosinophils (NEGATIVE) Urine Chloride (32-290) mmol/L Hep Bs Antigen (NEGATIVE) Hep Bs Antibody (NEGATIVE) Hep B Core IgM Ab (NEGATIVE) Hepatitis C Antibody (NEGATIVE) Blood Type Antibody Screen 05/13/17 05/13/17 Range/Units 15:48 03:54 WBC (4.8-10.8) K/uL RBC (4.40-5.90) Mil/uL Hgb (12.0-18.0) g/dL Hct (35.0-51.0) % MCV (80.0-94.0) fL MCH (27.0-31.0) pg MCHC (33.0-37.0) g/dL RDW (11.5-14.5) % Plt Count (130-400) K/uL MPV (7.2-11.7) fL Neut % (Auto) (50.0-75.0) % Lymph % (Auto) (20.0-40.0) % Bertie % (Auto) (0.0-10.0) % Eos % (Auto) (0.0-4.0) % Baso % (Auto) (0.0-2.0) % Neut # (1.8-7.0) K/uL Lymph # (1.0-4.3) K/uL Bertie # (0.0-0.8) K/uL Eos # (0.0-0.7) K/uL Baso # (0.0-0.2) K/uL Neutrophils % (Manual) (50-75) % Band Neutrophils % (0-2) % Lymphocytes % (Manual) (20-40) % Monocytes % (Manual) (0-10) % Nucleated RBC % (0-0) % Platelet Estimate (NORMAL) Hypochromasia (manual) Poikilocytosis (manual Anisocytosis (manual) Macrocytosis (manual) Puncture Site pCO2 (35-45) mm/Hg pO2 (80-100) mm/Hg HCO3 (21-28) mmol/L ABG pH (7.35-7.45) ABG Total CO2 (22-28) mmol/L ABG O2 Saturation (95-98) % ABG Base Excess (-2.0-3.0) mmol/L ABG Hemoglobin (11.7-17.4) g/dL ABG Carboxyhemoglobin (0.5-1.5) % POC ABG HHb (Measured) (0.0-5.0) % ABG Methemoglobin (0.0-3.0) % Eris Test A-a O2 Difference mm/Hg Respiratory Index Hgb O2 Saturation (95.0-98.0) % Vent Mode Mechanical Rate FiO2 % Tidal Volume PEEP Crit Value Called To Crit Value Called By Crit Value Read Back Blood Gas Notified Time Sodium (132-148) mmol/L Potassium (3.6-5.2) mmol/L Chloride (98-107) mmol/L Carbon Dioxide (22-30) mmol/L Anion Gap (10-20) BUN (9-20) mg/dL Creatinine (0.8-1.5) MG/DL Est GFR ( Amer) Est GFR (Non-Af Amer) POC Glucose (mg/dL) (65-110) mg/dL Random Glucose (75-110) mg/dL Calcium (8.6-10.4) mg/dl Phosphorus (2.5-4.5) mg/dL Magnesium (1.6-2.3) mg/dL Total Bilirubin (0.2-1.3) mg/dL AST (17-59) U/L ALT (21-72) U/L Alkaline Phosphatase (38-126) U/L Total Protein (6.3-8.3) g/dL Albumin (3.5-5.0) g/dL Globulin (2.2-3.9) gm/dL Albumin/Globulin Ratio (1.0-2.1) Urine Eosinophils Negative (NEGATIVE) Urine Chloride 21 L (32-290) mmol/L Hep Bs Antigen (NEGATIVE) Hep Bs Antibody (NEGATIVE) Hep B Core IgM Ab (NEGATIVE) Hepatitis C Antibody (NEGATIVE) Blood Type Antibody Screen Laboratory Results - last 24 hr 05/13/17 05/13/17 05/13/17 03:54 15:48 17:39 WBC RBC Hgb Hct MCV MCH MCHC RDW Plt Count MPV Neut % (Auto) Lymph % (Auto) Bertie % (Auto) Eos % (Auto) Baso % (Auto) Neut # Lymph # Bertie # Eos # Baso # Neutrophils % (Manual) Band Neutrophils % Lymphocytes % (Manual) Monocytes % (Manual) Nucleated RBC % Platelet Estimate Hypochromasia (manual) Poikilocytosis (manual Anisocytosis (manual) Macrocytosis (manual) Puncture Site pCO2 pO2 HCO3 ABG pH ABG Total CO2 ABG O2 Saturation ABG Base Excess ABG Hemoglobin ABG Carboxyhemoglobin POC ABG HHb (Measured) ABG Methemoglobin Eris Test A-a O2 Difference Respiratory Index Hgb O2 Saturation Vent Mode Mechanical Rate FiO2 Tidal Volume PEEP Crit Value Called To Crit Value Called By Crit Value Read Back Blood Gas Notified Time Sodium Potassium Chloride Carbon Dioxide Anion Gap BUN Creatinine Est GFR ( Amer) Est GFR (Non-Af Amer) POC Glucose (mg/dL) 105 Random Glucose Calcium Phosphorus Magnesium Total Bilirubin AST ALT Alkaline Phosphatase Total Protein Albumin Globulin Albumin/Globulin Ratio Urine Eosinophils Negative Urine Chloride 21 L Hep Bs Antigen Hep Bs Antibody Hep B Core IgM Ab Hepatitis C Antibody Blood Type Antibody Screen 05/14/17 05/14/17 05/14/17 05:08 06:23 06:23 WBC 20.6 H RBC 3.97 L Hgb 11.7 L Hct 38.0 MCV 95.8 H D MCH 29.6 MCHC 30.9 L RDW 19.3 H Plt Count 50 L MPV 10.7 Neut % (Auto) 92.0 H Lymph % (Auto) 4.0 L Bertie % (Auto) 4.0 Eos % (Auto) 0.0 Baso % (Auto) 0.0 Neut # 18.9 H Lymph # 0.8 L Bertie # 0.8 Eos # 0.0 Baso # 0.0 Neutrophils % (Manual) 93 H Band Neutrophils % 1 Lymphocytes % (Manual) 2 L Monocytes % (Manual) 4 Nucleated RBC % 1 H Platelet Estimate Decreased L Hypochromasia (manual) Slight Poikilocytosis (manual Slight Anisocytosis (manual) Slight Macrocytosis (manual) Slight Puncture Site Lr pCO2 64 H pO2 43 L* HCO3 26.5 ABG pH 7.29 L ABG Total CO2 32.8 H ABG O2 Saturation 73.1 L ABG Base Excess 2.8 ABG Hemoglobin 11.6 L ABG Carboxyhemoglobin 1.6 H POC ABG HHb (Measured) 26.1 H ABG Methemoglobin 1.3 Eris Test Pos A-a O2 Difference 590.0 Respiratory Index 13.7 Hgb O2 Saturation 71.0 L Vent Mode Ac Mechanical Rate 24 FiO2 100 Tidal Volume 500 PEEP 5 Crit Value Called To Mauricio rn Crit Value Called By Isaac vaca rt Crit Value Read Back Yes Blood Gas Notified Time 627 Sodium 131 L Potassium 5.3 H Chloride 84 L Carbon Dioxide 30 Anion Gap 22 H BUN 130 H* Creatinine 4.9 H Est GFR ( Amer) 14 Est GFR (Non-Af Amer) 12 POC Glucose (mg/dL) Random Glucose 101 Calcium 7.0 L Phosphorus 5.8 H Magnesium 2.3 Total Bilirubin 2.9 H AST 87 H D ALT 90 H Alkaline Phosphatase 81 Total Protein 5.7 L Albumin 2.7 L Globulin 3.0 Albumin/Globulin Ratio 0.9 L Urine Eosinophils Urine Chloride Hep Bs Antigen Hep Bs Antibody Hep B Core IgM Ab Hepatitis C Antibody Blood Type Antibody Screen 05/14/17 05/14/17 05/14/17 06:46 10:54 10:54 WBC RBC Hgb Hct MCV MCH MCHC RDW Plt Count MPV Neut % (Auto) Lymph % (Auto) Bertie % (Auto) Eos % (Auto) Baso % (Auto) Neut # Lymph # Bertie # Eos # Baso # Neutrophils % (Manual) Band Neutrophils % Lymphocytes % (Manual) Monocytes % (Manual) Nucleated RBC % Platelet Estimate Hypochromasia (manual) Poikilocytosis (manual Anisocytosis (manual) Macrocytosis (manual) Puncture Site pCO2 pO2 HCO3 ABG pH ABG Total CO2 ABG O2 Saturation ABG Base Excess ABG Hemoglobin ABG Carboxyhemoglobin POC ABG HHb (Measured) ABG Methemoglobin Eris Test A-a O2 Difference Respiratory Index Hgb O2 Saturation Vent Mode Mechanical Rate FiO2 Tidal Volume PEEP Crit Value Called To Crit Value Called By Crit Value Read Back Blood Gas Notified Time Sodium Potassium Chloride Carbon Dioxide Anion Gap BUN Creatinine Est GFR ( Amer) Est GFR (Non-Af Amer) POC Glucose (mg/dL) 126 H Random Glucose Calcium Phosphorus Magnesium Total Bilirubin AST ALT Alkaline Phosphatase Total Protein Albumin Globulin Albumin/Globulin Ratio Urine Eosinophils Urine Chloride Hep Bs Antigen Negative Hep Bs Antibody Negative Hep B Core IgM Ab Negative Hepatitis C Antibody Reactive H Blood Type Antibody Screen 05/14/17 05/14/17 11:17 12:33 WBC RBC Hgb Hct MCV MCH MCHC RDW Plt Count MPV Neut % (Auto) Lymph % (Auto) Bertie % (Auto) Eos % (Auto) Baso % (Auto) Neut # Lymph # Bertie # Eos # Baso # Neutrophils % (Manual) Band Neutrophils % Lymphocytes % (Manual) Monocytes % (Manual) Nucleated RBC % Platelet Estimate Hypochromasia (manual) Poikilocytosis (manual Anisocytosis (manual) Macrocytosis (manual) Puncture Site pCO2 pO2 HCO3 ABG pH ABG Total CO2 ABG O2 Saturation ABG Base Excess ABG Hemoglobin ABG Carboxyhemoglobin POC ABG HHb (Measured) ABG Methemoglobin Eris Test A-a O2 Difference Respiratory Index Hgb O2 Saturation Vent Mode Mechanical Rate FiO2 Tidal Volume PEEP Crit Value Called To Crit Value Called By Crit Value Read Back Blood Gas Notified Time Sodium Potassium Chloride Carbon Dioxide Anion Gap BUN Creatinine Est GFR ( Amer) Est GFR (Non-Af Amer) POC Glucose (mg/dL) 152 H Random Glucose Calcium Phosphorus Magnesium Total Bilirubin AST ALT Alkaline Phosphatase Total Protein Albumin Globulin Albumin/Globulin Ratio Urine Eosinophils Urine Chloride Hep Bs Antigen Hep Bs Antibody Hep B Core IgM Ab Hepatitis C Antibody Blood Type O POSITIVE Antibody Screen Negative Assessment/Plan (1) Cardiac arrest Current Visit: Yes Status: Acute (2) Septic shock Current Visit: Yes Status: Acute (3) Cellulitis Current Visit: No Status: Acute (4) Chronic obstructive lung disease Current Visit: No Status: Acute Attending/Attestation - Attestation I have personally seen and examined this patient.: Yes I have fully participated in the care of the patient.: Yes I have reviewed all pertinent clinical information: Yes Notes (Text): 05/14/17 16:20 Patient seen and examined in the intensive care unit. Case discussed with house staff in the morning rounds. Remains intubated on ventilatory support requiring 100% FiO2 For dialysis catheter insertion after platelet transfusion Status post PICC line insertion Continue antibiotics Continue present treatment Prognosis poor
--- NOTE | 2017-05-14 08:32 | RAD ---
HISTORY: intubated COMPARISON: 05/13/2017 FINDINGS: LUNGS: Increasing confluent opacity in mid to lower right lung. Patchy left-sided opacities. PLEURA: No significant pleural effusion identified, no pneumothorax apparent. CARDIOVASCULAR: Endotracheal tube and nasogastric tube are unchanged. OSSEOUS STRUCTURES: No significant abnormalities. VISUALIZED UPPER ABDOMEN: Normal. OTHER FINDINGS: None. IMPRESSION: Confluent opacity mid to lower right lung. Patchy left-sided opacities. Lines and tubes unchanged.
[2017-05-14 08:42] LABS: NEUTROPHIL 93 % (50-75); NUCLEATED RED BLOOD CELL 1 % (0-0); TOTAL CELLS COUNTED 100
--- NOTE | 2017-05-14 09:29 | CP.PCM.PN ---
Subjective - Date & Time of Evaluation Date of Evaluation: 05/14/17 Time of Evaluation: 09:28 - Subjective Subjective: pt seen and examined, follow up consult is dictated #[id number] for hd today consent obtained from pt's daughter Objective - Vital Signs/Intake and Output Vital Signs (last 24 hours): Temp Pulse Resp BP Pulse Ox 98.6 F 80 24 102/64 94 L 05/14/17 08:00 05/14/17 09:03 05/14/17 09:03 05/14/17 09:03 05/14/17 09:03 Intake and Output: 05/14/17 05/14/17 06:59 18:59 Intake Total 1979.8 497.1 Output Total 120 25 Balance 1859.8 472.1 - Medications Medications: Current Medications Acetaminophen (Tylenol 650 Mg Supp) 650 mg [place] Q6 PRN PRN Reason: for temp.=..>100.5 Last Admin: 05/11/17 17:39 Dose: 650 mg Albuterol/Ipratropium (Duoneb 3 Mg/0.5 Mg (3 Ml) Ud) 3 ml INH RQ6 ANGIE Last Admin: 05/14/17 07:44 Dose: 3 ml Heparin Sodium (Porcine) (Heparin) 5,000 units SC Q8 ANGIE Last Admin: 05/14/17 06:24 Dose: 5,000 units Norepinephrine Bitartrate 8 mg (/ Dextrose) 258 mls @ 7.74 mls/hr IV .Q24H PRN ; Protocol; 4 MCG/MIN PRN Reason: TITRATE PER MD ORDER Last Titration: 05/12/17 08:30 Dose: 0 mcg/min, 0 mls/hr Phenylephrine HCl 30 mg/ (Dextrose) 253 mls @ 10.12 mls/hr IV .Q24H PRN; Protocol; 20 MCG/MIN PRN Reason: TITRATE PER MD ORDER Last Admin: 05/13/17 19:01 Dose: 30 mcg/min, 15.18 mls/hr Dobutamine HCl/Dextrose (Dobutamine/Dextrose 5% 500mg/250ml) 500 mg in 250 mls @ 7.425 mls/hr IV .Q24H ANGIE; 2.5 MCG/KG/MIN PRN Reason: Protocol Last Admin: 05/13/17 22:20 Dose: 2.49 mcg/kg/min, 7.395 mls/hr Dexmedetomidine HCl 200 mcg/ (Sodium Chloride) 50 mls @ 4.83 mls/hr IV TITR PRN ; Protocol; 0.2 MCG/KG/HR PRN Reason: Agitation Last Admin: 05/14/17 06:59 Dose: 0.4 mcg/kg/hr, 9.66 mls/hr Sodium Chloride (Sodium Chloride 0.9%) 1,000 mls @ 50 mls/hr IV .Q20H [facility] Last Admin: 05/14/17 06:58 Dose: 50 mls/hr Tigecycline 25 mg/ Dextrose 100 mls @ 100 mls/hr IVPB 0000,1200 [facility] Last Admin: 05/14/17 00:15 Dose: 100 mls/hr Imipenem/Cilastatin Sodium 500 (mg/ Sodium Chloride) 100 mls @ 100 mls/hr IVPB 0800,2000 [facility] Last Admin: 05/14/17 07:00 Dose: 100 mls/hr Methylprednisolone (Solu-Medrol) 40 mg IVP Q8H [facility] Last Admin: 05/14/17 02:31 Dose: 40 mg Nystatin (Nystop Topical Powder) 1 applic TOP BID [facility] Last Admin: 05/13/17 17:04 Dose: 1 applic Pantoprazole Sodium (Protonix Inj) 40 mg IVP DAILY [facility] Last Admin: 05/13/17 10:30 Dose: 40 mg - Labs Labs: 05/14/17 06:23 05/14/17 06:23 PT 19.8 SECONDS (9.7-12.2) H 05/11/17 01:04 INR 1.7 05/11/17 01:04 APTT 34 SECONDS (21-34) 05/11/17 06:16
[2017-05-14 10:27] LABS: CARBOXYHEMOGLOBIN 1.6 % (0.5-1.5); METHEMOGLOBIN 1.3 % (0.0-3.0)
[2017-05-14 10:28] LABS: HHB 26.1 % (0.0-5.0)
[2017-05-14 10:31] LABS: DRAW SITE LR
[2017-05-14 10:33] LABS: ABG MECHANICAL RATE 24; ARTERIAL BLOOD GAS MODE AC
--- NOTE | 2017-05-14 10:41 | PN ---
DATE: 05/14/2017 The patient is located in ICU, bed 16. REQUESTED BY: Dr. Gretel Bazan REASON FOR FOLLOWUP: Acute renal failure and for possible hemodialysis. The patient is a 72-year-old elderly male with a history of hypertension, CHF, AFib, refusi ng anticoagulation, COPD, hepatitis C, cirrhosis, was admitted with shortness of breath and status po st cardiac arrest, intubated in ICU with cardiomyopathy, LV function about 25%, on ventilator with wo rsening renal function. The patient remains intubated on FiO2 100% with worsening renal function and decreased urine output. The patient is not in distress, moving all extremities for touch. PHYSICAL EXAMINATION: VITAL SIGNS: As follows: Blood pressure 102/64, pulse 80, respirations 24, and saturation 94%-97%, and temperature is 98.6. Height 5 feet 10 inches and weight is 216 pounds. GENERAL: The patient is a 72-year-old elderly male, on ventilator, on FiO2 100%, moderatel y built, moderately nourished, not in distress. HEENT: Pupils normal, react to light and accommodation. Conjunctivae pink. Sclerae anicteric. On ventilator. NECK: No thyroid enlargement. LUNGS: Symmetric on both sides. Bilateral breath sounds present. Occasional basal crackles present . CARDIOVASCULAR: [place] at the fifth intercostal space, midclavicular line. S1 and S2 audible. No mur mur or gallop. ABDOMEN: Normal in appearance, slightly protuberant, soft, tympanic. No guarding, no rigidity, no h epatosplenomegaly. CENTRAL NERVOUS SYSTEM: The patient is on ventilator, on Precedex. EXTREMITIES: The patient has psoriatic lesions on both upper extremities and lower extremities and a lso chronic ulcers on both lower extremities and also patient has a dressing on both lower extremitie s. INTAKE AND OUTPUT: Intake is 3446, output is 250 urine output. Since admission, patient is positive about 6-7 liters positive balance. CURRENT MEDICATIONS: Include as follows: Ativan 1 mg IV q. 4 hours p.r.n. and Precedex and dobutami ne IV 2.5 mcg per kg per minute and DuoNeb inhaler, imipenem/cilastatin 500 mg q. 12 hours and norepi nephrine and nystatin powder topical and phenylephrine and Protonix 40 mg IV daily and IV fluids norm al saline at 50 mL per hour and Solu-Medrol 40 mg IV q. 8 hours, tigecycline 25 mg q. 12 hours and Ty lenol. CULTURES: MRSA screening was negative and wound culture is no growth. Urine culture no growth and s putum culture is pending. LABORATORY DATA: Include as follows: As of 05/14/2017, WBC 20.6, hemoglobin 11.7, hematocrit is 38 and platelets are 50 and bands 1, neutrophils 93, lymphs 2, monos 4, nucleated RBC 1 and pH 7.41, pCO 2 49, pO2 139, bicarb is 29.4, saturation 99.3. Vent settings: AC 12, tidal volume 100 and FiO2 50% , PEEP of 5. Sodium 131, potassium 5.3, chloride 84, CO2 30, BUN 130, creatinine 4.9, glucose 101, c alcium 7, phosphorus 5.8, magnesium 2.3 and total bili is 2.9, AST 87, ALT 90, alkaline phosphatase 8 1, total protein 5.7, albumin is 2.7. Procalcitonin is 2.6 as of 05/13/2017. Urine for eosinophils are negative. Chest x-ray as of 05/14/2017, impression: Confluent opacity in mid to lower right lung and patchy le ft-sided opacity. Lines and tubes unchanged. SUMMARY: The patient is a 72-year-old elderly male with a history of hypertension, congest claus heart failure, atrial fibrillation, cirrhosis, chronic hepatitis C, chronic obstructive pulmonary disease, was admitted with cardiac arrest, shortness of breath, on ventilator with increasing BUN an d creatinine and low urine output. 1. Oliguric acute renal failure, most likely secondary to multifactorial. Initial picture looks lik e prerenal. Cannot rule out progressing to acute tubular necrosis persistent prerenal. 2. Bilateral pneumonia. 3. Respiratory failure. 4. Cardiomyopathy. Discussed with the patient's daughter and agreed for the hemodialysis. Her consent obtained for dial ysis and case discussed with Dr. Pancho Noel in rounds and he will place the Damien catheter. W e will schedule for hemodialysis after Damien catheter. Thank you for allowing me to participate in your patient's care. Overall prognosis is guarded. Karen Norman MD cc: [id number] TT: 05/14/2017 10:41:42 Confirmation # [id number] Dictation # [id number] en
[2017-05-14] MEDS: Phenylephrine 30 MG in Dextrose 5% In Water 250 ML IV PRN (11:51)
--- NOTE | 2017-05-14 13:29 | CP.PCM.PN ---
Subjective - Date & Time of Evaluation Date of Evaluation: 05/14/17 Time of Evaluation: 13:29 - Subjective Subjective: AFEBRILE NO ACUTE EVENTS OVRNIGHT NOTED. ON VASOPRESSORS. GENERALIZED ANASARCA FOR HD PER NEPHROLOGY. LABS ; WBC INCREASING 20.6 THROMBOCYTOPENIA BUN 130/CREAT 4.9 ALL CULTURES -VE SO FAR. SPUTUM CULTURES -P Objective - Vital Signs/Intake and Output Vital Signs (last 24 hours): Temp Pulse Resp BP Pulse Ox 98.6 F 72 24 94/47 L 92 L 05/14/17 08:00 05/14/17 11:03 05/14/17 11:03 05/14/17 11:51 05/14/17 11:03 Intake and Output: 05/14/17 05/14/17 06:59 18:59 Intake Total 1979.8 1044.7 Output Total 120 30 Balance 1859.8 1014.7 - Medications Medications: Current Medications Acetaminophen (Tylenol 650 Mg Supp) 650 mg [place] Q6 PRN PRN Reason: for temp.=..>100.5 Last Admin: 05/11/17 17:39 Dose: 650 mg Albuterol/Ipratropium (Duoneb 3 Mg/0.5 Mg (3 Ml) Ud) 3 ml INH RQ6 ANGIE Last Admin: 05/14/17 13:21 Dose: 3 ml Norepinephrine Bitartrate 8 mg (/ Dextrose) 258 mls @ 7.74 mls/hr IV .Q24H PRN ; Protocol; 4 MCG/MIN PRN Reason: TITRATE PER MD ORDER Last Titration: 05/12/17 08:30 Dose: 0 mcg/min, 0 mls/hr Phenylephrine HCl 30 mg/ (Dextrose) 253 mls @ 10.12 mls/hr IV .Q24H PRN; Protocol; 20 MCG/MIN PRN Reason: TITRATE PER MD ORDER Last Admin: 05/14/17 11:51 Dose: 30 mcg/min, 15.18 mls/hr Dobutamine HCl/Dextrose (Dobutamine/Dextrose 5% 500mg/250ml) 500 mg in 250 mls @ 7.425 mls/hr IV .Q24H ANGIE; 2.5 MCG/KG/MIN PRN Reason: Protocol Last Admin: 05/13/17 22:20 Dose: 2.49 mcg/kg/min, 7.395 mls/hr Dexmedetomidine HCl 200 mcg/ (Sodium Chloride) 50 mls @ 4.83 mls/hr IV TITR PRN ; Protocol; 0.2 MCG/KG/HR PRN Reason: Agitation Last Admin: 05/14/17 12:45 Dose: 0.4 mcg/kg/hr, 9.66 mls/hr Sodium Chloride (Sodium Chloride 0.9%) 1,000 mls @ 50 mls/hr IV .Q20H [facility] Last Admin: 05/14/17 06:58 Dose: 50 mls/hr Tigecycline 25 mg/ Dextrose 100 mls @ 100 mls/hr IVPB 0000,1200 [facility] Last Admin: 05/14/17 12:44 Dose: 100 mls/hr Imipenem/Cilastatin Sodium 500 (mg/ Sodium Chloride) 100 mls @ 100 mls/hr IVPB 0800,2000 [facility] Last Admin: 05/14/17 07:00 Dose: 100 mls/hr Lorazepam (Ativan) 1 mg IVP Q4H PRN PRN Reason: Agitation Methylprednisolone (Solu-Medrol) 40 mg IVP Q8H [facility] Last Admin: 05/14/17 10:37 Dose: 40 mg Nystatin (Nystop Topical Powder) 1 applic TOP BID [facility] Last Admin: 05/14/17 10:38 Dose: 1 applic Pantoprazole Sodium (Protonix Inj) 40 mg IVP DAILY [facility] Last Admin: 05/14/17 10:38 Dose: 40 mg - Labs Labs: 05/14/17 06:23 05/14/17 06:23 PT 19.8 SECONDS (9.7-12.2) H 05/11/17 01:04 INR 1.7 05/11/17 01:04 APTT 34 SECONDS (21-34) 05/11/17 06:16 - Constitutional Appears: No Acute Distress - Head Exam Head Exam: NORMAL INSPECTION - Eye Exam Pupil Exam: Unequal - ENT Exam ENT Exam: Normal Oropharynx - Neck Exam Neck Exam: Normal Inspection - Respiratory Exam Respiratory Exam: Rales, Rhonchi - Cardiovascular Exam Cardiovascular Exam: Tachycardia, +S1, +S2 - GI/Abdominal Exam GI & Abdominal Exam: Soft (?ASCITES), Normal Bowel Sounds - Extremities Exam Extremities Exam: Pedal Edema. absent: Calf Tenderness - Neurological Exam Neurological Exam: Altered - Skin Skin Exam: Dry, Pallor Assessment and Plan (1) Septic shock Assessment & Plan: F/U CULTURES. DC IV PRIMAXIN IN VIEW OF INCREASING CREATININE ?SEIZURES WILL SWITCH TO IV MERREM 500MG IV Q 12HRLY FOR NOW. 05/14/17 ON IV TYGACIL FOR MRSA/AND MDR ORGS 05/13/17. F/U CULTURES. Status: Acute (2) Respiratory arrest Status: Acute (3) Acute renal insufficiency Assessment & Plan: PT FOR HD PER RENAL. Status: Acute (4) Cardiac arrest Status: Acute (5) Atrial fibrillation with RVR Status: Acute (6) Bilateral lower leg cellulitis Status: Acute (7) CHF exacerbation Status: Acute (8) COPD exacerbation Status: Acute (9) Cirrhosis of liver Status: Acute (10) Hepatitis-C Status: Acute
--- NOTE | 2017-05-14 13:48 | CP.PCM.PN ---
Subjective - Date & Time of Evaluation Date of Evaluation: 05/14/17 Time of Evaluation: 13:46 - Subjective Subjective: IN ACUTE RENAL FAILURE WITH URINE OUT PUT 240 ML IN 24 HRS AND RENAL PARAMTERS TRENDING UP FAMILY SIGNED FOR DIALYSIS CULTURES NEG SO FAR ON IV AB D/W DAUGHTER IN DETAIL PT'S CONDITION AND PROGNOSIS Objective - Vital Signs/Intake and Output Vital Signs (last 24 hours): Temp Pulse Resp BP Pulse Ox 98.6 F 72 24 94/47 L 92 L 05/14/17 08:00 05/14/17 11:03 05/14/17 11:03 05/14/17 11:51 05/14/17 11:03 Intake and Output: 05/14/17 05/14/17 11:59 23:59 Intake Total 2042.2 50 Output Total 90 Balance 1952.2 50 - Medications Medications: Current Medications Acetaminophen (Tylenol 650 Mg Supp) 650 mg [place] Q6 PRN PRN Reason: for temp.=..>100.5 Last Admin: 05/11/17 17:39 Dose: 650 mg Albuterol/Ipratropium (Duoneb 3 Mg/0.5 Mg (3 Ml) Ud) 3 ml INH RQ6 ANGIE Last Admin: 05/14/17 13:21 Dose: 3 ml Norepinephrine Bitartrate 8 mg (/ Dextrose) 258 mls @ 7.74 mls/hr IV .Q24H PRN ; Protocol; 4 MCG/MIN PRN Reason: TITRATE PER MD ORDER Last Titration: 05/12/17 08:30 Dose: 0 mcg/min, 0 mls/hr Phenylephrine HCl 30 mg/ (Dextrose) 253 mls @ 10.12 mls/hr IV .Q24H PRN; Protocol; 20 MCG/MIN PRN Reason: TITRATE PER MD ORDER Last Admin: 05/14/17 11:51 Dose: 30 mcg/min, 15.18 mls/hr Dobutamine HCl/Dextrose (Dobutamine/Dextrose 5% 500mg/250ml) 500 mg in 250 mls @ 7.425 mls/hr IV .Q24H ANGIE; 2.5 MCG/KG/MIN PRN Reason: Protocol Last Admin: 05/13/17 22:20 Dose: 2.49 mcg/kg/min, 7.395 mls/hr Dexmedetomidine HCl 200 mcg/ (Sodium Chloride) 50 mls @ 4.83 mls/hr IV TITR PRN ; Protocol; 0.2 MCG/KG/HR PRN Reason: Agitation Last Admin: 05/14/17 12:45 Dose: 0.4 mcg/kg/hr, 9.66 mls/hr Sodium Chloride (Sodium Chloride 0.9%) 1,000 mls @ 50 mls/hr IV .Q20H [facility] Last Admin: 05/14/17 06:58 Dose: 50 mls/hr Tigecycline 25 mg/ Dextrose 100 mls @ 100 mls/hr IVPB 0000,1200 [facility] Last Admin: 05/14/17 12:44 Dose: 100 mls/hr Imipenem/Cilastatin Sodium 500 (mg/ Sodium Chloride) 100 mls @ 100 mls/hr IVPB 0800,2000 [facility] Last Admin: 05/14/17 07:00 Dose: 100 mls/hr Lorazepam (Ativan) 1 mg IVP Q4H PRN PRN Reason: Agitation Methylprednisolone (Solu-Medrol) 40 mg IVP Q8H [facility] Last Admin: 05/14/17 10:37 Dose: 40 mg Nystatin (Nystop Topical Powder) 1 applic TOP BID [facility] Last Admin: 05/14/17 10:38 Dose: 1 applic Pantoprazole Sodium (Protonix Inj) 40 mg IVP DAILY [facility] Last Admin: 05/14/17 10:38 Dose: 40 mg - Labs Labs: 05/14/17 06:23 05/14/17 06:23 PT 19.8 SECONDS (9.7-12.2) H 05/11/17 01:04 INR 1.7 05/11/17 01:04 APTT 34 SECONDS (21-34) 05/11/17 06:16
--- NOTE | 2017-05-14 16:00 | RAD ---
PROCEDURE: CHEST RADIOGRAPH, 1 VIEW HISTORY: Post PICC line insertion COMPARISON: Made with chest radiograph 05/14/2017 at 0708 hours. FINDINGS: LUNGS: Current study reveals in situ ETT, the of which lies approximately 6.88 cm above wilber. NGT is present, the tip of which has not been included on this film though distal aspect does lie below EG junction. Interval placement right-sided PICC line with tip in the SVC. Patchy infiltrate changes are seen throughout the most of the right lung and left mid to lower lung field. Questionable small left-sided effusion PLEURA: No apparent pneumothorax. CARDIOVASCULAR: Marked cardiomegaly. OSSEOUS STRUCTURES: No significant abnormalities. VISUALIZED UPPER ABDOMEN: Normal. OTHER FINDINGS: None. IMPRESSION: Support lines and tubes as above. No evidence of pneumothorax. Patchy infiltrate changes throughout the most of the right lung and left mid to lower lung field. Questionable small left-sided effusion. Cardiomegaly.
[2017-05-14] MEDS: COMBIGAN OS SCH (17:42)
[2017-05-14] MEDS: Meropenem 500 MG in Sodium Chloride 0.9% 100 ML IVPB SCH (19:03)
[2017-05-14] MEDS: DOBUTamine 500mg/250ml D5W 500 MG/250 ML BAG IV SCH (22:32)
[2017-05-15] MEDS: Tigecycline 25 MG in Dextrose 5% In Water 100 ML IVPB SCH ×2 (00:12→11:45)
[2017-05-15] MEDS: Sodium Chloride 0.9% 1,000 ML IV SCH (01:15)
[2017-05-15] MEDS: Albuterol-Ipratrop 3 mg / 0.5 (3 ml) UD INH SCH ×3 (01:34→20:09)
[2017-05-15] MEDS: MethylPREDNISolone 40 mg Vial IVP SCH ×3 (02:52→18:18)
[2017-05-15] MEDS: Dexmedetomidine Hydrochloride 200 MCG in Sodium Chloride 0.9% 48 ML IV PRN (03:48)
[2017-05-15] MEDS: Phenylephrine 30 MG in Dextrose 5% In Water 250 ML IV PRN (03:50)
[2017-05-15] MEDS ORDERED: DOPamine 400mg/250ml D5W 400 MG/250 ML BAG IV ONE (05:49)
[2017-05-15 06:20] LABS: ABG MECHANICAL RATE 24; ARTERIAL BLOOD HGB O2 SAT 35.5 % (95.0-98.0); ATERIAL BLOOD GAS PEEP 5; CARBOXYHEMOGLOBIN 1.8 % (0.5-1.5); DRAW SITE R FEM; HHB 62.2 % (0.0-5.0); METHEMOGLOBIN 0.5 % (0.0-3.0)
--- NOTE | 2017-05-15 06:32 | CP.CCUPN ---
<Misael Collier - Last Filed: 05/15/17 17:50> CCU Objective - Vital Signs / Intake & Output Vital Signs (Last 4 hours): Vital Signs Pulse Resp BP Pulse Ox 05/15/17 15:07 60/30 L 05/15/17 15:06 40 L 10 L 80 L 05/15/17 14:00 41 L 7 L 80 L Intake and Output (Last 8hrs): Intake & Output 05/15/17 05/15/17 05/15/17 06:59 14:59 22:59 Intake Total 924.8 139.3 5 Output Total 110 Balance 814.8 139.3 5 Weight 217 lb Intake: IV 303 Intake, IV Amount 301.8 99.3 5 Right PICC 180.7 99.3 5 rt arm picc 69.3 rt picc 51.8 Tube Feeding 320 40 Output: Urine 110 Urethral (Corral) 110 Other: # Bowel Movements 0 0 - Medications Active Medications: Active Medications Generic Name Dose Route Start Last Admin Trade Name Freq PRN Reason Stop Dose Admin Acetaminophen 650 mg 05/11/17 17:17 05/11/17 17:39 Tylenol 650 Mg Supp W[place] 650 mg Q6 PRN Administration for temp.=..>100.5 Albuterol/Ipratropium 3 ml 05/11/17 08:00 05/15/17 08:59 Duoneb 3 Mg/0.5 Mg (3 Ml) Ud INH 3 ml RQ6 ANGIE Administration Home Med 1 drop 05/14/17 18:00 05/15/17 16:33 Patient's Own Drops OS 1 drop BID ANGIE Administration Norepinephrine Bitartrate 8 mg 258 mls @ 7.74 mls/hr 05/11/17 01:19 05/12/17 08:30 / Dextrose IV 0 mcg/min .Q24H PRN 0 mls/hr TITRATE PER MD ORDER Titration Protocol 4 MCG/MIN Phenylephrine HCl 30 mg/ 253 mls @ 10.12 mls/hr 05/11/17 18:27 05/15/17 03:50 Dextrose IV 30 mcg/min .Q24H PRN 15.18 mls/hr TITRATE PER MD ORDER Administration Protocol 20 MCG/MIN Dexmedetomidine HCl 200 mcg/ 50 mls @ 4.83 mls/hr 05/12/17 15:55 05/15/17 03: 48 Sodium Chloride IV 0.4 mcg/kg/hr TITR PRN 9.66 mls/hr Agitation Administration Protocol 0.2 MCG/KG/HR Sodium Chloride 1,000 mls @ 50 mls/hr 05/13/17 09:15 05/15/17 01:15 Sodium Chloride 0.9% IV Not Given .Q20H ANGIE Tigecycline 25 mg/ Dextrose 100 mls @ 100 mls/hr 05/14/17 00:00 05/15/17 11: 45 IVPB 100 mls/hr 0000,1200 ANGIE Administration Meropenem 500 mg/ Sodium 100 mls @ 200 mls/hr 05/14/17 20:00 05/15/17 08:26 Chloride IVPB 200 mls/hr 0800,2000 ANGIE Administration Morphine Sulfate 250 mg/ 250 mls @ 4 mls/hr 05/15/17 10:00 05/15/17 10:27 Dextrose IV 05/16/17 09:59 5 mls/hr .Q24H ONE 5 mls/hr Protocol Administration Lorazepam 1 mg 05/14/17 10:00 05/15/17 00:43 Ativan IVP 1 mg Q4H PRN Administration Agitation Methylprednisolone 40 mg 05/11/17 10:30 05/15/17 11:40 Solu-Medrol IVP 40 mg Q8H ANGIE Administration Nystatin 1 applic 05/12/17 10:00 05/15/17 11:40 Nystop Topical Powder TOP 1 applic BID ANGIE Administration Pantoprazole Sodium 40 mg 05/16/17 10:00 Protonix Susp GT DAILY ANGIE - Patient Studies Lab Studies: Microbiology Studies 05/13/17 12:19 Gram Stain - Final Trachasp Sputum Culture - Preliminary Gram Negative Gene 05/13/17 09:42 Gram Stain - Final Other: Please Indicate Wound Culture - Preliminary No growth. 05/13/17 09:41 Blood Culture - Preliminary Blood-Venous NO GROWTH AFTER 48 HOURS 05/13/17 09:41 Blood Culture - Preliminary Blood-Venous NO GROWTH AFTER 48 HOURS Lab Studies 05/15/17 05/15/17 05/15/17 Range/Units 12:19 06:51 06:43 WBC (4.8-10.8) K/uL RBC (4.40-5.90) Mil/uL Hgb (12.0-18.0) g/dL Hct (35.0-51.0) % MCV (80.0-94.0) fL MCH (27.0-31.0) pg MCHC (33.0-37.0) g/dL RDW (11.5-14.5) % Plt Count (130-400) K/uL MPV (7.2-11.7) fL Neut % (Auto) (50.0-75.0) % Lymph % (Auto) (20.0-40.0) % Edwards % (Auto) (0.0-10.0) % Eos % (Auto) (0.0-4.0) % Baso % (Auto) (0.0-2.0) % Neut # (1.8-7.0) K/uL Lymph # (1.0-4.3) K/uL Edwards # (0.0-0.8) K/uL Eos # (0.0-0.7) K/uL Baso # (0.0-0.2) K/uL Neutrophils % (Manual) (50-75) % Lymphocytes % (Manual) (20-40) % Monocytes % (Manual) (0-10) % Platelet Estimate (NORMAL) Hypochromasia (manual) Poikilocytosis (manual Anisocytosis (manual) [place] Cells Puncture Site pCO2 (35-45) mm/Hg pO2 (80-100) mm/Hg HCO3 (21-28) mmol/L ABG pH (7.35-7.45) ABG Total CO2 (22-28) mmol/L ABG O2 Saturation (95-98) % ABG Base Excess (-2.0-3.0) mmol/L ABG Hemoglobin (11.7-17.4) g/dL ABG Carboxyhemoglobin (0.5-1.5) % POC ABG HHb (Measured) (0.0-5.0) % ABG Methemoglobin (0.0-3.0) % Eris Test A-a O2 Difference mm/Hg Respiratory Index Hgb O2 Saturation (95.0-98.0) % Mechanical Rate FiO2 % Tidal Volume PEEP Crit Value Called To Crit Value Called By Crit Value Read Back Blood Gas Notified Time Sodium 132 (132-148) mmol/L Potassium 6.0 H (3.6-5.2) mmol/L Chloride 87 L (98-107) mmol/L Carbon Dioxide 31 H (22-30) mmol/L Anion Gap 20 (10-20) BUN (9-20) mg/dL Creatinine 5.0 H (0.8-1.5) MG/DL Est GFR ( Amer) 14 Est GFR (Non-Af Amer) 11 POC Glucose (mg/dL) 109 153 H (65-110) mg/dL Random Glucose 152 H (75-110) mg/dL Calcium 9.6 (8.6-10.4) mg/dl Phosphorus 9.3 H (2.5-4.5) mg/dL Magnesium 2.5 H (1.6-2.3) mg/dL Total Bilirubin 2.7 H (0.2-1.3) mg/dL AST 68 H D (17-59) U/L ALT 52 (21-72) U/L Alkaline Phosphatase 85 (38-126) U/L Total Protein 5.4 L (6.3-8.3) g/dL Albumin 2.6 L (3.5-5.0) g/dL Globulin 2.7 (2.2-3.9) gm/dL Albumin/Globulin Ratio 1.0 (1.0-2.1) 05/15/17 05/15/17 05/14/17 Range/Units 06:43 05:14 23:39 WBC 26.5 H (4.8-10.8) K/uL RBC 3.75 L (4.40-5.90) Mil/uL Hgb 11.3 L (12.0-18.0) g/dL Hct 36.2 (35.0-51.0) % MCV 96.4 H (80.0-94.0) fL MCH 30.2 (27.0-31.0) pg MCHC 31.3 L (33.0-37.0) g/dL RDW 19.9 H (11.5-14.5) % Plt Count 88 L D (130-400) K/uL MPV 10.7 (7.2-11.7) fL Neut % (Auto) 93.2 H (50.0-75.0) % Lymph % (Auto) 4.3 L (20.0-40.0) % Edwards % (Auto) 2.2 (0.0-10.0) % Eos % (Auto) 0.0 (0.0-4.0) % Baso % (Auto) 0.3 (0.0-2.0) % Neut # 24.7 H (1.8-7.0) K/uL Lymph # 1.1 (1.0-4.3) K/uL Edwards # 0.6 (0.0-0.8) K/uL Eos # 0.0 (0.0-0.7) K/uL Baso # 0.1 (0.0-0.2) K/uL Neutrophils % (Manual) 94 H (50-75) % Lymphocytes % (Manual) 3 L (20-40) % Monocytes % (Manual) 3 (0-10) % Platelet Estimate Decreased L (NORMAL) Hypochromasia (manual) Slight Poikilocytosis (manual Slight Anisocytosis (manual) Slight [place] Cells Slight Puncture Site R fem pCO2 100 H* (35-45) mm/Hg pO2 29 L* (80-100) mm/Hg HCO3 24.1 (21-28) mmol/L ABG pH 7.11 L* (7.35-7.45) ABG Total CO2 34.9 H (22-28) mmol/L ABG O2 Saturation 36.3 L (95-98) % ABG Base Excess 0.5 (-2.0-3.0) mmol/L ABG Hemoglobin 10.0 L (11.7-17.4) g/dL ABG Carboxyhemoglobin 1.8 H (0.5-1.5) % POC ABG HHb (Measured) 62.2 H (0.0-5.0) % ABG Methemoglobin 0.5 (0.0-3.0) % Eris Test Na A-a O2 Difference 559.0 mm/Hg Respiratory Index 19.3 Hgb O2 Saturation 35.5 L (95.0-98.0) % Mechanical Rate 24 FiO2 100.0 % Tidal Volume 500 PEEP 5 Crit Value Called To Dr curran Crit Value Called By Carie morgan rt Crit Value Read Back Y Blood Gas Notified Time 620 Sodium (132-148) mmol/L Potassium (3.6-5.2) mmol/L Chloride (98-107) mmol/L Carbon Dioxide (22-30) mmol/L Anion Gap (10-20) BUN (9-20) mg/dL Creatinine (0.8-1.5) MG/DL Est GFR ( Amer) Est GFR (Non-Af Amer) POC Glucose (mg/dL) 101 (65-110) mg/dL Random Glucose (75-110) mg/dL Calcium (8.6-10.4) mg/dl Phosphorus (2.5-4.5) mg/dL Magnesium (1.6-2.3) mg/dL Total Bilirubin (0.2-1.3) mg/dL AST (17-59) U/L ALT (21-72) U/L Alkaline Phosphatase (38-126) U/L Total Protein (6.3-8.3) g/dL Albumin (3.5-5.0) g/dL Globulin (2.2-3.9) gm/dL Albumin/Globulin Ratio (1.0-2.1) / Range/Units 18:11 WBC (4.8-10.8) K/uL RBC (4.40-5.90) Mil/uL Hgb (12.0-18.0) g/dL Hct (35.0-51.0) % MCV (80.0-94.0) fL MCH (27.0-31.0) pg MCHC (33.0-37.0) g/dL RDW (11.5-14.5) % Plt Count (130-400) K/uL MPV (7.2-11.7) fL Neut % (Auto) (50.0-75.0) % Lymph % (Auto) (20.0-40.0) % Edwards % (Auto) (0.0-10.0) % Eos % (Auto) (0.0-4.0) % Baso % (Auto) (0.0-2.0) % Neut # (1.8-7.0) K/uL Lymph # (1.0-4.3) K/uL Edwards # (0.0-0.8) K/uL Eos # (0.0-0.7) K/uL Baso # (0.0-0.2) K/uL Neutrophils % (Manual) (50-75) % Lymphocytes % (Manual) (20-40) % Monocytes % (Manual) (0-10) % Platelet Estimate (NORMAL) Hypochromasia (manual) Poikilocytosis (manual Anisocytosis (manual) [place] Cells Puncture Site pCO2 (35-45) mm/Hg pO2 (80-100) mm/Hg HCO3 (21-28) mmol/L ABG pH (7.35-7.45) ABG Total CO2 (22-28) mmol/L ABG O2 Saturation (95-98) % ABG Base Excess (-2.0-3.0) mmol/L ABG Hemoglobin (11.7-17.4) g/dL ABG Carboxyhemoglobin (0.5-1.5) % POC ABG HHb (Measured) (0.0-5.0) % ABG Methemoglobin (0.0-3.0) % Eris Test A-a O2 Difference mm/Hg Respiratory Index Hgb O2 Saturation (95.0-98.0) % Mechanical Rate FiO2 % Tidal Volume PEEP Crit Value Called To Crit Value Called By Crit Value Read Back Blood Gas Notified Time Sodium (132-148) mmol/L Potassium (3.6-5.2) mmol/L Chloride (98-107) mmol/L Carbon Dioxide (22-30) mmol/L Anion Gap (10-20) BUN (9-20) mg/dL Creatinine (0.8-1.5) MG/DL Est GFR ( Amer) Est GFR (Non-Af Amer) POC Glucose (mg/dL) 117 H (65-110) mg/dL Random Glucose (75-110) mg/dL Calcium (8.6-10.4) mg/dl Phosphorus (2.5-4.5) mg/dL Magnesium (1.6-2.3) mg/dL Total Bilirubin (0.2-1.3) mg/dL AST (17-59) U/L ALT (21-72) U/L Alkaline Phosphatase (38-126) U/L Total Protein (6.3-8.3) g/dL Albumin (3.5-5.0) g/dL Globulin (2.2-3.9) gm/dL Albumin/Globulin Ratio (1.0-2.1) Laboratory Results - last 24 hr 05/14/17 05/14/17 05/15/17 18:11 23:39 05:14 WBC RBC Hgb Hct MCV MCH MCHC RDW Plt Count MPV Neut % (Auto) Lymph % (Auto) Edwards % (Auto) Eos % (Auto) Baso % (Auto) Neut # Lymph # Edwards # Eos # Baso # Neutrophils % (Manual) Lymphocytes % (Manual) Monocytes % (Manual) Platelet Estimate Hypochromasia (manual) Poikilocytosis (manual Anisocytosis (manual) [place] Cells Puncture Site R fem pCO2 100 H* pO2 29 L* HCO3 24.1 ABG pH 7.11 L* ABG Total CO2 34.9 H ABG O2 Saturation 36.3 L ABG Base Excess 0.5 ABG Hemoglobin 10.0 L ABG Carboxyhemoglobin 1.8 H POC ABG HHb (Measured) 62.2 H ABG Methemoglobin 0.5 Eris Test Na A-a O2 Difference 559.0 Respiratory Index 19.3 Hgb O2 Saturation 35.5 L Mechanical Rate 24 FiO2 100.0 Tidal Volume 500 PEEP 5 Crit Value Called To Dr curran Crit Value Called By Carie morgan rt Crit Value Read Back Y Blood Gas Notified Time 620 Sodium Potassium Chloride Carbon Dioxide Anion Gap BUN Creatinine Est GFR ( Amer) Est GFR (Non-Af Amer) POC Glucose (mg/dL) 117 H 101 Random Glucose Calcium Phosphorus Magnesium Total Bilirubin AST ALT Alkaline Phosphatase Total Protein Albumin Globulin Albumin/Globulin Ratio 05/15/17 05/15/17 05/15/17 06:43 06:43 06:51 WBC 26.5 H RBC 3.75 L Hgb 11.3 L Hct 36.2 MCV 96.4 H MCH 30.2 MCHC 31.3 L RDW 19.9 H Plt Count 88 L D MPV 10.7 Neut % (Auto) 93.2 H Lymph % (Auto) 4.3 L Edwards % (Auto) 2.2 Eos % (Auto) 0.0 Baso % (Auto) 0.3 Neut # 24.7 H Lymph # 1.1 Edwards # 0.6 Eos # 0.0 Baso # 0.1 Neutrophils % (Manual) 94 H Lymphocytes % (Manual) 3 L Monocytes % (Manual) 3 Platelet Estimate Decreased L Hypochromasia (manual) Slight Poikilocytosis (manual Slight Anisocytosis (manual) Slight [place] Cells Slight Puncture Site pCO2 pO2 HCO3 ABG pH ABG Total CO2 ABG O2 Saturation ABG Base Excess ABG Hemoglobin ABG Carboxyhemoglobin POC ABG HHb (Measured) ABG Methemoglobin Eris Test A-a O2 Difference Respiratory Index Hgb O2 Saturation Mechanical Rate FiO2 Tidal Volume PEEP Crit Value Called To Crit Value Called By Crit Value Read Back Blood Gas Notified Time Sodium 132 Potassium 6.0 H Chloride 87 L Carbon Dioxide 31 H Anion Gap 20 BUN Creatinine 5.0 H Est GFR ( Amer) 14 Est GFR (Non-Af Amer) 11 POC Glucose (mg/dL) 153 H Random Glucose 152 H Calcium 9.6 Phosphorus 9.3 H Magnesium 2.5 H Total Bilirubin 2.7 H AST 68 H D ALT 52 Alkaline Phosphatase 85 Total Protein 5.4 L Albumin 2.6 L Globulin 2.7 Albumin/Globulin Ratio 1.0 05/15/17 12:19 WBC RBC Hgb Hct MCV MCH MCHC RDW Plt Count MPV Neut % (Auto) Lymph % (Auto) Edwards % (Auto) Eos % (Auto) Baso % (Auto) Neut # Lymph # Edwards # Eos # Baso # Neutrophils % (Manual) Lymphocytes % (Manual) Monocytes % (Manual) Platelet Estimate Hypochromasia (manual) Poikilocytosis (manual Anisocytosis (manual) [place] Cells Puncture Site pCO2 pO2 HCO3 ABG pH ABG Total CO2 ABG O2 Saturation ABG Base Excess ABG Hemoglobin ABG Carboxyhemoglobin POC ABG HHb (Measured) ABG Methemoglobin Eris Test A-a O2 Difference Respiratory Index Hgb O2 Saturation Mechanical Rate FiO2 Tidal Volume PEEP Crit Value Called To Crit Value Called By Crit Value Read Back Blood Gas Notified Time Sodium Potassium Chloride Carbon Dioxide Anion Gap BUN Creatinine Est GFR ( Amer) Est GFR (Non-Af Amer) POC Glucose (mg/dL) 109 Random Glucose Calcium Phosphorus Magnesium Total Bilirubin AST ALT Alkaline Phosphatase Total Protein Albumin Globulin Albumin/Globulin Ratio Attending/Attestation - Attestation I have personally seen and examined this patient.: Yes I have fully participated in the care of the patient.: Yes I have reviewed all pertinent clinical information: Yes Notes (Text): 05/15/17 17:51 I have seen and examined the patient. Medical records, lab studies, and imaging were reviewed by me and a management plan was formulated on multidisciplinary rounds with resident Dr. Benitez. I agree with their above documented assessment and plan. Patient had two cardiac arrests today with successful ROSC each time. No further attempts at resuscitation will be made as it is medically futile. Daughter is at bedside and she is awaiting the arrival of the rest of her family. Patient is being made comfortable with a morphine drip. Critical Care Time 35 minutes. Multi-disciplinary rounds were performed with house staff, nursing, speech therapy, respiratory therapy, pharmacy and nutrition with integrated input from the primary team/attending and other consulting services. The documented time is cumulative and includes review of patient data/exams/labs/chart review and examination of the patient on rounds and throughout the day; time is exclusive of any procedures or teaching time. <Libia Benitez - Last Filed: 05/15/17 19:04> CCU Subjective - Physician Review Subjective (Free Text): 05/15/17 07:40 Code Blue called at 7:20am ACLS protocol was started immediately CPR was started 1 epi given 7:23am 1 bicarb given 7:26am 1 epi given 7:28am 1 epi given 7:31am Patient had a shockable rhythm and was shocked at 7:32am Patient was in PEA at 7:35am ROSC achieved at 7:36am CCU Objective - Vital Signs / Intake & Output Vital Signs (Last 4 hours): Vital Signs Temp Pulse Resp BP Pulse Ox 05/15/17 04:16 91 H 24 106/54 L 86 L 05/15/17 04:00 98.2 F 85 25 H 91 L 05/15/17 03:50 105/57 L 05/15/17 03:46 86 25 H 105/57 L 91 L 05/15/17 03:16 78 23 109/56 L 91 L 05/15/17 03:00 76 21 92 L 05/15/17 02:46 77 24 114/55 L 95 Intake and Output (Last 8hrs): Intake & Output 05/14/17 05/14/17 05/15/17 14:59 22:59 06:59 Intake Total 1491.6 2114.8 738.0 Output Total 130 100 80 Balance 1361.6 2014.8 658.0 Intake: IV 303 100 303 Intake, IV Amount 808.6 958.8 195.0 Medial Port 59.2 44.4 Proximal Port 77.8 58.2 Right PICC 30.4 91.2 proximal port /distal 121.6 91.2 port right hand 550 700 rt arm picc 19.8 59.4 rt picc 14.8 44.4 Oral 60 70 Tube Feeding 320 320 240 Blood Product 596 Apheresis Plts Acda Lr 596 Irr Unit [id number] Other 70 Apheresis Plts Acda Lr 70 Irr Unit [id number] Output: Urine 130 100 80 Urethral (Corral) 130 100 80 Other: # Bowel Movements 0 0 0 - Physical Exam Head: Positive for: Atraumatic, Normocephalic Pupils: Positive for: PERRL Conjunctiva: Positive for: Normal. Negative for: Injected, Icteric Respiratory/Chest: Positive for: Rales (diffuse b/l), Other (vent sounds heard throughout) Cardiovascular: Positive for: Regular Rate and Rhythm, Normal S1, S2. Negative for: Murmurs Abdomen: Positive for: Normal Bowel Sounds. Negative for: Tenderness Lower Extremity: Positive for: Edema Neurological: Negative for: CN II-XII Intact, Speech Normal Skin: Positive for: Dry Psychiatric: Positive for: Alert. Negative for: Oriented x 3 - Medications Active Medications: Active Medications Generic Name Dose Route Start Last Admin Trade Name Freq PRN Reason Stop Dose Admin Acetaminophen 650 mg 05/11/17 17:17 05/11/17 17:39 Tylenol 650 Mg Supp WY 650 mg Q6 PRN Administration for temp.=..>100.5 Albuterol/Ipratropium 3 ml 05/11/17 08:00 05/15/17 01:34 Duoneb 3 Mg/0.5 Mg (3 Ml) Ud INH 3 ml RQ6 ANGIE Administration Home Med 1 drop 05/14/17 18:00 05/14/17 17:42 Patient's Own Drops OS 1 drop BID ANGIE Administration Norepinephrine Bitartrate 8 mg 258 mls @ 7.74 mls/hr 05/11/17 01:19 05/12/17 08:30 / Dextrose IV 0 mcg/min .Q24H PRN 0 mls/hr TITRATE PER MD ORDER Titration Protocol 4 MCG/MIN Phenylephrine HCl 30 mg/ 253 mls @ 10.12 mls/hr 05/11/17 18:27 05/15/17 03:50 Dextrose IV 30 mcg/min .Q24H PRN 15.18 mls/hr TITRATE PER MD ORDER Administration Protocol 20 MCG/MIN Dexmedetomidine HCl 200 mcg/ 50 mls @ 4.83 mls/hr 05/12/17 15:55 05/15/17 03: 48 Sodium Chloride IV 0.4 mcg/kg/hr TITR PRN 9.66 mls/hr Agitation Administration Protocol 0.2 MCG/KG/HR Sodium Chloride 1,000 mls @ 50 mls/hr 05/13/17 09:15 05/15/17 01:15 Sodium Chloride 0.9% IV Not Given .Q20H ANGIE Tigecycline 25 mg/ Dextrose 100 mls @ 100 mls/hr 05/14/17 00:00 05/15/17 00: 12 IVPB 100 mls/hr 0000,1200 ANGIE Administration Meropenem 500 mg/ Sodium 100 mls @ 200 mls/hr 05/14/17 20:00 05/14/17 19:03 Chloride IVPB 200 mls/hr 0800,2000 ANGIE Administration Lorazepam 1 mg 05/14/17 10:00 05/15/17 00:43 Ativan IVP 1 mg Q4H PRN Administration Agitation Methylprednisolone 40 mg 05/11/17 10:30 05/15/17 02:52 Solu-Medrol IVP 40 mg Q8H ANGIE Administration Nystatin 1 applic 05/12/17 10:00 05/14/17 17:39 Nystop Topical Powder TOP 1 applic BID ANGIE Administration Pantoprazole Sodium 40 mg 05/11/17 10:00 05/14/17 10:38 Protonix Inj IVP 40 mg DAILY ANGIE Administration - Patient Studies Lab Studies: Microbiology Studies 05/13/17 09:41 Blood Culture - Preliminary Blood-Venous NO GROWTH AFTER 24 HOURS 05/13/17 09:41 Blood Culture - Preliminary Blood-Venous NO GROWTH AFTER 24 HOURS 05/13/17 09:42 Gram Stain - Final Other: Please Indicate Wound Culture - Preliminary NO GROWTH AFTER 24 HOURS 05/13/17 09:45 Urine Culture - Final Urine,Corral No Growth (<1,000 CFU/ML) Lab Studies 05/15/17 05/14/17 05/14/17 Range/Units 05:14 23:39 18:11 WBC (4.8-10.8) K/uL RBC (4.40-5.90) Mil/uL Hgb (12.0-18.0) g/dL Hct (35.0-51.0) % MCV (80.0-94.0) fL MCH (27.0-31.0) pg MCHC (33.0-37.0) g/dL RDW (11.5-14.5) % Plt Count (130-400) K/uL MPV (7.2-11.7) fL Neut % (Auto) (50.0-75.0) % Lymph % (Auto) (20.0-40.0) % Edwards % (Auto) (0.0-10.0) % Eos % (Auto) (0.0-4.0) % Baso % (Auto) (0.0-2.0) % Neut # (1.8-7.0) K/uL Lymph # (1.0-4.3) K/uL Edwards # (0.0-0.8) K/uL Eos # (0.0-0.7) K/uL Baso # (0.0-0.2) K/uL Neutrophils % (Manual) (50-75) % Band Neutrophils % (0-2) % Lymphocytes % (Manual) (20-40) % Monocytes % (Manual) (0-10) % Nucleated RBC % (0-0) % Platelet Estimate (NORMAL) Hypochromasia (manual) Poikilocytosis (manual Anisocytosis (manual) Macrocytosis (manual) Puncture Site R fem pCO2 100 H* (35-45) mm/Hg pO2 29 L* (80-100) mm/Hg HCO3 24.1 (21-28) mmol/L ABG pH 7.11 L* (7.35-7.45) ABG Total CO2 34.9 H (22-28) mmol/L ABG O2 Saturation 36.3 L (95-98) % ABG Base Excess 0.5 (-2.0-3.0) mmol/L ABG Hemoglobin 10.0 L (11.7-17.4) g/dL ABG Carboxyhemoglobin 1.8 H (0.5-1.5) % POC ABG HHb (Measured) 62.2 H (0.0-5.0) % ABG Methemoglobin 0.5 (0.0-3.0) % Eris Test Na A-a O2 Difference 559.0 mm/Hg Respiratory Index 19.3 Hgb O2 Saturation 35.5 L (95.0-98.0) % Vent Mode Mechanical Rate 24 FiO2 100.0 % Tidal Volume 500 PEEP 5 Crit Value Called To Dr curran Crit Value Called By Carie morgan rt Crit Value Read Back Y Blood Gas Notified Time 620 Sodium (132-148) mmol/L Potassium (3.6-5.2) mmol/L Chloride (98-107) mmol/L Carbon Dioxide (22-30) mmol/L Anion Gap (10-20) BUN (9-20) mg/dL Creatinine (0.8-1.5) MG/DL Est GFR ( Amer) Est GFR (Non-Af Amer) POC Glucose (mg/dL) 101 117 H (65-110) mg/dL Random Glucose (75-110) mg/dL Calcium (8.6-10.4) mg/dl Phosphorus (2.5-4.5) mg/dL Magnesium (1.6-2.3) mg/dL Total Bilirubin (0.2-1.3) mg/dL AST (17-59) U/L ALT (21-72) U/L Alkaline Phosphatase (38-126) U/L Total Protein (6.3-8.3) g/dL Albumin (3.5-5.0) g/dL Globulin (2.2-3.9) gm/dL Albumin/Globulin Ratio (1.0-2.1) Urine Chloride (32-290) mmol/L Hep Bs Antigen (NEGATIVE) Hep Bs Antibody (NEGATIVE) Hep B Core IgM Ab (NEGATIVE) Hepatitis C Antibody (NEGATIVE) Blood Type Antibody Screen 05/14/17 05/14/17 05/14/17 Range/Units 12:33 11:17 10:54 WBC (4.8-10.8) K/uL RBC (4.40-5.90) Mil/uL Hgb (12.0-18.0) g/dL Hct (35.0-51.0) % MCV (80.0-94.0) fL MCH (27.0-31.0) pg MCHC (33.0-37.0) g/dL RDW (11.5-14.5) % Plt Count (130-400) K/uL MPV (7.2-11.7) fL Neut % (Auto) (50.0-75.0) % Lymph % (Auto) (20.0-40.0) % Edwards % (Auto) (0.0-10.0) % Eos % (Auto) (0.0-4.0) % Baso % (Auto) (0.0-2.0) % Neut # (1.8-7.0) K/uL Lymph # (1.0-4.3) K/uL Edwards # (0.0-0.8) K/uL Eos # (0.0-0.7) K/uL Baso # (0.0-0.2) K/uL Neutrophils % (Manual) (50-75) % Band Neutrophils % (0-2) % Lymphocytes % (Manual) (20-40) % Monocytes % (Manual) (0-10) % Nucleated RBC % (0-0) % Platelet Estimate (NORMAL) Hypochromasia (manual) Poikilocytosis (manual Anisocytosis (manual) Macrocytosis (manual) Puncture Site pCO2 (35-45) mm/Hg pO2 (80-100) mm/Hg HCO3 (21-28) mmol/L ABG pH (7.35-7.45) ABG Total CO2 (22-28) mmol/L ABG O2 Saturation (95-98) % ABG Base Excess (-2.0-3.0) mmol/L ABG Hemoglobin (11.7-17.4) g/dL ABG Carboxyhemoglobin (0.5-1.5) % POC ABG HHb (Measured) (0.0-5.0) % ABG Methemoglobin (0.0-3.0) % Eris Test A-a O2 Difference mm/Hg Respiratory Index Hgb O2 Saturation (95.0-98.0) % Vent Mode Mechanical Rate FiO2 % Tidal Volume PEEP Crit Value Called To Crit Value Called By Crit Value Read Back Blood Gas Notified Time Sodium (132-148) mmol/L Potassium (3.6-5.2) mmol/L Chloride (98-107) mmol/L Carbon Dioxide (22-30) mmol/L Anion Gap (10-20) BUN (9-20) mg/dL Creatinine (0.8-1.5) MG/DL Est GFR ( Amer) Est GFR (Non-Af Amer) POC Glucose (mg/dL) 152 H (65-110) mg/dL Random Glucose (75-110) mg/dL Calcium (8.6-10.4) mg/dl Phosphorus (2.5-4.5) mg/dL Magnesium (1.6-2.3) mg/dL Total Bilirubin (0.2-1.3) mg/dL AST (17-59) U/L ALT (21-72) U/L Alkaline Phosphatase (38-126) U/L Total Protein (6.3-8.3) g/dL Albumin (3.5-5.0) g/dL Globulin (2.2-3.9) gm/dL Albumin/Globulin Ratio (1.0-2.1) Urine Chloride (32-290) mmol/L Hep Bs Antigen (NEGATIVE) Hep Bs Antibody Negative (NEGATIVE) Hep B Core IgM Ab (NEGATIVE) Hepatitis C Antibody (NEGATIVE) Blood Type O POSITIVE Antibody Screen Negative 05/14/17 05/14/17 05/14/17 Range/Units 10:54 06:46 06:23 WBC (4.8-10.8) K/uL RBC (4.40-5.90) Mil/uL Hgb (12.0-18.0) g/dL Hct (35.0-51.0) % MCV (80.0-94.0) fL MCH (27.0-31.0) pg MCHC (33.0-37.0) g/dL RDW (11.5-14.5) % Plt Count (130-400) K/uL MPV (7.2-11.7) fL Neut % (Auto) (50.0-75.0) % Lymph % (Auto) (20.0-40.0) % Edwards % (Auto) (0.0-10.0) % Eos % (Auto) (0.0-4.0) % Baso % (Auto) (0.0-2.0) % Neut # (1.8-7.0) K/uL Lymph # (1.0-4.3) K/uL Edwards # (0.0-0.8) K/uL Eos # (0.0-0.7) K/uL Baso # (0.0-0.2) K/uL Neutrophils % (Manual) (50-75) % Band Neutrophils % (0-2) % Lymphocytes % (Manual) (20-40) % Monocytes % (Manual) (0-10) % Nucleated RBC % (0-0) % Platelet Estimate (NORMAL) Hypochromasia (manual) Poikilocytosis (manual Anisocytosis (manual) Macrocytosis (manual) Puncture Site pCO2 (35-45) mm/Hg pO2 (80-100) mm/Hg HCO3 (21-28) mmol/L ABG pH (7.35-7.45) ABG Total CO2 (22-28) mmol/L ABG O2 Saturation (95-98) % ABG Base Excess (-2.0-3.0) mmol/L ABG Hemoglobin (11.7-17.4) g/dL ABG Carboxyhemoglobin (0.5-1.5) % POC ABG HHb (Measured) (0.0-5.0) % ABG Methemoglobin (0.0-3.0) % Eris Test A-a O2 Difference mm/Hg Respiratory Index Hgb O2 Saturation (95.0-98.0) % Vent Mode Mechanical Rate FiO2 % Tidal Volume PEEP Crit Value Called To Crit Value Called By Crit Value Read Back Blood Gas Notified Time Sodium 131 L (132-148) mmol/L Potassium 5.3 H (3.6-5.2) mmol/L Chloride 84 L (98-107) mmol/L Carbon Dioxide 30 (22-30) mmol/L Anion Gap 22 H (10-20) BUN 130 H* (9-20) mg/dL Creatinine 4.9 H (0.8-1.5) MG/DL Est GFR ( Amer) 14 Est GFR (Non-Af Amer) 12 POC Glucose (mg/dL) 126 H (65-110) mg/dL Random Glucose 101 (75-110) mg/dL Calcium 7.0 L (8.6-10.4) mg/dl Phosphorus 5.8 H (2.5-4.5) mg/dL Magnesium 2.3 (1.6-2.3) mg/dL Total Bilirubin 2.9 H (0.2-1.3) mg/dL AST 87 H D (17-59) U/L ALT 90 H (21-72) U/L Alkaline Phosphatase 81 (38-126) U/L Total Protein 5.7 L (6.3-8.3) g/dL Albumin 2.7 L (3.5-5.0) g/dL Globulin 3.0 (2.2-3.9) gm/dL Albumin/Globulin Ratio 0.9 L (1.0-2.1) Urine Chloride (32-290) mmol/L Hep Bs Antigen Negative (NEGATIVE) Hep Bs Antibody (NEGATIVE) Hep B Core IgM Ab Negative (NEGATIVE) Hepatitis C Antibody Reactive H (NEGATIVE) Blood Type Antibody Screen 05/14/17 05/14/17 05/13/17 Range/Units 06:23 05:08 03:54 WBC 20.6 H (4.8-10.8) K/uL RBC 3.97 L (4.40-5.90) Mil/uL Hgb 11.7 L (12.0-18.0) g/dL Hct 38.0 (35.0-51.0) % MCV 95.8 H D (80.0-94.0) fL MCH 29.6 (27.0-31.0) pg MCHC 30.9 L (33.0-37.0) g/dL RDW 19.3 H (11.5-14.5) % Plt Count 50 L (130-400) K/uL MPV 10.7 (7.2-11.7) fL Neut % (Auto) 92.0 H (50.0-75.0) % Lymph % (Auto) 4.0 L (20.0-40.0) % Edwards % (Auto) 4.0 (0.0-10.0) % Eos % (Auto) 0.0 (0.0-4.0) % Baso % (Auto) 0.0 (0.0-2.0) % Neut # 18.9 H (1.8-7.0) K/uL Lymph # 0.8 L (1.0-4.3) K/uL Edwards # 0.8 (0.0-0.8) K/uL Eos # 0.0 (0.0-0.7) K/uL Baso # 0.0 (0.0-0.2) K/uL Neutrophils % (Manual) 93 H (50-75) % Band Neutrophils % 1 (0-2) % Lymphocytes % (Manual) 2 L (20-40) % Monocytes % (Manual) 4 (0-10) % Nucleated RBC % 1 H (0-0) % Platelet Estimate Decreased L (NORMAL) Hypochromasia (manual) Slight Poikilocytosis (manual Slight Anisocytosis (manual) Slight Macrocytosis (manual) Slight Puncture Site Lr pCO2 64 H (35-45) mm/Hg pO2 43 L* (80-100) mm/Hg HCO3 26.5 (21-28) mmol/L ABG pH 7.29 L (7.35-7.45) ABG Total CO2 32.8 H (22-28) mmol/L ABG O2 Saturation 73.1 L (95-98) % ABG Base Excess 2.8 (-2.0-3.0) mmol/L ABG Hemoglobin 11.6 L (11.7-17.4) g/dL ABG Carboxyhemoglobin 1.6 H (0.5-1.5) % POC ABG HHb (Measured) 26.1 H (0.0-5.0) % ABG Methemoglobin 1.3 (0.0-3.0) % Eris Test A-a O2 Difference 590.0 mm/Hg Respiratory Index 13.7 Hgb O2 Saturation 71.0 L (95.0-98.0) % Vent Mode Ac Mechanical Rate 24 FiO2 100 % Tidal Volume PEEP 5 Crit Value Called To Mauricio rn Crit Value Called By Isaac vaca rt Crit Value Read Back Yes Blood Gas Notified Time 627 Sodium (132-148) mmol/L Potassium (3.6-5.2) mmol/L Chloride (98-107) mmol/L Carbon Dioxide (22-30) mmol/L Anion Gap (10-20) BUN (9-20) mg/dL Creatinine (0.8-1.5) MG/DL Est GFR ( Amer) Est GFR (Non-Af Amer) POC Glucose (mg/dL) (65-110) mg/dL Random Glucose (75-110) mg/dL Calcium (8.6-10.4) mg/dl Phosphorus (2.5-4.5) mg/dL Magnesium (1.6-2.3) mg/dL Total Bilirubin (0.2-1.3) mg/dL AST (17-59) U/L ALT (21-72) U/L Alkaline Phosphatase (38-126) U/L Total Protein (6.3-8.3) g/dL Albumin (3.5-5.0) g/dL Globulin (2.2-3.9) gm/dL Albumin/Globulin Ratio (1.0-2.1) Urine Chloride 21 L (32-290) mmol/L Hep Bs Antigen (NEGATIVE) Hep Bs Antibody (NEGATIVE) Hep B Core IgM Ab (NEGATIVE) Hepatitis C Antibody (NEGATIVE) Blood Type Antibody Screen Laboratory Results - last 24 hr 05/13/17 05/14/17 05/14/17 03:54 05:08 06:23 WBC 20.6 H RBC 3.97 L Hgb 11.7 L Hct 38.0 MCV 95.8 H D MCH 29.6 MCHC 30.9 L RDW 19.3 H Plt Count 50 L MPV 10.7 Neut % (Auto) 92.0 H Lymph % (Auto) 4.0 L Edwards % (Auto) 4.0 Eos % (Auto) 0.0 Baso % (Auto) 0.0 Neut # 18.9 H Lymph # 0.8 L Edwards # 0.8 Eos # 0.0 Baso # 0.0 Neutrophils % (Manual) 93 H Band Neutrophils % 1 Lymphocytes % (Manual) 2 L Monocytes % (Manual) 4 Nucleated RBC % 1 H Platelet Estimate Decreased L Hypochromasia (manual) Slight Poikilocytosis (manual Slight Anisocytosis (manual) Slight Macrocytosis (manual) Slight Puncture Site Lr pCO2 64 H pO2 43 L* HCO3 26.5 ABG pH 7.29 L ABG Total CO2 32.8 H ABG O2 Saturation 73.1 L ABG Base Excess 2.8 ABG Hemoglobin 11.6 L ABG Carboxyhemoglobin 1.6 H POC ABG HHb (Measured) 26.1 H ABG Methemoglobin 1.3 Eris Test A-a O2 Difference 590.0 Respiratory Index 13.7 Hgb O2 Saturation 71.0 L Vent Mode Ac Mechanical Rate 24 FiO2 100 Tidal Volume PEEP 5 Crit Value Called To Mauricio rn Crit Value Called By Isaac vaca rt Crit Value Read Back Yes Blood Gas Notified Time 627 Sodium Potassium Chloride Carbon Dioxide Anion Gap BUN Creatinine Est GFR ( Amer) Est GFR (Non-Af Amer) POC Glucose (mg/dL) Random Glucose Calcium Phosphorus Magnesium Total Bilirubin AST ALT Alkaline Phosphatase Total Protein Albumin Globulin Albumin/Globulin Ratio Urine Chloride 21 L Hep Bs Antigen Hep Bs Antibody Hep B Core IgM Ab Hepatitis C Antibody Blood Type Antibody Screen 05/14/17 05/14/17 05/14/17 06:23 06:46 10:54 WBC RBC Hgb Hct MCV MCH MCHC RDW Plt Count MPV Neut % (Auto) Lymph % (Auto) Edwards % (Auto) Eos % (Auto) Baso % (Auto) Neut # Lymph # Edwards # Eos # Baso # Neutrophils % (Manual) Band Neutrophils % Lymphocytes % (Manual) Monocytes % (Manual) Nucleated RBC % Platelet Estimate Hypochromasia (manual) Poikilocytosis (manual Anisocytosis (manual) Macrocytosis (manual) Puncture Site pCO2 pO2 HCO3 ABG pH ABG Total CO2 ABG O2 Saturation ABG Base Excess ABG Hemoglobin ABG Carboxyhemoglobin POC ABG HHb (Measured) ABG Methemoglobin Eris Test A-a O2 Difference Respiratory Index Hgb O2 Saturation Vent Mode Mechanical Rate FiO2 Tidal Volume PEEP Crit Value Called To Crit Value Called By Crit Value Read Back Blood Gas Notified Time Sodium 131 L Potassium 5.3 H Chloride 84 L Carbon Dioxide 30 Anion Gap 22 H BUN 130 H* Creatinine 4.9 H Est GFR ( Amer) 14 Est GFR (Non-Af Amer) 12 POC Glucose (mg/dL) 126 H Random Glucose 101 Calcium 7.0 L Phosphorus 5.8 H Magnesium 2.3 Total Bilirubin 2.9 H AST 87 H D ALT 90 H Alkaline Phosphatase 81 Total Protein 5.7 L Albumin 2.7 L Globulin 3.0 Albumin/Globulin Ratio 0.9 L Urine Chloride Hep Bs Antigen Negative Hep Bs Antibody Hep B Core IgM Ab Negative Hepatitis C Antibody Reactive H Blood Type Antibody Screen 05/14/17 05/14/17 05/14/17 10:54 11:17 12:33 WBC RBC Hgb Hct MCV MCH MCHC RDW Plt Count MPV Neut % (Auto) Lymph % (Auto) Edwards % (Auto) Eos % (Auto) Baso % (Auto) Neut # Lymph # Edwards # Eos # Baso # Neutrophils % (Manual) Band Neutrophils % Lymphocytes % (Manual) Monocytes % (Manual) Nucleated RBC % Platelet Estimate Hypochromasia (manual) Poikilocytosis (manual Anisocytosis (manual) Macrocytosis (manual) Puncture Site pCO2 pO2 HCO3 ABG pH ABG Total CO2 ABG O2 Saturation ABG Base Excess ABG Hemoglobin ABG Carboxyhemoglobin POC ABG HHb (Measured) ABG Methemoglobin Eris Test A-a O2 Difference Respiratory Index Hgb O2 Saturation Vent Mode Mechanical Rate FiO2 Tidal Volume PEEP Crit Value Called To Crit Value Called By Crit Value Read Back Blood Gas Notified Time Sodium Potassium Chloride Carbon Dioxide Anion Gap BUN Creatinine Est GFR ( Amer) Est GFR (Non-Af Amer) POC Glucose (mg/dL) 152 H Random Glucose Calcium Phosphorus Magnesium Total Bilirubin AST ALT Alkaline Phosphatase Total Protein Albumin Globulin Albumin/Globulin Ratio Urine Chloride Hep Bs Antigen Hep Bs Antibody Negative Hep B Core IgM Ab Hepatitis C Antibody Blood Type O POSITIVE Antibody Screen Negative 05/14/17 05/14/17 05/15/17 18:11 23:39 05:14 WBC RBC Hgb Hct MCV MCH MCHC RDW Plt Count MPV Neut % (Auto) Lymph % (Auto) Edwards % (Auto) Eos % (Auto) Baso % (Auto) Neut # Lymph # Edwards # Eos # Baso # Neutrophils % (Manual) Band Neutrophils % Lymphocytes % (Manual) Monocytes % (Manual) Nucleated RBC % Platelet Estimate Hypochromasia (manual) Poikilocytosis (manual Anisocytosis (manual) Macrocytosis (manual) Puncture Site R fem pCO2 100 H* pO2 29 L* HCO3 24.1 ABG pH 7.11 L* ABG Total CO2 34.9 H ABG O2 Saturation 36.3 L ABG Base Excess 0.5 ABG Hemoglobin 10.0 L ABG Carboxyhemoglobin 1.8 H POC ABG HHb (Measured) 62.2 H ABG Methemoglobin 0.5 Eris Test Na A-a O2 Difference 559.0 Respiratory Index 19.3 Hgb O2 Saturation 35.5 L Vent Mode Mechanical Rate 24 FiO2 100.0 Tidal Volume 500 PEEP 5 Crit Value Called To Dr curran Crit Value Called By Carie morgan rt Crit Value Read Back Y Blood Gas Notified Time 620 Sodium Potassium Chloride Carbon Dioxide Anion Gap BUN Creatinine Est GFR ( Amer) Est GFR (Non-Af Amer) POC Glucose (mg/dL) 117 H 101 Random Glucose Calcium Phosphorus Magnesium Total Bilirubin AST ALT Alkaline Phosphatase Total Protein Albumin Globulin Albumin/Globulin Ratio Urine Chloride Hep Bs Antigen Hep Bs Antibody Hep B Core IgM Ab Hepatitis C Antibody Blood Type Antibody Screen Fingerstick Blood Sugar Results: 101 Review of Systems - Review of Systems Systems not reviewed;Unavailable: Acuity of Condition Assessment/Plan - Assessment and Plan (Free Text) Assessment: 72M PMHx COPD, Heart failure, Afib, Liver disease, Pulm HTN, Chronic b/l venous ulcers, venous stasis multiple hospitalizations with sepsis and infection admitted s/p cardiac arrest at home Plan: Neuro: -s/p cardiac arrest- multiorgan failure -Patient coded twice today 05/15 -Ativan 1mg ivp q4 prn -Morphine gtt Pulm: -s/p cardiac arrest with Respiratory failure intubated on vent (24, 100, 500, 5) -b/l pneumonia -hx of COPD -05/13 CXR no interval change -05/11 CXR persistent severe cardiomegaly and interval worsening of pulm venous congestion -Duoneb 3ml inh q6 -Solumedrol 40mg ivp q8 Cardiovascular: -sp cardiac arrest -Patient coded twice today 05/15 -NS @ 50cc/hr Heme: -anemia of chronic disease -Monitor Renal: -Oliguric JOHNIE/ARF likely secondary to ATN likely secondary to sepsis, acute MO, poor LV function -Monitor Endo: -no acute issues GI: -Abnl LFTS- likely shock liver secondary to hypotension and hypoperfusion AST 137 ALT 100 ID: -Procalcitonin 2.63 -Tylenol 650mg pr q6 prn temp > 100.5F -Tigecycline 25mg ivpb q12 -wound culture (05/13/17): no growth x 24 hrs -blood cluture (05/13/17): no growth x 24 hrs x 2 -sputum culture (05/13/17): pending, f/u -urine culture (05/13/17): no growth x 24 hrs DVT proph: Heparin 5000u sc q12, SCDs GI proph: Protonix 40mg gt daily Code status: full code Pall care on board Case discussed with Dr. Amira Benitez PGY2
[2017-05-15 06:46] LABS: BASO # 0.1 K/uL (0.0-0.2); BASO % 0.3 % (0.0-2.0); HEMATOCRIT 36.2 % (35.0-51.0); LYMPH # 1.1 K/uL (1.0-4.3); LYMPH % 4.3 % (20.0-40.0); MEAN CELL VOLUME 96.4 fL (80.0-94.0); MEAN CORPUSCULAR HEMOGLOBIN 30.2 pg (27.0-31.0); MEAN CORPUSCULAR HGB CONC 31.3 g/dL (33.0-37.0); MEAN PLATELET VOLUME 10.7 fL (7.2-11.7); MONO # 0.6 K/uL (0.0-0.8); MONO % 2.2 % (0.0-10.0); NRBC % 0.8 % (0.0-2.0); PLATELET COUNT 88 K/uL (130-400); RED CELL DISTRIBUTION WIDTH 19.9 % (11.5-14.5); WHITE BLOOD COUNT 26.5 K/uL (4.8-10.8)
[2017-05-15 07:19] LABS: BILIRUBIN,TOTAL 2.7 mg/dL (0.2-1.3); PHOSPHOROUS 9.3 mg/dL (2.5-4.5); TOTAL PROTEIN 5.4 g/dL (6.3-8.3)
[2017-05-15 07:20] LABS: CALCIUM 9.6 mg/dl (8.6-10.4); MAGNESIUM 2.5 mg/dL (1.6-2.3)
[2017-05-15] MEDS ORDERED: DOPamine 400mg/250ml D5W IV ONE (07:20)
[2017-05-15] MEDS ORDERED: Sodium Bicarbonate (8.4%) 50 Meq Syringe ONE (07:27)
[2017-05-15] MEDS: Meropenem 500 MG in Sodium Chloride 0.9% 100 ML IVPB SCH (08:26)
[2017-05-15 08:30] LABS: NEUTROPHIL 94 % (50-75); TOTAL CELLS COUNTED 100
[2017-05-15] MEDS ORDERED: Morphine Sulfate 250 MG in Dextrose 5% In Water 240 ML IV ONE (10:00)
--- NOTE | 2017-05-15 13:16 | CP.PCM.PN ---
Subjective - Date & Time of Evaluation Date of Evaluation: 05/15/17 Time of Evaluation: 13:13 - Subjective Subjective: PT WAS CODED WITH ROSC LOW BP WITH LOW URINE OUT PUT LABS : RENAL FAILURE DETERIORATING WILL D/W FAMILY Objective - Vital Signs/Intake and Output Vital Signs (last 24 hours): Temp Pulse Resp BP Pulse Ox 97.5 F L 40 L 20 57/29 L 80 L 05/15/17 12:00 05/15/17 12:09 05/15/17 12:09 05/15/17 12:09 05/15/17 12:09 Intake and Output: 05/15/17 05/15/17 11:59 23:59 Intake Total 976.6 5 Output Total 95 Balance 881.6 5 - Medications Medications: Current Medications Acetaminophen (Tylenol 650 Mg Supp) 650 mg RI Q6 PRN PRN Reason: for temp.=..>100.5 Last Admin: 05/11/17 17:39 Dose: 650 mg Albuterol/Ipratropium (Duoneb 3 Mg/0.5 Mg (3 Ml) Ud) 3 ml INH RQ6 ANGIE Last Admin: 05/15/17 08:59 Dose: 3 ml Home Med (Patient's Own Drops) 1 drop OS BID ANGIE Last Admin: 05/14/17 17:42 Dose: 1 drop Norepinephrine Bitartrate 8 mg (/ Dextrose) 258 mls @ 7.74 mls/hr IV .Q24H PRN ; Protocol; 4 MCG/MIN PRN Reason: TITRATE PER MD ORDER Last Titration: 05/12/17 08:30 Dose: 0 mcg/min, 0 mls/hr Phenylephrine HCl 30 mg/ (Dextrose) 253 mls @ 10.12 mls/hr IV .Q24H PRN; Protocol; 20 MCG/MIN PRN Reason: TITRATE PER MD ORDER Last Admin: 05/15/17 03:50 Dose: 30 mcg/min, 15.18 mls/hr Dexmedetomidine HCl 200 mcg/ (Sodium Chloride) 50 mls @ 4.83 mls/hr IV TITR PRN ; Protocol; 0.2 MCG/KG/HR PRN Reason: Agitation Last Admin: 05/15/17 03:48 Dose: 0.4 mcg/kg/hr, 9.66 mls/hr Sodium Chloride (Sodium Chloride 0.9%) 1,000 mls @ 50 mls/hr IV .Q20H [facility] Last Admin: 05/15/17 01:15 Dose: Not Given Tigecycline 25 mg/ Dextrose 100 mls @ 100 mls/hr IVPB 0000,1200 [facility] Last Admin: 05/15/17 11:45 Dose: 100 mls/hr Meropenem 500 mg/ Sodium (Chloride) 100 mls @ 200 mls/hr IVPB 0800,2000 [facility] Last Admin: 05/15/17 08:26 Dose: 200 mls/hr Morphine Sulfate 250 mg/ (Dextrose) 250 mls @ 4 mls/hr IV .Q24H ONE PRN Reason: Protocol Stop: 05/16/17 09:59 Last Admin: 05/15/17 10:27 Dose: 5 mls/hr, 5 mls/hr Lorazepam (Ativan) 1 mg IVP Q4H PRN PRN Reason: Agitation Last Admin: 05/15/17 00:43 Dose: 1 mg Methylprednisolone (Solu-Medrol) 40 mg IVP Q8H [facility] Last Admin: 05/15/17 11:40 Dose: 40 mg Nystatin (Nystop Topical Powder) 1 applic TOP BID [facility] Last Admin: 05/15/17 11:40 Dose: 1 applic Pantoprazole Sodium (Protonix Susp) 40 mg GT DAILY [facility] - Labs Labs: 05/15/17 06:43 05/15/17 06:43 PT 19.8 SECONDS (9.7-12.2) H 05/11/17 01:04 INR 1.7 05/11/17 01:04 APTT 34 SECONDS (21-34) 05/11/17 06:16
--- NOTE | 2017-05-15 14:07 | CP.PCM.PN ---
Subjective - Date & Time of Evaluation Date of Evaluation: 05/15/17 Time of Evaluation: 14:07 Objective - Vital Signs/Intake and Output Vital Signs (last 24 hours): Temp Pulse Resp BP Pulse Ox 97.5 F L 41 L 12 59/31 L 80 L 05/15/17 12:00 05/15/17 13:19 05/15/17 13:19 05/15/17 13:19 05/15/17 12:09 Intake and Output: 05/15/17 05/15/17 06:59 18:59 Intake Total 1494.4 134.3 Output Total 160 Balance 1334.4 134.3 - Medications Medications: Current Medications Acetaminophen (Tylenol 650 Mg Supp) 650 mg RI Q6 PRN PRN Reason: for temp.=..>100.5 Last Admin: 05/11/17 17:39 Dose: 650 mg Albuterol/Ipratropium (Duoneb 3 Mg/0.5 Mg (3 Ml) Ud) 3 ml INH RQ6 [facility] Last Admin: 05/15/17 08:59 Dose: 3 ml Home Med (Patient's Own Drops) 1 drop OS BID [facility] Last Admin: 05/14/17 17:42 Dose: 1 drop Norepinephrine Bitartrate 8 mg (/ Dextrose) 258 mls @ 7.74 mls/hr IV .Q24H PRN ; Protocol; 4 MCG/MIN PRN Reason: TITRATE PER MD ORDER Last Titration: 05/12/17 08:30 Dose: 0 mcg/min, 0 mls/hr Phenylephrine HCl 30 mg/ (Dextrose) 253 mls @ 10.12 mls/hr IV .Q24H PRN; Protocol; 20 MCG/MIN PRN Reason: TITRATE PER MD ORDER Last Admin: 05/15/17 03:50 Dose: 30 mcg/min, 15.18 mls/hr Dexmedetomidine HCl 200 mcg/ (Sodium Chloride) 50 mls @ 4.83 mls/hr IV TITR PRN ; Protocol; 0.2 MCG/KG/HR PRN Reason: Agitation Last Admin: 05/15/17 03:48 Dose: 0.4 mcg/kg/hr, 9.66 mls/hr Sodium Chloride (Sodium Chloride 0.9%) 1,000 mls @ 50 mls/hr IV .Q20H [facility] Last Admin: 05/15/17 01:15 Dose: Not Given Tigecycline 25 mg/ Dextrose 100 mls @ 100 mls/hr IVPB 0000,1200 [facility] Last Admin: 05/15/17 11:45 Dose: 100 mls/hr Meropenem 500 mg/ Sodium (Chloride) 100 mls @ 200 mls/hr IVPB 0800,2000 [facility] Last Admin: 05/15/17 08:26 Dose: 200 mls/hr Morphine Sulfate 250 mg/ (Dextrose) 250 mls @ 4 mls/hr IV .Q24H ONE PRN Reason: Protocol Stop: 05/16/17 09:59 Last Admin: 05/15/17 10:27 Dose: 5 mls/hr, 5 mls/hr Lorazepam (Ativan) 1 mg IVP Q4H PRN PRN Reason: Agitation Last Admin: 05/15/17 00:43 Dose: 1 mg Methylprednisolone (Solu-Medrol) 40 mg IVP Q8H [facility] Last Admin: 05/15/17 11:40 Dose: 40 mg Nystatin (Nystop Topical Powder) 1 applic TOP BID [facility] Last Admin: 05/15/17 11:40 Dose: 1 applic Pantoprazole Sodium (Protonix Susp) 40 mg GT DAILY [facility] - Labs Labs: 05/15/17 06:43 05/15/17 06:43 PT 19.8 SECONDS (9.7-12.2) H 05/11/17 01:04 INR 1.7 05/11/17 01:04 APTT 34 SECONDS (21-34) 05/11/17 06:16 Assessment and Plan (1) Septic shock Status: Acute (2) Respiratory arrest Status: Acute (3) Acute renal insufficiency Status: Acute (4) Cardiac arrest Status: Acute (5) Atrial fibrillation with RVR Status: Acute (6) Bilateral lower leg cellulitis Status: Acute (7) CHF exacerbation Status: Acute (8) COPD exacerbation Status: Acute (9) Cirrhosis of liver Status: Acute (10) Hepatitis-C Status: Acute
--- NOTE | 2017-05-15 15:20 | CP.PCM.PN ---
Subjective - Date & Time of Evaluation Date of Evaluation: 05/15/17 Time of Evaluation: 10:30 - Subjective Subjective: Patient seen and examined in the intensive care unit. post cardiac arrest/resuscitation x2 on ventilatory support no response to painful stimuli Worsening renal function Hypotensive on pressors Objective - Vital Signs/Intake and Output Vital Signs (last 24 hours): Temp Pulse Resp BP Pulse Ox 97.5 F L 40 L 10 L 60/30 L 80 L 05/15/17 12:00 05/15/17 15:06 05/15/17 15:06 05/15/17 15:07 05/15/17 15:06 Intake and Output: 05/15/17 05/15/17 06:59 18:59 Intake Total 1494.4 144.3 Output Total 160 Balance 1334.4 144.3 - Medications Medications: Current Medications Acetaminophen (Tylenol 650 Mg Supp) 650 mg NM Q6 PRN PRN Reason: for temp.=..>100.5 Last Admin: 05/11/17 17:39 Dose: 650 mg Albuterol/Ipratropium (Duoneb 3 Mg/0.5 Mg (3 Ml) Ud) 3 ml INH RQ6 ANGIE Last Admin: 05/15/17 08:59 Dose: 3 ml Home Med (Patient's Own Drops) 1 drop OS BID ANGIE Last Admin: 05/14/17 17:42 Dose: 1 drop Norepinephrine Bitartrate 8 mg (/ Dextrose) 258 mls @ 7.74 mls/hr IV .Q24H PRN ; Protocol; 4 MCG/MIN PRN Reason: TITRATE PER MD ORDER Last Titration: 05/12/17 08:30 Dose: 0 mcg/min, 0 mls/hr Phenylephrine HCl 30 mg/ (Dextrose) 253 mls @ 10.12 mls/hr IV .Q24H PRN; Protocol; 20 MCG/MIN PRN Reason: TITRATE PER MD ORDER Last Admin: 05/15/17 03:50 Dose: 30 mcg/min, 15.18 mls/hr Dexmedetomidine HCl 200 mcg/ (Sodium Chloride) 50 mls @ 4.83 mls/hr IV TITR PRN ; Protocol; 0.2 MCG/KG/HR PRN Reason: Agitation Last Admin: 05/15/17 03:48 Dose: 0.4 mcg/kg/hr, 9.66 mls/hr Sodium Chloride (Sodium Chloride 0.9%) 1,000 mls @ 50 mls/hr IV .Q20H [facility] Last Admin: 05/15/17 01:15 Dose: Not Given Tigecycline 25 mg/ Dextrose 100 mls @ 100 mls/hr IVPB 0000,1200 [facility] Last Admin: 05/15/17 11:45 Dose: 100 mls/hr Meropenem 500 mg/ Sodium (Chloride) 100 mls @ 200 mls/hr IVPB 0800,2000 [facility] Last Admin: 05/15/17 08:26 Dose: 200 mls/hr Morphine Sulfate 250 mg/ (Dextrose) 250 mls @ 4 mls/hr IV .Q24H ONE PRN Reason: Protocol Stop: 05/16/17 09:59 Last Admin: 05/15/17 10:27 Dose: 5 mls/hr, 5 mls/hr Lorazepam (Ativan) 1 mg IVP Q4H PRN PRN Reason: Agitation Last Admin: 05/15/17 00:43 Dose: 1 mg Methylprednisolone (Solu-Medrol) 40 mg IVP Q8H [facility] Last Admin: 05/15/17 11:40 Dose: 40 mg Nystatin (Nystop Topical Powder) 1 applic TOP BID [facility] Last Admin: 05/15/17 11:40 Dose: 1 applic Pantoprazole Sodium (Protonix Susp) 40 mg GT DAILY [facility] - Labs Labs: 05/15/17 06:43 05/15/17 06:43 PT 19.8 SECONDS (9.7-12.2) H 05/11/17 01:04 INR 1.7 05/11/17 01:04 APTT 34 SECONDS (21-34) 05/11/17 06:16 - Head Exam Head Exam: ATRAUMATIC, NORMOCEPHALIC - Respiratory Exam Respiratory Exam: Decreased Breath Sounds - Cardiovascular Exam Cardiovascular Exam: Irregular Rhythm - GI/Abdominal Exam GI & Abdominal Exam: Soft Assessment and Plan (1) Cardiac arrest Assessment & Plan: status post resuscitation, hypotensive on pressors worsening renal function Prognosis poor Status: Acute (2) Septic shock Status: Acute (3) Cellulitis Status: Acute (4) Chronic obstructive lung disease Status: Acute
[2017-05-15] MEDS: COMBIGAN OS SCH ×2 (16:33→18:18)
--- NOTE | 2017-05-15 17:07 | CP.PCM.PN ---
Subjective - Date & Time of Evaluation Date of Evaluation: 05/15/17 Time of Evaluation: 17:07 - Subjective Subjective: S/P CODE X2 resusitated. Hypotensive,ON VASOPRESSORS ON VENTILATOR, UNRESPONSIVE. LABS; REVIEWED WBC 26.6 CREAT 5.0/BUN K6.0 sputum 05/13/17 GNR. BLOOD CULTURE -VE TO DATE. URINE CULTURE -VE. CXR 05/14/17 PATCHY B/L INFILTRATES RT>LT.LUNG -VE PTX. SMALL LT. PLEURAL EFFUSION Objective - Vital Signs/Intake and Output Vital Signs (last 24 hours): Temp Pulse Resp BP Pulse Ox 97.5 F L 40 L 10 L 60/30 L 80 L 05/15/17 12:00 05/15/17 15:06 05/15/17 15:06 05/15/17 15:07 05/15/17 15:06 Intake and Output: 05/15/17 05/15/17 06:59 18:59 Intake Total 1494.4 144.3 Output Total 160 Balance 1334.4 144.3 - Medications Medications: Current Medications Acetaminophen (Tylenol 650 Mg Supp) 650 mg TN Q6 PRN PRN Reason: for temp.=..>100.5 Last Admin: 05/11/17 17:39 Dose: 650 mg Albuterol/Ipratropium (Duoneb 3 Mg/0.5 Mg (3 Ml) Ud) 3 ml INH RQ6 ANGIE Last Admin: 05/15/17 08:59 Dose: 3 ml Home Med (Patient's Own Drops) 1 drop OS BID [facility]I Last Admin: 05/15/17 16:33 Dose: 1 drop Norepinephrine Bitartrate 8 mg (/ Dextrose) 258 mls @ 7.74 mls/hr IV .Q24H PRN ; Protocol; 4 MCG/MIN PRN Reason: TITRATE PER MD ORDER Last Titration: 05/12/17 08:30 Dose: 0 mcg/min, 0 mls/hr Phenylephrine HCl 30 mg/ (Dextrose) 253 mls @ 10.12 mls/hr IV .Q24H PRN; Protocol; 20 MCG/MIN PRN Reason: TITRATE PER MD ORDER Last Admin: 05/15/17 03:50 Dose: 30 mcg/min, 15.18 mls/hr Dexmedetomidine HCl 200 mcg/ (Sodium Chloride) 50 mls @ 4.83 mls/hr IV TITR PRN ; Protocol; 0.2 MCG/KG/HR PRN Reason: Agitation Last Admin: 05/15/17 03:48 Dose: 0.4 mcg/kg/hr, 9.66 mls/hr Sodium Chloride (Sodium Chloride 0.9%) 1,000 mls @ 50 mls/hr IV .Q20H [facility] Last Admin: 05/15/17 01:15 Dose: Not Given Tigecycline 25 mg/ Dextrose 100 mls @ 100 mls/hr IVPB 0000,1200 [facility] Last Admin: 05/15/17 11:45 Dose: 100 mls/hr Meropenem 500 mg/ Sodium (Chloride) 100 mls @ 200 mls/hr IVPB 0800,2000 [facility] Last Admin: 05/15/17 08:26 Dose: 200 mls/hr Morphine Sulfate 250 mg/ (Dextrose) 250 mls @ 4 mls/hr IV .Q24H ONE PRN Reason: Protocol Stop: 05/16/17 09:59 Last Admin: 05/15/17 10:27 Dose: 5 mls/hr, 5 mls/hr Lorazepam (Ativan) 1 mg IVP Q4H PRN PRN Reason: Agitation Last Admin: 05/15/17 00:43 Dose: 1 mg Methylprednisolone (Solu-Medrol) 40 mg IVP Q8H [facility] Last Admin: 05/15/17 11:40 Dose: 40 mg Nystatin (Nystop Topical Powder) 1 applic TOP BID [facility] Last Admin: 05/15/17 11:40 Dose: 1 applic Pantoprazole Sodium (Protonix Susp) 40 mg GT DAILY [facility] - Labs Labs: 05/15/17 06:43 05/15/17 06:43 PT 19.8 SECONDS (9.7-12.2) H 05/11/17 01:04 INR 1.7 05/11/17 01:04 APTT 34 SECONDS (21-34) 05/11/17 06:16 - Constitutional Appears: No Acute Distress (UNRESPONSIVE) - Head Exam Head Exam: NORMAL INSPECTION - Eye Exam Pupil Exam: Unequal - ENT Exam ENT Exam: Normal Oropharynx - Neck Exam Neck Exam: Normal Inspection - Respiratory Exam Respiratory Exam: Rales, Rhonchi - Cardiovascular Exam Cardiovascular Exam: Tachycardia, +S1, +S2 - GI/Abdominal Exam GI & Abdominal Exam: Soft (+VE ASCITES, OBESE.), Normal Bowel Sounds - Extremities Exam Extremities Exam: Pedal Edema (B/L CELLULITIS WITH WEEPING ULCERS LE.). absent : Calf Tenderness - Neurological Exam Neurological Exam: Altered - Skin Skin Exam: Pallor Assessment and Plan (1) Septic shock Assessment & Plan: S/P CARDIAC ARREST X2 ,HYPOTENSIVE ON VASOPRESSORS ACUTE RENAL FAILURE ,HYPERKALEMIC AND SEVERE METABOLIC ACIDOSIS-MULTIORGAN FAILURE ON IV MERREM 500MG IV Q 12HRLY FOR NOW. 05/14/17 ON IV TYGACIL FOR MRSA/AND MDR ORGS 05/13/17. F/U CULTURES. PROGNOSIS GUARDED /POOR. DISCUSSIONS WITH FAMILY ON GOING. Status: Acute (2) Respiratory arrest Status: Acute (3) Acute renal insufficiency Status: Acute (4) Cardiac arrest Status: Acute (5) Atrial fibrillation with RVR Status: Acute (6) Bilateral lower leg cellulitis Status: Acute (7) CHF exacerbation Status: Acute (8) COPD exacerbation Status: Acute (9) Cirrhosis of liver Status: Acute (10) Hepatitis-C Status: Acute
[2017-05-15 18:47] VITALS: O2SAT 77
[2017-05-15 20:52] VITALS: TEMP 96.2
[2017-05-15 22:21] VITALS: BP 55/28; PULSE 36; RESP 8
--- NOTE | 2017-05-16 00:43 | CP.PCM.PRO ---
Pronouncement of Note - Clinical Findings Physical Exam: No Response Verbal/Painful Stimuli, Absent Peripheral Pulses{ Carotid & Femoral}, Absent Heart & Breath Sounds, No Pupillary Light Reflex, No Corneal Reflex, Pupils Fixed & Dilated, Absence of Vital Signs - Pronouncement Time Time of Pronouncement of : 23:04 (Acual date of is ) - Notifications Pronouncement Notifications: Family Notified, Atending Notified Urology Physician Notified: Yes - Autopsy Autopsy Requested: Yes - [place] [id number]
[2017-05-16] MEDS ORDERED: Pantoprazole 40 mg Susp UD GT SCH (10:00)
--- NOTE | 2017-05-16 13:57 | CP.PCM.DIS ---
Provider - Provider Date of Admission: 05/11/17 01:22 Attending physician: Gretel Bazan MD Time Spent in preparation of Discharge (in minutes): 35 Hospital Course - Lab Results Lab Results: Micro Results 05/13/17 09:42 Other: Please Indicate Gram Stain - Final 05/13/17 09:42 Other: Please Indicate Wound Culture - Preliminary No growth. 05/13/17 09:41 Blood-Venous Blood Culture - Preliminary NO GROWTH AFTER 3 DAYS 05/13/17 09:41 Blood-Venous Blood Culture - Preliminary NO GROWTH AFTER 3 DAYS 05/13/17 12:19 Trachasp Gram Stain - Final 05/13/17 12:19 Trachasp Sputum Culture - Final Klebsiella Pneumoniae Ssp Pneu 05/13/17 09:45 Urine,Corral Urine Culture - Final No Growth (<1,000 CFU/ML) 05/11/17 02:30 Nose MRSA Culture (Admit) - Final MRSA NOT DETECTED Most Recent Lab Values WBC 26.5 K/uL (4.8-10.8) H 05/15/17 06:43 RBC 3.75 Mil/uL (4.40-5.90) L 05/15/17 06:43 Hgb 11.3 g/dL (12.0-18.0) L 05/15/17 06:43 Hct 36.2 % (35.0-51.0) 05/15/17 06:43 MCV 96.4 fL (80.0-94.0) H 05/15/17 06:43 MCH 30.2 pg (27.0-31.0) 05/15/17 06:43 MCHC 31.3 g/dL (33.0-37.0) L 05/15/17 06:43 RDW 19.9 % (11.5-14.5) H 05/15/17 06:43 Plt Count 88 K/uL (130-400) L D 05/15/17 06:43 MPV 10.7 fL (7.2-11.7) 05/15/17 06:43 Neut % (Auto) 93.2 % (50.0-75.0) H 05/15/17 06:43 Lymph % (Auto) 4.3 % (20.0-40.0) L 05/15/17 06:43 Leake % (Auto) 2.2 % (0.0-10.0) 05/15/17 06:43 Eos % (Auto) 0.0 % (0.0-4.0) 05/15/17 06:43 Baso % (Auto) 0.3 % (0.0-2.0) 05/15/17 06:43 Neut # 24.7 K/uL (1.8-7.0) H 05/15/17 06:43 Lymph # 1.1 K/uL (1.0-4.3) 05/15/17 06:43 Leake # 0.6 K/uL (0.0-0.8) 05/15/17 06:43 Eos # 0.0 K/uL (0.0-0.7) 05/15/17 06:43 Baso # 0.1 K/uL (0.0-0.2) 05/15/17 06:43 Neutrophils % (Manual) 94 % (50-75) H 05/15/17 06:43 Band Neutrophils % 1 % (0-2) 05/14/17 06:23 Lymphocytes % (Manual) 3 % (20-40) L 05/15/17 06:43 Reactive Lymphs % 1 % (0-0) H 05/11/17 01:04 Monocytes % (Manual) 3 % (0-10) 05/15/17 06:43 Nucleated RBC % 1 % (0-0) H 05/14/17 06:23 Differential Comment 05/11/17 07:48 Platelet Estimate Decreased (NORMAL) L 05/15/17 06:43 Polychromasia Slight 05/12/17 06:24 Hypochromasia (manual) Slight 05/15/17 06:43 Poikilocytosis (manual Slight 05/15/17 06:43 Anisocytosis (manual) Slight 05/15/17 06:43 Macrocytosis (manual) Slight 05/14/17 06:23 Pineda Cells Slight 05/15/17 06:43 ESR 12 mm/hr (0-15) 05/13/17 06:09 PT 19.8 SECONDS (9.7-12.2) H 05/11/17 01:04 INR 1.7 05/11/17 01:04 APTT 34 SECONDS (21-34) 05/11/17 06:16 Puncture Site R fem 05/15/17 05:14 pCO2 100 mm/Hg (35-45) H* 05/15/17 05:14 pO2 29 mm/Hg (80-100) L* 05/15/17 05:14 HCO3 24.1 mmol/L (21-28) 05/15/17 05:14 ABG pH 7.11 (7.35-7.45) L* 05/15/17 05:14 ABG Total CO2 34.9 mmol/L (22-28) H 05/15/17 05:14 ABG O2 Saturation 36.3 % (95-98) L 05/15/17 05:14 ABG Base Excess 0.5 mmol/L (-2.0-3.0) 05/15/17 05:14 ABG Hemoglobin 10.0 g/dL (11.7-17.4) L 05/15/17 05:14 ABG Carboxyhemoglobin 1.8 % (0.5-1.5) H 05/15/17 05:14 POC ABG HHb (Measured) 62.2 % (0.0-5.0) H 05/15/17 05:14 ABG Methemoglobin 0.5 % (0.0-3.0) 05/15/17 05:14 Eris Test Na 05/15/17 05:14 ABG Potassium 3.9 mmol/L (3.6-5.2) 05/11/17 05:55 A-a O2 Difference 559.0 mm/Hg 05/15/17 05:14 Respiratory Index 19.3 05/15/17 05:14 Hgb O2 Saturation 35.5 % (95.0-98.0) L 05/15/17 05:14 Sodium 135.0 mmol/l (132-148) 05/11/17 05:55 Chloride 97.0 mmol/L (98-107) L 05/11/17 05:55 Glucose 106 mg/dl (75-110) 05/11/17 05:55 Lactate 2.5 mmol/L (0.7-2.1) H 05/11/17 05:55 Vent Mode Ac 05/14/17 05:08 Mechanical Rate 24 05/15/17 05:14 FiO2 100.0 % 05/15/17 05:14 Tidal Volume 500 05/15/17 05:14 PEEP 5 05/15/17 05:14 Crit Value Called To Dr curran 05/15/17 05:14 Crit Value Called By Carie morgan rt 05/15/17 05:14 Crit Value Read Back Y 05/15/17 05:14 Blood Gas Notified Time 620 05/15/17 05:14 Sodium 132 mmol/L (132-148) 05/15/17 06:43 Potassium 6.0 mmol/L (3.6-5.2) H 05/15/17 06:43 Chloride 87 mmol/L (98-107) L 05/15/17 06:43 Carbon Dioxide 31 mmol/L (22-30) H 05/15/17 06:43 Anion Gap 20 (10-20) 05/15/17 06:43 BUN mg/dL (9-20) 05/15/17 06:43 Creatinine 5.0 MG/DL (0.8-1.5) H 05/15/17 06:43 Est GFR ( Amer) 14 05/15/17 06:43 Est GFR (Non-Af Amer) 11 05/15/17 06:43 POC Glucose (mg/dL) 92 mg/dL (65-110) 05/15/17 17:52 Random Glucose 152 mg/dL (75-110) H 05/15/17 06:43 Serum Osmolality 317 mosm/kg (272-300) H 05/12/17 20:57 Calcium 9.6 mg/dl (8.6-10.4) 05/15/17 06:43 Phosphorus 9.3 mg/dL (2.5-4.5) H 05/15/17 06:43 Magnesium 2.5 mg/dL (1.6-2.3) H 05/15/17 06:43 Total Bilirubin 2.7 mg/dL (0.2-1.3) H 05/15/17 06:43 AST 68 U/L (17-59) H D 05/15/17 06:43 ALT 52 U/L (21-72) 05/15/17 06:43 Alkaline Phosphatase 85 U/L (38-126) 05/15/17 06:43 Troponin I 3.5400 ng/mL (0.00-0.120) H* 05/11/17 06:16 NT-Pro-B Natriuret Pep 36749 pg/mL (0-900) H 05/11/17 01:04 Total Protein 5.4 g/dL (6.3-8.3) L 05/15/17 06:43 Albumin 2.6 g/dL (3.5-5.0) L 05/15/17 06:43 Globulin 2.7 gm/dL (2.2-3.9) 05/15/17 06:43 Albumin/Globulin Ratio 1.0 (1.0-2.1) 05/15/17 06:43 Procalcitonin 2.63 NG/ML (0.19-0.49) H 05/13/17 Unknown Arterial Blood Potassium 3.9 mmol/L (3.6-5.2) 05/11/17 05:55 Urine Color Janae (YELLOW) 05/11/17 01:46 Urine Clarity Hazy (Clear) 05/11/17 01:46 Urine pH 5.0 (5.0-8.0) 05/11/17 01:46 Ur Specific [place] 1.012 (1.003-1.030) 05/11/17 01:46 Urine Protein 1+ mg/dL (NEGATIVE) H 05/11/17 01:46 Urine Glucose (UA) Normal mg/dL (Normal) 05/11/17 01:46 Urine Ketones Negative mg/dL (NEGATIVE) 05/11/17 01:46 Urine Blood Negative (NEGATIVE) 05/11/17 01:46 Urine Nitrate Negative (NEGATIVE) 05/11/17 01:46 Urine Bilirubin Negative (NEGATIVE) 05/11/17 01:46 Urine Urobilinogen Normal mg/dL (0.2-1.0) 05/11/17 01:46 Ur Leukocyte Esterase Neg Macho/uL (Negative) 05/11/17 01:46 Urine WBC (Auto) 3 /hpf (0-5) 05/11/17 01:46 Urine RBC (Auto) 18 /hpf (0-3) H 05/11/17 01:46 Ur Squamous Epith Cells 1 /hpf (0-5) 05/11/17 01:46 Urine Eosinophils Negative (NEGATIVE) 05/13/17 15:48 Urine Osmolality 328 mosm/kg (300-1000) 05/13/17 03:54 Ur Random Creatinine 47.7 mg/dL 05/13/17 03:54 Ur Random Sodium 9 mmol/L 05/13/17 03:54 Ur Random Potassium 54.0 mmol/L 05/13/17 03:54 Urine Chloride 21 mmol/L (32-290) L 05/13/17 03:54 Vancomycin Trough 32.3 ug/mL (5.0-10.0) H 05/12/17 11:13 Random Vancomycin 28.24 ug/mL 05/13/17 06:53 Digoxin 1.8 ng/mL (0.8-2.0) 05/11/17 01:04 Urine Opiates Screen Negative (NEGATIVE) 05/11/17 01:51 Urine Methadone Screen Negative (NEGATIVE) 05/11/17 01:51 Ur Barbiturates Screen Negative (NEGATIVE) 05/11/17 01:51 Ur Phencyclidine Scrn Negative (NEGATIVE) 05/11/17 01:51 Ur Amphetamines Screen Negative (NEGATIVE) 05/11/17 01:51 U Benzodiazepines Scrn Negative (NEGATIVE) 05/11/17 01:51 U Oth Cocaine Metabols Negative (NEGATIVE) 05/11/17 01:51 U Cannabinoids Screen Negative (NEGATIVE) 05/11/17 01:51 Hep Bs Antigen Negative (NEGATIVE) 05/14/17 10:54 Hep Bs Antibody Negative (NEGATIVE) 05/14/17 10:54 Hep B Core IgM Ab Negative (NEGATIVE) 05/14/17 10:54 Hepatitis C Antibody Reactive (NEGATIVE) H 05/14/17 10:54 Blood Type O POSITIVE 05/14/17 11:17 Antibody Screen Negative 05/14/17 11:17 - Hospital Course Hospital Course: 72 M with h/o COPD, CHF ef 25-30%, h/o afib refused anticoagulation, h/o hepc, alcohols abuse, cirrhosis, pul htn, chronic leg ulcers with infection pvd brought to ER with cardiac arrest in field. As per the information from the ER, patients sob for some time worsening, ems went to him 18 hr ago patient refused to come, h/o being DNR during prior hospitalization. EMS again vent today for c/o resp distress, patient had witness arrest and responded with 1st round of cpr with return of circulation. Patient intubated in the field Patient only had some response to painful stimuli, not awake now, had to be started on levophed in ER. PAST HIST. 2 ERISODES OF CARDIAC ARREST IN PAST /A. 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 LEG EDEMA WITH CELLULITIS . LAST WAS TREATED IN [facility] WITH IV AB WITH NEG CULTURES . PER LIVING , KEPT LEGS UNHYGENIC WITH URINE DRIBBLING AND DRINKING WINE DAILY . PRVOIS H/O OF MRSA AND PSEUDOMONAS INFECTION OF LEGS PT WAS MANAGED IN ICU. PT NEVER GAINED CONSCIOUSNESS FAMILY CONTINUED ON FULL CODE PT HAD ON DIAYLISIS AND FOLLOWING THAT HAD ANOTHER CARDIO-PULM ARREST REVIVED WITH [facility] THEN ON PT BP AND CIRCULATORY FAILURE BECAME RESISTANT TO ANY INTERVENTION PT ON 05/15 Discharge Exam - Head Exam Head Exam: NORMAL INSPECTION Discharge Plan - Follow Up Plan Condition: CRITICAL Disposition: WITH WITHOUT AUTOPSY
== END 2017-05-16 02:44 | DRG 871 ==
LOC: C.ER 00:08 → C.9I 01:22
PROVIDERS: ADMIT Internal Medicine; ATTEND Internal Medicine Cardiovascular Disease
PROC: 5A1945Z Respiratory Ventilation, 24-96 Consecutive Hours (ICD-10-PCS; principal; 2017-05-11)
PROC: 30233R1 Transfusion of Nonautologous Platelets into Peripheral Vein, Percutaneous Approach (ICD-10-PCS; 2017-05-14)
DX: A41.9 Sepsis, unspecified organism (principal); N17.0 Acute kidney failure with tubular necrosis; J96.90 Respiratory failure, unspecified, unspecified whether with hypoxia or hypercapnia; I21.4 Non-ST elevation (NSTEMI) myocardial infarction; I46.2 Cardiac arrest due to underlying cardiac condition; R65.21 Severe sepsis with septic shock; I11.0 Hypertensive heart disease with heart failure; J18.9 Pneumonia, unspecified organism; J44.0 Chronic obstructive pulmonary disease with (acute) lower respiratory infection; K76.6 Portal hypertension; I50.9 Heart failure, unspecified; I42.9 Cardiomyopathy, unspecified; L03.115 Cellulitis of right lower limb; L03.116 Cellulitis of left lower limb; J44.1 Chronic obstructive pulmonary disease with (acute) exacerbation; L97.829 Non-pressure chronic ulcer of other part of left lower leg with unspecified severity; L97.819 Non-pressure chronic ulcer of other part of right lower leg with unspecified severity; I27.2 Other secondary pulmonary hypertension; K70.30 Alcoholic cirrhosis of liver without ascites; I48.91 Unspecified atrial fibrillation; Z91.19 Patient's noncompliance with other medical treatment and regimen; I87.2 Venous insufficiency (chronic) (peripheral); Z66 Do not resuscitate; B18.2 Chronic viral hepatitis C; K70.40 Alcoholic hepatic failure without coma; D69.6 Thrombocytopenia, unspecified; E86.9 Volume depletion, unspecified; Z51.5 Encounter for palliative care; Z85.46 Personal history of malignant neoplasm of prostate; Z86.14 Personal history of Methicillin resistant Staphylococcus aureus infection; Z87.891 Personal history of nicotine dependence; Z92.3 Personal history of irradiation; Z87.01 Personal history of pneumonia (recurrent); I25.2 Old myocardial infarction; D63.8 Anemia in other chronic diseases classified elsewhere; F10.10 Alcohol abuse, uncomplicated